=== PATIENT | male | born 1955 | race Caucasian/White ===

== ENCOUNTER → 2016-12-13 | Outpatient (CLI) | payer MEDICARE, OTHER ==
[2016-08-29 16:44] VITALS: BP 126/78
[~2016-12-13] MED LIST: ALLO300T PO; AMIO100T4 PO; AMIO150P5 IV; AMIO200T2 PO; AMLO5TAB2 PO; FURO-68 PO; FURO40TA4 PO; HYDR-2762 PO; HYDR12.58 PO; LISI10TA2 PO; LISI40TA PO; NAPR500T3 PO; PANT40TA5 PO; POTA10TA5 PO; POTA20TA4 PO; POTA20TA82 PO; PRED-220 PO; RIVA10TA PO; SOTA120T PO; SOTA80TA PO; WARF5TAB7 PO; Warfarin Sodium MC; black cherry
--- NOTE | 2016-12-13 17:10 | RAD ---
PROCEDURE MRI cervical spine without contrast. HISTORY Cervical radiculopathy for 7 years, fall, right arm radiculopathy, history of cervical fracture TECHNIQUE Sagittal and axial T2, sagittal T1, sagittal STIR images were acquired of the cervical spine. Contrast: None COMPARISON None FINDINGS There is straightening of the cervical spine, very mild reversal of the lordotic curvature centered at C6. Cervical vertebral body stature is adequate. There is advanced degenerative disc disease at C6-7, to lesser degree at C5-C6. There is mild grade 1 anterior spondylolisthesis at T1-T2, degenerative disc disease also at this level. Cervical cord caliber is within normal limits. There may be mild increased T2 and STIR signal abnormality of the cord at T1-2 although there is some artifact of the cord. There also could be very subtle T2 hyperintense signal abnormality of the cord at C4-5. There is no significant marrow edema. There is no significant abnormality of the cervical medullary junction. Not fully included, there apparently some fluid about the right sternoclavicular articulation. C2-C3: There is moderate right facet degenerative change. There is narrowing of the central canal to 9 millimeters on a developmental basis. Neural foramina are overall adequate. C3-C4: There is mild facet degenerative change. There is negligible bulge. Central canal is minimally narrowed to 8-9 millimeters mostly on a developmental basis. There is minimal narrowing of the neural foramina bilaterally mostly on a developmental basis. C4-C5: There is buckling of the ligamentum flavum. There is posterior protrusion greatest centrally. There is effacement of the ventral and dorsal subarachnoid space with impingement of the cord, central canal narrowed to 4-5 millimeters. There is mild neural foramina compromise on a developmental basis, no significant additional narrowing. C5-C6: Disc osteophyte complex and bulge and central protrusion, effacement of the ventral subarachnoid space and impingement of the cord, central canal narrowed to 5-6 millimeters. There is mild additional narrowing of the neural foramina bilaterally. C6-7: There is posterior bulge/central protrusion. There is minimal buckling of the ligamentum flavum. There is effacement of the ventral and dorsal subarachnoid space with impingement of the cord, central canal narrowed to 5-6 millimeters. There is likely moderate to severe narrowing of the left neural foramen in part from uncovertebral degenerative change, mild additional narrowing on the right. C7-T1: There is apparently very shallow protrusion in the right paracentral region. Central canal is minimally narrowed to 9-10 millimeters. There is likely mild to moderate narrowing of the left neural foramen, right neural foramen not obviously narrowed. T1-T2: This level was not included on the axial images. There is a posterior mostly central protrusion/contained extrusion, impingement upon the ventral cord with narrowing of the central canal on the order of approximately 7-8 millimeters, likely mild left and moderate to severe right neural foramina compromise. IMPRESSION 1. There is somewhat diffuse narrowing of the cervical spinal canal on a developmental basis. There is additional significant spinal stenosis with impingement of the cord as described at C4-5, to a slightly lesser degree at C5-C6 and C6-7. There is other mild spinal stenosis. There is also spinal stenosis to 7-8 millimeters at T1-2 in part by protrusion/contained extrusion. Very mild cord edema or myelomalacia is difficult to exclude such as at C4-5 and T1-2. 2. Accurate evaluation of neural foramina is somewhat compromised due to motion. There is somewhat diffuse narrowing on a developmental basis, additional narrowing as stated greatest on the left at C6-C7 and on the right at T1-2, to a lesser degree on the left at C7-T1. 3. There is advanced degenerative disc disease C6-7, to lesser degree at C5-C6. Electronically signed by: Rashid Doan MD (Dec 13, 2016 17:09:22)
== END | disposition home or self-care (01) ==
LOC: MRI 15:58
PROVIDERS: ATTEND Neurological Surgery
DX: M48.02 Spinal stenosis, cervical region (principal); M50.322 Other cervical disc degeneration at C5-C6 level; M50.323 Other cervical disc degeneration at C6-C7 level
CPT/HCPCS: 72141

== ENCOUNTER 2016-12-25 08:38 | Inpatient (IN) | payer MEDICARE, OTHER ==
--- NOTE | 2016-12-24 16:38 | PREOP HP ---
DATE OF SERVICE: 12/25/2016 HISTORY OF PRESENT ILLNESS: The patient is a pleasant 61-year-old male with numbness and weakness in both of his legs, the left leg is more involved than the right. He has right-sided greater than left-sided lower back pain as well. His problems with the lower extremities began about 6 weeks ago. They have been gradually progressive. Standing and walking are difficult for him when he uses a walker. Sitting does give him some relief. He takes [place] for pain. He tried physical therapy, which was of no benefit. He does not have significant symptoms of his arms. He says strength in his arms and hands is normal. He feels as though there is diffuse mild weakness in both of his lower extremities, but more on the left side. He notices when he bends his head up or down, he can develop sharp electrical sensations which shoot down into his body. PAST MEDICAL HISTORY: Arthritis, gout, head and neck injury, heart disease/trouble, hypertension, swelling of limbs, trauma. PAST SURGICAL HISTORY: Scalp lacerations in 2006, rotator cuff in 2007. FAMILY HISTORY: Cancer, heart problems/disease. SOCIAL HISTORY: Works in the home. . Denies substance abuse. Denies tobacco use. Drinks alcohol one to two times per month. Drinks coffee, tea, and soda. ALLERGIES: No known drug allergies. CURRENT MEDICATIONS: Amiodarone, allopurinol, lisinopril, Lasix, Klor-Con, sotalol, bacteria concentrate, naproxen, and Lasix. REVIEW OF SYSTEMS: A 12-point review of systems was obtained and was noncontributory except for that mentioned above. PHYSICAL EXAMINATION: MUSCULOSKELETAL: On examination, there was no significant tenderness in the cervical region and mild tenderness in the lumbar region with palpation of his upper extremity, normal with regard to his strength. NEUROLOGIC: Sensory testing was intact to light touch in upper and lower extremities. Reflexes are 1+, biceps absent, triceps with trace knee and ankle jerks. He has a light unsteady gait. IMAGING DATA: I reviewed the cervical MRI scan. On the study at C4-C5, the canal is narrowed to 4-5 mm. At C5-C6, there is significant narrowing of the central canal to 5-6 mm. Additionally, at C6-C7, the central canal is narrowed to 5-6 mm. At T1, there is posterior central disc protrusion, which does impinge on the ventral cord with narrowing and central canal on the order of 7-8 mm. ASSESSMENT: I believe that this significant cervical stenosis is responsible for the majority of his symptoms. I recommended cervical laminectomy. I would combine this with the posterior lateral instrumentation and fusion bilaterally. I discussed this with him in detail. He would like to proceed. We will make the arrangements early. I discussed this with him in detail. JEM HAWTHORNE MD DR: DAVE/ashley JOB#: [id number] / [id number] VERONICA
[~2016-12-25] VITALS: Ht 177.8 cm; Wt 172.4 kg
[2016-12-25] VITALS (10 sets, daily range): BP systolic 146–184; BP diastolic 62–108
[~2016-12-25 08:38] MED LIST changes: +ASCO500T2 PO; +BLACK CHERRY; +BUPIVAC MPF-EPI 0.5%-1:200000 30 ML VIAL. ONE; +CEFAZOLIN 2GM PREMIX 50 ML IV PRN; +FENTANYL PF 100 MCG/2 ML VIAL. IV PRN; +GELATIN SPONGE SIZE 100. ONE; +IV RINGERS,LACTATED 1000ML 1,000 ML IV SCH; +KETOROLAC 60 MG/2 ML SYRINGE FOR OR. ONE; +LIDOCAINE 1% 1 ML SYRINGE. ID PRN; +PROCHLORPERAZINE 10 MG/2 ML VIAL. IV PRN; +THROMBIN 20,000 UNIT SPRAY.SYRN KIT TP ONE
[2016-12-25] MEDS ORDERED: CEFAZOLIN PREMIX 2 GM/50 ML BAG. IV ONE (09:00)
[2016-12-25 10:22] LABS: HEMATOCRIT 39.3 % (39.0-53.0); HEMOGLOBIN 13.4 g/dL (13.0-17.5); MEAN CORPUSCULAR HEMOGLOBIN 29 pg (25-35); MEAN CORPUSCULAR HGB CONC 34 g/dL (31-37); MEAN CORPUSCULAR VOLUME 86 fL (79-100); RED BLOOD COUNT 4.57 x10^6/uL (4.30-5.70); WHITE BLOOD COUNT 8.8 x10^3/uL (4.0-11.0)
[2016-12-25 10:23] LABS: BASO # 0.1 x10^3/uL (0.0-0.2); BASO % 1 % (0-3); EOS % 2 % (0-3); LYMPH % 23 % (24-48); MONO % 10 % (0-9); NEUT % 66 % (31-73); PLATELET COUNT 213 x10^3/uL (140-400); RED CELL DISTRIBUTION WIDTH 15.1 % (11.5-14.5)
[2016-12-25 10:34] LABS: INR 1.1 (0.8-1.1); PROTHROMBIN TIME PATIENT 13.8 SEC (11.7-14.0)
[2016-12-25] MEDS ORDERED: ONDANSETRON PF 4 MG/2 ML VIAL. ONE (10:50)
[2016-12-25] MEDS ORDERED: PROPOFOL 20 ML IV ONE (10:50)
[2016-12-25] MEDS ORDERED: LIDOCAINE 2% 100 MG/5 ML DISP.SYRIN. ONE ×2 (10:50→16:00)
[2016-12-25] MEDS ORDERED: PROPOFOL 50 ML IV ONE ×4 (10:50→15:21)
[2016-12-25] MEDS ORDERED: 0.9 % SODIUM CHLORIDE 50 ML VIAL. IJ ONE ×2 (10:50→13:51)
[2016-12-25] MEDS ORDERED: MIDAZOLAM HCL 2 MG/2 ML VIAL. ONE (10:50)
[2016-12-25] MEDS ORDERED: REMIFENTANIL 2 MG VIAL. IV ONE ×2 (10:50→13:50)
[2016-12-25] MEDS ORDERED: DESFLURANE > 120 MINUTES IH ONE (10:50)
[2016-12-25] MEDS ORDERED: FENTANYL PF 100 MCG/2 ML VIAL. ONE (10:50)
[2016-12-25] MEDS ORDERED: MINERAL OIL/PETROLATUM,WHITE OPHTH OINT 3.5GM TUBE. ONE (10:50)
[2016-12-25] MEDS ORDERED: DEXAMETHASONE SOD PHOS 20 MG/5 ML VIAL. ONE (10:50)
[2016-12-25 10:51] LABS: CALCIUM 9.1 mg/dL (8.5-10.1); CREATININE 1.1 mg/dL (0.7-1.3); GFR 68.3; POTASSIUM 3.9 mmol/L (3.5-5.1)
[2016-12-25] MEDS ORDERED: ROCURONIUM 50 MG/5 ML VIAL. ONE (10:52)
[2016-12-25 11:03] LABS: ALBUMIN 3.8 g/dL (3.4-5.0); TOTAL BILIRUBIN 0.5 mg/dL (0.2-1.0); TOTAL PROTEIN 7.6 g/dL (6.4-8.2)
[2016-12-25] MEDS ORDERED: GLYCOPYRROLATE 1 MG/5 ML VIAL. ONE (11:42)
[2016-12-25] MEDS ORDERED: PHENYLEPHRINE in 0.9% NACL PF 1 MG/10 ML DISP.SYRIN. IV ONE (12:00)
[2016-12-25] MEDS ORDERED: EPHEDRINE PF IN SALINE 50 MG/5 ML DISP.SYRIN. IV ONE (12:29)
[2016-12-25] MEDS: BACITRACIN 50,000 UNIT in IV NORMAL SALINE 1000ML BAG 1,000 ML IRR ONE ×2 (12:35→12:40)
[2016-12-25] MEDS ORDERED: ZOLPIDEM 5 MG TABLET. PO PRN (14:45)
[2016-12-25] MEDS ORDERED: CALCIUM CARBONATE 500 MG TAB.CHEW PO PRN (14:45)
[2016-12-25] MEDS ORDERED: ONDANSETRON PF 4 MG/2 ML VIAL. IV PRN (14:45)
[2016-12-25] MEDS ORDERED: MAGNESIUM HYDROXIDE 2,400 MG/30 ML ORAL.SUSP. PO PRN (14:45)
[2016-12-25] MEDS ORDERED: DIPHENHYDRAMINE 50 MG/ML VIAL IV PRN (14:45)
[2016-12-25] MEDS ORDERED: FENTANYL PF 100 MCG/2 ML VIAL. IV PRN (14:45)
[2016-12-25] MEDS ORDERED: MAG HYDROX/ALUMINUM HYD/SIMETH 30 ML ORAL.SUSP PO PRN (14:45)
[2016-12-25] MEDS ORDERED: DIPHENHYDRAMINE HCL 25 MG CAPSULE PO PRN (14:45)
[2016-12-25] MEDS ORDERED: 0.9 % SODIUM CHLORIDE 10 ML DISP.SYRIN. IV PRN (14:45)
[2016-12-25] MEDS ORDERED: ACETAMINOPHEN 325 MG TABLET. PO PRN (14:45)
[2016-12-25] MEDS ORDERED: OXYCODONE/APAP 5/325 TABLET. PO PRN (14:45)
[2016-12-25] MEDS ORDERED: FENTANYL PF 250 MCG/5 ML VIAL. ONE (15:45)
[2016-12-25] MEDS ORDERED: REMIFENTANIL 1 MG VIAL. IV ONE (15:46)
[2016-12-25] MEDS: FUROSEMIDE 40 MG TABLET PO SCH (16:00)
[2016-12-25] MEDS: POTASSIUM CL 20MEQ D5-0.45NACL 1,000 ML IV SCH (16:00)
[2016-12-25] MEDS: MORPHINE SULFATE 2 MG/ML DISP.SYRIN. IV PRN ×3 (16:47→17:17)
[2016-12-25] MEDS: FENTANYL PF 100 MCG/2 ML VIAL. IV PRN ×5 (16:53→19:49)
[2016-12-25] MEDS: HYDROMORPHONE 2 MG/ML VIAL. IV PRN ×4 (17:30→18:05)
[2016-12-25] MEDS: CEFAZOLIN SODIUM 1 GM in IV NORMAL SALINE 50ML 50 ML IV SCH (19:49)
[2016-12-25] MEDS: POTASSIUM CHLORIDE 20 MEQ TABLET.ER. PO SCH (21:34)
[2016-12-25] MEDS: DOCUSATE SODIUM 100 MG CAPSULE PO SCH (21:34)
[2016-12-25] MEDS: SOTALOL 80 MG TABLET. PO SCH (21:35)
[2016-12-25] MEDS: ALLOPURINOL 300 MG TABLET. PO SCH (21:36)
[2016-12-25] MEDS: OXYCODONE/APAP 5/325 TABLET. PO PRN (21:41)
--- NOTE | 2016-12-25 23:35 | OP ---
DATE OF SURGERY: 12/25/2016 PREOPERATIVE DIAGNOSES: Cervical spinal stenosis C4-C5, C5-C6, C6-C7 with cervical myelopathy. POSTOPERATIVE DIAGNOSES: Cervical spinal stenosis C4-C5, C5-C6, C6-C7 with cervical myelopathy. OPERATION PERFORMED: Cervical laminectomy, C4, C5, C6 and superior half of C7 with posterior lateral mass instrumentation, C4-C5, C6-C7 and posterolateral/facet fusion C4 through C7. The operation was done with multimodality monitoring including SSEP, motor evoked potentials, EMG monitoring, fluoroscopy was used and microscopic dissection. SURGEON: Sylvester Hawthorne M.D. DENTAL SERVICE TECHNICIAN: Honorio Ervin M.D., assisted with the exposure, the decompression as well as the closure. OPERATIVE INDICATIONS: The patient is a very pleasant 61-year-old man who over the last several months has developed increasing weakness in his lower extremities and problems with gait, which have become very significant over the last few weeks. On imaging studies, there were two abnormalities of significance. The first was diffuse cervical stenosis, which was very significant at C5-C6 and C6-C7 and as well at T1-T2, there is posterior disc protrusion which does narrow the spinal canal. However, this is not nearly as severe as his cervical stenosis. At this point, I recommended cervical laminectomy. I spoke with the family, discussed the possibility in the future for having to perform thoracic disc excision, but I felt that the safest and most prudent course at this point would be to limit the surgery to the most significant abnormalities which is in the posterior cervical region and I discussed this with the family in detail. I outlined the surgery and the risks involved and outlined the technique of the operation and they wished for me to go ahead. DESCRIPTION OF PROCEDURE: Following general endotracheal anesthesia, the patient was positioned prone in Duenas pins. We were careful to avoid any pressure points. He was secured and the posterior cervical region was then clipped, prepped and draped in the standard fashion. CHRISTIAN hose and AV impulse boots were applied for DVT prophylaxis. A microscope was draped, fluoroscopy was draped and brought into the field. Monitoring was established. Ancef 2 grams was given less than 1 hour prior to initiation of the surgery. Using fluoroscopic guidance, a midline posterior incision was made which extended from C3 through C7-T1. I dissected down through the skin and subcutaneous tissue and reflected the paraspinal muscles and placed self retaining retractors. Using the high speed air drill, I drilled in the posterior aspect of the lateral masses of C4, C5, C6, and C7 and then used the hand drill and drilled the lateral masses using standard coordinates. I then placed 10 mm screws using [employer] system and placed a 65 mm jarek in the left and 70 mm jarek in the right and then nuts were applied and the region was torqued. I excoriated the lateral masses. I then brought in the microscope and using the microscope beginning inferiorly and working superiorly, I drilled and thinned the lamina of the C6, C5 and C4 and then grasped and then peeled this up and lifted these away very carefully. Using the 1 and 2 mm micro Kerrisons to trim the ligament and gently decompress. I then thinned the superior half of C7 with a high speed air drill and then trimmed this away inferiorly and fully decompressed the entire region. Following this, I did use bone wax as well as bipolar cautery and obtained excellent hemostasis. I closed the wound. After this happened, I laid Gelfoam over the exposed muscle surface, but hemostasis was perfect prior to placement of the Gelfoam. I did lay a bit of Gelfoam in the lateral gutters inferiorly and I trimmed the lamina and packed this into the facets bilaterally of C4-C5, C5-C6 and C6-C7. The hardware had been torqued. The hemostasis was excellent. I closed the muscle in separate layers, then I closed the fascia and the subcutaneous tissue in layers. The skin was closed with skin qi. The operation went very well and in the recovery when the patient awakened, he had normal strength in his extremities. I was quite pleased with the surgery. SYLVESTER HAWTHORNE MD DR: DAVE/ashley JOB#: [id number] / [id number] VERONICA
[2016-12-26] MEDS: CYCLOBENZAPRINE 10 MG TABLET. PO PRN (01:24)
[2016-12-26] MEDS: CEFAZOLIN SODIUM 1 GM in IV NORMAL SALINE 50ML 50 ML IV SCH ×2 (01:26→12:46)
[2016-12-26] MEDS: OXYCODONE/APAP 5/325 TABLET. PO PRN ×2 (01:45→05:36)
[2016-12-26 03:25] VITALS: BP 180/68
[2016-12-26] MEDS: FENTANYL PF 100 MCG/2 ML VIAL. IV PRN (05:30)
[2016-12-26] MEDS: POTASSIUM CL 20MEQ D5-0.45NACL 1,000 ML IV SCH ×2 (05:31→17:55)
[2016-12-26 07:00] VITALS: BP 112/76
[2016-12-26] MEDS: ASCORBIC ACID 500 MG TABLET PO SCH (10:13)
[2016-12-26] MEDS: FUROSEMIDE 40 MG TABLET PO SCH ×2 (10:13→17:51)
[2016-12-26] MEDS: LISINOPRIL 20 MG TABLET PO SCH (10:13)
[2016-12-26] MEDS: DOCUSATE SODIUM 100 MG CAPSULE PO SCH ×2 (10:13→21:03)
[2016-12-26] MEDS: POTASSIUM CHLORIDE 20 MEQ TABLET.ER. PO SCH ×2 (10:13→21:03)
[2016-12-26] MEDS: AMIODARONE HCL 100 MG TABLET PO SCH (10:14)
[2016-12-26] MEDS: SOTALOL 80 MG TABLET. PO SCH ×2 (10:15→21:03)
[2016-12-26 11:07] VITALS: BP 117/55
--- NOTE | 2016-12-26 11:34 | PDOC ---
PROGRESS NOTES Subjective Subjective up in chair c/o neck and incisional pain Objective Objective Vital Signs Date Time Temp Pulse Resp B/P Pulse Ox O2 Delivery O2 Flow Rate FiO2 12/26/16 11:07 98.5 76 22 117/55 98 Room Air 98.5 12/25/16 21:41 2.0 Intake and Output 12/26/16 07:00 Intake Total 3022 ml Output Total 2350 ml Balance 672 ml Intake Oral 875 ml IV Total 1150 ml Other 997 ml Output Urine Total 2050 ml Estimated Blood Loss 300 ml # Voids 2 Physical Exam General: Alert, Oriented X3, Cooperative MUSCULOSKELETAL: Other (GERBER) Skin: Other (dressing dry and intact) Assessment Assessment Problems Medical Problems: (1) Cervical spinal stenosis Status: Acute Plan Plan of Care encouraged increased activity as tolerated PT Consult Dr. Jimenes May need rehab Comment Review of Relevant I have reviewed the following items hubert (where applicable) has been applied. Labs Laboratory Tests Test 12/25/16 09:18 White Blood Count 8.8x10^3/uL (4.0-11.0) Red Blood Count 4.57x10^6/uL (4.30-5.70) Hemoglobin 13.4g/dL (13.0-17.5) Hematocrit 39.3% (39.0-53.0) Mean Corpuscular Volume 86fL (79-100) Mean Corpuscular Hemoglobin 29pg (25-35) Mean Corpuscular Hemoglobin Concent 34g/dL (31-37) Red Cell Distribution Width 15.1% (11.5-14.5) Platelet Count 213x10^3/uL (140-400) Neutrophils (%) (Auto) 66% (31-73) Lymphocytes (%) (Auto) 23% (24-48) Monocytes (%) (Auto) 10% (0-9) Eosinophils (%) (Auto) 2% (0-3) Basophils (%) (Auto) 1% (0-3) Neutrophils # (Auto) 5.8x10^3uL (1.8-7.7) Lymphocytes # (Auto) 2.0x10^3/uL (1.0-4.8) Monocytes # (Auto) 0.9x10^3/uL (0.0-1.1) Eosinophils # (Auto) 0.1x10^3/uL (0.0-0.7) Basophils # (Auto) 0.1x10^3/uL (0.0-0.2) Prothrombin Time 13.8SEC (11.7-14.0) Prothromb Time International Ratio 1.1 (0.8-1.1) Activated Partial Thromboplast Time 35SEC (24-38) Nasal Screen MRSA (PCR) Negative (Negative) Sodium Level 144mmol/L (136-145) Potassium Level 3.9mmol/L (3.5-5.1) Chloride Level 105mmol/L (98-107) Carbon Dioxide Level 26mmol/L (21-32) Anion Gap 13 (6-14) Blood Urea Nitrogen 26mg/dL (8-26) Creatinine 1.1mg/dL (0.7-1.3) Estimated GFR (Cockcroft-Gault) 68.3 BUN/Creatinine Ratio 24 (6-20) Glucose Level 123mg/dL (70-99) Calcium Level 9.1mg/dL (8.5-10.1) Total Bilirubin 0.5mg/dL (0.2-1.0) Aspartate Amino Transf (AST/SGOT) 23U/L (15-37) Alanine Aminotransferase (ALT/SGPT) 28U/L (16-63) Alkaline Phosphatase 72U/L (46-116) Total Protein 7.6g/dL (6.4-8.2) Albumin 3.8g/dL (3.4-5.0) Albumin/Globulin Ratio 1.0 (1.0-1.7) Medications Current Medications Fentanyl Citrate (Fentanyl 2ml Vial) 25 mcg PRN Q5MIN PRN IV MILD PAIN; Start 12/25/16 at 07:00; Stop 12/26/16 at 06:59; Status DC Fentanyl Citrate (Fentanyl 2ml Vial) 50 mcg PRN Q5MIN PRN IV MODERATE PAIN Last administered on 12/25/16 17:24; Start 12/25/16 at 07:00; Stop 12/26/16 at 06:59; Status DC Morphine Sulfate 1 mg 1 mg PRN Q10MIN PRN IV SEVERE PAIN Last administered on 17:17; Start 12/25/16 at 07:00; Stop 12/26/16 at 06:59; Status DC Lactated Ringer's (Iv Lactated Ringers) 1,000 ml @ 0 mls/hr Q0M IV ; Start at 07:00; Stop 12/25/16 at 18:59; Status DC Lidocaine HCl 2 ml 1X PRN PRN ID IV START; Start 12/25/16 at 07:00; Stop at 06:59; Status DC Hydromorphone HCl (Dilaudid) 0.5 mg PRN Q10MIN PRN IV SEVERE PAIN, Second choice Last administered on 12/25/16 18:05; Start 12/25/16 at 07:00; Stop 12/26 at 06:59; Status DC Prochlorperazine Edisylate 5 mg 5 mg PACU PRN PRN IV NAUSEA; Start 12/25/16 at 07:00; Stop 12/26/16 at 06:59; Status DC Bacitracin 22216 unit/Sodium Chloride 1,000 ml @ 1,000 mls/hr 1X PERIOP ONCE IRR Last administered on 12/25/16 12:40; Start 12/25/16 at 06:00; Stop at 06:59; Status DC Cefazolin Sodium/ Dextrose (Ancef 2gm Premix) 50 ml @ 100 mls/hr 1X PREOP PRN IV PRIOR TO PROCEDURE; Start 12/25/16 at 06:00; Stop 12/25/16 at 18:00; Status DC Thrombin 20,000 unit STK-MED ONCE TP Last administered on 12/25/16 12:40; Start 12/25/16 at 07:42; Stop 12/25/16 at 07:43; Status DC Gelatin (Gelfoam Size 100) 1 each STK-MED ONCE .ROUTE Last administered on 12:40; Start 12/25/16 at 07:42; Stop 12/25/16 at 07:43; Status DC Ketorolac Tromethamine (Toradol For Or Only) 60 mg STK-MED ONCE .ROUTE Last administered on 12/25/16 12:40; Start 12/25/16 at 07:42; Stop 12/25/16 at 07:43 ; Status DC Bupivacaine HCl/ Epinephrine Bitart (Sensorcain-Mpf Epi 0.5%-[id number]) 30 ml STK -MED ONCE .ROUTE Last administered on 12/25/16t 12:40; Start 12/25/16 at 07:42 ; Stop 12/25/16 at 07:43; Status DC Dexamethasone Sodium Phosphate (Decadron) 20 mg STK-MED ONCE .ROUTE ; Start at 10:50; Stop 12/25/16 at 10:51; Status DC Ondansetron HCl 4 mg 4 mg STK-MED ONCE .ROUTE ; Start 12/25/16 at 10:50; Stop at 10:51; Status DC Propofol 50 ml @ As Directed STK-MED ONCE IV ; Start 12/25/16 at 10:50; Stop at 10:51; Status DC Propofol (Diprivan) 20 ml @ As Directed STK-MED ONCE IV ; Start 12/25/16 at 10: 50; Stop 12/25/16 at 10:51; Status DC Lidocaine HCl 100 mg STK-MED ONCE .ROUTE ; Start 12/25/16 at 10:50; Stop at 10:51; Status DC Multi-Ingred Cream/Lotion/Oil/ Oint (Artificial Tears Eye Oint) 7 servando STK-MED ONCE .ROUTE ; Start 12/25/16 at 10:50; Stop 12/25/16 at 10:51; Status DC Sodium Chloride (Sodium Chloride) 50 ml STK-MED ONCE IJ ; Start 12/25/16 at 10: 50; Stop 12/25/16 at 10:51; Status DC Desflurane (Suprane) 90 ml STK-MED ONCE IH ; Start 12/25/16 at 10:50; Stop 12/25 at 10:51; Status DC Midazolam HCl (Versed) 2 mg STK-MED ONCE .ROUTE ; Start 12/25/16 at 10:50; Stop 12/25/16 at 10:51; Status DC Remifentanil HCl (Ultiva) 2 mg STK-MED ONCE IV ; Start 12/25/16 at 10:50; Stop 12/25/16 at 10:51; Status DC Fentanyl Citrate (Fentanyl 2ml Vial) 100 mcg STK-MED ONCE .ROUTE ; Start at 10:50; Stop 12/25/16 at 10:51; Status DC Rocuronium [place] (Zemuron) 50 mg STK-MED ONCE .ROUTE ; Start 12/25/16 at 10:52 ; Stop 12/25/16 at 10:53; Status DC Glycopyrrolate (Robinul) 1 mg STK-MED ONCE .ROUTE ; Start 12/25/16 at 11:42; Stop 12/25/16 at 11:43; Status DC Phenylephrine HCl 1 mg STK-MED ONCE IV ; Start 12/25/16 at 12:00; Stop 12/25/16 at 12:01; Status DC Ephedrine Sulfate 50 mg 50 mg STK-MED ONCE IV ; Start 12/25/16 at 12:29; Stop at 13:10; Status DC Propofol (Diprivan) 50 ml @ As Directed STK-MED ONCE IV ; Start 12/25/16 at 13: 40; Stop 12/25/16 at 13:41; Status DC Remifentanil HCl (Ultiva) 2 mg STK-MED ONCE IV ; Start 12/25/16 at 13:50; Stop 12/25/16 at 13:51; Status DC Sodium Chloride (Sodium Chloride) 50 ml STK-MED ONCE IJ ; Start 12/25/16 at 13: 51; Stop 12/25/16 at 13:52; Status DC Allopurinol (Zyloprim) 300 mg QHS PO Last administered on 12/25/16 21:36; Start 12/25/16 at 21:00 Amiodarone HCl (Cordarone) 100 mg DAILY PO Last administered on 12/26/16 10:14 ; Start 12/26/16 at 09:00 Ascorbic Acid (Vitamin C) 500 mg DAILY PO Last administered on 12/26/16 10:13 ; Start 12/26/16 at 09:00 Furosemide (Lasix) 40 mg [id number] PO Last administered on 12/26/16 10:13; Start 12/25/16 at 16:00 Lisinopril (Prinivil) 20 mg DAILY PO Last administered on 12/26/16 10:13; Start 12/26/16 at 09:00 Sotalol HCl (Betapace) 80 mg BID PO Last administered on 12/26/16 10:15; Start 12/25/16 at 21:00; Stop 12/26/16 at 10:19; Status DC Potassium Chloride (Klor-Con) 20 meq BID PO Last administered on 12/26/16 10: 13; Start 12/25/16 at 21:00 Acetaminophen (Tylenol) 650 mg PRN Q6HRS PRN PO MILD PAIN / TEMP; Start at 14:45 Al Hydroxide/Mg Hydroxide (Mylanta Plus Xs) 30 ml PRN Q3HRS PRN PO HEARTBURN / GAS; Start 12/25/16 at 14:45 Calcium Carbonate/ Glycine (Tums) 500 mg PRN Q3HRS PRN PO INDIGESTION; Start at 14:45 Diphenhydramine HCl (Benadryl) 25 mg PRN Q6HRS PRN PO ITCHING; Start 12/25/16 at 14:45 Diphenhydramine HCl (Benadryl) 25 mg PRN Q6HRS PRN IV ITCHING; Start 12/25/16 at 14:45 Zolpidem Tartrate (Ambien) 5 mg PRN QHS PRN PO INSOMNIA, MAY REPEAT IN 1HR; Start 12/25/16 at 14:45 Sodium Chloride 3 ml 3 ml QSHIFT PRN IV AFTER MEDS AND BLOOD DRAWS; Start 12/25 at 14:45 Potassium Chloride/Dextrose/ Sod Cl (KCl 20 Meq In D5W-1/2 NS) 1,000 ml @ 75 mls/hr [id number] IV Last administered on 12/26/16 05:31; Start 12/25/16 at 16:00 Oxycodone/ Acetaminophen (Percocet 5/325) 1 tab PRN Q4HRS PRN PO MILD PAIN, 1ST CHOICE; Start 12/25/16 at 14:45 Oxycodone/ Acetaminophen (Percocet 5/325) 2 tab PRN Q4HRS PRN PO MODERATE PAIN , SEVERE PAIN Last administered on 12/26/16 05:36; Start 12/25/16 at 14:45 Cyclobenzaprine HCl (Flexeril) 10 mg PRN TID PRN PO MUSCLE SPASMS Last administered on 12/26/16 01:24; Start 12/25/16 at 14:45 Docusate Sodium (Colace) 100 mg BID PO Last administered on 12/26/16 10:13; Start 12/25/16 at 21:00 Magnesium Hydroxide (Milk Of Magnesia) 2,400 mg PRN Q12HR PRN PO CONSTIPATION; Start 12/25/16 at 14:45 Ondansetron HCl 4 mg 4 mg PRN Q6HRS PRN IV NAUESA, 1ST CHOICE; Start 12/25/16 at 14:45 Cefazolin Sodium/ Sodium Chloride (Ancef/Iv Sodium Chloride 0.9% 50ml) 50 ml @ 100 mls/hr Q8H IV Last administered on 12/26/16 01:26; Start 12/25/16 at 18:00 ; Stop 12/26/16 at 10:29; Status DC Fentanyl Citrate (Fentanyl 2ml Vial) 25 mcg PRN Q1HR PRN IV PAIN; Start at 14:45 Fentanyl Citrate 50 mcg 50 mcg PRN Q1HR PRN IV PAIN Last administered on 05:30; Start 12/25/16 at 14:45 Propofol 50 ml @ As Directed STK-MED ONCE IV ; Start 12/25/16 at 14:51; Stop at 14:52; Status DC Propofol (Diprivan) 50 ml @ As Directed STK-MED ONCE IV ; Start 12/25/16 at 15: 21; Stop 12/25/16 at 15:22; Status DC Fentanyl Citrate (Fentanyl 5ml Vial) 250 mcg STK-MED ONCE .ROUTE ; Start at 15:45; Stop 12/25/16 at 15:46; Status DC Remifentanil HCl (Ultiva) 1 mg STK-MED ONCE IV ; Start 12/25/16 at 15:46; Stop 12/25/16 at 15:47; Status DC Lidocaine HCl 100 mg STK-MED ONCE .ROUTE ; Start 12/25/16 at 16:00; Stop at 16:01; Status DC Cefazolin Sodium/ Dextrose (Ancef 2gm Premix) 2 gm STK-MED ONCE IV ; Start 12/25 at 09:00; Stop 12/26/16 at 08:45; Status DC Sotalol HCl (Betapace) 40 mg BID PO ; Start 12/26/16 at 21:00 Active Scripts Active Reported Hydrocodone-Apap 7.5-325 (Hydrocodone Bit/Acetaminophen) 1 Each Tablet 2 Tab PO PRN Q6HRS PRN Vitamin C (Ascorbic Acid) 500 Mg Tablet 500 Mg PO DAILY [[place]] 1 Tab DAILY Xarelto (Rivaroxaban) 10 Mg Tablet Unknown Dose PO BID Amiodarone Hcl 100 Mg Tablet 100 Mg PO DAILY Next dose 08/30/16 AM Sotalol (Sotalol Hcl) 80 Mg Tablet 0.5 Tab PO BID Next dose 08/30/16 in the AM Allopurinol 300 Mg Tablet 1 Tab PO QHS Not given today Lisinopril 10 Mg Tablet 2 Tab PO DAILY Next dose 08/30/16 Potassium Chloride 20 Meq Tablet.er 20 Meq PO BID Next dose 08/30/16 Furosemide 40 Mg Tablet 1 Tab PO BID Next dose 08/29/16 at 9:00pm Naproxen 500 Mg Tablet 0.5 Tab PO BID Next dose 08/29/16 at 9:00pm Vitals/I & O Vital Sign - Last 24 Hours 12/25/16 12/25/16 12/25/16 12/25/16 16:25 16:25 16:40 16:47 Temp 98.1 98.1 Pulse 86 82 Resp 16 18 18 B/P 150/61 164/85 Pulse Ox 98 98 99 O2 Delivery Mask Simple Mask Simple Mask Simple Mask O2 Flow Rate 10 10 10 10.0 12/25/16 12/25/16 12/25/16 12/25/16 16:53 16:55 16:58 17:00 Pulse 78 Resp 16 18 16 B/P 173/89 Pulse Ox 99 95 99 O2 Delivery Simple Mask Room Air Simple Mask Nasal Cannula O2 Flow Rate 10.0 10.0 2 12/25/16 12/25/16 12/25/16 12/25/16 17:07 17:10 17:11 17:15 Temp 97.9 97.9 Pulse 76 74 Resp 18 16 16 20 B/P 159/83 156/80 Pulse Ox 99 92 99 99 O2 Delivery Simple Mask Nasal Cannula Room Air Nasal Cannula O2 Flow Rate 10.0 2 10.0 2.0 12/25/16 12/25/16 12/25/16 12/25/16 17:17 17:24 17:25 17:30 Pulse 68 Resp 16 18 18 18 B/P 167/78 Pulse Ox 96 96 95 96 O2 Delivery Nasal Cannula Nasal Cannula Nasal Cannula Nasal Cannula O2 Flow Rate 2.0 2.0 2.0 12/25/16 12/25/16 12/25/16 12/25/16 17:30 17:40 17:40 17:45 Temp 98.1 97.1 98.1 97.1 Pulse 69 72 74 Resp 20 16 16 20 B/P 164/62 157/84 146/85 Pulse Ox 93 96 95 94 O2 Delivery Nasal Cannula Nasal Cannula Nasal Cannula Nasal Cannula O2 Flow Rate 2.0 2.0 2 18.0 12/25/16 12/25/16 12/25/16 12/25/16 17:55 17:55 18:00 18:05 Temp 97.1 97.1 Pulse 97 83 Resp 16 16 B/P 166/86 167/108 Pulse Ox 96 97 96 O2 Delivery Nasal Cannula Nasal Cannula Nasal Cannula O2 Flow Rate 2.0 2 2.0 12/25/16 12/25/16 12/25/16 12/25/16 18:15 18:45 19:15 19:30 Pulse 55 72 70 B/P 168/86 175/94 171/97 O2 Delivery Nasal Cannula O2 Flow Rate 2.0 12/25/16 12/25/16 12/25/16 12/25/16 19:30 19:49 20:15 20:20 Pulse 84 Resp 16 B/P 168/85 O2 Delivery Nasal Cannula Nasal Cannula O2 Flow Rate 2.0 2.0 2.0 12/25/16 12/25/16 12/25/16 12/25/16 21:15 21:35 21:41 23:19 Pulse 62 79 Resp 16 18 B/P 184/62 166/86 174/84 O2 Delivery Nasal Cannula O2 Flow Rate 2.0 12/26/16 12/26/16 12/26/16 12/26/16 01:45 03:25 05:30 05:36 Temp 97.9 97.9 Pulse 78 Resp 16 18 16 16 B/P 180/68 Pulse Ox 92 O2 Delivery Room Air Room Air Room Air Room Air 12/26/16 12/26/16 12/26/16 12/26/16 06:00 06:36 07:00 07:50 Temp 98.0 98.0 Pulse 72 Resp 16 16 24 B/P 112/76 Pulse Ox 95 O2 Delivery Room Air Room Air Room Air Room Air 12/26/16 12/26/16 12/26/16 12/26/16 10:13 10:14 10:15 11:07 Temp 98.5 98.5 Pulse 72 72 72 76 Resp 22 B/P 112/76 112/76 112/76 117/55 Pulse Ox 98 O2 Delivery Room Air Intake and Output 12/25/16 12/25/16 12/26/16 15:00 23:00 07:00 Intake Total 50 ml 1175 ml 1797 ml Output Total 700 ml 1650 ml Balance 50 ml 475 ml 147 ml RAKESH ARROYO APRN Dec 26, 2016 11:34
[2016-12-26] MEDS ORDERED: OXYCODONE/APAP 7.5/325 TABLET. PO PRN (11:45)
[2016-12-26] MEDS: OXYCODONE/APAP 7.5/325 TABLET. PO PRN (12:46)
[2016-12-26 15:59] VITALS: BP 130/61
[2016-12-26] MEDS ORDERED: BISACODYL 5 MG TABLET.DR. PO PRN (18:45)
[2016-12-26 19:00] VITALS: BP 168/64
[2016-12-26] MEDS ORDERED: BACLOFEN 10 MG TABLET PO PRN (19:00)
[2016-12-26] MEDS: ALLOPURINOL 300 MG TABLET. PO SCH (21:03)
[2016-12-26 23:00] VITALS: BP 215/89
[2016-12-27] MEDS: OXYCODONE/APAP 7.5/325 TABLET. PO PRN ×4 (01:55→21:39)
--- NOTE | 2016-12-27 02:05 | CONS ---
DATE OF CONSULTATION: LOCATION: He is in room 442. ATTENDING PHYSICIAN: Dr. Fernandez. The patient was seen at the request of Dr. Fernandez for rehab evaluation. 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 He feels like his legs give out sometime, sitting does give him some relief. He takes hydrocodone for pain. He had tried physical therapy without much help. He does not have significant symptoms in his arms other than he had old left rotator cuff repair done. The patient noted that when he extends his neck or flexes his neck, he developed sharp electrical sensation that shoots down into his whole body. PAST MEDICAL HISTORY: The patient with known degenerative joint disease, gouty arthritis, head and neck surgery, coronary artery disease, hypertension, edema of his lower extremities, status post scalp laceration 2006, rotator cuff repair in 2007. FAMILY HISTORY: Carcinoma and heart problems. SOCIAL HISTORY: The patient has ____. Alcohol takes socially. ALLERGIES: He is not known allergic to any medication. The patient since admission was noted with cervical spinal stenosis with central canal narrowing to 4.5 mm at C4-C5, 5-6 mm at C5-C6 and C6-C7 and also at T1-11, there is a posterior disk protrusion which does impinged on the ventral cord with narrowing and central canal stenosis is now drops 7-8 mm. He underwent cervical decompression laminectomy done on 12/25/2016. He was admitted on 12/24/2016. He admits neck and shoulder area of soreness. He admits some lower back pain. He admits some numbness in his right little finger. The patient still admits some weakness in his right lower extremity and he is afraid of getting up and walking, but he has been participating in physical therapy and he felt like he is getting up with less effort this afternoon. Patient required standby assistance for rolling to the left side, minimal assistance supine to sit, contact guard assistance with transfers, sit to stand, using a roller walker and he walked with a shuffling gait, increased ____ and decreased foot clearance just at bedside. The patient walked for about 1-10 feet. PHYSICAL EXAMINATION: The patient on physical examination today revealed a middle-aged male. He is obese. He is alert, oriented to time, place, person and circumstance and follows commands appropriately. He is receiving IV fluids. He had diffuse tenderness to palpation over cervical paraspinal and upper trapezius muscle area. The patient had a soft cervical collar in place. He also had tenderness to palpation over sacroiliac joint area bilaterally. He had 4+/5 grade muscle strength overall, deep tendon reflexes are 1-2+ and symmetrical maybe slightl exaggerated at both knees and absent left ankle jerk. He had significant limitation of left shoulder external rotation and some limitation of left shoulder abduction. The patient had crepitus on range of motion of both knee joints with knee joint effusion. He had decreased touch and pinprick sensation over right little finger palmar aspect. Negative Tinel's sign over ulnar nerve at the wrist and elbow. He had equal perception of touch and pinprick sensation in his lower extremities. He requires assistance in coming to a standing position and he made a few steps with a roller walker with a wide-based gait. He had dressing to his cervical spine area. Other than that, his skin is intact. ASSESSMENT: Mobility and self-care limitation in a patient status post cervical decompression laminectomy for treatment of cervical spinal stenosis with some neck pain and still some hyperreflexia at his knees, degenerative joint disease and degenerative disk disease of lumbar vertebrae without any clinical evidence of obvious lumbar radiculopathy, degenerative joint disease of both knees without any significant pain, frozen shoulder left, status post left rotator cuff repair in the past, obesity, history of hypertension, coronary artery disease, gouty arthritis, head and neck injury. RECOMMENDATIONS: Agree with the plans for physical therapy and occupational therapy to arrange for a screen for transfer to rehab unit of his choice like [facility], at [facility] or [facility] whatever he feels comfortable, to arrange for transfer when he is medically stable. Dr. Fernandez, appreciate asking me to participate in the care of this interesting patient. I will be glad to follow him with you as needed for his rehabilitation. CARLTON SANTOS MD DR: JANINA/ashley JOB#: [id number] / [id number]
[2016-12-27 03:00] VITALS: BP 162/80
[2016-12-27 07:00] VITALS: BP 155/72
[2016-12-27] MEDS: DOCUSATE SODIUM 100 MG CAPSULE PO SCH ×2 (08:29→21:34)
[2016-12-27] MEDS: ASCORBIC ACID 500 MG TABLET PO SCH (08:30)
[2016-12-27] MEDS: AMIODARONE HCL 100 MG TABLET PO SCH (08:30)
[2016-12-27] MEDS: FUROSEMIDE 40 MG TABLET PO SCH ×2 (08:30→16:06)
[2016-12-27] MEDS: LISINOPRIL 20 MG TABLET PO SCH (08:30)
[2016-12-27] MEDS: POTASSIUM CHLORIDE 20 MEQ TABLET.ER. PO SCH ×2 (08:31→21:34)
[2016-12-27] MEDS: SOTALOL 80 MG TABLET. PO SCH ×2 (08:31→21:35)
[2016-12-27] MEDS: POTASSIUM CL 20MEQ D5-0.45NACL 1,000 ML IV SCH (08:43)
--- NOTE | 2016-12-27 10:13 | PDOC ---
PROGRESS NOTES Subjective Subjective He admits soreness in his neck. Objective Objective Vital Signs Date Time Temp Pulse Resp B/P Pulse Ox O2 Delivery O2 Flow Rate FiO2 12/27/16 08:44 97 Room Air 12/27/16 08:31 58 155/72 12/27/16 07:00 97.7 18 97.7 12/25/16 21:41 2.0 Intake and Output 12/27/16 07:00 Intake Total 1665 ml Output Total 1000 ml Balance 665 ml Intake Oral 240 ml IV Total 525 ml Other 900 ml Output Urine Total 1000 ml # Voids 3 Physical Exam Physical Exam He is sitting up in bedside chair and moving slowly and he is passing gases and voiding. Assessment Assessment Problems Medical Problems: (1) Cervical spinal stenosis Status: Acute Plan Plan of Care He has not decided on going to rehab yet and to see how he does in the next day or so and social service is screening him for transfer to rehab unit if he agrees. Comment Review of Relevant I have reviewed the following items hubert (where applicable) has been applied. Medications Current Medications Fentanyl Citrate (Fentanyl 2ml Vial) 25 mcg PRN Q5MIN PRN IV MILD PAIN; Start 12/25/16 at 07:00; Stop 12/26/16 at 06:59; Status DC Fentanyl Citrate (Fentanyl 2ml Vial) 50 mcg PRN Q5MIN PRN IV MODERATE PAIN Last administered on 12/25/16 17:24; Start 12/25/16 at 07:00; Stop 12/26/16 at 06:59; Status DC Morphine Sulfate 1 mg 1 mg PRN Q10MIN PRN IV SEVERE PAIN Last administered on 17:17; Start 12/25/16 at 07:00; Stop 12/26/16 at 06:59; Status DC Lactated Ringer's (Iv Lactated Ringers) 1,000 ml @ 0 mls/hr Q0M IV ; Start at 07:00; Stop 12/25/16 at 18:59; Status DC Lidocaine HCl 2 ml 1X PRN PRN ID IV START; Start 12/25/16 at 07:00; Stop at 06:59; Status DC Hydromorphone HCl (Dilaudid) 0.5 mg PRN Q10MIN PRN IV SEVERE PAIN, Second choice Last administered on 12/25/16 18:05; Start 12/25/16 at 07:00; Stop 12/26 at 06:59; Status DC Prochlorperazine Edisylate 5 mg 5 mg PACU PRN PRN IV NAUSEA; Start 12/25/16 at 07:00; Stop 12/26/16 at 06:59; Status DC Bacitracin 17127 unit/Sodium Chloride 1,000 ml @ 1,000 mls/hr 1X PERIOP ONCE IRR Last administered on 12/25/16 12:40; Start 12/25/16 at 06:00; Stop at 06:59; Status DC Cefazolin Sodium/ Dextrose (Ancef 2gm Premix) 50 ml @ 100 mls/hr 1X PREOP PRN IV PRIOR TO PROCEDURE; Start 12/25/16 at 06:00; Stop 12/25/16 at 18:00; Status DC Thrombin 20,000 unit STK-MED ONCE TP Last administered on 12/25/16 12:40; Start 12/25/16 at 07:42; Stop 12/25/16 at 07:43; Status DC Gelatin (Gelfoam Size 100) 1 each STK-MED ONCE .ROUTE Last administered on 12:40; Start 12/25/16 at 07:42; Stop 12/25/16 at 07:43; Status DC Ketorolac Tromethamine (Toradol For Or Only) 60 mg STK-MED ONCE .ROUTE Last administered on 12/25/16 12:40; Start 12/25/16 at 07:42; Stop 12/25/16 at 07:43 ; Status DC Bupivacaine HCl/ Epinephrine Bitart (Sensorcain-Mpf Epi 0.5%-1:808992) 30 ml STK -MED ONCE .ROUTE Last administered on 12/25/16 12:40; Start 12/25/16 at 07:42 ; Stop 12/25/16 at 07:43; Status DC Dexamethasone Sodium Phosphate (Decadron) 20 mg STK-MED ONCE .ROUTE ; Start at 10:50; Stop 12/25/16 at 10:51; Status DC Ondansetron HCl 4 mg 4 mg STK-MED ONCE .ROUTE ; Start 12/25/16 at 10:50; Stop at 10:51; Status DC Propofol 50 ml @ As Directed STK-MED ONCE IV ; Start 12/25/16 at 10:50; Stop at 10:51; Status DC Propofol (Diprivan) 20 ml @ As Directed STK-MED ONCE IV ; Start 12/25/16 at 10: 50; Stop 12/25/16 at 10:51; Status DC Lidocaine HCl 100 mg STK-MED ONCE .ROUTE ; Start 12/25/16 at 10:50; Stop at 10:51; Status DC Multi-Ingred Cream/Lotion/Oil/ Oint (Artificial Tears Eye Oint) 7 servando STK-MED ONCE .ROUTE ; Start 12/25/16 at 10:50; Stop 12/25/16 at 10:51; Status DC Sodium Chloride (Sodium Chloride) 50 ml STK-MED ONCE IJ ; Start 12/25/16 at 10: 50; Stop 12/25/16 at 10:51; Status DC Desflurane (Suprane) 90 ml STK-MED ONCE IH ; Start 12/25/16 at 10:50; Stop 12/25 at 10:51; Status DC Midazolam HCl (Versed) 2 mg STK-MED ONCE .ROUTE ; Start 12/25/16 at 10:50; Stop 12/25/16 at 10:51; Status DC Remifentanil HCl (Ultiva) 2 mg STK-MED ONCE IV ; Start 12/25/16 at 10:50; Stop 12/25/16 at 10:51; Status DC Fentanyl Citrate (Fentanyl 2ml Vial) 100 mcg STK-MED ONCE .ROUTE ; Start at 10:50; Stop 12/25/16 at 10:51; Status DC Rocuronium [place] (Zemuron) 50 mg STK-MED ONCE .ROUTE ; Start 12/25/16 at 10:52 ; Stop 12/25/16 at 10:53; Status DC Glycopyrrolate (Robinul) 1 mg STK-MED ONCE .ROUTE ; Start 12/25/16 at 11:42; Stop 12/25/16 at 11:43; Status DC Phenylephrine HCl 1 mg STK-MED ONCE IV ; Start 12/25/16 at 12:00; Stop 12/25/16 at 12:01; Status DC Ephedrine Sulfate 50 mg 50 mg STK-MED ONCE IV ; Start 12/25/16 at 12:29; Stop at 13:10; Status DC Propofol (Diprivan) 50 ml @ As Directed STK-MED ONCE IV ; Start 12/25/16 at 13: 40; Stop 12/25/16 at 13:41; Status DC Remifentanil HCl (Ultiva) 2 mg STK-MED ONCE IV ; Start 12/25/16 at 13:50; Stop 12/25/16 at 13:51; Status DC Sodium Chloride (Sodium Chloride) 50 ml STK-MED ONCE IJ ; Start 12/25/16 at 13: 51; Stop 12/25/16 at 13:52; Status DC Allopurinol (Zyloprim) 300 mg QHS PO Last administered on 12/26/16 21:03; Start 12/25/16 at 21:00 Amiodarone HCl (Cordarone) 100 mg DAILY PO Last administered on 12/27/16 08:30 ; Start 12/26/16 at 09:00 Ascorbic Acid (Vitamin C) 500 mg DAILY PO Last administered on 12/27/16 08:30 ; Start 12/26/16 at 09:00 Furosemide (Lasix) 40 mg [id number] PO Last administered on 12/27/16 08:30; Start 12/25/16 at 16:00 Lisinopril (Prinivil) 20 mg DAILY PO Last administered on 12/27/16 08:30; Start 12/26/16 at 09:00 Sotalol HCl (Betapace) 80 mg BID PO Last administered on 12/26/16 10:15; Start 12/25/16 at 21:00; Stop 12/26/16 at 10:19; Status DC Potassium Chloride (Klor-Con) 20 meq BID PO Last administered on 12/27/16 08: 31; Start 12/25/16 at 21:00 Acetaminophen (Tylenol) 650 mg PRN Q6HRS PRN PO MILD PAIN / TEMP; Start at 14:45 Al Hydroxide/Mg Hydroxide (Mylanta Plus Xs) 30 ml PRN Q3HRS PRN PO HEARTBURN / GAS; Start 12/25/16 at 14:45 Calcium Carbonate/ Glycine (Tums) 500 mg PRN Q3HRS PRN PO INDIGESTION; Start at 14:45 Diphenhydramine HCl (Benadryl) 25 mg PRN Q6HRS PRN PO ITCHING; Start 12/25/16 at 14:45 Diphenhydramine HCl (Benadryl) 25 mg PRN Q6HRS PRN IV ITCHING; Start 12/25/16 at 14:45 Zolpidem Tartrate (Ambien) 5 mg PRN QHS PRN PO INSOMNIA, MAY REPEAT IN 1HR; Start 12/25/16 at 14:45 Sodium Chloride 3 ml 3 ml QSHIFT PRN IV AFTER MEDS AND BLOOD DRAWS; Start 12/25 at 14:45 Potassium Chloride/Dextrose/ Sod Cl (KCl 20 Meq In D5W-1/2 NS) 1,000 ml @ 75 mls/hr [id number] IV Last administered on 12/27/16 08:43; Start 12/25/16 at 16:00 Oxycodone/ Acetaminophen (Percocet 5/325) 1 tab PRN Q4HRS PRN PO MILD PAIN, 1ST CHOICE; Start 12/25/16 at 14:45; Stop 12/26/16 at 11:32; Status DC Oxycodone/ Acetaminophen (Percocet 5/325) 2 tab PRN Q4HRS PRN PO MODERATE PAIN , SEVERE PAIN Last administered on 12/26/16 05:36; Start 12/25/16 at 14:45; Stop 12/26/16 at 11:32; Status DC Cyclobenzaprine HCl (Flexeril) 10 mg PRN TID PRN PO MUSCLE SPASMS Last administered on 12/26/16 01:24; Start 12/25/16 at 14:45 Docusate Sodium (Colace) 100 mg BID PO Last administered on 12/27/16 08:29; Start 12/25/16 at 21:00 Magnesium Hydroxide (Milk Of Magnesia) 2,400 mg PRN Q12HR PRN PO CONSTIPATION; Start 12/25/16 at 14:45 Ondansetron HCl 4 mg 4 mg PRN Q6HRS PRN IV NAUESA, 1ST CHOICE; Start 12/25/16 at 14:45 Cefazolin Sodium/ Sodium Chloride (Ancef/Iv Sodium Chloride 0.9% 50ml) 50 ml @ 100 mls/hr Q8H IV Last administered on 12/26/16 12:46; Start 12/25/16 at 18:00 ; Stop 12/26/16 at 10:29; Status DC Fentanyl Citrate (Fentanyl 2ml Vial) 25 mcg PRN Q1HR PRN IV PAIN; Start at 14:45 Fentanyl Citrate 50 mcg 50 mcg PRN Q1HR PRN IV PAIN Last administered on 05:30; Start 12/25/16 at 14:45 Propofol 50 ml @ As Directed STK-MED ONCE IV ; Start 12/25/16 at 14:51; Stop at 14:52; Status DC Propofol (Diprivan) 50 ml @ As Directed STK-MED ONCE IV ; Start 12/25/16 at 15: 21; Stop 12/25/16 at 15:22; Status DC Fentanyl Citrate (Fentanyl 5ml Vial) 250 mcg STK-MED ONCE .ROUTE ; Start at 15:45; Stop 12/25/16 at 15:46; Status DC Remifentanil HCl (Ultiva) 1 mg STK-MED ONCE IV ; Start 12/25/16 at 15:46; Stop 12/25/16 at 15:47; Status DC Lidocaine HCl 100 mg STK-MED ONCE .ROUTE ; Start 12/25/16 at 16:00; Stop at 16:01; Status DC Cefazolin Sodium/ Dextrose (Ancef 2gm Premix) 2 gm STK-MED ONCE IV ; Start 12/25 at 09:00; Stop 12/26/16 at 08:45; Status DC Sotalol HCl (Betapace) 40 mg BID PO Last administered on 12/27/16 08:31; Start 12/26/16 at 21:00 Oxycodone/ Acetaminophen (Percocet 7.5/ 325) 1 tab PRN Q4HRS PRN PO PAIN; Start 12/26/16 at 11:45 Oxycodone/ Acetaminophen (Percocet 7.5/ 325) 2 tab PRN Q4HRS PRN PO PAIN Last administered on 12/27/16 08:44; Start 12/26/16 at 11:45 Bisacodyl (Dulcolax Tab) 10 mg PRN DAILY PRN PO CONSTIPATION; Start 12/26/16 at 18:45 Baclofen (Lioresal) 10 mg PRN Q8HRS PRN PO MUSCLE SPASMS; Start 12/26/16 at 19: 00 Active Scripts Active Reported Hydrocodone-Apap 7.5-325 (Hydrocodone Bit/Acetaminophen) 1 Each Tablet 2 Tab PO PRN Q6HRS PRN Vitamin C (Ascorbic Acid) 500 Mg Tablet 500 Mg PO DAILY [[place]] 1 Tab DAILY Xarelto (Rivaroxaban) 10 Mg Tablet Unknown Dose PO BID Amiodarone Hcl 100 Mg Tablet 100 Mg PO DAILY Next dose 08/30/16 AM Sotalol (Sotalol Hcl) 80 Mg Tablet 0.5 Tab PO BID Next dose 08/30/16 in the AM Allopurinol 300 Mg Tablet 1 Tab PO QHS Not given today Lisinopril 10 Mg Tablet 2 Tab PO DAILY Next dose 08/30/16 Potassium Chloride 20 Meq Tablet.er 20 Meq PO BID Next dose 08/30/16 Furosemide 40 Mg Tablet 1 Tab PO BID Next dose 08/29/16 at 9:00pm Naproxen 500 Mg Tablet 0.5 Tab PO BID Next dose 08/29/16 at 9:00pm Vitals/I & O Vital Sign - Last 24 Hours 12/26/16 12/26/16 12/26/16 12/26/16 10:13 10:14 10:15 11:07 Temp 98.5 98.5 Pulse 72 72 72 76 Resp 22 B/P 112/76 112/76 112/76 117/55 Pulse Ox 98 O2 Delivery Room Air 12/26/16 12/26/16 12/26/16 12/26/16 12:46 15:59 19:00 19:40 Temp 98.2 98.4 98.2 98.4 Pulse 61 59 Resp 18 24 20 B/P 130/61 168/64 Pulse Ox 94 98 O2 Delivery Room Air Room Air Room Air Room Air 12/26/16 12/26/16 12/27/16 12/27/16 21:03 23:00 01:55 02:55 Temp 98.6 98.6 Pulse 59 98 Resp 20 18 18 B/P 168/64 215/89 Pulse Ox 91 O2 Delivery Room Air Room Air Room Air 12/27/16 12/27/16 12/27/16 12/27/16 03:00 07:00 08:30 08:30 Temp 98.4 97.7 98.4 97.7 Pulse 80 58 58 58 Resp 20 18 B/P 162/80 155/72 155/72 155/72 Pulse Ox 91 97 O2 Delivery Room Air Room Air 12/27/16 12/27/16 08:31 08:44 Pulse 58 B/P 155/72 Pulse Ox 97 O2 Delivery Room Air Intake and Output 12/26/16 12/26/16 12/27/16 15:00 23:00 07:00 Intake Total 1665 ml Output Total 1000 ml Balance 665 ml CARLTON SANTOS MD Dec 27, 2016 10:13
[2016-12-27 11:00] VITALS: BP 147/66
--- NOTE | 2016-12-27 11:21 | PDOC ---
PROGRESS NOTES Subjective Subjective up in chair ambulated to BR with walker c/o pain in neck and shoulders/ incision, helped with medication legs feel stronger Objective Objective Vital Signs Date Time Temp Pulse Resp B/P Pulse Ox O2 Delivery O2 Flow Rate FiO2 12/27/16 09:45 97 Room Air 12/27/16 08:31 58 155/72 12/27/16 07:00 97.7 18 97.7 12/25/16 21:41 2.0 Intake and Output 12/27/16 07:00 Intake Total 1665 ml Output Total 1000 ml Balance 665 ml Intake Oral 240 ml IV Total 525 ml Other 900 ml Output Urine Total 1000 ml # Voids 3 Physical Exam General: Alert, Oriented X3, Cooperative MUSCULOSKELETAL: Other (GERBER) Skin: Other (dressing dry and intact) Assessment Assessment Problems Medical Problems: (1) Cervical spinal stenosis Status: Acute Plan Plan of Care encouraged increased activity as tolerated PT arrangements being made for rehab Comment Review of Relevant I have reviewed the following items hubert (where applicable) has been applied. Medications Current Medications Fentanyl Citrate (Fentanyl 2ml Vial) 25 mcg PRN Q5MIN PRN IV MILD PAIN; Start 12/25/16 at 07:00; Stop 12/26/16 at 06:59; Status DC Fentanyl Citrate (Fentanyl 2ml Vial) 50 mcg PRN Q5MIN PRN IV MODERATE PAIN Last administered on 12/25/16 17:24; Start 12/25/16 at 07:00; Stop 12/26/16 at 06:59; Status DC Morphine Sulfate 1 mg 1 mg PRN Q10MIN PRN IV SEVERE PAIN Last administered on 17:17; Start 12/25/16 at 07:00; Stop 12/26/16 at 06:59; Status DC Lactated Ringer's (Iv Lactated Ringers) 1,000 ml @ 0 mls/hr Q0M IV ; Start at 07:00; Stop 12/25/16 at 18:59; Status DC Lidocaine HCl 2 ml 1X PRN PRN ID IV START; Start 12/25/16 at 07:00; Stop at 06:59; Status DC Hydromorphone HCl (Dilaudid) 0.5 mg PRN Q10MIN PRN IV SEVERE PAIN, Second choice Last administered on 12/25/16 18:05; Start 12/25/16 at 07:00; Stop 12/26 at 06:59; Status DC Prochlorperazine Edisylate 5 mg 5 mg PACU PRN PRN IV NAUSEA; Start 12/25/16 at 07:00; Stop 12/26/16 at 06:59; Status DC Bacitracin 56645 unit/Sodium Chloride 1,000 ml @ 1,000 mls/hr 1X PERIOP ONCE IRR Last administered on 12/25/16 12:40; Start 12/25/16 at 06:00; Stop at 06:59; Status DC Cefazolin Sodium/ Dextrose (Ancef 2gm Premix) 50 ml @ 100 mls/hr 1X PREOP PRN IV PRIOR TO PROCEDURE; Start 12/25/16 at 06:00; Stop 12/25/16 at 18:00; Status DC Thrombin 20,000 unit STK-MED ONCE TP Last administered on 12/25/16 12:40; Start 12/25/16 at 07:42; Stop 12/25/16 at 07:43; Status DC Gelatin (Gelfoam Size 100) 1 each STK-MED ONCE .ROUTE Last administered on 12:40; Start 12/25/16 at 07:42; Stop 12/25/16 at 07:43; Status DC Ketorolac Tromethamine (Toradol For Or Only) 60 mg STK-MED ONCE .ROUTE Last administered on 12/25/16 12:40; Start 12/25/16 at 07:42; Stop 12/25/16 at 07:43 ; Status DC Bupivacaine HCl/ Epinephrine Bitart (Sensorcain-Mpf Epi 0.5%-1:355523) 30 ml STK -MED ONCE .ROUTE Last administered on 12/25/16 12:40; Start 12/25/16 at 07:42 ; Stop 12/25/16 at 07:43; Status DC Dexamethasone Sodium Phosphate (Decadron) 20 mg STK-MED ONCE .ROUTE ; Start at 10:50; Stop 12/25/16 at 10:51; Status DC Ondansetron HCl 4 mg 4 mg STK-MED ONCE .ROUTE ; Start 12/25/16 at 10:50; Stop at 10:51; Status DC Propofol 50 ml @ As Directed STK-MED ONCE IV ; Start 12/25/16 at 10:50; Stop at 10:51; Status DC Propofol (Diprivan) 20 ml @ As Directed STK-MED ONCE IV ; Start 12/25/16 at 10: 50; Stop 12/25/16 at 10:51; Status DC Lidocaine HCl 100 mg STK-MED ONCE .ROUTE ; Start 12/25/16 at 10:50; Stop at 10:51; Status DC Multi-Ingred Cream/Lotion/Oil/ Oint (Artificial Tears Eye Oint) 7 servando STK-MED ONCE .ROUTE ; Start 12/25/16 at 10:50; Stop 12/25/16 at 10:51; Status DC Sodium Chloride (Sodium Chloride) 50 ml STK-MED ONCE IJ ; Start 12/25/16 at 10: 50; Stop 12/25/16 at 10:51; Status DC Desflurane (Suprane) 90 ml STK-MED ONCE IH ; Start 12/25/16 at 10:50; Stop 12/25 at 10:51; Status DC Midazolam HCl (Versed) 2 mg STK-MED ONCE .ROUTE ; Start 12/25/16 at 10:50; Stop 12/25/16 at 10:51; Status DC Remifentanil HCl (Ultiva) 2 mg STK-MED ONCE IV ; Start 12/25/16 at 10:50; Stop 12/25/16 at 10:51; Status DC Fentanyl Citrate (Fentanyl 2ml Vial) 100 mcg STK-MED ONCE .ROUTE ; Start at 10:50; Stop 12/25/16 at 10:51; Status DC Rocuronium [place] (Zemuron) 50 mg STK-MED ONCE .ROUTE ; Start 12/25/16 at 10:52 ; Stop 12/25/16 at 10:53; Status DC Glycopyrrolate (Robinul) 1 mg STK-MED ONCE .ROUTE ; Start 12/25/16 at 11:42; Stop 12/25/16 at 11:43; Status DC Phenylephrine HCl 1 mg STK-MED ONCE IV ; Start 12/25/16 at 12:00; Stop 12/25/16 at 12:01; Status DC Ephedrine Sulfate 50 mg 50 mg STK-MED ONCE IV ; Start 12/25/16 at 12:29; Stop at 13:10; Status DC Propofol (Diprivan) 50 ml @ As Directed STK-MED ONCE IV ; Start 12/25/16 at 13: 40; Stop 12/25/16 at 13:41; Status DC Remifentanil HCl (Ultiva) 2 mg STK-MED ONCE IV ; Start 12/25/16 at 13:50; Stop 12/25/16 at 13:51; Status DC Sodium Chloride (Sodium Chloride) 50 ml STK-MED ONCE IJ ; Start 12/25/16 at 13: 51; Stop 12/25/16 at 13:52; Status DC Allopurinol (Zyloprim) 300 mg QHS PO Last administered on 12/26/16 21:03; Start 12/25/16 at 21:00 Amiodarone HCl (Cordarone) 100 mg DAILY PO Last administered on 12/27/16 08:30 ; Start 12/26/16 at 09:00 Ascorbic Acid (Vitamin C) 500 mg DAILY PO Last administered on 12/27/16 08:30 ; Start 12/26/16 at 09:00 Furosemide (Lasix) 40 mg BID94 PO Last administered on 12/27/16 08:30; Start 12/25/16 at 16:00 Lisinopril (Prinivil) 20 mg DAILY PO Last administered on 12/27/16 08:30; Start 12/26/16 at 09:00 Sotalol HCl (Betapace) 80 mg BID PO Last administered on 12/26/16 10:15; Start 12/25/16 at 21:00; Stop 12/26/16 at 10:19; Status DC Potassium Chloride (Klor-Con) 20 meq BID PO Last administered on 12/27/16 08: 31; Start 12/25/16 at 21:00 Acetaminophen (Tylenol) 650 mg PRN Q6HRS PRN PO MILD PAIN / TEMP; Start at 14:45 Al Hydroxide/Mg Hydroxide (Mylanta Plus Xs) 30 ml PRN Q3HRS PRN PO HEARTBURN / GAS; Start 12/25/16 at 14:45 Calcium Carbonate/ Glycine (Tums) 500 mg PRN Q3HRS PRN PO INDIGESTION; Start at 14:45 Diphenhydramine HCl (Benadryl) 25 mg PRN Q6HRS PRN PO ITCHING; Start 12/25/16 at 14:45 Diphenhydramine HCl (Benadryl) 25 mg PRN Q6HRS PRN IV ITCHING; Start 12/25/16 at 14:45 Zolpidem Tartrate (Ambien) 5 mg PRN QHS PRN PO INSOMNIA, MAY REPEAT IN 1HR; Start 12/25/16 at 14:45 Sodium Chloride 3 ml 3 ml QSHIFT PRN IV AFTER MEDS AND BLOOD DRAWS; Start 12/25 at 14:45 Potassium Chloride/Dextrose/ Sod Cl (KCl 20 Meq In D5W-1/2 NS) 1,000 ml @ 75 mls/hr [id number] IV Last administered on 12/27/16 08:43; Start 12/25/16 at 16:00 Oxycodone/ Acetaminophen (Percocet 5/325) 1 tab PRN Q4HRS PRN PO MILD PAIN, 1ST CHOICE; Start 12/25/16 at 14:45; Stop 12/26/16 at 11:32; Status DC Oxycodone/ Acetaminophen (Percocet 5/325) 2 tab PRN Q4HRS PRN PO MODERATE PAIN , SEVERE PAIN Last administered on 12/26/16 05:36; Start 12/25/16 at 14:45; Stop 12/26/16 at 11:32; Status DC Cyclobenzaprine HCl (Flexeril) 10 mg PRN TID PRN PO MUSCLE SPASMS Last administered on 12/26/16 01:24; Start 12/25/16 at 14:45 Docusate Sodium (Colace) 100 mg BID PO Last administered on 12/27/16 08:29; Start 12/25/16 at 21:00 Magnesium Hydroxide (Milk Of Magnesia) 2,400 mg PRN Q12HR PRN PO CONSTIPATION; Start 12/25/16 at 14:45 Ondansetron HCl 4 mg 4 mg PRN Q6HRS PRN IV NAUESA, 1ST CHOICE; Start 12/25/16 at 14:45 Cefazolin Sodium/ Sodium Chloride (Ancef/Iv Sodium Chloride 0.9% 50ml) 50 ml @ 100 mls/hr Q8H IV Last administered on 12/26/16 12:46; Start 12/25/16 at 18:00 ; Stop 12/26/16 at 10:29; Status DC Fentanyl Citrate (Fentanyl 2ml Vial) 25 mcg PRN Q1HR PRN IV PAIN; Start at 14:45 Fentanyl Citrate 50 mcg 50 mcg PRN Q1HR PRN IV PAIN Last administered on 05:30; Start 12/25/16 at 14:45 Propofol 50 ml @ As Directed STK-MED ONCE IV ; Start 12/25/16 at 14:51; Stop at 14:52; Status DC Propofol (Diprivan) 50 ml @ As Directed STK-MED ONCE IV ; Start 12/25/16 at 15: 21; Stop 12/25/16 at 15:22; Status DC Fentanyl Citrate (Fentanyl 5ml Vial) 250 mcg STK-MED ONCE .ROUTE ; Start at 15:45; Stop 12/25/16 at 15:46; Status DC Remifentanil HCl (Ultiva) 1 mg STK-MED ONCE IV ; Start 12/25/16 at 15:46; Stop 12/25/16 at 15:47; Status DC Lidocaine HCl 100 mg STK-MED ONCE .ROUTE ; Start 12/25/16 at 16:00; Stop at 16:01; Status DC Cefazolin Sodium/ Dextrose (Ancef 2gm Premix) 2 gm STK-MED ONCE IV ; Start 12/25 at 09:00; Stop 12/26/16 at 08:45; Status DC Sotalol HCl (Betapace) 40 mg BID PO Last administered on 12/27/16 08:31; Start 12/26/16 at 21:00 Oxycodone/ Acetaminophen (Percocet 7.5/ 325) 1 tab PRN Q4HRS PRN PO PAIN; Start 12/26/16 at 11:45 Oxycodone/ Acetaminophen (Percocet 7.5/ 325) 2 tab PRN Q4HRS PRN PO PAIN Last administered on 12/27/16 08:44; Start 12/26/16 at 11:45 Bisacodyl (Dulcolax Tab) 10 mg PRN DAILY PRN PO CONSTIPATION; Start 12/26/16 at 18:45 Baclofen (Lioresal) 10 mg PRN Q8HRS PRN PO MUSCLE SPASMS; Start 12/26/16 at 19: 00 Active Scripts Active Reported Hydrocodone-Apap 7.5-325 (Hydrocodone Bit/Acetaminophen) 1 Each Tablet 2 Tab PO PRN Q6HRS PRN Vitamin C (Ascorbic Acid) 500 Mg Tablet 500 Mg PO DAILY [Black [place]] 1 Tab DAILY Xarelto (Rivaroxaban) 10 Mg Tablet Unknown Dose PO BID Amiodarone Hcl 100 Mg Tablet 100 Mg PO DAILY Next dose 08/30/16 AM Sotalol (Sotalol Hcl) 80 Mg Tablet 0.5 Tab PO BID Next dose 08/30/16 in the AM Allopurinol 300 Mg Tablet 1 Tab PO QHS Not given today Lisinopril 10 Mg Tablet 2 Tab PO DAILY Next dose 08/30/16 Potassium Chloride 20 Meq Tablet.er 20 Meq PO BID Next dose 08/30/16 Furosemide 40 Mg Tablet 1 Tab PO BID Next dose 08/29/16 at 9:00pm Naproxen 500 Mg Tablet 0.5 Tab PO BID Next dose 08/29/16 at 9:00pm Vitals/I & O Vital Sign - Last 24 Hours 12/26/16 12/26/16 12/26/16 12/26/16 12:46 15:59 19:00 19:40 Temp 98.2 98.4 98.2 98.4 Pulse 61 59 Resp 18 24 20 B/P 130/61 168/64 Pulse Ox 94 98 O2 Delivery Room Air Room Air Room Air Room Air 12/26/16 12/26/16 12/27/16 12/27/16 21:03 23:00 01:55 02:55 Temp 98.6 98.6 Pulse 59 98 Resp 20 18 18 B/P 168/64 215/89 Pulse Ox 91 O2 Delivery Room Air Room Air 12/27/16 12/27/16 12/27/16 12/27/16 03:00 07:00 08:00 08:30 Temp 98.4 97.7 98.4 97.7 Pulse 80 58 58 Resp 20 18 B/P 162/80 155/72 155/72 Pulse Ox 91 97 O2 Delivery Room Air Room Air Room Air 12/27/16 12/27/16 12/27/16 12/27/16 08:30 08:31 08:44 09:45 Pulse 58 58 B/P 155/72 155/72 Pulse Ox 97 97 O2 Delivery Room Air Room Air Intake and Output 12/26/16 12/26/16 12/27/16 15:00 23:00 07:00 Intake Total 1665 ml Output Total 1000 ml Balance 665 ml RAKESH ARROYO APRN Dec 27, 2016 11:21
--- NOTE | 2016-12-27 14:37 | PATHOLOGY ---
PATHOLOGY REPORT * * * * * * * * FINAL DIAGNOSIS: Segments of fibrocartilaginous, fibroadipose, and skeletal muscle tissue and bone, cervical decompression: - Degenerative changes of fibrocartilaginous tissue. COMMENT: There is no evidence of an acute inflammatory process or malignancy. (JPM:; d/t: 12/27/16) REPORT ELECTRONICALLY SIGNED BY: Timur Keith M.D. DATE/TIME: 12/27/2016 14:37 * * * * * * * * GROSS PATHOLOGY: Received in formalin labeled "Romel Chen, cervical decompression" are multiple segments of simpson, rubbery, and gritty tissue admixed with bone. The specimen measures 7.2 x 6.8 x 2.4 cm in aggregate dimensions. The tissue is submitted representatively in cassette A1, following decalcification. (CAA; 12/26/2016) INITIAL CPT CODE(S): A; 09060, 37003 Professional services performed by [facility] [place] [address] Technical services performed by [facility] at [address] [place] [address]. SPECIMEN(S) RECEIVED: A.Cervical decompression CLINICAL HISTORY: Cervical stenosis, cervical myelopathy PATIENT: ROMEL CHEN /AGE: 110/27/1955 (Age: 61) PATIENT #: [id number] ALT CASE #: SPECIMEN COLLECTION DATE: 12/25/2016 SPECIMEN RECEIVED DATE: 12/26/2016 [facility] - [address] [place] [address] - PHONE: [phone] * * * END OF REPORT * * *
[2016-12-27 15:00] VITALS: BP 156/76
[2016-12-27] MEDS: CYCLOBENZAPRINE 10 MG TABLET. PO PRN (16:21)
[2016-12-27 19:00] VITALS: BP 157/75
[2016-12-27] MEDS: ALLOPURINOL 300 MG TABLET. PO SCH (21:34)
[2016-12-27 23:00] VITALS: BP 149/70
[2016-12-28] MEDS: POTASSIUM CL 20MEQ D5-0.45NACL 1,000 ML IV SCH ×2 (01:39→10:40)
[2016-12-28] MEDS: OXYCODONE/APAP 7.5/325 TABLET. PO PRN ×3 (01:42→14:37)
[2016-12-28 03:00] VITALS: BP 169/81
[2016-12-28 07:00] VITALS: BP 182/77
[2016-12-28] MEDS: DOCUSATE SODIUM 100 MG CAPSULE PO SCH (08:39)
[2016-12-28] MEDS: AMIODARONE HCL 100 MG TABLET PO SCH (08:40)
[2016-12-28] MEDS: FUROSEMIDE 40 MG TABLET PO SCH (08:40)
[2016-12-28] MEDS: POTASSIUM CHLORIDE 20 MEQ TABLET.ER. PO SCH (08:41)
[2016-12-28] MEDS: LISINOPRIL 20 MG TABLET PO SCH (08:41)
[2016-12-28] MEDS: ASCORBIC ACID 500 MG TABLET PO SCH (08:41)
--- NOTE | 2016-12-28 10:05 | PDOC ---
PROGRESS NOTES Subjective Subjective He c/o stiffness and soreness in his neck area. Objective Objective Vital Signs Date Time Temp Pulse Resp B/P Pulse Ox O2 Delivery O2 Flow Rate FiO2 12/28/16 08:41 58 169/81 12/28/16 07:00 98.2 18 96 Room Air 98.2 12/25/16 21:41 2.0 Intake and Output 12/28/16 07:00 Intake Total 3164 ml Balance 3164 ml Intake Oral 600 ml IV Total 1664 ml Other 900 ml # Voids 5 Physical Exam Physical Exam He is sitting up in bedside chair,alert and does not seem to be in any acute distress.He is emptying his bladder good and had no bowel movement yet. Assessment Assessment Problems Medical Problems: (1) Cervical spinal stenosis Status: Acute Plan Plan of Care To [facility] for continued care later on today. Comment Review of Relevant I have reviewed the following items hubert (where applicable) has been applied. Medications Current Medications Fentanyl Citrate (Fentanyl 2ml Vial) 25 mcg PRN Q5MIN PRN IV MILD PAIN; Start 12/25/16 at 07:00; Stop 12/26/16 at 06:59; Status DC Fentanyl Citrate (Fentanyl 2ml Vial) 50 mcg PRN Q5MIN PRN IV MODERATE PAIN Last administered on 12/25/16 17:24; Start 12/25/16 at 07:00; Stop 12/26/16 at 06:59; Status DC Morphine Sulfate 1 mg 1 mg PRN Q10MIN PRN IV SEVERE PAIN Last administered on 17:17; Start 12/25/16 at 07:00; Stop 12/26/16 at 06:59; Status DC Lactated Ringer's (Iv Lactated Ringers) 1,000 ml @ 0 mls/hr Q0M IV ; Start at 07:00; Stop 12/25/16 at 18:59; Status DC Lidocaine HCl 2 ml 1X PRN PRN ID IV START; Start 12/25/16 at 07:00; Stop at 06:59; Status DC Hydromorphone HCl (Dilaudid) 0.5 mg PRN Q10MIN PRN IV SEVERE PAIN, Second choice Last administered on 12/25/16 18:05; Start 12/25/16 at 07:00; Stop 12/26 at 06:59; Status DC Prochlorperazine Edisylate 5 mg 5 mg PACU PRN PRN IV NAUSEA; Start 12/25/16 at 07:00; Stop 12/26/16 at 06:59; Status DC Bacitracin 51643 unit/Sodium Chloride 1,000 ml @ 1,000 mls/hr 1X PERIOP ONCE IRR Last administered on 12/25/16 12:40; Start 12/25/16 at 06:00; Stop at 06:59; Status DC Cefazolin Sodium/ Dextrose (Ancef 2gm Premix) 50 ml @ 100 mls/hr 1X PREOP PRN IV PRIOR TO PROCEDURE; Start 12/25/16 at 06:00; Stop 12/25/16 at 18:00; Status DC Thrombin 20,000 unit STK-MED ONCE TP Last administered on 12/25/16 12:40; Start 12/25/16 at 07:42; Stop 12/25/16 at 07:43; Status DC Gelatin (Gelfoam Size 100) 1 each STK-MED ONCE .ROUTE Last administered on 12:40; Start 12/25/16 at 07:42; Stop 12/25/16 at 07:43; Status DC Ketorolac Tromethamine (Toradol For Or Only) 60 mg STK-MED ONCE .ROUTE Last administered on 12/25/16 12:40; Start 12/25/16 at 07:42; Stop 12/25/16 at 07:43 ; Status DC Bupivacaine HCl/ Epinephrine Bitart (Sensorcain-Mpf Epi 0.5%-[id number]) 30 ml STK -MED ONCE .ROUTE Last administered on 12/25/16 12:40; Start 12/25/16 at 07:42 ; Stop 12/25/16 at 07:43; Status DC Dexamethasone Sodium Phosphate (Decadron) 20 mg STK-MED ONCE .ROUTE ; Start at 10:50; Stop 12/25/16 at 10:51; Status DC Ondansetron HCl 4 mg 4 mg STK-MED ONCE .ROUTE ; Start 12/25/16 at 10:50; Stop at 10:51; Status DC Propofol 50 ml @ As Directed STK-MED ONCE IV ; Start 12/25/16 at 10:50; Stop at 10:51; Status DC Propofol (Diprivan) 20 ml @ As Directed STK-MED ONCE IV ; Start 12/25/16 at 10: 50; Stop 12/25/16 at 10:51; Status DC Lidocaine HCl 100 mg STK-MED ONCE .ROUTE ; Start 12/25/16 at 10:50; Stop at 10:51; Status DC Multi-Ingred Cream/Lotion/Oil/ Oint (Artificial Tears Eye Oint) 7 servando STK-MED ONCE .ROUTE ; Start 12/25/16 at 10:50; Stop 12/25/16 at 10:51; Status DC Sodium Chloride (Sodium Chloride) 50 ml STK-MED ONCE IJ ; Start 12/25/16 at 10: 50; Stop 12/25/16 at 10:51; Status DC Desflurane (Suprane) 90 ml STK-MED ONCE IH ; Start 12/25/16 at 10:50; Stop 12/25 at 10:51; Status DC Midazolam HCl (Versed) 2 mg STK-MED ONCE .ROUTE ; Start 12/25/16 at 10:50; Stop 12/25/16 at 10:51; Status DC Remifentanil HCl (Ultiva) 2 mg STK-MED ONCE IV ; Start 12/25/16 at 10:50; Stop 12/25/16 at 10:51; Status DC Fentanyl Citrate (Fentanyl 2ml Vial) 100 mcg STK-MED ONCE .ROUTE ; Start at 10:50; Stop 12/25/16 at 10:51; Status DC Rocuronium Hestand (Zemuron) 50 mg STK-MED ONCE .ROUTE ; Start 12/25/16 at 10:52 ; Stop 12/25/16 at 10:53; Status DC Glycopyrrolate (Robinul) 1 mg STK-MED ONCE .ROUTE ; Start 12/25/16 at 11:42; Stop 12/25/16 at 11:43; Status DC Phenylephrine HCl 1 mg STK-MED ONCE IV ; Start 12/25/16 at 12:00; Stop 12/25/16 at 12:01; Status DC Ephedrine Sulfate 50 mg 50 mg STK-MED ONCE IV ; Start 12/25/16 at 12:29; Stop at 13:10; Status DC Propofol (Diprivan) 50 ml @ As Directed STK-MED ONCE IV ; Start 12/25/16 at 13: 40; Stop 12/25/16 at 13:41; Status DC Remifentanil HCl (Ultiva) 2 mg STK-MED ONCE IV ; Start 12/25/16 at 13:50; Stop 12/25/16 at 13:51; Status DC Sodium Chloride (Sodium Chloride) 50 ml STK-MED ONCE IJ ; Start 12/25/16 at 13: 51; Stop 12/25/16 at 13:52; Status DC Allopurinol (Zyloprim) 300 mg QHS PO Last administered on 12/27/16 21:34; Start 12/25/16 at 21:00 Amiodarone HCl (Cordarone) 100 mg DAILY PO Last administered on 12/28/16 08:40 ; Start 12/26/16 at 09:00 Ascorbic Acid (Vitamin C) 500 mg DAILY PO Last administered on 12/28/16 08:41 ; Start 12/26/16 at 09:00 Furosemide (Lasix) 40 mg [id number] PO Last administered on 12/28/16 08:40; Start 12/25/16 at 16:00 Lisinopril (Prinivil) 20 mg DAILY PO Last administered on 12/28/16 08:41; Start 12/26/16 at 09:00 Sotalol HCl (Betapace) 80 mg BID PO Last administered on 12/26/16 10:15; Start 12/25/16 at 21:00; Stop 12/26/16 at 10:19; Status DC Potassium Chloride (Klor-Con) 20 meq BID PO Last administered on 12/28/16 08: 41; Start 12/25/16 at 21:00 Acetaminophen (Tylenol) 650 mg PRN Q6HRS PRN PO MILD PAIN / TEMP; Start at 14:45 Al Hydroxide/Mg Hydroxide (Mylanta Plus Xs) 30 ml PRN Q3HRS PRN PO HEARTBURN / GAS; Start 12/25/16 at 14:45 Calcium Carbonate/ Glycine (Tums) 500 mg PRN Q3HRS PRN PO INDIGESTION; Start at 14:45 Diphenhydramine HCl (Benadryl) 25 mg PRN Q6HRS PRN PO ITCHING; Start 12/25/16 at 14:45 Diphenhydramine HCl (Benadryl) 25 mg PRN Q6HRS PRN IV ITCHING; Start 12/25/16 at 14:45 Zolpidem Tartrate (Ambien) 5 mg PRN QHS PRN PO INSOMNIA, MAY REPEAT IN 1HR; Start 12/25/16 at 14:45 Sodium Chloride 3 ml 3 ml QSHIFT PRN IV AFTER MEDS AND BLOOD DRAWS; Start 12/25 at 14:45 Potassium Chloride/Dextrose/ Sod Cl (KCl 20 Meq In D5W-1/2 NS) 1,000 ml @ 75 mls/hr [id number] IV Last administered on 12/28/16 01:39; Start 12/25/16 at 16:00 Oxycodone/ Acetaminophen (Percocet 5/325) 1 tab PRN Q4HRS PRN PO MILD PAIN, 1ST CHOICE; Start 12/25/16 at 14:45; Stop 12/26/16 at 11:32; Status DC Oxycodone/ Acetaminophen (Percocet 5/325) 2 tab PRN Q4HRS PRN PO MODERATE PAIN , SEVERE PAIN Last administered on 12/26/16 05:36; Start 12/25/16 at 14:45; Stop 12/26/16 at 11:32; Status DC Cyclobenzaprine HCl (Flexeril) 10 mg PRN TID PRN PO MUSCLE SPASMS Last administered on 12/27/16 16:21; Start 12/25/16 at 14:45 Docusate Sodium (Colace) 100 mg BID PO Last administered on 12/28/16 08:39; Start 12/25/16 at 21:00 Magnesium Hydroxide (Milk Of Magnesia) 2,400 mg PRN Q12HR PRN PO CONSTIPATION; Start 12/25/16 at 14:45 Ondansetron HCl 4 mg 4 mg PRN Q6HRS PRN IV NAUESA, 1ST CHOICE; Start 12/25/16 at 14:45 Cefazolin Sodium/ Sodium Chloride (Ancef/Iv Sodium Chloride 0.9% 50ml) 50 ml @ 100 mls/hr Q8H IV Last administered on 12/26/16 12:46; Start 12/25/16 at 18:00 ; Stop 12/26/16 at 10:29; Status DC Fentanyl Citrate (Fentanyl 2ml Vial) 25 mcg PRN Q1HR PRN IV PAIN; Start at 14:45 Fentanyl Citrate 50 mcg 50 mcg PRN Q1HR PRN IV PAIN Last administered on 05:30; Start 12/25/16 at 14:45 Propofol 50 ml @ As Directed STK-MED ONCE IV ; Start 12/25/16 at 14:51; Stop at 14:52; Status DC Propofol (Diprivan) 50 ml @ As Directed STK-MED ONCE IV ; Start 12/25/16 at 15: 21; Stop 12/25/16 at 15:22; Status DC Fentanyl Citrate (Fentanyl 5ml Vial) 250 mcg STK-MED ONCE .ROUTE ; Start at 15:45; Stop 12/25/16 at 15:46; Status DC Remifentanil HCl (Ultiva) 1 mg STK-MED ONCE IV ; Start 12/25/16 at 15:46; Stop 12/25/16 at 15:47; Status DC Lidocaine HCl 100 mg STK-MED ONCE .ROUTE ; Start 12/25/16 at 16:00; Stop at 16:01; Status DC Cefazolin Sodium/ Dextrose (Ancef 2gm Premix) 2 gm STK-MED ONCE IV ; Start 12/25 at 09:00; Stop 12/26/16 at 08:45; Status DC Sotalol HCl (Betapace) 40 mg BID PO Last administered on 12/27/16 21:35; Start 12/26/16 at 21:00 Oxycodone/ Acetaminophen (Percocet 7.5/ 325) 1 tab PRN Q4HRS PRN PO PAIN; Start 12/26/16 at 11:45 Oxycodone/ Acetaminophen (Percocet 7.5/ 325) 2 tab PRN Q4HRS PRN PO PAIN Last administered on 12/28/16 01:42; Start 12/26/16 at 11:45 Bisacodyl (Dulcolax Tab) 10 mg PRN DAILY PRN PO CONSTIPATION; Start 12/26/16 at 18:45 Baclofen (Lioresal) 10 mg PRN Q8HRS PRN PO MUSCLE SPASMS; Start 12/26/16 at 19: 00 Active Scripts Active Reported Hydrocodone-Apap 7.5-325 (Hydrocodone Bit/Acetaminophen) 1 Each Tablet 2 Tab PO PRN Q6HRS PRN Vitamin C (Ascorbic Acid) 500 Mg Tablet 500 Mg PO DAILY [[place]] 1 Tab DAILY Xarelto (Rivaroxaban) 10 Mg Tablet Unknown Dose PO BID Amiodarone Hcl 100 Mg Tablet 100 Mg PO DAILY Next dose 08/30/16 AM Sotalol (Sotalol Hcl) 80 Mg Tablet 0.5 Tab PO BID Next dose 08/30/16 in the AM Allopurinol 300 Mg Tablet 1 Tab PO QHS Not given today Lisinopril 10 Mg Tablet 2 Tab PO DAILY Next dose 08/30/16 Potassium Chloride 20 Meq Tablet.er 20 Meq PO BID Next dose 08/30/16 Furosemide 40 Mg Tablet 1 Tab PO BID Next dose 08/29/16 at 9:00pm Naproxen 500 Mg Tablet 0.5 Tab PO BID Next dose 08/29/16 at 9:00pm Vitals/I & O Vital Sign - Last 24 Hours 12/27/16 12/27/16 12/27/16 12/27/16 11:00 15:00 16:07 17:10 Temp 97.9 98.2 97.9 98.2 Pulse 57 57 Resp 20 20 B/P 147/66 156/76 Pulse Ox 97 98 97 97 O2 Delivery Room Air Room Air Room Air 12/27/16 12/27/16 12/27/16 12/27/16 19:00 20:00 21:35 21:39 Temp 98.0 98.0 Pulse 71 71 Resp 20 18 B/P 157/75 157/75 Pulse Ox 93 O2 Delivery Room Air Room Air Room Air 12/27/16 12/28/16 12/28/16 12/28/16 23:00 01:42 02:42 03:00 Temp 98.4 98.0 98.4 98.0 Pulse 65 58 Resp 18 18 18 18 B/P 149/70 169/81 Pulse Ox 96 93 O2 Delivery Room Air Room Air Room Air Room Air 12/28/16 12/28/16 12/28/16 07:00 08:40 08:41 Temp 98.2 98.2 Pulse 61 58 58 Resp 18 B/P 182/77 169/81 169/81 Pulse Ox 96 O2 Delivery Room Air Intake and Output 12/27/16 12/27/16 12/28/16 15:00 23:00 07:00 Intake Total 1124 ml 2040 ml Balance 1124 ml 2040 ml CARLTON SANTOS MD Dec 28, 2016 10:05
[2016-12-28] MEDS: CYCLOBENZAPRINE 10 MG TABLET. PO PRN (10:34)
[2016-12-28] MEDS: SOTALOL 80 MG TABLET. PO SCH (10:35)
--- NOTE | 2016-12-28 10:42 | PDOC ---
SUBJECTIVE Subjective Neck stiffness present. Reasonably controlled with regimen. Reports gradual gait improvement. Denies acute changes overnight. OBJECTIVE Vital Signs Vital Signs Date Time Temp Pulse Resp B/P Pulse Ox O2 Delivery O2 Flow Rate FiO2 12/28/16 10:35 58 169/81 12/28/16 10:34 96 Room Air 12/28/16 08:41 58 169/81 12/28/16 08:40 58 169/81 12/28/16 07:00 98.2 61 18 182/77 96 Room Air 98.2 12/28/16 03:00 98.0 58 18 169/81 93 Room Air 98.0 12/28/16 02:42 18 Room Air 12/28/16 01:42 18 Room Air 12/27/16 23:00 98.4 65 18 149/70 96 Room Air 98.4 12/27/16 21:39 18 Room Air 12/27/16 21:35 71 157/75 12/27/16 20:00 Room Air 12/27/16 19:00 98.0 71 20 157/75 93 Room Air 98.0 12/27/16 17:10 97 12/27/16 16:07 97 Room Air 12/27/16 15:00 98.2 57 20 156/76 98 Room Air 98.2 12/27/16 11:00 97.9 57 20 147/66 97 Room Air 97.9 I & O Intake and Output 12/28/16 07:00 Intake Total 3164 ml Balance 3164 ml Intake Oral 600 ml IV Total 1664 ml Other 900 ml # Voids 5 PHYSICAL EXAM Physical Exam AAOx4, NAD, GERBER, sensation intact LT, dressing c/d/i ASSESSMENT/PLAN Assessment/Plan s/p cervical laminectomy and fusion -appears to be recovering well overall -d/c to rehab today Problems: NEDRA MEMBRENO MD Dec 28, 2016 10:42
[2016-12-28 11:00] VITALS: BP 122/77
--- NOTE | 2016-12-28 11:03 | DISCH ---
DISCHARGE INSTRUCTIONS Condition on Discharge Condition on Discharge: Stable Activity After Discharge Activity Instructions for Disc: Activity as tolerated Bathing Instructions: Shower-keep dressing dry Lifting Instructions after Dis: No heavy lifting, No pulling or pushing, Do not lift >10 pounds Driving Instructions after Dis: Do not drive Weight Bearing Status after Di: No restrictions Diet after Discharge Additional Diet Restrictions: continue home diet Wound Incision Care Wound/Incision Care: Ice to area for comfort Other wound/incision instructi: daily dressing changes and prn Wound Care Equipment: Sutures/qi Contacting the DRJemima after DC Call your doctor for: Concerns you may have Follow-Up Follow up with: Dr. Hawthorne in 2 weeks [phone] JEM HAWTHORNE MD Dec 28, 2016 11:03
[2016-12-28] MEDS ORDERED: DOCU-27 PO (11:08)
[2016-12-28] MEDS ORDERED: OXYC1TAB8 PO (11:08)
[2016-12-28] MEDS ORDERED: CYCL10TA2 PO (11:08)
== END 2016-12-28 15:10 | DRG 472 ==
LOC: OPSVCIP 08:38 → 4 NORTH 18:34
PROVIDERS: ADMIT Neurological Surgery; ATTEND Neurological Surgery
PROC: 0PB30ZZ Excision of Cervical Vertebra, Open Approach (ICD-10-PCS; 2016-12-25)
PROC: 0RG20Z1 (ICD-10-PCS; principal; 2016-12-25 12:15)
DX: M48.02 Spinal stenosis, cervical region (principal); Z68.43 Body mass index [BMI] 50.0-59.9, adult; G95.9 Disease of spinal cord, unspecified; I10 Essential (primary) hypertension; I25.10 Atherosclerotic heart disease of native coronary artery without angina pectoris; M10.00 Idiopathic gout, unspecified site; M43.6 Torticollis; M19.90 Unspecified osteoarthritis, unspecified site; E66.9 Obesity, unspecified; Z80.9 Family history of malignant neoplasm, unspecified
CPT/HCPCS: 36415; 76000; 80053; 85027; 85610; 85730; 86850; 86900; 86901; 87641; 88304; 88311; C1713; J0690; J1100; J1170; J1885; J2250; J2270; J2370; J2405; J2704; J3010; J3490; J7030; 97116; 97530; 97535

== ENCOUNTER 2017-01-01 09:02 | Inpatient (IN) | payer MEDICARE, OTHER ==
[~2017-01-01] VITALS: Ht 177.8 cm; Wt 161.0 kg
[~2017-01-01 09:02] MED LIST changes: -BUPIVAC MPF-EPI 0.5%-1:200000 30 ML VIAL. ONE; -CEFAZOLIN 2GM PREMIX 50 ML IV PRN; +CYCL10TA2 PO; +DOCU-27 PO; -FENTANYL PF 100 MCG/2 ML VIAL. IV PRN; -GELATIN SPONGE SIZE 100. ONE; -IV RINGERS,LACTATED 1000ML 1,000 ML IV SCH; -KETOROLAC 60 MG/2 ML SYRINGE FOR OR. ONE; -LIDOCAINE 1% 1 ML SYRINGE. ID PRN; +OXYC1TAB8 PO; -PROCHLORPERAZINE 10 MG/2 ML VIAL. IV PRN; -THROMBIN 20,000 UNIT SPRAY.SYRN KIT TP ONE
[2017-01-01 12:40] VITALS: BP 153/80
[2017-01-01] MEDS ORDERED: ACETAMINOPHEN 325 MG TABLET. PO PRN (14:00)
[2017-01-01] MEDS ORDERED: 0.9 % SODIUM CHLORIDE 10 ML DISP.SYRIN. IV PRN (14:00)
[2017-01-01] MEDS ORDERED: ONDANSETRON PF 4 MG/2 ML VIAL. IV PRN (14:00)
[2017-01-01] MEDS ORDERED: NALOXONE 0.4 MG/ML VIAL. IV PRN (14:00)
[2017-01-01] MEDS: AMIODARONE HCL 100 MG TABLET PO SCH (14:00)
[2017-01-01] MEDS ORDERED: DIPHENHYDRAMINE 50 MG/ML VIAL IV PRN (14:00)
[2017-01-01] MEDS ORDERED: MAG HYDROX/ALUMINUM HYD/SIMETH 30 ML ORAL.SUSP PO PRN (14:00)
[2017-01-01] MEDS ORDERED: DIPHENHYDRAMINE HCL 25 MG CAPSULE PO PRN (14:00)
[2017-01-01] MEDS ORDERED: CALCIUM CARBONATE 500 MG TAB.CHEW PO PRN (14:00)
[2017-01-01] MEDS: LISINOPRIL 10 MG TABLET PO SCH (14:00)
[2017-01-01] MEDS ORDERED: FENTANYL PF 100 MCG/2 ML VIAL. IV PRN ×2 (14:00)
[2017-01-01] MEDS: FUROSEMIDE 40 MG TABLET PO SCH (14:00)
--- NOTE | 2017-01-01 15:34 | RAD ---
PROCEDURE MRI of the cervical spine without contrast 01/01/2017 HISTORY History of cervical surgery 2 weeks ago with neck pain and extremity weakness. TECHNIQUE Unenhanced T1 weighted, T2 weighted and inversion recovery sagittal and gradient echo and T2 weighted axial images of the cervical spine were obtained. FINDINGS Comparison study is dated 12/13/2016. There is slight reversal of the normal cervical lordosis. The patient is status post laminectomy and posterolateral fusion using what appear to be pedicle screws and stabilizing rods extending from C4 to C7. The central spinal canal stenosis and cord impingement at C4-5, C5-6 and C6-7 seen on the previous examination has resolved with the surgery. Edema and magnetic susceptibility artifact related to surgery are seen within the posterior soft tissues of the cervical spine in this area. No well-defined fluid collection or significant hematoma is seen. Degenerative signal changes are seen involving all of the discs of the cervical spine. Degenerative signal changes are seen within the marrow surrounding these discs. Loss of height of the C6-7 disc is again noted. Patchy increased signal intensity is seen involving the spinal cord on the T2 weighted and inversion recovery images at the T1-2 disc space. This measures 1 centimeter in greatest diameter. This is consistent with cord edema and has not significantly changed. No additional area of abnormal signal intensity is seen involving the visualized spinal cord. On the axial images degenerative changes are seen throughout the cervical disc spaces consisting of minimal to mild generalized disc bulges and degenerative changes involving the uncovertebral and facet joints. These findings result in mild central spinal canal stenosis without significant cord impingement at C3-4. Mild to moderate bilateral neural foraminal stenosis is seen at C3-4. Mild right-sided neural foraminal stenosis is seen at C4-5. Mild to moderate bilateral neural foraminal stenosis is seen at C5-6 and C6-7. At the T1-2 disc space on the sagittal images a moderate generalized disc bulge is seen. Degenerative changes are seen involving the facet joints bilaterally. These findings result in mild to moderate central spinal canal stenosis with mild cord impingement. Moderate right greater than left neural foraminal stenosis is seen. These findings are unchanged. IMPRESSION 1. Status post laminectomy and posterolateral fusion extending from C4-C7. The central spinal canal stenosis and cord impingement at C4-5, C5-6 and C6-7 seen on the previous examination has resolved. No well-defined fluid collection or hematoma is seen. 2. Degenerative changes are seen throughout the cervical and visualized thoracic disc spaces. These findings result in mild central spinal canal stenosis without significant cord impingement at C3-4 and mild to moderate central spinal canal stenosis with mild cord impingement and T1-2. Multilevel neural foraminal stenosis of varying severity is seen as outlined above. Patchy increased signal intensity is seen involving the thoracic spinal cord at the T1-2 level consistent with cord edema. This has not significantly changed. No new area of abnormal signal intensity is seen involving the cervical spinal cord. Electronically signed by: Fam Hamilton MD (Jan 01, 2017 15:32:46)
[2017-01-01 17:02] LABS: BASO # 0.1 x10^3/uL (0.0-0.2); BASO % 0 % (0-3); EOS % 1 % (0-3); HEMATOCRIT 33.8 % (39.0-53.0); HEMOGLOBIN 11.2 g/dL (13.0-17.5); LYMPH # 0.9 x10^3/uL (1.0-4.8); LYMPH % 6 % (24-48); MEAN CORPUSCULAR HEMOGLOBIN 29 pg (25-35); MEAN CORPUSCULAR HGB CONC 33 g/dL (31-37); MEAN CORPUSCULAR VOLUME 88 fL (79-100); MONO % 10 % (0-9); NEUT % 83 % (31-73); PLATELET COUNT 250 x10^3/uL (140-400); RED BLOOD COUNT 3.85 x10^6/uL (4.30-5.70); RED CELL DISTRIBUTION WIDTH 15.5 % (11.5-14.5); WHITE BLOOD COUNT 15.1 x10^3/uL (4.0-11.0)
[2017-01-01] MEDS: POTASSIUM CHLORIDE 20 MEQ TABLET.ER. PO SCH (17:02)
[2017-01-01 17:18] LABS: CALCIUM 8.7 mg/dL (8.5-10.1); GFR 76.2; POTASSIUM 4.3 mmol/L (3.5-5.1)
[2017-01-01] MEDS ORDERED: MAG1TAB.3 PO (17:55)
[2017-01-01] MEDS ORDERED: MAGN400O4 PO (17:55)
[2017-01-01] MEDS ORDERED: SENN1TAB21 PO (17:55)
[2017-01-01] MEDS ORDERED: ACET500T68 PO (17:55)
[2017-01-01] MEDS ORDERED: MINE120C TP (17:55)
[2017-01-01] MEDS ORDERED: OXYC15TA PO (17:55)
[2017-01-01] MEDS ORDERED: CALC300T5 PO (17:55)
[2017-01-01] MEDS ORDERED: BISA10SU2 RC (17:55)
[2017-01-01] MEDS ORDERED: AMLO10TA2 PO (17:55)
[2017-01-01] MEDS ORDERED: OXYC10TA PO (17:55)
[2017-01-01] MEDS ORDERED: ZOLP5TAB5 PO (17:55)
[2017-01-01] MEDS ORDERED: [UNRECOGNIZED DRUG - CODE] RC (17:55)
[2017-01-01] MEDS ORDERED: NYST15CR2 TP (17:55)
[2017-01-01] MEDS ORDERED: POLY255P PO (17:55)
[2017-01-01] MEDS ORDERED: CALC500T PO (17:55)
--- NOTE | 2017-01-01 18:03 | RAD ---
PROCEDURE MRI of the thoracic and lumbar spine without contrast 01/01/2017 HISTORY Extremity weakness post cervical fusion. TECHNIQUE Unenhanced T1 weighted, T2 weighted and inversion recovery sagittal and T1 weighted and T2 weighted axial images of the thoracic and lumbar spine were obtained. FINDINGS Comparison studies are dated 11/20/2016. Mild S-shaped curvature of the thoracolumbar spine is seen. Degenerative signal changes are seen involving all of the discs of the thoracic and throughout the lumbar spine. Degenerative signal changes are seen within the marrow surrounding these discs. Increased signal intensity is seen on the T2 weighted and inversion recovery images involving the thoracic spinal cord at the T1-2 level consistent with cord edema. This is unchanged. No new area of abnormal signal intensity is seen involving the thoracic spinal cord. Degenerative changes are seen throughout the thoracic disc spaces consisting mild to moderate generalized disc bulges, and degenerative changes involving the facet joints. These findings result in moderate to severe central spinal canal stenosis with moderate to severe cord impingement at T1-2. Superimposed focal right paracentral disc protrusions are seen involving the lower cervical disc spaces. No additional area of significant central spinal canal stenosis is seen. The changes of degenerative disc disease are seen throughout the lumbar disc spaces. These consist of mild to moderate generalized disc bulges, prominence of the posterior epidural fat, degenerative changes involving the facet joints and mild to moderate ligamentum flavum hypertrophy. These findings result in mild to moderate right greater than left central spinal canal stenosis at L1-2, mild to moderate central spinal canal stenosis at L2-3, moderate to severe right greater than left central spinal canal stenosis at L3-4, moderate to severe central spinal canal stenosis at L4-5 moderate bilateral neural foraminal stenosis is seen at L3-4. Moderate to severe bilateral neural foraminal stenosis is seen at L4-5. The canal stenosis and impingement upon the thoracic spinal cord at T1-2 appears increased slightly since the previous examination. The degenerative changes involving the lumbar spine have not significantly changed. IMPRESSION Degenerative changes are seen throughout the thoracic and lumbar disc spaces. The degenerative changes involving the thoracic spine result in moderate to severe central spinal canal stenosis with moderate to severe cord impingement at T1-2 which appears increased slightly since the previous examination. Increased signal intensity consistent with cord edema is seen at this level which is not significantly changed. The degenerative changes involving the lumbar spine have not significantly changed. Electronically signed by: Fam Hamilton MD (Jan 01, 2017 18:01:21)
[2017-01-01] MEDS: OXYCODONE/APAP 7.5/325 TABLET. PO PRN ×2 (18:13→22:08)
[2017-01-01] MEDS ORDERED: DEXAMETHASONE SOD PHOS 20 MG/5 ML VIAL. IV ONE (18:30)
[2017-01-01 19:00] VITALS: BP 152/76
[2017-01-01] MEDS: DOCUSATE SODIUM 100 MG CAPSULE PO SCH (20:25)
[2017-01-01] MEDS: ALLOPURINOL 300 MG TABLET. PO SCH (20:26)
[2017-01-01] MEDS: SOTALOL 80 MG TABLET. PO SCH (20:26)
[2017-01-01 23:00] VITALS: BP 143/68
[2017-01-02] MEDS: DEXAMETHASONE SOD PHOS 4 MG/ML VIAL IV SCH ×4 (00:29→18:10)
[2017-01-02 03:00] VITALS: BP 144/71
[2017-01-02] MEDS: OXYCODONE/APAP 7.5/325 TABLET. PO PRN ×4 (05:52→20:43)
[2017-01-02 07:00] VITALS: BP 143/76
[2017-01-02] MEDS: SOTALOL 80 MG TABLET. PO SCH ×3 (07:41→20:44)
[2017-01-02] MEDS: FUROSEMIDE 40 MG TABLET PO SCH ×2 (07:41→13:12)
[2017-01-02] MEDS: DOCUSATE SODIUM 100 MG CAPSULE PO SCH ×2 (07:42→20:44)
[2017-01-02] MEDS: POTASSIUM CHLORIDE 20 MEQ TABLET.ER. PO SCH ×2 (07:42→18:09)
[2017-01-02] MEDS: LISINOPRIL 10 MG TABLET PO SCH (07:42)
[2017-01-02] MEDS: AMIODARONE HCL 100 MG TABLET PO SCH (07:44)
[2017-01-02] MEDS: CYCLOBENZAPRINE 10 MG TABLET. PO PRN ×2 (09:48→15:19)
[2017-01-02 11:00] VITALS: BP 145/66
--- NOTE | 2017-01-02 11:19 | PDOC ---
PROGRESS NOTES Subjective Subjective up in chair feels better today reports that he was able to walk with walker Objective Objective Vital Signs Date Time Temp Pulse Resp B/P Pulse Ox O2 Delivery O2 Flow Rate FiO2 01/02/17 11:00 98.5 54 20 145/66 95 Room Air 98.5 Intake and Output 01/02/17 07:00 Intake Total 240 ml Output Total 2100 ml Balance -1860 ml Intake Oral 240 ml Output Urine Total 2100 ml Physical Exam General: Alert, Oriented X3, Cooperative, No acute distress MUSCULOSKELETAL: Other (GERBER) Neuro: Normal speech Psych/Mental Status: Mental status NL Skin: Other (dressing C,D,I) Assessment Assessment Problems Medical Problems: (1) Cervical spinal stenosis Status: Acute Plan Plan of Care continue PT Dr. Jimenes following steroids Comment Review of Relevant I have reviewed the following items hubert (where applicable) has been applied. Labs Laboratory Tests Test 01/01/17 16:55 White Blood Count 15.1x10^3/uL (4.0-11.0) Red Blood Count 3.85x10^6/uL (4.30-5.70) Hemoglobin 11.2g/dL (13.0-17.5) Hematocrit 33.8% (39.0-53.0) Mean Corpuscular Volume 88fL (79-100) Mean Corpuscular Hemoglobin 29pg (25-35) Mean Corpuscular Hemoglobin Concent 33g/dL (31-37) Red Cell Distribution Width 15.5% (11.5-14.5) Platelet Count 250x10^3/uL (140-400) Neutrophils (%) (Auto) 83% (31-73) Lymphocytes (%) (Auto) 6% (24-48) Monocytes (%) (Auto) 10% (0-9) Eosinophils (%) (Auto) 1% (0-3) Basophils (%) (Auto) 0% (0-3) Neutrophils # (Auto) 12.5x10^3uL (1.8-7.7) Lymphocytes # (Auto) 0.9x10^3/uL (1.0-4.8) Monocytes # (Auto) 1.5x10^3/uL (0.0-1.1) Eosinophils # (Auto) 0.1x10^3/uL (0.0-0.7) Basophils # (Auto) 0.1x10^3/uL (0.0-0.2) Sodium Level 135mmol/L (136-145) Potassium Level 4.3mmol/L (3.5-5.1) Chloride Level 97mmol/L (98-107) Carbon Dioxide Level 27mmol/L (21-32) Anion Gap 11 (6-14) Blood Urea Nitrogen 13mg/dL (8-26) Creatinine 1.0mg/dL (0.7-1.3) Estimated GFR (Cockcroft-Gault) 76.2 Glucose Level 187mg/dL (70-99) Calcium Level 8.7mg/dL (8.5-10.1) Laboratory Tests Test 01/01/17 16:55 White Blood Count 15.1x10^3/uL (4.0-11.0) Red Blood Count 3.85x10^6/uL (4.30-5.70) Hemoglobin 11.2g/dL (13.0-17.5) Hematocrit 33.8% (39.0-53.0) Mean Corpuscular Volume 88fL (79-100) Mean Corpuscular Hemoglobin 29pg (25-35) Mean Corpuscular Hemoglobin Concent 33g/dL (31-37) Red Cell Distribution Width 15.5% (11.5-14.5) Platelet Count 250x10^3/uL (140-400) Neutrophils (%) (Auto) 83% (31-73) Lymphocytes (%) (Auto) 6% (24-48) Monocytes (%) (Auto) 10% (0-9) Eosinophils (%) (Auto) 1% (0-3) Basophils (%) (Auto) 0% (0-3) Neutrophils # (Auto) 12.5x10^3uL (1.8-7.7) Lymphocytes # (Auto) 0.9x10^3/uL (1.0-4.8) Monocytes # (Auto) 1.5x10^3/uL (0.0-1.1) Eosinophils # (Auto) 0.1x10^3/uL (0.0-0.7) Basophils # (Auto) 0.1x10^3/uL (0.0-0.2) Sodium Level 135mmol/L (136-145) Potassium Level 4.3mmol/L (3.5-5.1) Chloride Level 97mmol/L (98-107) Carbon Dioxide Level 27mmol/L (21-32) Anion Gap 11 (6-14) Blood Urea Nitrogen 13mg/dL (8-26) Creatinine 1.0mg/dL (0.7-1.3) Estimated GFR (Cockcroft-Gault) 76.2 Glucose Level 187mg/dL (70-99) Calcium Level 8.7mg/dL (8.5-10.1) Medications Current Medications Acetaminophen (Tylenol) 650 mg PRN Q6HRS PRN PO MILD PAIN / TEMP Last administered on 01/01/17 20:25; Start 01/01/17 at 14:00 Al Hydroxide/Mg Hydroxide (Mylanta Plus Xs) 30 ml PRN Q3HRS PRN PO HEARTBURN / GAS; Start 01/01/17 at 14:00 Calcium Carbonate/ Glycine (Tums) 500 mg PRN Q3HRS PRN PO INDIGESTION; Start at 14:00 Diphenhydramine HCl (Benadryl) 25 mg PRN Q6HRS PRN PO ITCHING; Start 01/01/17 at 14:00 Diphenhydramine HCl (Benadryl) 25 mg PRN Q6HRS PRN IV ITCHING; Start 01/01/17 at 14:00 Naloxone HCl (Narcan) 0.1 mg PRN Q2MIN PRN IV ADMIN; Start 01/01/17 at 14:00 Sodium Chloride (Normal Saline Flush) 3 ml QSHIFT PRN IV AFTER MEDS AND BLOOD DRAWS; Start 01/01/17 at 14:00 Ondansetron HCl (Zofran) 4 mg PRN Q6HRS PRN IV NAUESA, 1ST CHOICE; Start at 14:00 Fentanyl Citrate (Fentanyl 2ml Vial) 25 mcg PRN Q1HR PRN IV PAIN; Start at 14:00 Fentanyl Citrate (Fentanyl 2ml Vial) 50 mcg PRN Q1HR PRN IV PAIN Last administered on 01/01/17 20:27; Start 01/01/17 at 14:00 Allopurinol (Zyloprim) 300 mg QHS PO Last administered on 01/01/17 20:26; Start 01/01/17 at 21:00 Amiodarone HCl (Cordarone) 100 mg DAILY PO Last administered on 01/02/17 07:44 ; Start 01/01/17 at 14:00 Ascorbic Acid (Vitamin C) 500 mg DAILY PO ; Start 01/02/17 at 14:00 Cyclobenzaprine HCl (Flexeril) 10 mg PRN TID PRN PO MUSCLE SPASMS Last administered on 01/02/17 09:48; Start 01/01/17 at 14:00 Docusate Sodium (Colace) 100 mg BID PO Last administered on 01/02/17 07:42; Start 01/01/17 at 21:00 Furosemide (Lasix) 40 mg BID92 PO Last administered on 01/02/17 07:41; Start 01/01/17 at 14:00 Lisinopril (Prinivil) 10 mg DAILY PO Last administered on 01/02/17 07:42; Start 01/01/17 at 14:00 Oxycodone/ Acetaminophen (Percocet 7.5/ 325) 2 tab PRN Q4HRS PRN PO PAIN Last administered on 01/02/17 09:48; Start 01/01/17 at 14:00 Sotalol HCl (Betapace) 80 mg BID PO Last administered on 01/02/17 07:41; Start 01/01/17 at 21:00; Stop 01/02/17 at 07:56; Status DC Potassium Chloride (Klor-Con) 20 meq BIDWMEALS PO Last administered on 07:42; Start 01/01/17 at 17:00 Dexamethasone Sodium Phosphate (Decadron) 10 mg 1X ONCE IV Last administered on 01/01/17 18:47; Start 01/01/17 at 18:30; Stop 01/01/17 at 18:31; Status DC Dexamethasone Sodium Phosphate (Decadron) 4 mg Q6HRS IV Last administered on 05:51; Start 01/02/17 at 00:00 Sotalol HCl (Betapace) 40 mg BID PO ; Start 01/02/17 at 09:00 Active Scripts Active Oxycodon-Acetaminophen 7.5-325 (Oxycodone Hcl/Acetaminophen) 1 Each Tablet 2 Tab PO PRN Q4HRS PRN 60 Days Colace (Docusate Sodium) 100 Mg Capsule 100 Mg PO BID 630 Days Cyclobenzaprine Hcl 10 Mg Tablet 10 Mg PO PRN TID PRN 60 Days Reported Zolpidem Tartrate 5 Mg Tablet 1 Tab PO QHS Calcium Carbonate 500 Mg Tablet 500 Mg PO PRN Q3HRS PRN Tums (Calcium Carbonate) 300 Mg Tab.chew 300 Mg PO Milk Of Magnesia (Magnesium Hydroxide) 400 Mg/5 Ml Oral.susp 400 Mg PO PRN QHS PRN Bisacodyl 10 Mg Supp.rect 10 Mg RC PRN DAILY PRN Eucerin Creme (Mineral Oil/White Petrolatum) 120 Gm Cream..g. 1 Lalo TP BID right and left legs Senna Plus Tablet (Sennosides/Docusate Sodium) 1 Each Tablet 2 Each PO HS Mintox Plus Tablet Chewable (Mag Hydrox/Al Hydrox/Simeth) 1 Each Tab.chew 1 Each PO PRN Q3HRS PRN Enemeez Plus Mini Enema (Docusate Sodium/Benzocaine) 5 Ml Enema 5 Ml RC PRN DAILY PRN Acetaminophen 500 Mg Tablet 650 Mg PO PRN Q6HRS PRN Polyethylene Glycol 3350 255 Gm Powder 17 Gm PO DAILY Oxycodone Hcl 15 Mg Tablet 1 Tab PO PRN Q4HRS PRN Oxycodone Hcl 10 Mg Tablet 1 Tab PO PRN Q4HRS PRN Nystatin-Triamcinolone Cream (Nystatin/Triamcin) 15 Gm Cream..g. 1 Lalo TP BID Amlodipine Besylate 10 Mg Tablet 10 Mg PO DAILY Vitamin C (Ascorbic Acid) 500 Mg Tablet 500 Mg PO DAILY [Black [place]] 1 Tab DAILY Xarelto (Rivaroxaban) 10 Mg Tablet Unknown Dose PO BID Amiodarone Hcl 100 Mg Tablet 100 Mg PO DAILY Next dose 08/30/16 AM Sotalol (Sotalol Hcl) 80 Mg Tablet 0.5 Tab PO BID Next dose 08/30/16 in the AM Allopurinol 300 Mg Tablet 1 Tab PO QHS Not given today Lisinopril 10 Mg Tablet 2 Tab PO DAILY Next dose 08/30/16 Potassium Chloride 20 Meq Tablet.er 20 Meq PO BID Next dose 08/30/16 Furosemide 40 Mg Tablet 1 Tab PO BID Next dose 11/17/16 at 9:00pm Vitals/I & O Vital Sign - Last 24 Hours 01/01/17 01/01/17 01/01/17 01/01/17 12:40 12:40 13:15 18:13 Temp 99.1 99.1 99.1 99.1 Pulse 75 75 Resp 20 20 B/P 153/80 153/80 Pulse Ox 95 95 O2 Delivery Room Air Room Air Room Air Room Air 01/01/17 01/01/17 01/01/17 01/01/17 19:00 20:20 20:26 20:27 Temp 99.4 99.4 Pulse 86 86 Resp 20 16 B/P 152/76 152/76 Pulse Ox 94 94 O2 Delivery Room Air Room Air Room Air 01/01/17 01/01/17 01/01/17 01/01/17 20:57 22:08 23:00 23:08 Temp 98.2 98.2 Pulse 58 Resp 16 16 18 18 B/P 143/68 Pulse Ox 94 94 100 O2 Delivery Room Air Room Air Room Air 01/02/17 01/02/17 01/02/17 01/02/17 03:00 05:52 07:00 07:35 Temp 98.7 98.3 98.7 98.3 Pulse 55 50 Resp 18 16 20 B/P 144/71 143/76 Pulse Ox 96 96 99 O2 Delivery Room Air Room Air Room Air Room Air 01/02/17 01/02/17 01/02/17 01/02/17 07:41 07:42 07:44 09:48 Pulse 50 50 50 B/P 143/76 143/76 143/76 Pulse Ox 99 O2 Delivery Room Air 01/02/17 01/02/17 10:39 11:00 Temp 98.5 98.5 Pulse 54 Resp 20 B/P 145/66 Pulse Ox 99 95 O2 Delivery Room Air Room Air Intake and Output 01/01/17 01/01/17 01/02/17 15:00 23:00 07:00 Intake Total 120 ml 120 ml Output Total 600 ml 1500 ml Balance -480 ml -1380 ml RAKESH ARROYO APRN Jan 02, 2017 11:19
[2017-01-02] MEDS: ASCORBIC ACID 500 MG TABLET PO SCH (13:12)
[2017-01-02 15:00] VITALS: BP 101/62
[2017-01-02] MEDS: RIVAROXABAN 10 MG TABLET. PO SCH (18:09)
[2017-01-02 19:20] VITALS: BP 149/73
--- NOTE | 2017-01-02 20:42 | CONS ---
DATE OF CONSULTATION: 01/02/2017 REQUESTING PHYSICIAN: Dr. Fernandez. HISTORY OF PRESENT ILLNESS: This is a 61-year-old male with cervical spinal stenosis, status post cervical decompression laminectomy done in the last 10 days. The patient was transferred to [facility] for continued inpatient rehab program on 12/28/2016. He had more difficulty to get up and move on 12/30/2016, and on 12/31/2016, he had low-grade fever and white cell count elevated to 15,000, and he required 2-person assistance with sliding board transfer; so I have transferred him to acute care unit for further evaluation and treatment on 01/01/2017. He complained more of lower back pain with radiation to right lower extremity and he had positive straight-leg raising test on the right side. He had MRI scan of the spine which revealed degenerative changes seen throughout the thoracic and lumbar disk spaces; qdwxvdau-if-hboxdl central spinal stenosis, with dkhxsjps-me-hhvtdc cord impingement at T12, which appears increased slightly since the previous examination; increased signal intensity consistent with cord edema seen at this level which is not significantly changed; degenerative change involving lumbar spine has not significantly changed, resulting in bygn-vf-dhieeznl stdtm-vftphtk-urgx-left central spinal stenosis at L1-L2, nhjc-ou-odeuarxs central canal stenosis at L2-L3, xjcrieyn-wz-khtffh dzpwc-pewxbft-ygdr-left central canal stenosis at L3-L4, vmvzlumj-hw-nghtde central canal stenosis at L4-L5, moderate bilateral neural foraminal stenosis at L3-L4, avuxuems-uh-anbkjz bilateral neural foraminal stenosis seen at L4-L5; canal stenosis and impingement upon the thoracic spinal cord at T1-2 level appears increased slightly since the previous examination. In the thoracic area, degenerative changes are seen throughout the thoracic disk spaces consistent with vuwq-wy-tvjdiynl generalized disk bulges; degenerative change involving the facet joint, consistent with pccxaaha-eo-sbytdw central canal spinal stenosis and pikpezbo-jl-zmbvma cord impingement at T1-T2; superimposed focal right paracentral disk protrusions are seen involving the lower cervical disk spaces. Cervical spine MRI scan revealed post-laminectomy and posterolateral fusion extending from C4 to C7, with central spinal canal stenosis and cord impingement at C4-C5,C5-C6, and C6-C7 seen on the previous examination has resolved; no well-defined fluid collection or hematoma was noted; degenerative changes are seen throughout the cervical and visualized thoracic disk spaces resulting in mild central spinal canal stenosis without significant cord impingement at C3-C4; gxbw-gc-lzliaelx central spinal canal stenosis with mild cord impingement at T1-T2. The patient feels much better today, and as per Physical Therapy note, he requires minimal assistance supine to sit, pull to sit, unable to complete logroll, minimal assistance with transfers, sit to stand using a roller walker, sit to stand from raised edge of the bed. With contact guard assistance, he walked for about 10 feet using a roller walker with wide base of support, step to gait, slow yunior, short step length. PHYSICAL EXAMINATION: Today revealed a middle-aged male. He is obese. He is alert, oriented to time, place, person and circumstance, and follows commands appropriately. Moves all 4 extremities voluntarily, where he had 4+/5 grade muscle strength. He had relatively increased weakness in shoulder girdle muscles and also right knee extension, positive straight-leg raising test on the right side. He had equal perception of touch and pinprick sensation in his upper extremities, but decreased sensory perception in both feet and legs, L5-S1 dermatome area. Deep tendon reflexes are 1 to 2+ and symmetrical. I have not tested his mobility skills at the present time. 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 RECOMMENDATIONS: Agree with plan for physical therapy and occupational therapy to see how he does in the next couple of days. Hopefully to consider transfer to [facility] for continued therapy when medically stable in the next few days. Dr. Fernandez, I appreciate asking me to participate in the care of this interesting patient. I will be glad to follow him with you as needed for his rehabilitation. CARLTON SANTOS MD DR: JANINA/ashley JOB#: [id number] / [id number]
[2017-01-02] MEDS: ALLOPURINOL 300 MG TABLET. PO SCH (20:43)
[2017-01-02 23:03] VITALS: BP 156/79
[2017-01-03] MEDS: DEXAMETHASONE SOD PHOS 4 MG/ML VIAL IV SCH ×4 (00:19→17:50)
[2017-01-03 03:53] VITALS: BP 148/82
[2017-01-03] MEDS: OXYCODONE/APAP 7.5/325 TABLET. PO PRN ×5 (05:14→22:00)
[2017-01-03] MEDS: CYCLOBENZAPRINE 10 MG TABLET. PO PRN ×2 (05:14→17:50)
[2017-01-03 07:00] VITALS: BP 159/76
[2017-01-03] MEDS: DOCUSATE SODIUM 100 MG CAPSULE PO SCH ×2 (08:36→21:59)
[2017-01-03] MEDS: POTASSIUM CHLORIDE 20 MEQ TABLET.ER. PO SCH ×2 (08:36→17:21)
[2017-01-03] MEDS: LISINOPRIL 10 MG TABLET PO SCH (08:37)
[2017-01-03] MEDS: FUROSEMIDE 40 MG TABLET PO SCH ×2 (08:37→13:54)
[2017-01-03] MEDS: AMIODARONE HCL 100 MG TABLET PO SCH (08:37)
[2017-01-03] MEDS: SOTALOL 80 MG TABLET. PO SCH ×2 (08:37→21:59)
[2017-01-03] MEDS: ASCORBIC ACID 500 MG TABLET PO SCH (08:37)
--- NOTE | 2017-01-03 09:48 | PDOC ---
PROGRESS NOTES Subjective Subjective He still feels weak and would like to stay here for a few days before going back to rehab unit. Objective Objective Vital Signs Date Time Temp Pulse Resp B/P Pulse Ox O2 Delivery O2 Flow Rate FiO2 01/03/17 09:23 93 Room Air 01/03/17 08:37 67 159/76 01/03/17 07:00 97.6 20 97.6 Intake and Output 01/03/17 07:00 Intake Total 2780 ml Output Total 2100 ml Balance 680 ml Intake Oral 2780 ml Output Urine Total 2100 ml # Voids 1 # Bowel Movements 1 Physical Exam Physical Exam He is alert,sitting in bedside chair and in no acute distress but still having tenderness to palpation over lumbar area and positive SLR test on right side. Assessment Assessment Problems Medical Problems: (1) Cervical spinal stenosis Status: Acute Plan Plan of Care To continue present rehab efforts as tolerated while waiting for transfer back to [facility]. Comment Review of Relevant I have reviewed the following items hubert (where applicable) has been applied. Labs Laboratory Tests Test 01/01/17 16:55 01/02/17 08:40 White Blood Count 15.1x10^3/uL (4.0-11.0) Red Blood Count 3.85x10^6/uL (4.30-5.70) Hemoglobin 11.2g/dL (13.0-17.5) Hematocrit 33.8% (39.0-53.0) Mean Corpuscular Volume 88fL (79-100) Mean Corpuscular Hemoglobin 29pg (25-35) Mean Corpuscular Hemoglobin Concent 33g/dL (31-37) Red Cell Distribution Width 15.5% (11.5-14.5) Platelet Count 250x10^3/uL (140-400) Neutrophils (%) (Auto) 83% (31-73) Lymphocytes (%) (Auto) 6% (24-48) Monocytes (%) (Auto) 10% (0-9) Eosinophils (%) (Auto) 1% (0-3) Basophils (%) (Auto) 0% (0-3) Neutrophils # (Auto) 12.5x10^3uL (1.8-7.7) Lymphocytes # (Auto) 0.9x10^3/uL (1.0-4.8) Monocytes # (Auto) 1.5x10^3/uL (0.0-1.1) Eosinophils # (Auto) 0.1x10^3/uL (0.0-0.7) Basophils # (Auto) 0.1x10^3/uL (0.0-0.2) Sodium Level 135mmol/L (136-145) Potassium Level 4.3mmol/L (3.5-5.1) Chloride Level 97mmol/L (98-107) Carbon Dioxide Level 27mmol/L (21-32) Anion Gap 11 (6-14) Blood Urea Nitrogen 13mg/dL (8-26) Creatinine 1.0mg/dL (0.7-1.3) Estimated GFR (Cockcroft-Gault) 76.2 Glucose Level 187mg/dL (70-99) Calcium Level 8.7mg/dL (8.5-10.1) Nasal Screen MRSA (PCR) Negative (Negative) Medications Current Medications Acetaminophen (Tylenol) 650 mg PRN Q6HRS PRN PO MILD PAIN / TEMP Last administered on 01/01/17t 20:25; Start 01/01/17 at 14:00 Al Hydroxide/Mg Hydroxide (Mylanta Plus Xs) 30 ml PRN Q3HRS PRN PO HEARTBURN / GAS; Start 01/01/17 at 14:00 Calcium Carbonate/ Glycine (Tums) 500 mg PRN Q3HRS PRN PO INDIGESTION; Start at 14:00 Diphenhydramine HCl (Benadryl) 25 mg PRN Q6HRS PRN PO ITCHING; Start 01/01/17 at 14:00 Diphenhydramine HCl (Benadryl) 25 mg PRN Q6HRS PRN IV ITCHING; Start 01/01/17 at 14:00 Naloxone HCl (Narcan) 0.1 mg PRN Q2MIN PRN IV ADMIN; Start 01/01/17 at 14:00 Sodium Chloride (Normal Saline Flush) 3 ml QSHIFT PRN IV AFTER MEDS AND BLOOD DRAWS; Start 01/01/17 at 14:00 Ondansetron HCl (Zofran) 4 mg PRN Q6HRS PRN IV NAUESA, 1ST CHOICE; Start at 14:00 Fentanyl Citrate (Fentanyl 2ml Vial) 25 mcg PRN Q1HR PRN IV PAIN; Start at 14:00 Fentanyl Citrate (Fentanyl 2ml Vial) 50 mcg PRN Q1HR PRN IV PAIN Last administered on 01/01/17 20:27; Start 01/01/17 at 14:00 Allopurinol (Zyloprim) 300 mg QHS PO Last administered on 01/02/17 20:43; Start 01/01/17 at 21:00 Amiodarone HCl (Cordarone) 100 mg DAILY PO Last administered on 01/03/17 08:37 ; Start 01/01/17 at 14:00 Ascorbic Acid (Vitamin C) 500 mg DAILY PO Last administered on 01/03/17 08:37 ; Start 01/02/17 at 14:00 Cyclobenzaprine HCl (Flexeril) 10 mg PRN TID PRN PO MUSCLE SPASMS Last administered on 01/03/17 05:14; Start 01/01/17 at 14:00 Docusate Sodium (Colace) 100 mg BID PO Last administered on 01/03/17 08:36; Start 01/01/17 at 21:00 Furosemide (Lasix) 40 mg BID92 PO Last administered on 01/03/17 08:37; Start 01/01/17 at 14:00 Lisinopril (Prinivil) 10 mg DAILY PO Last administered on 01/03/17 08:37; Start 01/01/17 at 14:00 Oxycodone/ Acetaminophen (Percocet 7.5/ 325) 2 tab PRN Q4HRS PRN PO PAIN Last administered on 01/03/17 09:23; Start 01/01/17 at 14:00 Sotalol HCl (Betapace) 80 mg BID PO Last administered on 01/02/17 07:41; Start 01/01/17 at 21:00; Stop 01/02/17 at 07:56; Status DC Potassium Chloride (Klor-Con) 20 meq BIDWMEALS PO Last administered on 08:36; Start 01/01/17 at 17:00 Dexamethasone Sodium Phosphate (Decadron) 10 mg 1X ONCE IV Last administered on 01/01/17 18:47; Start 01/01/17 at 18:30; Stop 01/01/17 at 18:31; Status DC Dexamethasone Sodium Phosphate (Decadron) 4 mg Q6HRS IV Last administered on 05:14; Start 01/02/17 at 00:00 Sotalol HCl (Betapace) 40 mg BID PO Last administered on 01/03/17 08:37; Start 01/02/17 at 09:00 Rivaroxaban (Xarelto) 20 mg DAILYWSUP PO Last administered on 01/02/17 18:09; Start 01/02/17 at 17:00 Info (Anti-Coagulation Monitoring By Pharmacy) 1 each PRN DAILY PRN MC SEE COMMENTS; Start 01/02/17 at 11:30 Active Scripts Active Oxycodon-Acetaminophen 7.5-325 (Oxycodone Hcl/Acetaminophen) 1 Each Tablet 2 Tab PO PRN Q4HRS PRN 60 Days Colace (Docusate Sodium) 100 Mg Capsule 100 Mg PO BID 630 Days Cyclobenzaprine Hcl 10 Mg Tablet 10 Mg PO PRN TID PRN 60 Days Reported Zolpidem Tartrate 5 Mg Tablet 1 Tab PO QHS Calcium Carbonate 500 Mg Tablet 500 Mg PO PRN Q3HRS PRN Tums (Calcium Carbonate) 300 Mg Tab.chew 300 Mg PO Milk Of Magnesia (Magnesium Hydroxide) 400 Mg/5 Ml Oral.susp 400 Mg PO PRN QHS PRN Bisacodyl 10 Mg Supp.rect 10 Mg RC PRN DAILY PRN Eucerin Creme (Mineral Oil/White Petrolatum) 120 Gm Cream..g. 1 Lalo TP BID right and left legs Senna Plus Tablet (Sennosides/Docusate Sodium) 1 Each Tablet 2 Each PO HS Mintox Plus Tablet Chewable (Mag Hydrox/Al Hydrox/Simeth) 1 Each Tab.chew 1 Each PO PRN Q3HRS PRN Enemeez Plus Mini Enema (Docusate Sodium/Benzocaine) 5 Ml Enema 5 Ml RC PRN DAILY PRN Acetaminophen 500 Mg Tablet 650 Mg PO PRN Q6HRS PRN Polyethylene Glycol 3350 255 Gm Powder 17 Gm PO DAILY Oxycodone Hcl 15 Mg Tablet 1 Tab PO PRN Q4HRS PRN Oxycodone Hcl 10 Mg Tablet 1 Tab PO PRN Q4HRS PRN Nystatin-Triamcinolone Cream (Nystatin/Triamcin) 15 Gm Cream..g. 1 Lalo TP BID Amlodipine Besylate 10 Mg Tablet 10 Mg PO DAILY Vitamin C (Ascorbic Acid) 500 Mg Tablet 500 Mg PO DAILY [Black [place]] 1 Tab DAILY Xarelto (Rivaroxaban) 10 Mg Tablet Unknown Dose PO BID Amiodarone Hcl 100 Mg Tablet 100 Mg PO DAILY Next dose 08/30/16 AM Sotalol (Sotalol Hcl) 80 Mg Tablet 0.5 Tab PO BID Next dose 08/30/16 in the AM Allopurinol 300 Mg Tablet 1 Tab PO QHS Not given today Lisinopril 10 Mg Tablet 2 Tab PO DAILY Next dose 08/30/16 Potassium Chloride 20 Meq Tablet.er 20 Meq PO BID Next dose 08/30/16 Furosemide 40 Mg Tablet 1 Tab PO BID Next dose 08/29/16 at 9:00pm Vitals/I & O Vital Sign - Last 24 Hours 01/02/17 01/02/17 01/02/17 01/02/17 09:48 11:00 15:00 15:21 Temp 98.5 98.3 98.5 98.3 Pulse 54 59 Resp 20 20 B/P 145/66 101/62 Pulse Ox 99 95 94 95 O2 Delivery Room Air Room Air Room Air Room Air 01/02/17 01/02/17 01/02/17 01/02/17 19:20 20:00 20:43 20:44 Temp 97.4 97.4 Pulse 55 55 Resp 18 16 B/P 149/73 149/73 Pulse Ox 93 93 O2 Delivery Room Air Room Air Room Air 01/02/17 01/03/17 01/03/17 01/03/17 23:03 03:53 05:14 06:14 Temp 97.6 98.1 97.6 98.1 Pulse 56 58 Resp 18 18 16 16 B/P 156/79 148/82 Pulse Ox 96 93 93 93 O2 Delivery Room Air Room Air Room Air Room Air 01/03/17 01/03/17 01/03/17 01/03/17 07:00 08:00 08:37 08:37 Temp 97.6 97.6 Pulse 67 67 67 Resp 20 B/P 159/76 159/76 159/76 Pulse Ox 93 O2 Delivery Room Air Room Air 01/03/17 01/03/17 08:37 09:23 Pulse 67 B/P 159/76 Pulse Ox 93 O2 Delivery Room Air Intake and Output 01/02/17 01/02/17 01/03/17 15:00 23:00 07:00 Intake Total 1100 ml 1680 ml Output Total 2100 ml Balance 1100 ml -420 ml CARLTON SANTOS MD Jan 03, 2017 09:47
--- NOTE | 2017-01-03 10:59 | PDOC ---
PROGRESS NOTES Subjective Subjective up in chair ambulated to bathroom improved but still feel weak in LE Objective Objective Vital Signs Date Time Temp Pulse Resp B/P Pulse Ox O2 Delivery O2 Flow Rate FiO2 01/03/17 10:23 93 Room Air 01/03/17 08:37 67 159/76 01/03/17 07:00 97.6 20 97.6 Intake and Output 01/03/17 07:00 Intake Total 2780 ml Output Total 2100 ml Balance 680 ml Intake Oral 2780 ml Output Urine Total 2100 ml # Voids 1 # Bowel Movements 1 Physical Exam General: Alert, Oriented X3, Cooperative, No acute distress MUSCULOSKELETAL: Other (GERBER) Neuro: Normal speech Psych/Mental Status: Mental status NL Skin: Other (incision healing well, [employer]ENG[employer]ING [employer]ICE, qi intact) Assessment Assessment Problems Medical Problems: (1) Cervical spinal stenosis Status: Acute Plan Plan of Care continue PT Encouraged increased activity as tolerated wean steroids Comment Review of Relevant I have reviewed the following items hubert (where applicable) has been applied. Labs Laboratory Tests Test 01/01/17 16:55 01/02/17 08:40 White Blood Count 15.1x10^3/uL (4.0-11.0) Red Blood Count 3.85x10^6/uL (4.30-5.70) Hemoglobin 11.2g/dL (13.0-17.5) Hematocrit 33.8% (39.0-53.0) Mean Corpuscular Volume 88fL (79-100) Mean Corpuscular Hemoglobin 29pg (25-35) Mean Corpuscular Hemoglobin Concent 33g/dL (31-37) Red Cell Distribution Width 15.5% (11.5-14.5) Platelet Count 250x10^3/uL (140-400) Neutrophils (%) (Auto) 83% (31-73) Lymphocytes (%) (Auto) 6% (24-48) Monocytes (%) (Auto) 10% (0-9) Eosinophils (%) (Auto) 1% (0-3) Basophils (%) (Auto) 0% (0-3) Neutrophils # (Auto) 12.5x10^3uL (1.8-7.7) Lymphocytes # (Auto) 0.9x10^3/uL (1.0-4.8) Monocytes # (Auto) 1.5x10^3/uL (0.0-1.1) Eosinophils # (Auto) 0.1x10^3/uL (0.0-0.7) Basophils # (Auto) 0.1x10^3/uL (0.0-0.2) Sodium Level 135mmol/L (136-145) Potassium Level 4.3mmol/L (3.5-5.1) Chloride Level 97mmol/L (98-107) Carbon Dioxide Level 27mmol/L (21-32) Anion Gap 11 (6-14) Blood Urea Nitrogen 13mg/dL (8-26) Creatinine 1.0mg/dL (0.7-1.3) Estimated GFR (Cockcroft-Gault) 76.2 Glucose Level 187mg/dL (70-99) Calcium Level 8.7mg/dL (8.5-10.1) Nasal Screen MRSA (PCR) Negative (Negative) Medications Current Medications Acetaminophen (Tylenol) 650 mg PRN Q6HRS PRN PO MILD PAIN / TEMP Last administered on 01/01/17t 20:25; Start 01/01/17 at 14:00 Al Hydroxide/Mg Hydroxide (Mylanta Plus Xs) 30 ml PRN Q3HRS PRN PO HEARTBURN / GAS; Start 01/01/17 at 14:00 Calcium Carbonate/ Glycine (Tums) 500 mg PRN Q3HRS PRN PO INDIGESTION; Start at 14:00 Diphenhydramine HCl (Benadryl) 25 mg PRN Q6HRS PRN PO ITCHING; Start 01/01/17 at 14:00 Diphenhydramine HCl (Benadryl) 25 mg PRN Q6HRS PRN IV ITCHING; Start 01/01/17 at 14:00 Naloxone HCl (Narcan) 0.1 mg PRN Q2MIN PRN IV ADMIN; Start 01/01/17 at 14:00 Sodium Chloride (Normal Saline Flush) 3 ml QSHIFT PRN IV AFTER MEDS AND BLOOD DRAWS; Start 01/01/17 at 14:00 Ondansetron HCl (Zofran) 4 mg PRN Q6HRS PRN IV NAUESA, 1ST CHOICE; Start at 14:00 Fentanyl Citrate (Fentanyl 2ml Vial) 25 mcg PRN Q1HR PRN IV PAIN; Start at 14:00 Fentanyl Citrate (Fentanyl 2ml Vial) 50 mcg PRN Q1HR PRN IV PAIN Last administered on 01/01/17 20:27; Start 01/01/17 at 14:00 Allopurinol (Zyloprim) 300 mg QHS PO Last administered on 01/02/17 20:43; Start 01/01/17 at 21:00 Amiodarone HCl (Cordarone) 100 mg DAILY PO Last administered on 01/03/17 08:37 ; Start 01/01/17 at 14:00 Ascorbic Acid (Vitamin C) 500 mg DAILY PO Last administered on 01/03/17 08:37 ; Start 01/02/17 at 14:00 Cyclobenzaprine HCl (Flexeril) 10 mg PRN TID PRN PO MUSCLE SPASMS Last administered on 01/03/17 05:14; Start 01/01/17 at 14:00 Docusate Sodium (Colace) 100 mg BID PO Last administered on 01/03/17 08:36; Start 01/01/17 at 21:00 Furosemide (Lasix) 40 mg [id number] PO Last administered on 01/03/17 08:37; Start 01/01/17 at 14:00 Lisinopril (Prinivil) 10 mg DAILY PO Last administered on 01/03/17 08:37; Start 01/01/17 at 14:00 Oxycodone/ Acetaminophen (Percocet 7.5/ 325) 2 tab PRN Q4HRS PRN PO PAIN Last administered on 01/03/17 09:23; Start 01/01/17 at 14:00 Sotalol HCl (Betapace) 80 mg BID PO Last administered on 01/02/17 07:41; Start 01/01/17 at 21:00; Stop 01/02/17 at 07:56; Status DC Potassium Chloride (Klor-Con) 20 meq BIDWMEALS PO Last administered on 08:36; Start 01/01/17 at 17:00 Dexamethasone Sodium Phosphate (Decadron) 10 mg 1X ONCE IV Last administered on 01/01/17 18:47; Start 01/01/17 at 18:30; Stop 01/01/17 at 18:31; Status DC Dexamethasone Sodium Phosphate (Decadron) 4 mg Q6HRS IV Last administered on 05:14; Start 01/02/17 at 00:00 Sotalol HCl (Betapace) 40 mg BID PO Last administered on 01/03/17 08:37; Start 01/02/17 at 09:00 Rivaroxaban (Xarelto) 20 mg DAILYWSUP PO Last administered on 01/02/17 18:09; Start 01/02/17 at 17:00 Info (Anti-Coagulation Monitoring By Pharmacy) 1 each PRN DAILY PRN [facility] SEE COMMENTS; Start 01/02/17 at 11:30 Active Scripts Active Oxycodon-Acetaminophen 7.5-325 (Oxycodone Hcl/Acetaminophen) 1 Each Tablet 2 Tab PO PRN Q4HRS PRN 60 Days Colace (Docusate Sodium) 100 Mg Capsule 100 Mg PO BID 630 Days Cyclobenzaprine Hcl 10 Mg Tablet 10 Mg PO PRN TID PRN 60 Days Reported Zolpidem Tartrate 5 Mg Tablet 1 Tab PO QHS Calcium Carbonate 500 Mg Tablet 500 Mg PO PRN Q3HRS PRN Tums (Calcium Carbonate) 300 Mg Tab.chew 300 Mg PO Milk Of Magnesia (Magnesium Hydroxide) 400 Mg/5 Ml Oral.susp 400 Mg PO PRN QHS PRN Bisacodyl 10 Mg Supp.rect 10 Mg RC PRN DAILY PRN Eucerin Creme (Mineral Oil/White Petrolatum) 120 Gm Cream..g. 1 Lalo TP BID right and left legs Senna Plus Tablet (Sennosides/Docusate Sodium) 1 Each Tablet 2 Each PO HS Mintox Plus Tablet Chewable (Mag Hydrox/Al Hydrox/Simeth) 1 Each Tab.chew 1 Each PO PRN Q3HRS PRN Enemeez Plus Mini Enema (Docusate Sodium/Benzocaine) 5 Ml Enema 5 Ml RC PRN DAILY PRN Acetaminophen 500 Mg Tablet 650 Mg PO PRN Q6HRS PRN Polyethylene Glycol 3350 255 Gm Powder 17 Gm PO DAILY Oxycodone Hcl 15 Mg Tablet 1 Tab PO PRN Q4HRS PRN Oxycodone Hcl 10 Mg Tablet 1 Tab PO PRN Q4HRS PRN Nystatin-Triamcinolone Cream (Nystatin/Triamcin) 15 Gm Cream..g. 1 Lalo TP BID Amlodipine Besylate 10 Mg Tablet 10 Mg PO DAILY Vitamin C (Ascorbic Acid) 500 Mg Tablet 500 Mg PO DAILY [Black [place]] 1 Tab DAILY Xarelto (Rivaroxaban) 10 Mg Tablet Unknown Dose PO BID Amiodarone Hcl 100 Mg Tablet 100 Mg PO DAILY Next dose 08/30/16 AM Sotalol (Sotalol Hcl) 80 Mg Tablet 0.5 Tab PO BID Next dose 08/30/16 in the AM Allopurinol 300 Mg Tablet 1 Tab PO QHS Not given today Lisinopril 10 Mg Tablet 2 Tab PO DAILY Next dose 08/30/16 Potassium Chloride 20 Meq Tablet.er 20 Meq PO BID Next dose 08/30/16 Furosemide 40 Mg Tablet 1 Tab PO BID Next dose 08/29/16 at 9:00pm Vitals/I & O Vital Sign - Last 24 Hours 01/02/17 01/02/17 01/02/17 01/02/17 11:00 15:00 15:21 19:20 Temp 98.5 98.3 97.4 98.5 98.3 97.4 Pulse 54 59 55 Resp 20 20 18 B/P 145/66 101/62 149/73 Pulse Ox 95 94 95 93 O2 Delivery Room Air Room Air Room Air Room Air 01/02/17 01/02/17 01/02/17 01/02/17 20:00 20:43 20:44 23:03 Temp 97.6 97.6 Pulse 55 56 Resp 16 18 B/P 149/73 156/79 Pulse Ox 93 96 O2 Delivery Room Air Room Air Room Air 01/03/17 01/03/17 01/03/17 01/03/17 03:53 05:14 06:14 07:00 Temp 98.1 97.6 98.1 97.6 Pulse 58 67 Resp 18 16 16 20 B/P 148/82 159/76 Pulse Ox 93 93 93 O2 Delivery Room Air Room Air Room Air 01/03/17 01/03/17 01/03/17 01/03/17 08:00 08:37 08:37 08:37 Pulse 67 67 67 B/P 159/76 159/76 159/76 O2 Delivery Room Air 01/03/17 01/03/17 09:23 10:23 Pulse Ox 93 93 O2 Delivery Room Air Room Air Intake and Output 3/01/02/17 01/03/17 15:00 23:00 07:00 Intake Total 1100 ml 1680 ml Output Total 2100 ml Balance 1100 ml -420 ml RAKESH ARROYO APRN Jan 03, 2017 10:59
[2017-01-03 11:00] VITALS: BP 131/69
[2017-01-03 11:20] LABS: BASO % 0 % (0-3); EOS % 0 % (0-3); HEMOGLOBIN 12.1 g/dL (13.0-17.5); LYMPH # 0.9 x10^3/uL (1.0-4.8); LYMPH % 5 % (24-48); MEAN CORPUSCULAR HEMOGLOBIN 29 pg (25-35); MEAN CORPUSCULAR HGB CONC 33 g/dL (31-37); MEAN CORPUSCULAR VOLUME 88 fL (79-100); MONO % 4 % (0-9); NEUT % 91 % (31-73); PLATELET COUNT 411 x10^3/uL (140-400); RED BLOOD COUNT 4.23 x10^6/uL (4.30-5.70); RED CELL DISTRIBUTION WIDTH 15.6 % (11.5-14.5)
[2017-01-03 11:33] LABS: CALCIUM 9.2 mg/dL (8.5-10.1); CREATININE 1.1 mg/dL (0.7-1.3); GFR 68.3; POTASSIUM 5.1 mmol/L (3.5-5.1)
[2017-01-03] MEDS: ANTI-COAG MONITOR BY PHARMACY. MC PRN (11:44)
[2017-01-03 13:16] LABS: ANISOCYTOSIS PRESENT; PLT ESTIMATE ADEQUATE (ADEQUATE)
[2017-01-03 15:00] VITALS: BP 155/82
[2017-01-03] MEDS: RIVAROXABAN 10 MG TABLET. PO SCH (17:21)
[2017-01-03 19:10] VITALS: BP 137/65
[2017-01-03] MEDS: ALLOPURINOL 300 MG TABLET. PO SCH (21:59)
[2017-01-03 23:15] VITALS: BP 156/74
[2017-01-04] MEDS: DEXAMETHASONE SOD PHOS 4 MG/ML VIAL IV SCH ×3 (00:19→12:00)
[2017-01-04 03:07] VITALS: BP 160/80
[2017-01-04] MEDS: OXYCODONE/APAP 7.5/325 TABLET. PO PRN ×2 (05:52→22:56)
[2017-01-04 07:00] VITALS: BP 159/83
[2017-01-04 08:24] LABS: BASO % 0 % (0-3); EOS % 0 % (0-3); HEMATOCRIT 35.2 % (39.0-53.0); HEMOGLOBIN 11.4 g/dL (13.0-17.5); LYMPH # 1.4 x10^3/uL (1.0-4.8); LYMPH % 9 % (24-48); MEAN CORPUSCULAR HEMOGLOBIN 29 pg (25-35); MEAN CORPUSCULAR HGB CONC 32 g/dL (31-37); MEAN CORPUSCULAR VOLUME 89 fL (79-100); MONO % 5 % (0-9); NEUT % 86 % (31-73); PLATELET COUNT 377 x10^3/uL (140-400); RED BLOOD COUNT 3.95 x10^6/uL (4.30-5.70); RED CELL DISTRIBUTION WIDTH 15.6 % (11.5-14.5); WHITE BLOOD COUNT 15.8 x10^3/uL (4.0-11.0)
[2017-01-04 08:37] LABS: CALCIUM 9.2 mg/dL (8.5-10.1); GFR 76.2; POTASSIUM 4.4 mmol/L (3.5-5.1)
[2017-01-04] MEDS: FUROSEMIDE 40 MG TABLET PO SCH ×2 (09:29→12:43)
[2017-01-04] MEDS: ASCORBIC ACID 500 MG TABLET PO SCH (09:29)
[2017-01-04] MEDS: POTASSIUM CHLORIDE 20 MEQ TABLET.ER. PO SCH ×2 (09:29→17:42)
[2017-01-04] MEDS: DOCUSATE SODIUM 100 MG CAPSULE PO SCH ×2 (09:29→21:00)
[2017-01-04] MEDS: LISINOPRIL 10 MG TABLET PO SCH (09:30)
[2017-01-04] MEDS: AMIODARONE HCL 100 MG TABLET PO SCH (09:30)
[2017-01-04] MEDS: SOTALOL 80 MG TABLET. PO SCH ×2 (09:31→22:55)
--- NOTE | 2017-01-04 10:20 | PDOC ---
PROGRESS NOTES Subjective Subjective No new complaints. Objective Objective Vital Signs Date Time Temp Pulse Resp B/P Pulse Ox O2 Delivery O2 Flow Rate FiO2 01/04/17 09:31 68 159/83 01/04/17 07:00 97.6 20 93 BiPAP/CPAP 97.6 Intake and Output 01/04/17 07:00 Intake Total 620 ml Balance 620 ml Intake Oral 620 ml # Voids 7 # Bowel Movements 3 Physical Exam Physical Exam He did walk for 100' with roller walker with physical therapy this AM.Physical therapy plans to work on stairs. Assessment Assessment Problems Medical Problems: (1) Cervical spinal stenosis Status: Acute Plan Plan of Care To see how he does in the next 2 days before transfer to rehab or home with home health or out patient follow up. Comment Review of Relevant I have reviewed the following items hubert (where applicable) has been applied. Labs Laboratory Tests Test 01/03/17 10:50 01/04/17 07:11 White Blood Count 20.0x10^3/uL (4.0-11.0) 15.8x10^3/uL (4.0-11.0) Red Blood Count 4.23x10^6/uL (4.30-5.70) 3.95x10^6/uL (4.30-5.70) Hemoglobin 12.1g/dL (13.0-17.5) 11.4g/dL (13.0-17.5) Hematocrit 37.0% (39.0-53.0) 35.2% (39.0-53.0) Mean Corpuscular Volume 88fL (79-100) 89fL (79-100) Mean Corpuscular Hemoglobin 29pg (25-35) 29pg (25-35) Mean Corpuscular Hemoglobin Concent 33g/dL (31-37) 32g/dL (31-37) Red Cell Distribution Width 15.6% (11.5-14.5) 15.6% (11.5-14.5) Platelet Count 411x10^3/uL (140-400) 377x10^3/uL (140-400) Neutrophils (%) (Auto) 91% (31-73) 86% (31-73) Lymphocytes (%) (Auto) 5% (24-48) 9% (24-48) Monocytes (%) (Auto) 4% (0-9) 5% (0-9) Eosinophils (%) (Auto) 0% (0-3) 0% (0-3) Basophils (%) (Auto) 0% (0-3) 0% (0-3) Neutrophils # (Auto) 18.2x10^3uL (1.8-7.7) 13.6x10^3uL (1.8-7.7) Lymphocytes # (Auto) 0.9x10^3/uL (1.0-4.8) 1.4x10^3/uL (1.0-4.8) Monocytes # (Auto) 0.8x10^3/uL (0.0-1.1) 0.8x10^3/uL (0.0-1.1) Eosinophils # (Auto) 0.0x10^3/uL (0.0-0.7) 0.0x10^3/uL (0.0-0.7) Basophils # (Auto) 0.0x10^3/uL (0.0-0.2) 0.0x10^3/uL (0.0-0.2) Segmented Neutrophils % 87% (35-66) Lymphocytes % 7% (24-48) Monocytes % 6% (0-10) Platelet Estimate Adequate (ADEQUATE) Anisocytosis Present Sodium Level 133mmol/L (136-145) 134mmol/L (136-145) Potassium Level 5.1mmol/L (3.5-5.1) 4.4mmol/L (3.5-5.1) Chloride Level 96mmol/L (98-107) 96mmol/L (98-107) Carbon Dioxide Level 25mmol/L (21-32) 28mmol/L (21-32) Anion Gap 12 (6-14) 10 (6-14) Blood Urea Nitrogen 25mg/dL (8-26) 24mg/dL (8-26) Creatinine 1.1mg/dL (0.7-1.3) 1.0mg/dL (0.7-1.3) Estimated GFR (Cockcroft-Gault) 68.3 76.2 Glucose Level 416mg/dL (70-99) 382mg/dL (70-99) Calcium Level 9.2mg/dL (8.5-10.1) 9.2mg/dL (8.5-10.1) Laboratory Tests Test 01/03/17 10:50 01/04/17 07:11 White Blood Count 20.0x10^3/uL (4.0-11.0) 15.8x10^3/uL (4.0-11.0) Red Blood Count 4.23x10^6/uL (4.30-5.70) 3.95x10^6/uL (4.30-5.70) Hemoglobin 12.1g/dL (13.0-17.5) 11.4g/dL (13.0-17.5) Hematocrit 37.0% (39.0-53.0) 35.2% (39.0-53.0) Mean Corpuscular Volume 88fL (79-100) 89fL (79-100) Mean Corpuscular Hemoglobin 29pg (25-35) 29pg (25-35) Mean Corpuscular Hemoglobin Concent 33g/dL (31-37) 32g/dL (31-37) Red Cell Distribution Width 15.6% (11.5-14.5) 15.6% (11.5-14.5) Platelet Count 411x10^3/uL (140-400) 377x10^3/uL (140-400) Neutrophils (%) (Auto) 91% (31-73) 86% (31-73) Lymphocytes (%) (Auto) 5% (24-48) 9% (24-48) Monocytes (%) (Auto) 4% (0-9) 5% (0-9) Eosinophils (%) (Auto) 0% (0-3) 0% (0-3) Basophils (%) (Auto) 0% (0-3) 0% (0-3) Neutrophils # (Auto) 18.2x10^3uL (1.8-7.7) 13.6x10^3uL (1.8-7.7) Lymphocytes # (Auto) 0.9x10^3/uL (1.0-4.8) 1.4x10^3/uL (1.0-4.8) Monocytes # (Auto) 0.8x10^3/uL (0.0-1.1) 0.8x10^3/uL (0.0-1.1) Eosinophils # (Auto) 0.0x10^3/uL (0.0-0.7) 0.0x10^3/uL (0.0-0.7) Basophils # (Auto) 0.0x10^3/uL (0.0-0.2) 0.0x10^3/uL (0.0-0.2) Segmented Neutrophils % 87% (35-66) Lymphocytes % 7% (24-48) Monocytes % 6% (0-10) Platelet Estimate Adequate (ADEQUATE) Anisocytosis Present Sodium Level 133mmol/L (136-145) 134mmol/L (136-145) Potassium Level 5.1mmol/L (3.5-5.1) 4.4mmol/L (3.5-5.1) Chloride Level 96mmol/L (98-107) 96mmol/L (98-107) Carbon Dioxide Level 25mmol/L (21-32) 28mmol/L (21-32) Anion Gap 12 (6-14) 10 (6-14) Blood Urea Nitrogen 25mg/dL (8-26) 24mg/dL (8-26) Creatinine 1.1mg/dL (0.7-1.3) 1.0mg/dL (0.7-1.3) Estimated GFR (Cockcroft-Gault) 68.3 76.2 Glucose Level 416mg/dL (70-99) 382mg/dL (70-99) Calcium Level 9.2mg/dL (8.5-10.1) 9.2mg/dL (8.5-10.1) Medications Current Medications Acetaminophen (Tylenol) 650 mg PRN Q6HRS PRN PO MILD PAIN / TEMP Last administered on 01/01/17t 20:25; Start 01/01/17 at 14:00 Al Hydroxide/Mg Hydroxide (Mylanta Plus Xs) 30 ml PRN Q3HRS PRN PO HEARTBURN / GAS; Start 01/01/17 at 14:00 Calcium Carbonate/ Glycine (Tums) 500 mg PRN Q3HRS PRN PO INDIGESTION; Start at 14:00 Diphenhydramine HCl (Benadryl) 25 mg PRN Q6HRS PRN PO ITCHING; Start 01/01/17 at 14:00 Diphenhydramine HCl (Benadryl) 25 mg PRN Q6HRS PRN IV ITCHING; Start 01/01/17 at 14:00 Naloxone HCl (Narcan) 0.1 mg PRN Q2MIN PRN IV ADMIN; Start 01/01/17 at 14:00 Sodium Chloride (Normal Saline Flush) 3 ml QSHIFT PRN IV AFTER MEDS AND BLOOD DRAWS; Start 01/01/17 at 14:00 Ondansetron HCl (Zofran) 4 mg PRN Q6HRS PRN IV NAUESA, 1ST CHOICE; Start at 14:00 Fentanyl Citrate (Fentanyl 2ml Vial) 25 mcg PRN Q1HR PRN IV PAIN; Start at 14:00 Fentanyl Citrate (Fentanyl 2ml Vial) 50 mcg PRN Q1HR PRN IV PAIN Last administered on 01/01/17 20:27; Start 01/01/17 at 14:00 Allopurinol (Zyloprim) 300 mg QHS PO Last administered on 01/03/17 21:59; Start 01/01/17 at 21:00 Amiodarone HCl (Cordarone) 100 mg DAILY PO Last administered on 01/04/17 09:30 ; Start 01/01/17 at 14:00 Ascorbic Acid (Vitamin C) 500 mg DAILY PO Last administered on 01/04/17 09:29 ; Start 01/02/17 at 14:00 Cyclobenzaprine HCl (Flexeril) 10 mg PRN TID PRN PO MUSCLE SPASMS Last administered on 01/03/17 17:50; Start 01/01/17 at 14:00 Docusate Sodium (Colace) 100 mg BID PO Last administered on 01/04/17 09:29; Start 01/01/17 at 21:00 Furosemide (Lasix) 40 mg [id number] PO Last administered on 01/04/17 09:29; Start 01/01/17 at 14:00 Lisinopril (Prinivil) 10 mg DAILY PO Last administered on 01/04/17 09:30; Start 01/01/17 at 14:00 Oxycodone/ Acetaminophen (Percocet 7.5/ 325) 2 tab PRN Q4HRS PRN PO PAIN Last administered on 01/04/17 05:52; Start 01/01/17 at 14:00 Sotalol HCl (Betapace) 80 mg BID PO Last administered on 01/02/17 07:41; Start 01/01/17 at 21:00; Stop 01/02/17 at 07:56; Status DC Potassium Chloride (Klor-Con) 20 meq BIDWMEALS PO Last administered on 09:29; Start 01/01/17 at 17:00 Dexamethasone Sodium Phosphate (Decadron) 10 mg 1X ONCE IV Last administered on 01/01/17 18:47; Start 01/01/17 at 18:30; Stop 01/01/17 at 18:31; Status DC Dexamethasone Sodium Phosphate (Decadron) 4 mg Q6HRS IV Last administered on 05:14; Start 01/02/17 at 00:00; Stop 01/03/17 at 11:00; Status DC Sotalol HCl (Betapace) 40 mg BID PO Last administered on 01/04/17 09:31; Start 01/02/17 at 09:00 Rivaroxaban (Xarelto) 20 mg DAILYWSUP PO Last administered on 01/03/17 17:21; Start 01/02/17 at 17:00 Info (Anti-Coagulation Monitoring By Pharmacy) 1 each PRN DAILY PRN [facility] SEE COMMENTS Last administered on 01/03/17 11:44; Start 01/02/17 at 11:30 Dexamethasone Sodium Phosphate (Decadron) 2 mg Q6HRS IV Last administered on 05:52; Start 01/03/17 at 12:00 Active Scripts Active Oxycodon-Acetaminophen 7.5-325 (Oxycodone Hcl/Acetaminophen) 1 Each Tablet 2 Tab PO PRN Q4HRS PRN 60 Days Colace (Docusate Sodium) 100 Mg Capsule 100 Mg PO BID 630 Days Cyclobenzaprine Hcl 10 Mg Tablet 10 Mg PO PRN TID PRN 60 Days Reported Zolpidem Tartrate 5 Mg Tablet 1 Tab PO QHS Calcium Carbonate 500 Mg Tablet 500 Mg PO PRN Q3HRS PRN Tums (Calcium Carbonate) 300 Mg Tab.chew 300 Mg PO Milk Of Magnesia (Magnesium Hydroxide) 400 Mg/5 Ml Oral.susp 400 Mg PO PRN QHS PRN Bisacodyl 10 Mg Supp.rect 10 Mg RC PRN DAILY PRN Eucerin Creme (Mineral Oil/White Petrolatum) 120 Gm Cream..g. 1 Lalo TP BID right and left legs Senna Plus Tablet (Sennosides/Docusate Sodium) 1 Each Tablet 2 Each PO HS Mintox Plus Tablet Chewable (Mag Hydrox/Al Hydrox/Simeth) 1 Each Tab.chew 1 Each PO PRN Q3HRS PRN Enemeez Plus Mini Enema (Docusate Sodium/Benzocaine) 5 Ml Enema 5 Ml RC PRN DAILY PRN Acetaminophen 500 Mg Tablet 650 Mg PO PRN Q6HRS PRN Polyethylene Glycol 3350 255 Gm Powder 17 Gm PO DAILY Oxycodone Hcl 15 Mg Tablet 1 Tab PO PRN Q4HRS PRN Oxycodone Hcl 10 Mg Tablet 1 Tab PO PRN Q4HRS PRN Nystatin-Triamcinolone Cream (Nystatin/Triamcin) 15 Gm Cream..g. 1 Lalo TP BID Amlodipine Besylate 10 Mg Tablet 10 Mg PO DAILY Vitamin C (Ascorbic Acid) 500 Mg Tablet 500 Mg PO DAILY [Black [place]] 1 Tab DAILY Xarelto (Rivaroxaban) 10 Mg Tablet Unknown Dose PO BID Amiodarone Hcl 100 Mg Tablet 100 Mg PO DAILY Next dose 08/30/16 AM Sotalol (Sotalol Hcl) 80 Mg Tablet 0.5 Tab PO BID Next dose 08/30/16 in the AM Allopurinol 300 Mg Tablet 1 Tab PO QHS Not given today Lisinopril 10 Mg Tablet 2 Tab PO DAILY Next dose 08/30/16 Potassium Chloride 20 Meq Tablet.er 20 Meq PO BID Next dose 08/30/16 Furosemide 40 Mg Tablet 1 Tab PO BID Next dose 08/29/16 at 9:00pm Vitals/I & O Vital Sign - Last 24 Hours 01/03/17 01/03/17 01/03/17 01/03/17 11:00 13:54 15:00 17:50 Temp 97.9 97.6 97.9 97.6 Pulse 59 64 Resp 20 20 B/P 131/69 155/82 Pulse Ox 93 93 94 93 O2 Delivery Room Air Room Air Room Air Room Air 01/03/17 01/03/17 01/03/17 01/03/17 18:51 19:10 20:15 21:59 Temp 97.7 97.7 Pulse 65 65 Resp 18 B/P 137/65 137/65 Pulse Ox 93 97 O2 Delivery Room Air Room Air 01/03/17 01/03/17 01/03/17 01/04/17 22:00 23:00 23:15 03:07 Temp 97.7 97.7 97.7 97.7 Pulse 65 58 Resp 18 18 B/P 156/74 160/80 Pulse Ox 94 94 O2 Delivery Room Air Room Air Room Air BiPAP/CPAP 01/04/17 01/04/17 01/04/17 01/04/17 05:52 07:00 09:30 09:30 Temp 97.6 97.6 Pulse 53 68 68 Resp 20 B/P 159/83 159/83 159/83 Pulse Ox 93 O2 Delivery Room Air BiPAP/CPAP 01/04/17 09:31 Pulse 68 B/P 159/83 Intake and Output 01/03/17 01/03/17 01/04/17 15:00 23:00 07:00 Intake Total 120 ml 500 ml Balance 120 ml 500 ml CARLTON SANTOS MD Jan 04, 2017 10:19
[2017-01-04 11:00] VITALS: BP 151/79
--- NOTE | 2017-01-04 11:52 | PDOC ---
Provider Note Provider Note medical consult dictated #[id number] MICH PRECIADO MD Jan 04, 2017 11:52
[2017-01-04] MEDS: INSULIN ASPART 300 UNITS/3 ML INSULN.PEN SQ SCH ×2 (12:00→17:00)
[2017-01-04] MEDS ORDERED: INSULIN ASPART 300 UNITS/3 ML INSULN.PEN SQ ONE ×2 (12:30→17:15)
[2017-01-04] MEDS: AMLODIPINE BESYLATE 5 MG TABLET PO SCH (12:35)
--- NOTE | 2017-01-04 13:05 | PDOC ---
PROGRESS NOTES Subjective Subjective patient seen at 0930 up in chair c/o some neck pain Objective Objective Vital Signs Date Time Temp Pulse Resp B/P Pulse Ox O2 Delivery O2 Flow Rate FiO2 01/04/17 12:35 65 151/79 01/04/17 11:00 98.1 20 96 BiPAP/CPAP 98.1 Intake and Output 01/04/17 07:00 Intake Total 620 ml Balance 620 ml Intake Oral 620 ml # Voids 7 # Bowel Movements 3 Physical Exam General: Alert, Oriented X3, Cooperative MUSCULOSKELETAL: Other (GERBER) Neuro: Normal speech, Other Psych/Mental Status: Mental status NL Skin: Other (incision- qi intact, dry) Assessment Assessment Problems Medical Problems: (1) Cervical spinal stenosis Status: Acute Plan Plan of Care continue therapy continue to wean steroids Comment Review of Relevant I have reviewed the following items hubert (where applicable) has been applied. Labs Laboratory Tests Test 01/03/17 10:50 01/04/17 07:11 01/04/17 12:07 White Blood Count 20.0x10^3/uL (4.0-11.0) 15.8x10^3/uL (4.0-11.0) Red Blood Count 4.23x10^6/uL (4.30-5.70) 3.95x10^6/uL (4.30-5.70) Hemoglobin 12.1g/dL (13.0-17.5) 11.4g/dL (13.0-17.5) Hematocrit 37.0% (39.0-53.0) 35.2% (39.0-53.0) Mean Corpuscular Volume 88fL (79-100) 89fL (79-100) Mean Corpuscular Hemoglobin 29pg (25-35) 29pg (25-35) Mean Corpuscular Hemoglobin Concent 33g/dL (31-37) 32g/dL (31-37) Red Cell Distribution Width 15.6% (11.5-14.5) 15.6% (11.5-14.5) Platelet Count 411x10^3/uL (140-400) 377x10^3/uL (140-400) Neutrophils (%) (Auto) 91% (31-73) 86% (31-73) Lymphocytes (%) (Auto) 5% (24-48) 9% (24-48) Monocytes (%) (Auto) 4% (0-9) 5% (0-9) Eosinophils (%) (Auto) 0% (0-3) 0% (0-3) Basophils (%) (Auto) 0% (0-3) 0% (0-3) Neutrophils # (Auto) 18.2x10^3uL (1.8-7.7) 13.6x10^3uL (1.8-7.7) Lymphocytes # (Auto) 0.9x10^3/uL (1.0-4.8) 1.4x10^3/uL (1.0-4.8) Monocytes # (Auto) 0.8x10^3/uL (0.0-1.1) 0.8x10^3/uL (0.0-1.1) Eosinophils # (Auto) 0.0x10^3/uL (0.0-0.7) 0.0x10^3/uL (0.0-0.7) Basophils # (Auto) 0.0x10^3/uL (0.0-0.2) 0.0x10^3/uL (0.0-0.2) Segmented Neutrophils % 87% (35-66) Lymphocytes % 7% (24-48) Monocytes % 6% (0-10) Platelet Estimate Adequate (ADEQUATE) Anisocytosis Present Sodium Level 133mmol/L (136-145) 134mmol/L (136-145) Potassium Level 5.1mmol/L (3.5-5.1) 4.4mmol/L (3.5-5.1) Chloride Level 96mmol/L (98-107) 96mmol/L (98-107) Carbon Dioxide Level 25mmol/L (21-32) 28mmol/L (21-32) Anion Gap 12 (6-14) 10 (6-14) Blood Urea Nitrogen 25mg/dL (8-26) 24mg/dL (8-26) Creatinine 1.1mg/dL (0.7-1.3) 1.0mg/dL (0.7-1.3) Estimated GFR (Cockcroft-Gault) 68.3 76.2 Glucose Level 416mg/dL (70-99) 382mg/dL (70-99) Calcium Level 9.2mg/dL (8.5-10.1) 9.2mg/dL (8.5-10.1) Glucose (Fingerstick) 501mg/dL (70-99) Laboratory Tests Test 01/04/17 07:11 01/04/17 12:07 White Blood Count 15.8x10^3/uL (4.0-11.0) Red Blood Count 3.95x10^6/uL (4.30-5.70) Hemoglobin 11.4g/dL (13.0-17.5) Hematocrit 35.2% (39.0-53.0) Mean Corpuscular Volume 89fL (79-100) Mean Corpuscular Hemoglobin 29pg (25-35) Mean Corpuscular Hemoglobin Concent 32g/dL (31-37) Red Cell Distribution Width 15.6% (11.5-14.5) Platelet Count 377x10^3/uL (140-400) Neutrophils (%) (Auto) 86% (31-73) Lymphocytes (%) (Auto) 9% (24-48) Monocytes (%) (Auto) 5% (0-9) Eosinophils (%) (Auto) 0% (0-3) Basophils (%) (Auto) 0% (0-3) Neutrophils # (Auto) 13.6x10^3uL (1.8-7.7) Lymphocytes # (Auto) 1.4x10^3/uL (1.0-4.8) Monocytes # (Auto) 0.8x10^3/uL (0.0-1.1) Eosinophils # (Auto) 0.0x10^3/uL (0.0-0.7) Basophils # (Auto) 0.0x10^3/uL (0.0-0.2) Sodium Level 134mmol/L (136-145) Potassium Level 4.4mmol/L (3.5-5.1) Chloride Level 96mmol/L (98-107) Carbon Dioxide Level 28mmol/L (21-32) Anion Gap 10 (6-14) Blood Urea Nitrogen 24mg/dL (8-26) Creatinine 1.0mg/dL (0.7-1.3) Estimated GFR (Cockcroft-Gault) 76.2 Glucose Level 382mg/dL (70-99) Calcium Level 9.2mg/dL (8.5-10.1) Glucose (Fingerstick) 501mg/dL (70-99) Medications Current Medications Acetaminophen (Tylenol) 650 mg PRN Q6HRS PRN PO MILD PAIN / TEMP Last administered on 01/01/17 20:25; Start 01/01/17 at 14:00 Al Hydroxide/Mg Hydroxide (Mylanta Plus Xs) 30 ml PRN Q3HRS PRN PO HEARTBURN / GAS; Start 01/01/17 at 14:00 Calcium Carbonate/ Glycine (Tums) 500 mg PRN Q3HRS PRN PO INDIGESTION; Start at 14:00 Diphenhydramine HCl (Benadryl) 25 mg PRN Q6HRS PRN PO ITCHING; Start 01/01/17 at 14:00 Diphenhydramine HCl (Benadryl) 25 mg PRN Q6HRS PRN IV ITCHING; Start 01/01/17 at 14:00 Naloxone HCl (Narcan) 0.1 mg PRN Q2MIN PRN IV ADMIN; Start 01/01/17 at 14:00 Sodium Chloride (Normal Saline Flush) 3 ml QSHIFT PRN IV AFTER MEDS AND BLOOD DRAWS; Start 01/01/17 at 14:00 Ondansetron HCl (Zofran) 4 mg PRN Q6HRS PRN IV NAUESA, 1ST CHOICE; Start at 14:00 Fentanyl Citrate (Fentanyl 2ml Vial) 25 mcg PRN Q1HR PRN IV PAIN; Start at 14:00 Fentanyl Citrate (Fentanyl 2ml Vial) 50 mcg PRN Q1HR PRN IV PAIN Last administered on 01/01/17 20:27; Start 01/01/17 at 14:00 Allopurinol (Zyloprim) 300 mg QHS PO Last administered on 01/03/17 21:59; Start 01/01/17 at 21:00 Amiodarone HCl (Cordarone) 100 mg DAILY PO Last administered on 01/04/17 09:30 ; Start 01/01/17 at 14:00 Ascorbic Acid (Vitamin C) 500 mg DAILY PO Last administered on 01/04/17 09:29 ; Start 01/02/17 at 14:00 Cyclobenzaprine HCl (Flexeril) 10 mg PRN TID PRN PO MUSCLE SPASMS Last administered on 01/03/17 17:50; Start 01/01/17 at 14:00 Docusate Sodium (Colace) 100 mg BID PO Last administered on 01/04/17 09:29; Start 01/01/17 at 21:00 Furosemide (Lasix) 40 mg BID92 PO Last administered on 01/04/17 12:43; Start 01/01/17 at 14:00 Lisinopril (Prinivil) 10 mg DAILY PO Last administered on 01/04/17 09:30; Start 01/01/17 at 14:00; Stop 01/04/17 at 11:40; Status DC Oxycodone/ Acetaminophen (Percocet 7.5/ 325) 2 tab PRN Q4HRS PRN PO PAIN Last administered on 01/04/17 05:52; Start 01/01/17 at 14:00 Sotalol HCl (Betapace) 80 mg BID PO Last administered on 01/02/17 07:41; Start 01/01/17 at 21:00; Stop 01/02/17 at 07:56; Status DC Potassium Chloride (Klor-Con) 20 meq BIDWMEALS PO Last administered on 09:29; Start 01/01/17 at 17:00 Dexamethasone Sodium Phosphate (Decadron) 10 mg 1X ONCE IV Last administered on 01/01/17 18:47; Start 01/01/17 at 18:30; Stop 01/01/17 at 18:31; Status DC Dexamethasone Sodium Phosphate (Decadron) 4 mg Q6HRS IV Last administered on 05:14; Start 01/02/17 at 00:00; Stop 01/03/17 at 11:00; Status DC Sotalol HCl (Betapace) 40 mg BID PO Last administered on 01/04/17 09:31; Start 01/02/17 at 09:00 Rivaroxaban (Xarelto) 20 mg DAILYWSUP PO Last administered on 01/03/17 17:21; Start 01/02/17 at 17:00 Info (Anti-Coagulation Monitoring By Pharmacy) 1 each PRN DAILY PRN MC SEE COMMENTS Last administered on 01/03/17 11:44; Start 01/02/17 at 11:30 Dexamethasone Sodium Phosphate (Decadron) 2 mg Q6HRS IV Last administered on 05:52; Start 01/03/17 at 12:00; Stop 01/04/17 at 12:04; Status DC Lisinopril (Prinivil) 20 mg DAILY PO ; Start 01/05/17 at 09:00 Insulin Aspart (Novolog) 0-6 UNITS TIDWMEALS SQ ; Start 01/04/17 at 12:00 Amlodipine Besylate (Norvasc) 5 mg DAILY PO Last administered on 01/04/17 12: 35; Start 01/04/17 at 12:30 Insulin Aspart (Novolog) 10 units 1X ONCE SQ Last administered on 01/04/17 12 :43; Start 01/04/17 at 12:30; Stop 01/04/17 at 12:31; Status DC Active Scripts Active Oxycodon-Acetaminophen 7.5-325 (Oxycodone Hcl/Acetaminophen) 1 Each Tablet 2 Tab PO PRN Q4HRS PRN 60 Days Colace (Docusate Sodium) 100 Mg Capsule 100 Mg PO BID 630 Days Cyclobenzaprine Hcl 10 Mg Tablet 10 Mg PO PRN TID PRN 60 Days Reported Zolpidem Tartrate 5 Mg Tablet 1 Tab PO QHS Calcium Carbonate 500 Mg Tablet 500 Mg PO PRN Q3HRS PRN Tums (Calcium Carbonate) 300 Mg Tab.chew 300 Mg PO Milk Of Magnesia (Magnesium Hydroxide) 400 Mg/5 Ml Oral.susp 400 Mg PO PRN QHS PRN Bisacodyl 10 Mg Supp.rect 10 Mg RC PRN DAILY PRN Eucerin Creme (Mineral Oil/White Petrolatum) 120 Gm Cream..g. 1 Lalo TP BID right and left legs Senna Plus Tablet (Sennosides/Docusate Sodium) 1 Each Tablet 2 Each PO HS Mintox Plus Tablet Chewable (Mag Hydrox/Al Hydrox/Simeth) 1 Each Tab.chew 1 Each PO PRN Q3HRS PRN Enemeez Plus Mini Enema (Docusate Sodium/Benzocaine) 5 Ml Enema 5 Ml RC PRN DAILY PRN Acetaminophen 500 Mg Tablet 650 Mg PO PRN Q6HRS PRN Polyethylene Glycol 3350 255 Gm Powder 17 Gm PO DAILY Oxycodone Hcl 15 Mg Tablet 1 Tab PO PRN Q4HRS PRN Oxycodone Hcl 10 Mg Tablet 1 Tab PO PRN Q4HRS PRN Nystatin-Triamcinolone Cream (Nystatin/Triamcin) 15 Gm Cream..g. 1 Lalo TP BID Amlodipine Besylate 10 Mg Tablet 10 Mg PO DAILY Vitamin C (Ascorbic Acid) 500 Mg Tablet 500 Mg PO DAILY [Black [place]] 1 Tab DAILY Xarelto (Rivaroxaban) 10 Mg Tablet Unknown Dose PO BID Amiodarone Hcl 100 Mg Tablet 100 Mg PO DAILY Next dose 08/30/16 AM Sotalol (Sotalol Hcl) 80 Mg Tablet 0.5 Tab PO BID Next dose 08/30/16 in the AM Allopurinol 300 Mg Tablet 1 Tab PO QHS Not given today Lisinopril 10 Mg Tablet 2 Tab PO DAILY Next dose 08/30/16 Potassium Chloride 20 Meq Tablet.er 20 Meq PO BID Next dose 08/30/16 Furosemide 40 Mg Tablet 1 Tab PO BID Next dose 08/29/16 at 9:00pm Vitals/I & O Vital Sign - Last 24 Hours 01/03/17 01/03/17 01/03/17 01/03/17 13:54 15:00 17:50 18:51 Temp 97.6 97.6 Pulse 64 Resp 20 B/P 155/82 Pulse Ox 93 94 93 93 O2 Delivery Room Air Room Air Room Air 01/03/17 01/03/17 01/03/17 01/03/17 19:10 20:15 21:59 22:00 Temp 97.7 97.7 Pulse 65 65 Resp 18 B/P 137/65 137/65 Pulse Ox 97 O2 Delivery Room Air Room Air Room Air 01/03/17 01/03/17 01/04/17 01/04/17 23:00 23:15 03:07 05:52 Temp 97.7 97.7 97.7 97.7 Pulse 65 58 Resp 18 18 B/P 156/74 160/80 Pulse Ox 94 94 O2 Delivery Room Air Room Air BiPAP/CPAP Room Air 01/04/17 01/04/17 01/04/17 01/04/17 07:00 07:50 09:30 09:30 Temp 97.6 97.6 Pulse 53 68 68 Resp 20 B/P 159/83 159/83 159/83 Pulse Ox 93 O2 Delivery BiPAP/CPAP Room Air 01/04/17 01/04/17 01/04/17 09:31 11:00 12:35 Temp 98.1 98.1 Pulse 68 65 65 Resp 20 B/P 159/83 151/79 151/79 Pulse Ox 96 O2 Delivery BiPAP/CPAP Intake and Output 01/03/17 01/03/17 01/04/17 15:00 23:00 07:00 Intake Total 120 ml 500 ml Balance 120 ml 500 ml JEM HAWTHORNE MD Jan 04, 2017 13:05
[2017-01-04 15:00] VITALS: BP 143/73
[2017-01-04] MEDS: RIVAROXABAN 10 MG TABLET. PO SCH (17:42)
--- NOTE | 2017-01-04 18:11 | CONS ---
DATE OF CONSULTATION: 01/04/2017 LOCATION: He is in room 430. ATTENDING PHYSICIAN: Sylvester Fernandez M.D. REASON FOR CONSULTATION: Hyperglycemia, hypertension, and leukocytosis. HISTORY OF PRESENT ILLNESS: The patient is a 61-year-old morbidly obese white male with a BMI of 54, has paroxysmal atrial fibrillation, maintained on Xarelto and sotalol, who also has hypertension, osteoarthritis, gout, and obstructive sleep apnea treated with CPAP, who underwent a decompressive cervical laminectomy at [facility] on 12/25/2016 for cervical spinal stenosis. Numbness and weakness of his legs and was using a walker, but has unsteady gait. He was admitted to Hospital. He was unable to ambulate at all and eventually was sent back and re-admitted to [facility] on where he had imaging studies including a CAT scan of the cervical, thoracic, and lumbar spine and was noted to have postoperative changes in the cervical spine with no fluid collection or hematoma. He also had [id number] spinal stenosis and [id number] cord impingement at T1 and T2, which appears slightly increased compared to a previous study. He was started on IV Decadron and his blood sugars have increased. He denies any history of diabetes mellitus, but in the last couple of days blood sugars have been high and has been having polydipsia and polyuria. His blood sugar was 187 on 01/01/2017 in the afternoon, 416 yesterday morning, and 382 this morning. He denies any family history of diabetes mellitus or previous history of diabetes mellitus himself. In addition, his blood pressure has also been quite high. He had a white count of 15,000 at the other facility before he was on the steroids, but had no fever and then his white count shot of 20,000 on steroids, and has backed down to 15 today. He denies any cough, dysuria, abdominal pain, or diarrhea. His Decadron apparently was decreased and being tapered and he is currently not being able to say. ALLERGIES AND INTOLERANCES: None. MEDICATIONS: Include Tylenol 650 mg q. 6 hours p.r.n., allopurinol 300 mg at bedtime, amiodarone 100 mg every day, vitamin C 500 mg every day, calcium carbonate p.r.n., cyclobenzaprine 10 mg t.i.d. p.r.n. He is on Decadron 2 mg IV every 6 hours. He is on Benadryl 25 mg p.o. q. 6 hours p.r.n., Colace 100 mg b.i.d., fentanyl 25-50 mcg IV every hour p.r.n., furosemide 40 mg b.i.d., lisinopril 10 mg every day, potassium chloride 20 mEq b.i.d., Xarelto 20 mg every day, and sotalol 240 mg b.i.d. PAST MEDICAL HISTORY: Significant for decompressive cervical laminectomy for cervical spinal stenosis done on 12/25/2016. He has a gait dysfunction, hypertension, osteoarthritis, gout, obstructive sleep apnea, treated with CPAP, morbid obesity with a BMI of 45, paroxysmal atrial fibrillation and a left frozen shoulder. He had a left rotator cuff repair in 2007. SOCIAL HISTORY: Does not drink alcohol nor does he smoke cigarettes. He is , works as a trucking manager. FAMILY HISTORY: Not contributory. REVIEW OF SYSTEMS: GENERAL: There has been no fever, chills, or sweats. CARDIOVASCULAR: No chest pain. PULMONARY: No cough or shortness of breath. GASTROINTESTINAL: No diarrhea or abdominal pain. SKIN: No rashes. NEUROLOGIC: No focal weakness. He does have cervical spinal stenosis and apparently also some thoracic spinal stenosis. ENDOCRINE: He denies any history of diabetes mellitus, but he has hyperglycemia. SKIN: No rashes. SYSTEMS: The rest of the review of systems is negative except as stated in history of present illness. PHYSICAL EXAMINATION: VITAL SIGNS: Temperature is 97.6 degrees, pulse 68, respiratory rate is 20, blood pressure 159/83, oxygen saturation was 93%. HEENT: Gaze is conjugate. Mouth is symmetrical. NECK: No cervical lymphadenopathy. Examination of neck shows that his posterior neck wound is clean and dry with qi in place with no redness or drainage. HEART: Reveals an S1, S2. There is no S3 or murmur. LUNGS: Clear. ABDOMEN: Soft in standing position, nontender. EXTREMITIES: Lower extremities without significant edema. SKIN: No rashes. NEUROLOGIC: Examination is limited as he was standing and holding on to a walker. LABORATORY DATA: Review of his laboratory tests, his serum sodium today was 134, potassium 4.4, chloride 96, total CO2 of 28, BUN 24, creatinine 1.0, blood sugar is 382. White count 15.8, was 20.0 yesterday and 15.1 on 01/01/2017, today the hemoglobin is 11.4, platelet count 377,000, 86 polys, 9 lymphocytes. ASSESSMENT AND PLAN: 1. Steroid-induced hyperglycemia. 2. Leukocytosis worsened by the Decadron. He did have a baseline leukocytosis of 15,000 before the steroids were initiated. There is no evidence of infection. We will get a chest x-ray and get a urinalysis, and urine culture. 3. Hypertension. His blood pressure is elevated. 4. Osteoarthritis. 5. Cervical decompressive laminectomy for cervical spinal stenosis. 6. Morbid obesity with a BMI of 54. 7. Paroxysmal atrial fibrillation treated with sotalol and Xarelto. 8. Gout. 9. Obstructive sleep apnea, treated with CPAP. PLAN: At this time is to see if we can decrease or even stop the Decadron and I have discussed that with a nurse to contact the neurosurgeon. Certainly, the Decadron is contributing to the hyperglycemia. We will check a hemoglobin A1c, check and place him on a diabetic diet, check his blood sugars before meals t.i.d. and at bedtime. I have written for a NovoLog insulin sliding scale and put him on a diabetic diet. In addition, we will also increase his lisinopril to 20 mg every day. We started him on amlodipine 5 mg every day for his hypertension, continue his Xarelto and sotalol for his paroxysmal atrial fibrillation. Also continue with the allopurinol for the gout. Continue with his furosemide and potassium chloride. We will recheck his labs tomorrow, CBC, BMP, obtain a urinalysis, urine culture and also a chest x-ray and again, he has been afebrile. Once again, hopefully we can discontinue the Decadron and hoping that the blood sugars will normalize after that. Thank you very much for the consultation. MICH PRECIADO MD DR: LICO/ashley JOB#: [id number] / [id number]
[2017-01-04 19:00] VITALS: BP 153/69
[2017-01-04] MEDS: ALLOPURINOL 300 MG TABLET. PO SCH (22:55)
[2017-01-04 23:00] VITALS: BP 168/86
[2017-01-05 03:00] VITALS: BP 161/77
[2017-01-05 05:57] LABS: BASO % 0 % (0-3); EOS % 1 % (0-3); HEMATOCRIT 35.3 % (39.0-53.0); HEMOGLOBIN 11.5 g/dL (13.0-17.5); LYMPH # 3.7 x10^3/uL (1.0-4.8); LYMPH % 25 % (24-48); MEAN CORPUSCULAR HEMOGLOBIN 29 pg (25-35); MEAN CORPUSCULAR HGB CONC 33 g/dL (31-37); MEAN CORPUSCULAR VOLUME 89 fL (79-100); MONO % 9 % (0-9); NEUT % 66 % (31-73); PLATELET COUNT 369 x10^3/uL (140-400); RED BLOOD COUNT 3.99 x10^6/uL (4.30-5.70); RED CELL DISTRIBUTION WIDTH 15.5 % (11.5-14.5); WHITE BLOOD COUNT 15.3 x10^3/uL (4.0-11.0)
[2017-01-05 06:07] LABS: CREATININE 0.9 mg/dL (0.7-1.3); GFR 86.1
[2017-01-05 07:00] VITALS: BP 157/81
[2017-01-05] MEDS: INSULIN ASPART 300 UNITS/3 ML INSULN.PEN SQ SCH ×3 (08:00→16:56)
[2017-01-05 08:21] LABS: ANISOCYTOSIS PRESENT; PLT ESTIMATE ADEQUATE (ADEQUATE)
[2017-01-05] MEDS: LISINOPRIL 10 MG TABLET PO SCH (09:15)
[2017-01-05] MEDS: DOCUSATE SODIUM 100 MG CAPSULE PO SCH ×2 (09:15→20:26)
[2017-01-05] MEDS: AMIODARONE HCL 100 MG TABLET PO SCH (09:16)
[2017-01-05] MEDS: AMLODIPINE BESYLATE 5 MG TABLET PO SCH (09:16)
[2017-01-05] MEDS: SOTALOL 80 MG TABLET. PO SCH ×2 (09:16→20:27)
[2017-01-05] MEDS: FUROSEMIDE 40 MG TABLET PO SCH ×2 (09:17→15:48)
[2017-01-05] MEDS: ASCORBIC ACID 500 MG TABLET PO SCH (09:17)
[2017-01-05] MEDS: POTASSIUM CHLORIDE 20 MEQ TABLET.ER. PO SCH ×2 (09:17→17:47)
[2017-01-05 11:00] VITALS: BP 140/75
--- NOTE | 2017-01-05 11:15 | PDOC ---
PROGRESS NOTES Subjective Subjective feels better and walking better with walker. has not navigated stairs during therapy yet. fbs 135. blood sugars high yesterday and now off decadron. blood pressure is high and started amlodipine and lisinopril yesterday. lab reviewed. wbc 15K and was on decadron. Objective Objective Vital Signs Date Time Temp Pulse Resp B/P Pulse Ox O2 Delivery O2 Flow Rate FiO2 01/05/17 09:16 53 157/81 01/05/17 07:00 97.3 20 97 Room Air 97.3 Intake and Output 01/05/17 07:00 # Voids 8 # Bowel Movements 3 Physical Exam Abdomen: Soft Heart: Regular rate, Normal S1, Normal S2 Extremities: No edema General: Alert HEENT: Atraumatic, PERRLA Lungs: Clear to auscultation Neuro: Normal speech, Other (good strength in arms and legs) Psych/Mental Status: Mental status NL Skin: No rashes Assessment Assessment Problems Medical Problems:1. Steroid-induced hyperglycemia. improved off of decadron 2. Leukocytosis better. off of steroids. 3. Hypertension. His blood pressure is elevated. 4. Osteoarthritis. 5. Cervical decompressive laminectomy for cervical spinal stenosis. 6. Morbid obesity with a BMI of 54. 7. Paroxysmal atrial fibrillation treated with sotalol and Xarelto. 8. Gout. 9. Obstructive sleep apnea, treated with CPAP. (1) Cervical spinal stenosis Status: Acute Plan Plan of Care continue novolog insulin sliding scale ac tid continue amlodipine and lisinopril continue sotalol and amiodarone but hold if pulse less than 60 continue xarelto continue PT Comment Review of Relevant I have reviewed the following items hubert (where applicable) has been applied. Labs Laboratory Tests Test 01/04/17 07:11 01/04/17 12:07 01/04/17 16:51 01/04/17 20:10 White Blood Count 15.8x10^3/uL (4.0-11.0) Red Blood Count 3.95x10^6/uL (4.30-5.70) Hemoglobin 11.4g/dL (13.0-17.5) Hematocrit 35.2% (39.0-53.0) Mean Corpuscular Volume 89fL (79-100) Mean Corpuscular Hemoglobin 29pg (25-35) Mean Corpuscular Hemoglobin Concent 32g/dL (31-37) Red Cell Distribution Width 15.6% (11.5-14.5) Platelet Count 377x10^3/uL (140-400) Neutrophils (%) (Auto) 86% (31-73) Lymphocytes (%) (Auto) 9% (24-48) Monocytes (%) (Auto) 5% (0-9) Eosinophils (%) (Auto) 0% (0-3) Basophils (%) (Auto) 0% (0-3) Neutrophils # (Auto) 13.6x10^3uL (1.8-7.7) Lymphocytes # (Auto) 1.4x10^3/uL (1.0-4.8) Monocytes # (Auto) 0.8x10^3/uL (0.0-1.1) Eosinophils # (Auto) 0.0x10^3/uL (0.0-0.7) Basophils # (Auto) 0.0x10^3/uL (0.0-0.2) Sodium Level 134mmol/L (136-145) Potassium Level 4.4mmol/L (3.5-5.1) Chloride Level 96mmol/L (98-107) Carbon Dioxide Level 28mmol/L (21-32) Anion Gap 10 (6-14) Blood Urea Nitrogen 24mg/dL (8-26) Creatinine 1.0mg/dL (0.7-1.3) Estimated GFR (Cockcroft-Gault) 76.2 Glucose Level 382mg/dL (70-99) Calcium Level 9.2mg/dL (8.5-10.1) Glucose (Fingerstick) 501mg/dL (70-99) 457mg/dL (70-99) 396mg/dL (70-99) Test 01/05/17 05:20 01/05/17 07:45 White Blood Count 15.3x10^3/uL (4.0-11.0) Red Blood Count 3.99x10^6/uL (4.30-5.70) Hemoglobin 11.5g/dL (13.0-17.5) Hematocrit 35.3% (39.0-53.0) Mean Corpuscular Volume 89fL (79-100) Mean Corpuscular Hemoglobin 29pg (25-35) Mean Corpuscular Hemoglobin Concent 33g/dL (31-37) Red Cell Distribution Width 15.5% (11.5-14.5) Platelet Count 369x10^3/uL (140-400) Neutrophils (%) (Auto) 66% (31-73) Lymphocytes (%) (Auto) 25% (24-48) Monocytes (%) (Auto) 9% (0-9) Eosinophils (%) (Auto) 1% (0-3) Basophils (%) (Auto) 0% (0-3) Neutrophils # (Auto) 10.0x10^3uL (1.8-7.7) Lymphocytes # (Auto) 3.7x10^3/uL (1.0-4.8) Monocytes # (Auto) 1.4x10^3/uL (0.0-1.1) Eosinophils # (Auto) 0.1x10^3/uL (0.0-0.7) Basophils # (Auto) 0.0x10^3/uL (0.0-0.2) Segmented Neutrophils % 58% (35-66) Lymphocytes % 29% (24-48) Atypical Lymphocytes % (Manual) 1% (0-0) Monocytes % 11% (0-10) Metamyelocytes % 1% (0-0) Platelet Estimate Adequate (ADEQUATE) Anisocytosis Present Sodium Level 139mmol/L (136-145) Potassium Level 4.0mmol/L (3.5-5.1) Chloride Level 101mmol/L (98-107) Carbon Dioxide Level 30mmol/L (21-32) Anion Gap 8 (6-14) Blood Urea Nitrogen 24mg/dL (8-26) Creatinine 0.9mg/dL (0.7-1.3) Estimated GFR (Cockcroft-Gault) 86.1 Glucose Level 166mg/dL (70-99) Calcium Level 9.0mg/dL (8.5-10.1) Glucose (Fingerstick) 135mg/dL (70-99) Laboratory Tests Test 01/04/17 12:07 01/04/17 16:51 01/04/17 20:10 01/05/17 05:20 Glucose (Fingerstick) 501mg/dL (70-99) 457mg/dL (70-99) 396mg/dL (70-99) White Blood Count 15.3x10^3/uL (4.0-11.0) Red Blood Count 3.99x10^6/uL (4.30-5.70) Hemoglobin 11.5g/dL (13.0-17.5) Hematocrit 35.3% (39.0-53.0) Mean Corpuscular Volume 89fL (79-100) Mean Corpuscular Hemoglobin 29pg (25-35) Mean Corpuscular Hemoglobin Concent 33g/dL (31-37) Red Cell Distribution Width 15.5% (11.5-14.5) Platelet Count 369x10^3/uL (140-400) Neutrophils (%) (Auto) 66% (31-73) Lymphocytes (%) (Auto) 25% (24-48) Monocytes (%) (Auto) 9% (0-9) Eosinophils (%) (Auto) 1% (0-3) Basophils (%) (Auto) 0% (0-3) Neutrophils # (Auto) 10.0x10^3uL (1.8-7.7) Lymphocytes # (Auto) 3.7x10^3/uL (1.0-4.8) Monocytes # (Auto) 1.4x10^3/uL (0.0-1.1) Eosinophils # (Auto) 0.1x10^3/uL (0.0-0.7) Basophils # (Auto) 0.0x10^3/uL (0.0-0.2) Segmented Neutrophils % 58% (35-66) Lymphocytes % 29% (24-48) Atypical Lymphocytes % (Manual) 1% (0-0) Monocytes % 11% (0-10) Metamyelocytes % 1% (0-0) Platelet Estimate Adequate (ADEQUATE) Anisocytosis Present Sodium Level 139mmol/L (136-145) Potassium Level 4.0mmol/L (3.5-5.1) Chloride Level 101mmol/L (98-107) Carbon Dioxide Level 30mmol/L (21-32) Anion Gap 8 (6-14) Blood Urea Nitrogen 24mg/dL (8-26) Creatinine 0.9mg/dL (0.7-1.3) Estimated GFR (Cockcroft-Gault) 86.1 Glucose Level 166mg/dL (70-99) Calcium Level 9.0mg/dL (8.5-10.1) Test 01/05/17 07:45 Glucose (Fingerstick) 135mg/dL (70-99) Medications Current Medications Acetaminophen (Tylenol) 650 mg PRN Q6HRS PRN PO MILD PAIN / TEMP Last administered on 01/01/17 20:25; Start 01/01/17 at 14:00 Al Hydroxide/Mg Hydroxide (Mylanta Plus Xs) 30 ml PRN Q3HRS PRN PO HEARTBURN / GAS; Start 01/01/17 at 14:00 Calcium Carbonate/ Glycine (Tums) 500 mg PRN Q3HRS PRN PO INDIGESTION; Start at 14:00 Diphenhydramine HCl (Benadryl) 25 mg PRN Q6HRS PRN PO ITCHING; Start 01/01/17 at 14:00 Diphenhydramine HCl (Benadryl) 25 mg PRN Q6HRS PRN IV ITCHING; Start 01/01/17 at 14:00 Naloxone HCl (Narcan) 0.1 mg PRN Q2MIN PRN IV ADMIN; Start 01/01/17 at 14:00 Sodium Chloride (Normal Saline Flush) 3 ml QSHIFT PRN IV AFTER MEDS AND BLOOD DRAWS; Start 01/01/17 at 14:00 Ondansetron HCl (Zofran) 4 mg PRN Q6HRS PRN IV NAUESA, 1ST CHOICE; Start at 14:00 Fentanyl Citrate (Fentanyl 2ml Vial) 25 mcg PRN Q1HR PRN IV PAIN; Start at 14:00 Fentanyl Citrate (Fentanyl 2ml Vial) 50 mcg PRN Q1HR PRN IV PAIN Last administered on 01/01/17 20:27; Start 01/01/17 at 14:00 Allopurinol (Zyloprim) 300 mg QHS PO Last administered on 01/04/17 22:55; Start 01/01/17 at 21:00 Amiodarone HCl (Cordarone) 100 mg DAILY PO Last administered on 01/05/17 09:16 ; Start 01/01/17 at 14:00 Ascorbic Acid (Vitamin C) 500 mg DAILY PO Last administered on 01/05/17 09:17 ; Start 01/02/17 at 14:00 Cyclobenzaprine HCl (Flexeril) 10 mg PRN TID PRN PO MUSCLE SPASMS Last administered on 01/03/17 17:50; Start 01/01/17 at 14:00 Docusate Sodium (Colace) 100 mg BID PO Last administered on 01/05/17 09:15; Start 01/01/17 at 21:00 Furosemide (Lasix) 40 mg [id number] PO Last administered on 01/05/17 09:17; Start 01/01/17 at 14:00 Lisinopril (Prinivil) 10 mg DAILY PO Last administered on 01/04/17 09:30; Start 01/01/17 at 14:00; Stop 01/04/17 at 11:40; Status DC Oxycodone/ Acetaminophen (Percocet 7.5/ 325) 2 tab PRN Q4HRS PRN PO PAIN Last administered on 01/04/17 22:56; Start 01/01/17 at 14:00 Sotalol HCl (Betapace) 80 mg BID PO Last administered on 01/02/17 07:41; Start 01/01/17 at 21:00; Stop 01/02/17 at 07:56; Status DC Potassium Chloride (Klor-Con) 20 meq BIDWMEALS PO Last administered on 09:17; Start 01/01/17 at 17:00 Dexamethasone Sodium Phosphate (Decadron) 10 mg 1X ONCE IV Last administered on 01/01/17 18:47; Start 01/01/17 at 18:30; Stop 01/01/17 at 18:31; Status DC Dexamethasone Sodium Phosphate (Decadron) 4 mg Q6HRS IV Last administered on 05:14; Start 01/02/17 at 00:00; Stop 01/03/17 at 11:00; Status DC Sotalol HCl (Betapace) 40 mg BID PO Last administered on 01/05/17 09:16; Start 01/02/17 at 09:00 Rivaroxaban (Xarelto) 20 mg DAILYWSUP PO Last administered on 01/04/17 17:42; Start 01/02/17 at 17:00 Info (Anti-Coagulation Monitoring By Pharmacy) 1 each PRN DAILY PRN MC SEE COMMENTS Last administered on 01/03/17 11:44; Start 01/02/17 at 11:30 Dexamethasone Sodium Phosphate (Decadron) 2 mg Q6HRS IV Last administered on 05:52; Start 01/03/17 at 12:00; Stop 01/04/17 at 12:04; Status DC Lisinopril (Prinivil) 20 mg DAILY PO Last administered on 01/05/17 09:15; Start 01/05/17 at 09:00 Insulin Aspart (Novolog) 0-6 UNITS TIDWMEALS SQ ; Start 01/04/17 at 12:00 Amlodipine Besylate (Norvasc) 5 mg DAILY PO Last administered on 01/05/17 09: 16; Start 01/04/17 at 12:30 Insulin Aspart (Novolog) 10 units 1X ONCE SQ Last administered on 01/04/17 12 :43; Start 01/04/17 at 12:30; Stop 01/04/17 at 12:31; Status DC Insulin Aspart (Novolog) 18 units 1X ONCE SQ Last administered on 01/04/17 17 :45; Start 01/04/17 at 17:15; Stop 01/04/17 at 17:16; Status DC Active Scripts Active Oxycodon-Acetaminophen 7.5-325 (Oxycodone Hcl/Acetaminophen) 1 Each Tablet 2 Tab PO PRN Q4HRS PRN 60 Days Colace (Docusate Sodium) 100 Mg Capsule 100 Mg PO BID 630 Days Cyclobenzaprine Hcl 10 Mg Tablet 10 Mg PO PRN TID PRN 60 Days Reported Zolpidem Tartrate 5 Mg Tablet 1 Tab PO QHS Calcium Carbonate 500 Mg Tablet 500 Mg PO PRN Q3HRS PRN Tums (Calcium Carbonate) 300 Mg Tab.chew 300 Mg PO Milk Of Magnesia (Magnesium Hydroxide) 400 Mg/5 Ml Oral.susp 400 Mg PO PRN QHS PRN Bisacodyl 10 Mg Supp.rect 10 Mg RC PRN DAILY PRN Eucerin Creme (Mineral Oil/White Petrolatum) 120 Gm Cream..g. 1 Lalo TP BID right and left legs Senna Plus Tablet (Sennosides/Docusate Sodium) 1 Each Tablet 2 Each PO HS Mintox Plus Tablet Chewable (Mag Hydrox/Al Hydrox/Simeth) 1 Each Tab.chew 1 Each PO PRN Q3HRS PRN Enemeez Plus Mini Enema (Docusate Sodium/Benzocaine) 5 Ml Enema 5 Ml RC PRN DAILY PRN Acetaminophen 500 Mg Tablet 650 Mg PO PRN Q6HRS PRN Polyethylene Glycol 3350 255 Gm Powder 17 Gm PO DAILY Oxycodone Hcl 15 Mg Tablet 1 Tab PO PRN Q4HRS PRN Oxycodone Hcl 10 Mg Tablet 1 Tab PO PRN Q4HRS PRN Nystatin-Triamcinolone Cream (Nystatin/Triamcin) 15 Gm Cream..g. 1 Lalo TP BID Amlodipine Besylate 10 Mg Tablet 10 Mg PO DAILY Vitamin C (Ascorbic Acid) 500 Mg Tablet 500 Mg PO DAILY [[place]] 1 Tab DAILY Xarelto (Rivaroxaban) 10 Mg Tablet Unknown Dose PO BID Amiodarone Hcl 100 Mg Tablet 100 Mg PO DAILY Next dose 08/30/16 AM Sotalol (Sotalol Hcl) 80 Mg Tablet 0.5 Tab PO BID Next dose 08/30/16 in the AM Allopurinol 300 Mg Tablet 1 Tab PO QHS Not given today Lisinopril 10 Mg Tablet 2 Tab PO DAILY Next dose 08/30/16 Potassium Chloride 20 Meq Tablet.er 20 Meq PO BID Next dose 08/30/16 Furosemide 40 Mg Tablet 1 Tab PO BID Next dose 08/29/16 at 9:00pm Vitals/I & O Vital Sign - Last 24 Hours 01/04/17 01/04/17 01/04/17 01/04/17 12:35 15:00 19:00 22:55 Temp 97.8 97.9 97.8 97.9 Pulse 65 68 56 56 Resp 20 20 B/P 151/79 143/73 153/69 153/69 Pulse Ox 96 90 O2 Delivery BiPAP/CPAP Room Air 01/04/17 01/05/17 01/05/17 01/05/17 23:00 03:00 07:00 09:15 Temp 97.5 98.1 97.3 97.5 98.1 97.3 Pulse 72 52 53 53 Resp 18 20 20 B/P 168/86 161/77 157/81 157/81 Pulse Ox 94 95 97 O2 Delivery Room Air Room Air Room Air 01/05/17 01/05/17 01/05/17 09:16 09:16 09:16 Pulse 53 53 53 B/P 157/81 157/81 157/81 MICH PRECIADO MD Jan 05, 2017 11:15
--- NOTE | 2017-01-05 11:15 | PDOC ---
PROGRESS NOTES Subjective Subjective up in chair no significant pain ambulating with walker Objective Objective Vital Signs Date Time Temp Pulse Resp B/P Pulse Ox O2 Delivery O2 Flow Rate FiO2 01/05/17 09:16 53 157/81 01/05/17 07:00 97.3 20 97 Room Air 97.3 Intake and Output 01/05/17 07:00 # Voids 8 # Bowel Movements 3 Physical Exam General: Alert, Oriented X3, Cooperative, No acute distress MUSCULOSKELETAL: Other (GERBER) Neuro: Normal speech Skin: Other (incision heling well, qi intact, dry) Assessment Assessment Problems Medical Problems: (1) Cervical spinal stenosis Status: Acute Plan Plan of Care continue therapy off steroids blood sugars improved Comment Review of Relevant I have reviewed the following items hubert (where applicable) has been applied. Labs Laboratory Tests Test 01/04/17 07:11 01/04/17 12:07 01/04/17 16:51 01/04/17 20:10 White Blood Count 15.8x10^3/uL (4.0-11.0) Red Blood Count 3.95x10^6/uL (4.30-5.70) Hemoglobin 11.4g/dL (13.0-17.5) Hematocrit 35.2% (39.0-53.0) Mean Corpuscular Volume 89fL (79-100) Mean Corpuscular Hemoglobin 29pg (25-35) Mean Corpuscular Hemoglobin Concent 32g/dL (31-37) Red Cell Distribution Width 15.6% (11.5-14.5) Platelet Count 377x10^3/uL (140-400) Neutrophils (%) (Auto) 86% (31-73) Lymphocytes (%) (Auto) 9% (24-48) Monocytes (%) (Auto) 5% (0-9) Eosinophils (%) (Auto) 0% (0-3) Basophils (%) (Auto) 0% (0-3) Neutrophils # (Auto) 13.6x10^3uL (1.8-7.7) Lymphocytes # (Auto) 1.4x10^3/uL (1.0-4.8) Monocytes # (Auto) 0.8x10^3/uL (0.0-1.1) Eosinophils # (Auto) 0.0x10^3/uL (0.0-0.7) Basophils # (Auto) 0.0x10^3/uL (0.0-0.2) Sodium Level 134mmol/L (136-145) Potassium Level 4.4mmol/L (3.5-5.1) Chloride Level 96mmol/L (98-107) Carbon Dioxide Level 28mmol/L (21-32) Anion Gap 10 (6-14) Blood Urea Nitrogen 24mg/dL (8-26) Creatinine 1.0mg/dL (0.7-1.3) Estimated GFR (Cockcroft-Gault) 76.2 Glucose Level 382mg/dL (70-99) Calcium Level 9.2mg/dL (8.5-10.1) Glucose (Fingerstick) 501mg/dL (70-99) 457mg/dL (70-99) 396mg/dL (70-99) Test 01/05/17 05:20 01/05/17 07:45 White Blood Count 15.3x10^3/uL (4.0-11.0) Red Blood Count 3.99x10^6/uL (4.30-5.70) Hemoglobin 11.5g/dL (13.0-17.5) Hematocrit 35.3% (39.0-53.0) Mean Corpuscular Volume 89fL (79-100) Mean Corpuscular Hemoglobin 29pg (25-35) Mean Corpuscular Hemoglobin Concent 33g/dL (31-37) Red Cell Distribution Width 15.5% (11.5-14.5) Platelet Count 369x10^3/uL (140-400) Neutrophils (%) (Auto) 66% (31-73) Lymphocytes (%) (Auto) 25% (24-48) Monocytes (%) (Auto) 9% (0-9) Eosinophils (%) (Auto) 1% (0-3) Basophils (%) (Auto) 0% (0-3) Neutrophils # (Auto) 10.0x10^3uL (1.8-7.7) Lymphocytes # (Auto) 3.7x10^3/uL (1.0-4.8) Monocytes # (Auto) 1.4x10^3/uL (0.0-1.1) Eosinophils # (Auto) 0.1x10^3/uL (0.0-0.7) Basophils # (Auto) 0.0x10^3/uL (0.0-0.2) Segmented Neutrophils % 58% (35-66) Lymphocytes % 29% (24-48) Atypical Lymphocytes % (Manual) 1% (0-0) Monocytes % 11% (0-10) Metamyelocytes % 1% (0-0) Platelet Estimate Adequate (ADEQUATE) Anisocytosis Present Sodium Level 139mmol/L (136-145) Potassium Level 4.0mmol/L (3.5-5.1) Chloride Level 101mmol/L (98-107) Carbon Dioxide Level 30mmol/L (21-32) Anion Gap 8 (6-14) Blood Urea Nitrogen 24mg/dL (8-26) Creatinine 0.9mg/dL (0.7-1.3) Estimated GFR (Cockcroft-Gault) 86.1 Glucose Level 166mg/dL (70-99) Calcium Level 9.0mg/dL (8.5-10.1) Glucose (Fingerstick) 135mg/dL (70-99) Laboratory Tests Test 01/04/17 12:07 01/04/17 16:51 01/04/17 20:10 01/05/17 05:20 Glucose (Fingerstick) 501mg/dL (70-99) 457mg/dL (70-99) 396mg/dL (70-99) White Blood Count 15.3x10^3/uL (4.0-11.0) Red Blood Count 3.99x10^6/uL (4.30-5.70) Hemoglobin 11.5g/dL (13.0-17.5) Hematocrit 35.3% (39.0-53.0) Mean Corpuscular Volume 89fL (79-100) Mean Corpuscular Hemoglobin 29pg (25-35) Mean Corpuscular Hemoglobin Concent 33g/dL (31-37) Red Cell Distribution Width 15.5% (11.5-14.5) Platelet Count 369x10^3/uL (140-400) Neutrophils (%) (Auto) 66% (31-73) Lymphocytes (%) (Auto) 25% (24-48) Monocytes (%) (Auto) 9% (0-9) Eosinophils (%) (Auto) 1% (0-3) Basophils (%) (Auto) 0% (0-3) Neutrophils # (Auto) 10.0x10^3uL (1.8-7.7) Lymphocytes # (Auto) 3.7x10^3/uL (1.0-4.8) Monocytes # (Auto) 1.4x10^3/uL (0.0-1.1) Eosinophils # (Auto) 0.1x10^3/uL (0.0-0.7) Basophils # (Auto) 0.0x10^3/uL (0.0-0.2) Segmented Neutrophils % 58% (35-66) Lymphocytes % 29% (24-48) Atypical Lymphocytes % (Manual) 1% (0-0) Monocytes % 11% (0-10) Metamyelocytes % 1% (0-0) Platelet Estimate Adequate (ADEQUATE) Anisocytosis Present Sodium Level 139mmol/L (136-145) Potassium Level 4.0mmol/L (3.5-5.1) Chloride Level 101mmol/L (98-107) Carbon Dioxide Level 30mmol/L (21-32) Anion Gap 8 (6-14) Blood Urea Nitrogen 24mg/dL (8-26) Creatinine 0.9mg/dL (0.7-1.3) Estimated GFR (Cockcroft-Gault) 86.1 Glucose Level 166mg/dL (70-99) Calcium Level 9.0mg/dL (8.5-10.1) Test 01/05/17 07:45 Glucose (Fingerstick) 135mg/dL (70-99) Medications Current Medications Acetaminophen (Tylenol) 650 mg PRN Q6HRS PRN PO MILD PAIN / TEMP Last administered on 01/01/17t 20:25; Start 01/01/17 at 14:00 Al Hydroxide/Mg Hydroxide (Mylanta Plus Xs) 30 ml PRN Q3HRS PRN PO HEARTBURN / GAS; Start 01/01/17 at 14:00 Calcium Carbonate/ Glycine (Tums) 500 mg PRN Q3HRS PRN PO INDIGESTION; Start at 14:00 Diphenhydramine HCl (Benadryl) 25 mg PRN Q6HRS PRN PO ITCHING; Start 01/01/17 at 14:00 Diphenhydramine HCl (Benadryl) 25 mg PRN Q6HRS PRN IV ITCHING; Start 01/01/17 at 14:00 Naloxone HCl (Narcan) 0.1 mg PRN Q2MIN PRN IV ADMIN; Start 01/01/17 at 14:00 Sodium Chloride (Normal Saline Flush) 3 ml QSHIFT PRN IV AFTER MEDS AND BLOOD DRAWS; Start 01/01/17 at 14:00 Ondansetron HCl (Zofran) 4 mg PRN Q6HRS PRN IV NAUESA, 1ST CHOICE; Start at 14:00 Fentanyl Citrate (Fentanyl 2ml Vial) 25 mcg PRN Q1HR PRN IV PAIN; Start at 14:00 Fentanyl Citrate (Fentanyl 2ml Vial) 50 mcg PRN Q1HR PRN IV PAIN Last administered on 01/01/17 20:27; Start 01/01/17 at 14:00 Allopurinol (Zyloprim) 300 mg QHS PO Last administered on 01/04/17 22:55; Start 01/01/17 at 21:00 Amiodarone HCl (Cordarone) 100 mg DAILY PO Last administered on 01/05/17 09:16 ; Start 01/01/17 at 14:00 Ascorbic Acid (Vitamin C) 500 mg DAILY PO Last administered on 01/05/17 09:17 ; Start 01/02/17 at 14:00 Cyclobenzaprine HCl (Flexeril) 10 mg PRN TID PRN PO MUSCLE SPASMS Last administered on 01/03/17 17:50; Start 01/01/17 at 14:00 Docusate Sodium (Colace) 100 mg BID PO Last administered on 01/05/17 09:15; Start 01/01/17 at 21:00 Furosemide (Lasix) 40 mg [id number] PO Last administered on 01/05/17 09:17; Start 01/01/17 at 14:00 Lisinopril (Prinivil) 10 mg DAILY PO Last administered on 01/04/17 09:30; Start 01/01/17 at 14:00; Stop 01/04/17 at 11:40; Status DC Oxycodone/ Acetaminophen (Percocet 7.5/ 325) 2 tab PRN Q4HRS PRN PO PAIN Last administered on 01/04/17 22:56; Start 01/01/17 at 14:00 Sotalol HCl (Betapace) 80 mg BID PO Last administered on 01/02/17 07:41; Start 01/01/17 at 21:00; Stop 01/02/17 at 07:56; Status DC Potassium Chloride (Klor-Con) 20 meq BIDWMEALS PO Last administered on 09:17; Start 01/01/17 at 17:00 Dexamethasone Sodium Phosphate (Decadron) 10 mg 1X ONCE IV Last administered on 01/01/17 18:47; Start 01/01/17 at 18:30; Stop 01/01/17 at 18:31; Status DC Dexamethasone Sodium Phosphate (Decadron) 4 mg Q6HRS IV Last administered on 05:14; Start 01/02/17 at 00:00; Stop 01/03/17 at 11:00; Status DC Sotalol HCl (Betapace) 40 mg BID PO Last administered on 01/05/17 09:16; Start 01/02/17 at 09:00 Rivaroxaban (Xarelto) 20 mg DAILYWSUP PO Last administered on 01/04/17 17:42; Start 01/02/17 at 17:00 Info (Anti-Coagulation Monitoring By Pharmacy) 1 each PRN DAILY PRN MC SEE COMMENTS Last administered on 01/03/17 11:44; Start 01/02/17 at 11:30 Dexamethasone Sodium Phosphate (Decadron) 2 mg Q6HRS IV Last administered on 05:52; Start 01/03/17 at 12:00; Stop 01/04/17 at 12:04; Status DC Lisinopril (Prinivil) 20 mg DAILY PO Last administered on 01/05/17 09:15; Start 01/05/17 at 09:00 Insulin Aspart (Novolog) 0-6 UNITS TIDWMEALS SQ ; Start 01/04/17 at 12:00 Amlodipine Besylate (Norvasc) 5 mg DAILY PO Last administered on 01/05/17 09: 16; Start 01/04/17 at 12:30 Insulin Aspart (Novolog) 10 units 1X ONCE SQ Last administered on 01/04/17 12 :43; Start 01/04/17 at 12:30; Stop 01/04/17 at 12:31; Status DC Insulin Aspart (Novolog) 18 units 1X ONCE SQ Last administered on 01/04/17 17 :45; Start 01/04/17 at 17:15; Stop 01/04/17 at 17:16; Status DC Active Scripts Active Oxycodon-Acetaminophen 7.5-325 (Oxycodone Hcl/Acetaminophen) 1 Each Tablet 2 Tab PO PRN Q4HRS PRN 60 Days Colace (Docusate Sodium) 100 Mg Capsule 100 Mg PO BID 630 Days Cyclobenzaprine Hcl 10 Mg Tablet 10 Mg PO PRN TID PRN 60 Days Reported Zolpidem Tartrate 5 Mg Tablet 1 Tab PO QHS Calcium Carbonate 500 Mg Tablet 500 Mg PO PRN Q3HRS PRN Tums (Calcium Carbonate) 300 Mg Tab.chew 300 Mg PO Milk Of Magnesia (Magnesium Hydroxide) 400 Mg/5 Ml Oral.susp 400 Mg PO PRN QHS PRN Bisacodyl 10 Mg Supp.rect 10 Mg RC PRN DAILY PRN Eucerin Creme (Mineral Oil/White Petrolatum) 120 Gm Cream..g. 1 Lalo TP BID right and left legs Senna Plus Tablet (Sennosides/Docusate Sodium) 1 Each Tablet 2 Each PO HS Mintox Plus Tablet Chewable (Mag Hydrox/Al Hydrox/Simeth) 1 Each Tab.chew 1 Each PO PRN Q3HRS PRN Enemeez Plus Mini Enema (Docusate Sodium/Benzocaine) 5 Ml Enema 5 Ml RC PRN DAILY PRN Acetaminophen 500 Mg Tablet 650 Mg PO PRN Q6HRS PRN Polyethylene Glycol 3350 255 Gm Powder 17 Gm PO DAILY Oxycodone Hcl 15 Mg Tablet 1 Tab PO PRN Q4HRS PRN Oxycodone Hcl 10 Mg Tablet 1 Tab PO PRN Q4HRS PRN Nystatin-Triamcinolone Cream (Nystatin/Triamcin) 15 Gm Cream..g. 1 Lalo TP BID Amlodipine Besylate 10 Mg Tablet 10 Mg PO DAILY Vitamin C (Ascorbic Acid) 500 Mg Tablet 500 Mg PO DAILY [Black [place]] 1 Tab DAILY Xarelto (Rivaroxaban) 10 Mg Tablet Unknown Dose PO BID Amiodarone Hcl 100 Mg Tablet 100 Mg PO DAILY Next dose 08/30/16 AM Sotalol (Sotalol Hcl) 80 Mg Tablet 0.5 Tab PO BID Next dose 08/30/16 in the AM Allopurinol 300 Mg Tablet 1 Tab PO QHS Not given today Lisinopril 10 Mg Tablet 2 Tab PO DAILY Next dose 08/30/16 Potassium Chloride 20 Meq Tablet.er 20 Meq PO BID Next dose 08/30/16 Furosemide 40 Mg Tablet 1 Tab PO BID Next dose 08/29/16 at 9:00pm Vitals/I & O Vital Sign - Last 24 Hours 01/04/17 01/04/17 01/04/17 01/04/17 12:35 15:00 19:00 22:55 Temp 97.8 97.9 97.8 97.9 Pulse 65 68 56 56 Resp 20 20 B/P 151/79 143/73 153/69 153/69 Pulse Ox 96 90 O2 Delivery BiPAP/CPAP Room Air 01/04/17 01/05/17 01/05/17 01/05/17 23:00 03:00 07:00 09:15 Temp 97.5 98.1 97.3 97.5 98.1 97.3 Pulse 72 52 53 53 Resp 18 20 20 B/P 168/86 161/77 157/81 157/81 Pulse Ox 94 95 97 O2 Delivery Room Air Room Air Room Air 01/05/17 01/05/17 01/05/17 09:16 09:16 09:16 Pulse 53 53 53 B/P 157/81 157/81 157/81 JEM HAWTHORNE MD Jan 05, 2017 11:14
[2017-01-05] MEDS: ANTI-COAG MONITOR BY PHARMACY. MC PRN (11:16)
--- NOTE | 2017-01-05 11:42 | HP ---
ADMIT DATE: 01/01/2017 REASON FOR ADMISSION: Lower extremity weakness. 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 He did well from that surgery and was slowly improving postoperatively and was transferred to rehab. According to the patient, while at rehab he began to deteriorate with regard to his lower extremity function. He was returned back to this hospital for further evaluation and treatment today. He has been at rehab about 4 days. Prior to his cervical decompressive surgery, he noted over about 2 months of progressive weakness in both of his lower extremities with difficulty with standing and walking to the point that he was using a walker and then later had extreme difficulty even standing. He did not notice any significant weakness in his arms. He did notice numbness in his lower extremities diffusely. Currently, the patient relates that his legs have to move, but I feel weak to him. He when asked about numbness, he says that really yet has not changed following the decompressive surgery. PAST MEDICAL HISTORY: The patient has coronary artery disease, atrial fibrillation. He has degenerative joint disease, gouty arthritis, history of head and neck surgery and rotator cuff surgery in 2007. FAMILY HISTORY: Carcinoma and heart problems. SOCIAL HISTORY: The patient is . He works as highway truck driver. He drinks alcohol socially. ALLERGIES: There are no known allergies to medications. MEDICATIONS: His MRAD was reviewed and other than Xarelto, was noncontributory. REVIEW OF SYSTEMS: A 12-point review of systems was performed and other than outlined above was negative. PHYSICAL EXAMINATION: GENERAL: Pleasant, alert and cooperative, complains of mild neck discomfort, especially when he uses upper extremities. NEUROLOGIC: There is strength is 5/5 in both upper extremities and 4+/5 in his lower extremities except for his hip flex region, which strength was 4-/5. On chest examination, there was a diminished light touch involving both of his lower extremities diffusely. Reflexes were trace in the upper extremities, knee jerks were 2+, ankle jerks were absent on the left and 1+ on the right. On examination of his extremities, there was some rotation of the left shoulder ____, otherwise there is full range of motion in his upper and lower extremities. There was 2+ edema in both of his feet. Examination of the neck, his cervical incision appeared intact. There was no significant erythema around the incision. There was mild tenderness with palpation over this region. IMAGING: I reviewed an MRI scan of the cervical, thoracic and lumbar spine done today. On the cervical MRI scan, the severe stenosis which was present at C4-C5, C5-C6 and C6-C7 has resolved. I did not see significant posterior fluid collection and I did not see significant cervical stenosis. The region of T12 disk, which was bulging posteriorly and associated with mild to moderate canal stenosis and mild spinal cord impingement is unchanged. Remained with the thoracic and lumbar MRI scan, I did not see a significant compressive lesion. Final reports were not yet available for those studies. IMPRESSION: At this point, ____ etiology as well as to why he is weakening slightly. I am going to place him on steroids, assuming his laboratory studies, there was satisfactory. We will aggressively work with Physical Therapy to better establish this condition and in act accordingly. I discussed all this with him. JEM HAWTHORNE MD DR: DAVE/ashley JOB#: [id number] / [id number]
--- NOTE | 2017-01-05 14:51 | RAD ---
Indication leukocytosis. Protocol study. A single view of the chest was obtained and is compared to an examination 08/28/2016. Slight enlargement of the cardiac silhouette is again noted. There is no congestive heart failure. A focal infiltrate in either lung is not seen. Significant pleural fluid is not present. There are healed right rib fractures. IMPRESSION: No acute finding. No significant change
[2017-01-05 15:00] VITALS: BP 110/51
[2017-01-05] MEDS: RIVAROXABAN 10 MG TABLET. PO SCH (17:46)
[2017-01-05 19:00] VITALS: BP 150/82
[2017-01-05] MEDS: ALLOPURINOL 300 MG TABLET. PO SCH (20:27)
[2017-01-05] MEDS: OXYCODONE/APAP 7.5/325 TABLET. PO PRN (20:29)
[2017-01-05 23:00] VITALS: BP 147/83
[2017-01-06 03:00] VITALS: BP 135/75
[2017-01-06 07:00] VITALS: BP 132/69
[2017-01-06] MEDS: INSULIN ASPART 300 UNITS/3 ML INSULN.PEN SQ SCH ×3 (07:32→17:00)
[2017-01-06] MEDS: POTASSIUM CHLORIDE 20 MEQ TABLET.ER. PO SCH ×2 (08:00→18:03)
[2017-01-06] MEDS: DOCUSATE SODIUM 100 MG CAPSULE PO SCH (08:45)
[2017-01-06] MEDS: AMLODIPINE BESYLATE 5 MG TABLET PO SCH (08:46)
[2017-01-06] MEDS: AMIODARONE HCL 100 MG TABLET PO SCH (08:46)
[2017-01-06] MEDS: LISINOPRIL 10 MG TABLET PO SCH (08:47)
[2017-01-06] MEDS: FUROSEMIDE 40 MG TABLET PO SCH ×2 (08:47→14:15)
[2017-01-06] MEDS: ASCORBIC ACID 500 MG TABLET PO SCH (08:47)
[2017-01-06] MEDS: CYCLOBENZAPRINE 10 MG TABLET. PO PRN ×2 (08:51→22:48)
[2017-01-06] MEDS: OXYCODONE/APAP 7.5/325 TABLET. PO PRN ×2 (08:51→22:48)
[2017-01-06] MEDS: SOTALOL 80 MG TABLET. PO SCH ×2 (08:52→20:56)
--- NOTE | 2017-01-06 09:03 | PDOC ---
PROGRESS NOTES Subjective Subjective fbs 144. blood sugars better. blood pressure better. feels better. has good upper and lower body strength. hgb a1c pending. Objective Objective Vital Signs Date Time Temp Pulse Resp B/P Pulse Ox O2 Delivery O2 Flow Rate FiO2 01/06/17 08:52 53 132/69 01/06/17 08:51 Room Air 01/06/17 07:00 98.1 22 94 98.1 Intake and Output 01/06/17 07:00 Intake Total 0 ml Balance 0 ml Intake Oral 0 ml # Voids 7 # Bowel Movements 1 Physical Exam Abdomen: Soft Heart: Regular rate, Normal S1, Normal S2 Extremities: No edema General: Alert HEENT: Atraumatic Lungs: Clear to auscultation Neuro: Normal speech Psych/Mental Status: Mental status NL Skin: No rashes Assessment Assessment Problems Medical Problems::1. Steroid-induced hyperglycemia. improved off of decadron 2. Leukocytosis better. off of steroids. 3. Hypertension. 4. Osteoarthritis. 5. Cervical decompressive laminectomy for cervical spinal stenosis. 6. Morbid obesity with a BMI of 54. 7. Paroxysmal atrial fibrillation treated with sotalol and Xarelto. 8. Gout. 9. Obstructive sleep apnea, treated with CPAP. (1) Cervical spinal stenosis Status: Acute Plan Plan of Care continue diabetic diet monitor blood sugars continue amlodipine and lisinopril continue sotalol and xarelto and amiodarone continue furosemide and kcl lab tomorrow continue PT Comment Review of Relevant I have reviewed the following items hubert (where applicable) has been applied. Labs Laboratory Tests Test 01/04/17 12:07 01/04/17 16:51 01/04/17 20:10 01/05/17 05:20 Glucose (Fingerstick) 501mg/dL (70-99) 457mg/dL (70-99) 396mg/dL (70-99) White Blood Count 15.3x10^3/uL (4.0-11.0) Red Blood Count 3.99x10^6/uL (4.30-5.70) Hemoglobin 11.5g/dL (13.0-17.5) Hematocrit 35.3% (39.0-53.0) Mean Corpuscular Volume 89fL (79-100) Mean Corpuscular Hemoglobin 29pg (25-35) Mean Corpuscular Hemoglobin Concent 33g/dL (31-37) Red Cell Distribution Width 15.5% (11.5-14.5) Platelet Count 369x10^3/uL (140-400) Neutrophils (%) (Auto) 66% (31-73) Lymphocytes (%) (Auto) 25% (24-48) Monocytes (%) (Auto) 9% (0-9) Eosinophils (%) (Auto) 1% (0-3) Basophils (%) (Auto) 0% (0-3) Neutrophils # (Auto) 10.0x10^3uL (1.8-7.7) Lymphocytes # (Auto) 3.7x10^3/uL (1.0-4.8) Monocytes # (Auto) 1.4x10^3/uL (0.0-1.1) Eosinophils # (Auto) 0.1x10^3/uL (0.0-0.7) Basophils # (Auto) 0.0x10^3/uL (0.0-0.2) Segmented Neutrophils % 58% (35-66) Lymphocytes % 29% (24-48) Atypical Lymphocytes % (Manual) 1% (0-0) Monocytes % 11% (0-10) Metamyelocytes % 1% (0-0) Platelet Estimate Adequate (ADEQUATE) Anisocytosis Present Sodium Level 139mmol/L (136-145) Potassium Level 4.0mmol/L (3.5-5.1) Chloride Level 101mmol/L (98-107) Carbon Dioxide Level 30mmol/L (21-32) Anion Gap 8 (6-14) Blood Urea Nitrogen 24mg/dL (8-26) Creatinine 0.9mg/dL (0.7-1.3) Estimated GFR (Cockcroft-Gault) 86.1 Glucose Level 166mg/dL (70-99) Calcium Level 9.0mg/dL (8.5-10.1) Test 01/05/17 07:45 01/05/17 11:50 01/05/17 16:50 01/05/17 20:37 Glucose (Fingerstick) 135mg/dL (70-99) 171mg/dL (70-99) 125mg/dL (70-99) 192mg/dL (70-99) Test 01/06/17 07:29 Glucose (Fingerstick) 144mg/dL (70-99) Laboratory Tests Test 01/05/17 11:50 01/05/17 16:50 01/05/17 20:37 01/06/17 07:29 Glucose (Fingerstick) 171mg/dL (70-99) 125mg/dL (70-99) 192mg/dL (70-99) 144mg/dL (70-99) Medications Current Medications Acetaminophen (Tylenol) 650 mg PRN Q6HRS PRN PO MILD PAIN / TEMP Last administered on 01/01/17 20:25; Start 01/01/17 at 14:00 Al Hydroxide/Mg Hydroxide (Mylanta Plus Xs) 30 ml PRN Q3HRS PRN PO HEARTBURN / GAS; Start 01/01/17 at 14:00 Calcium Carbonate/ Glycine (Tums) 500 mg PRN Q3HRS PRN PO INDIGESTION; Start at 14:00 Diphenhydramine HCl (Benadryl) 25 mg PRN Q6HRS PRN PO ITCHING; Start 01/01/17 at 14:00 Diphenhydramine HCl (Benadryl) 25 mg PRN Q6HRS PRN IV ITCHING; Start 01/01/17 at 14:00 Naloxone HCl (Narcan) 0.1 mg PRN Q2MIN PRN IV ADMIN; Start 01/01/17 at 14:00 Sodium Chloride (Normal Saline Flush) 3 ml QSHIFT PRN IV AFTER MEDS AND BLOOD DRAWS; Start 01/01/17 at 14:00 Ondansetron HCl (Zofran) 4 mg PRN Q6HRS PRN IV NAUESA, 1ST CHOICE; Start at 14:00 Fentanyl Citrate (Fentanyl 2ml Vial) 25 mcg PRN Q1HR PRN IV PAIN; Start at 14:00 Fentanyl Citrate (Fentanyl 2ml Vial) 50 mcg PRN Q1HR PRN IV PAIN Last administered on 01/01/17 20:27; Start 01/01/17 at 14:00 Allopurinol (Zyloprim) 300 mg QHS PO Last administered on 01/05/17 20:27; Start 01/01/17 at 21:00 Amiodarone HCl (Cordarone) 100 mg DAILY PO Last administered on 01/06/17 08:46 ; Start 01/01/17 at 14:00 Ascorbic Acid (Vitamin C) 500 mg DAILY PO Last administered on 01/06/17 08:47 ; Start 01/02/17 at 14:00 Cyclobenzaprine HCl (Flexeril) 10 mg PRN TID PRN PO MUSCLE SPASMS Last administered on 01/06/17 08:51; Start 01/01/17 at 14:00 Docusate Sodium (Colace) 100 mg BID PO Last administered on 01/05/17 20:26; Start 01/01/17 at 21:00 Furosemide (Lasix) 40 mg BID92 PO Last administered on 01/06/17 08:47; Start 01/01/17 at 14:00 Lisinopril (Prinivil) 10 mg DAILY PO Last administered on 01/04/17 09:30; Start 01/01/17 at 14:00; Stop 01/04/17 at 11:40; Status DC Oxycodone/ Acetaminophen (Percocet 7.5/ 325) 2 tab PRN Q4HRS PRN PO PAIN Last administered on 01/06/17 08:51; Start 01/01/17 at 14:00 Sotalol HCl (Betapace) 80 mg BID PO Last administered on 01/02/17 07:41; Start 01/01/17 at 21:00; Stop 01/02/17 at 07:56; Status DC Potassium Chloride (Klor-Con) 20 meq BIDWMEALS PO Last administered on 08:00; Start 01/01/17 at 17:00 Dexamethasone Sodium Phosphate (Decadron) 10 mg 1X ONCE IV Last administered on 01/01/17 18:47; Start 01/01/17 at 18:30; Stop 01/01/17 at 18:31; Status DC Dexamethasone Sodium Phosphate (Decadron) 4 mg Q6HRS IV Last administered on 05:14; Start 01/02/17 at 00:00; Stop 01/03/17 at 11:00; Status DC Sotalol HCl (Betapace) 40 mg BID PO Last administered on 01/05/17 20:27; Start 01/02/17 at 09:00 Rivaroxaban (Xarelto) 20 mg DAILYWSUP PO Last administered on 01/05/17 17:46; Start 01/02/17 at 17:00 Info (Anti-Coagulation Monitoring By Pharmacy) 1 each PRN DAILY PRN MC SEE COMMENTS Last administered on 01/05/17 11:16; Start 01/02/17 at 11:30 Dexamethasone Sodium Phosphate (Decadron) 2 mg Q6HRS IV Last administered on 05:52; Start 01/03/17 at 12:00; Stop 01/04/17 at 12:04; Status DC Lisinopril (Prinivil) 20 mg DAILY PO Last administered on 01/06/17 08:47; Start 01/05/17 at 09:00 Insulin Aspart (Novolog) 0-6 UNITS TIDWMEALS SQ Last administered on 01/05/17 12:11; Start 01/04/17 at 12:00 Amlodipine Besylate (Norvasc) 5 mg DAILY PO Last administered on 01/06/17 08: 46; Start 01/04/17 at 12:30 Insulin Aspart (Novolog) 10 units 1X ONCE SQ Last administered on 01/04/17 12 :43; Start 01/04/17 at 12:30; Stop 01/04/17 at 12:31; Status DC Insulin Aspart (Novolog) 18 units 1X ONCE SQ Last administered on 01/04/17 17 :45; Start 01/04/17 at 17:15; Stop 01/04/17 at 17:16; Status DC Active Scripts Active Oxycodon-Acetaminophen 7.5-325 (Oxycodone Hcl/Acetaminophen) 1 Each Tablet 2 Tab PO PRN Q4HRS PRN 60 Days Colace (Docusate Sodium) 100 Mg Capsule 100 Mg PO BID 630 Days Cyclobenzaprine Hcl 10 Mg Tablet 10 Mg PO PRN TID PRN 60 Days Reported Zolpidem Tartrate 5 Mg Tablet 1 Tab PO QHS Calcium Carbonate 500 Mg Tablet 500 Mg PO PRN Q3HRS PRN Tums (Calcium Carbonate) 300 Mg Tab.chew 300 Mg PO Milk Of Magnesia (Magnesium Hydroxide) 400 Mg/5 Ml Oral.susp 400 Mg PO PRN QHS PRN Bisacodyl 10 Mg Supp.rect 10 Mg RC PRN DAILY PRN Eucerin Creme (Mineral Oil/White Petrolatum) 120 Gm Cream..g. 1 Lalo TP BID right and left legs Senna Plus Tablet (Sennosides/Docusate Sodium) 1 Each Tablet 2 Each PO HS Mintox Plus Tablet Chewable (Mag Hydrox/Al Hydrox/Simeth) 1 Each Tab.chew 1 Each PO PRN Q3HRS PRN Enemeez Plus Mini Enema (Docusate Sodium/Benzocaine) 5 Ml Enema 5 Ml RC PRN DAILY PRN Acetaminophen 500 Mg Tablet 650 Mg PO PRN Q6HRS PRN Polyethylene Glycol 3350 255 Gm Powder 17 Gm PO DAILY Oxycodone Hcl 15 Mg Tablet 1 Tab PO PRN Q4HRS PRN Oxycodone Hcl 10 Mg Tablet 1 Tab PO PRN Q4HRS PRN Nystatin-Triamcinolone Cream (Nystatin/Triamcin) 15 Gm Cream..g. 1 Lalo TP BID Amlodipine Besylate 10 Mg Tablet 10 Mg PO DAILY Vitamin C (Ascorbic Acid) 500 Mg Tablet 500 Mg PO DAILY [Black [place]] 1 Tab DAILY Xarelto (Rivaroxaban) 10 Mg Tablet Unknown Dose PO BID Amiodarone Hcl 100 Mg Tablet 100 Mg PO DAILY Next dose 08/30/16 AM Sotalol (Sotalol Hcl) 80 Mg Tablet 0.5 Tab PO BID Next dose 08/30/16 in the AM Allopurinol 300 Mg Tablet 1 Tab PO QHS Not given today Lisinopril 10 Mg Tablet 2 Tab PO DAILY Next dose 08/30/16 Potassium Chloride 20 Meq Tablet.er 20 Meq PO BID Next dose 08/30/16 Furosemide 40 Mg Tablet 1 Tab PO BID Next dose 08/29/16 at 9:00pm Vitals/I & O Vital Sign - Last 24 Hours 01/05/17 01/05/17 01/05/17 01/05/17 09:15 09:16 09:16 09:16 Pulse 53 53 53 53 B/P 157/81 157/81 157/81 157/81 01/05/17 01/05/17 01/05/17 01/05/17 11:00 15:00 19:00 20:00 Temp 98.3 97.9 97.6 98.3 97.9 97.6 Pulse 59 59 61 Resp 20 20 18 B/P 140/75 110/51 150/82 Pulse Ox 94 95 93 O2 Delivery Room Air Room Air Room Air Room Air 01/05/17 01/05/17 01/05/17 01/06/17 20:27 20:29 23:00 03:00 Temp 97.7 97.0 97.7 97.0 Pulse 61 53 51 Resp 20 20 B/P 150/82 147/83 135/75 Pulse Ox 91 90 O2 Delivery Room Air Room Air Room Air 01/06/17 01/06/17 01/06/17 01/06/17 07:00 08:46 08:46 08:47 Temp 98.1 98.1 Pulse 53 53 53 53 Resp 22 B/P 132/69 132/69 132/69 132/69 Pulse Ox 94 O2 Delivery Room Air 01/06/17 01/06/17 08:51 08:52 Pulse 53 B/P 132/69 O2 Delivery Room Air Intake and Output 01/05/17 01/05/17 01/06/17 15:00 23:00 07:00 Intake Total 0 ml Balance 0 ml MICH PRECIADO MD Jan 06, 2017 09:03
--- NOTE | 2017-01-06 09:57 | PDOC ---
PROGRESS NOTES Subjective Subjective up in chair no significant pain ambulating to with walker Objective Objective Vital Signs Date Time Temp Pulse Resp B/P Pulse Ox O2 Delivery O2 Flow Rate FiO2 01/06/17 08:52 53 132/69 01/06/17 08:51 Room Air 01/06/17 07:00 98.1 22 94 98.1 Intake and Output 01/06/17 07:00 Intake Total 0 ml Balance 0 ml Intake Oral 0 ml # Voids 7 # Bowel Movements 1 Physical Exam General: Alert, Oriented X3, Cooperative, No acute distress MUSCULOSKELETAL: Other (GERBER) Neuro: Normal speech Psych/Mental Status: Mental status NL Skin: Other (incision healing well, qi intact, dry) Assessment Assessment Problems Medical Problems: (1) Cervical spinal stenosis Status: Acute Plan Plan of Care labs noted Continue PT Possible dc home tomorrow Comment Review of Relevant I have reviewed the following items hubert (where applicable) has been applied. Labs Laboratory Tests Test 01/04/17 12:07 01/04/17 16:51 01/04/17 20:10 01/05/17 05:20 Glucose (Fingerstick) 501mg/dL (70-99) 457mg/dL (70-99) 396mg/dL (70-99) White Blood Count 15.3x10^3/uL (4.0-11.0) Red Blood Count 3.99x10^6/uL (4.30-5.70) Hemoglobin 11.5g/dL (13.0-17.5) Hematocrit 35.3% (39.0-53.0) Mean Corpuscular Volume 89fL (79-100) Mean Corpuscular Hemoglobin 29pg (25-35) Mean Corpuscular Hemoglobin Concent 33g/dL (31-37) Red Cell Distribution Width 15.5% (11.5-14.5) Platelet Count 369x10^3/uL (140-400) Neutrophils (%) (Auto) 66% (31-73) Lymphocytes (%) (Auto) 25% (24-48) Monocytes (%) (Auto) 9% (0-9) Eosinophils (%) (Auto) 1% (0-3) Basophils (%) (Auto) 0% (0-3) Neutrophils # (Auto) 10.0x10^3uL (1.8-7.7) Lymphocytes # (Auto) 3.7x10^3/uL (1.0-4.8) Monocytes # (Auto) 1.4x10^3/uL (0.0-1.1) Eosinophils # (Auto) 0.1x10^3/uL (0.0-0.7) Basophils # (Auto) 0.0x10^3/uL (0.0-0.2) Segmented Neutrophils % 58% (35-66) Lymphocytes % 29% (24-48) Atypical Lymphocytes % (Manual) 1% (0-0) Monocytes % 11% (0-10) Metamyelocytes % 1% (0-0) Platelet Estimate Adequate (ADEQUATE) Anisocytosis Present Sodium Level 139mmol/L (136-145) Potassium Level 4.0mmol/L (3.5-5.1) Chloride Level 101mmol/L (98-107) Carbon Dioxide Level 30mmol/L (21-32) Anion Gap 8 (6-14) Blood Urea Nitrogen 24mg/dL (8-26) Creatinine 0.9mg/dL (0.7-1.3) Estimated GFR (Cockcroft-Gault) 86.1 Glucose Level 166mg/dL (70-99) Calcium Level 9.0mg/dL (8.5-10.1) Test 01/05/17 07:45 01/05/17 11:50 01/05/17 16:50 01/05/17 20:37 Glucose (Fingerstick) 135mg/dL (70-99) 171mg/dL (70-99) 125mg/dL (70-99) 192mg/dL (70-99) Test 01/06/17 07:29 Glucose (Fingerstick) 144mg/dL (70-99) Laboratory Tests Test 01/05/17 11:50 01/05/17 16:50 01/05/17 20:37 01/06/17 07:29 Glucose (Fingerstick) 171mg/dL (70-99) 125mg/dL (70-99) 192mg/dL (70-99) 144mg/dL (70-99) Medications Current Medications Acetaminophen (Tylenol) 650 mg PRN Q6HRS PRN PO MILD PAIN / TEMP Last administered on 01/01/17t 20:25; Start 01/01/17 at 14:00 Al Hydroxide/Mg Hydroxide (Mylanta Plus Xs) 30 ml PRN Q3HRS PRN PO HEARTBURN / GAS; Start 01/01/17 at 14:00 Calcium Carbonate/ Glycine (Tums) 500 mg PRN Q3HRS PRN PO INDIGESTION; Start at 14:00 Diphenhydramine HCl (Benadryl) 25 mg PRN Q6HRS PRN PO ITCHING; Start 01/01/17 at 14:00 Diphenhydramine HCl (Benadryl) 25 mg PRN Q6HRS PRN IV ITCHING; Start 01/01/17 at 14:00 Naloxone HCl (Narcan) 0.1 mg PRN Q2MIN PRN IV ADMIN; Start 01/01/17 at 14:00 Sodium Chloride (Normal Saline Flush) 3 ml QSHIFT PRN IV AFTER MEDS AND BLOOD DRAWS; Start 01/01/17 at 14:00 Ondansetron HCl (Zofran) 4 mg PRN Q6HRS PRN IV NAUESA, 1ST CHOICE; Start at 14:00 Fentanyl Citrate (Fentanyl 2ml Vial) 25 mcg PRN Q1HR PRN IV PAIN; Start at 14:00 Fentanyl Citrate (Fentanyl 2ml Vial) 50 mcg PRN Q1HR PRN IV PAIN Last administered on 01/01/17 20:27; Start 01/01/17 at 14:00 Allopurinol (Zyloprim) 300 mg QHS PO Last administered on 01/05/17 20:27; Start 01/01/17 at 21:00 Amiodarone HCl (Cordarone) 100 mg DAILY PO Last administered on 01/06/17 08:46 ; Start 01/01/17 at 14:00 Ascorbic Acid (Vitamin C) 500 mg DAILY PO Last administered on 01/06/17 08:47 ; Start 01/02/17 at 14:00 Cyclobenzaprine HCl (Flexeril) 10 mg PRN TID PRN PO MUSCLE SPASMS Last administered on 01/06/17 08:51; Start 01/01/17 at 14:00 Docusate Sodium (Colace) 100 mg BID PO Last administered on 01/05/17 20:26; Start 01/01/17 at 21:00 Furosemide (Lasix) 40 mg BID92 PO Last administered on 01/06/17 08:47; Start 01/01/17 at 14:00 Lisinopril (Prinivil) 10 mg DAILY PO Last administered on 01/04/17 09:30; Start 01/01/17 at 14:00; Stop 01/04/17 at 11:40; Status DC Oxycodone/ Acetaminophen (Percocet 7.5/ 325) 2 tab PRN Q4HRS PRN PO PAIN Last administered on 01/06/17 08:51; Start 01/01/17 at 14:00 Sotalol HCl (Betapace) 80 mg BID PO Last administered on 01/02/17 07:41; Start 01/01/17 at 21:00; Stop 01/02/17 at 07:56; Status DC Potassium Chloride (Klor-Con) 20 meq BIDWMEALS PO Last administered on 08:00; Start 01/01/17 at 17:00 Dexamethasone Sodium Phosphate (Decadron) 10 mg 1X ONCE IV Last administered on 01/01/17 18:47; Start 01/01/17 at 18:30; Stop 01/01/17 at 18:31; Status DC Dexamethasone Sodium Phosphate (Decadron) 4 mg Q6HRS IV Last administered on 05:14; Start 01/02/17 at 00:00; Stop 01/03/17 at 11:00; Status DC Sotalol HCl (Betapace) 40 mg BID PO Last administered on 01/05/17 20:27; Start 01/02/17 at 09:00 Rivaroxaban (Xarelto) 20 mg DAILYWSUP PO Last administered on 01/05/17 17:46; Start 01/02/17 at 17:00 Info (Anti-Coagulation Monitoring By Pharmacy) 1 each PRN DAILY PRN MC SEE COMMENTS Last administered on 01/05/17 11:16; Start 01/02/17 at 11:30 Dexamethasone Sodium Phosphate (Decadron) 2 mg Q6HRS IV Last administered on 05:52; Start 01/03/17 at 12:00; Stop 01/04/17 at 12:04; Status DC Lisinopril (Prinivil) 20 mg DAILY PO Last administered on 01/06/17 08:47; Start 01/05/17 at 09:00 Insulin Aspart (Novolog) 0-6 UNITS TIDWMEALS SQ Last administered on 01/05/17 12:11; Start 01/04/17 at 12:00; Stop 01/06/17 at 09:00; Status DC Amlodipine Besylate (Norvasc) 5 mg DAILY PO Last administered on 01/06/17 08: 46; Start 01/04/17 at 12:30 Insulin Aspart (Novolog) 10 units 1X ONCE SQ Last administered on 01/04/17 12 :43; Start 01/04/17 at 12:30; Stop 01/04/17 at 12:31; Status DC Insulin Aspart (Novolog) 18 units 1X ONCE SQ Last administered on 01/04/17 17 :45; Start 01/04/17 at 17:15; Stop 01/04/17 at 17:16; Status DC Insulin Aspart (Novolog) 0-6 UNITS TIDWMEALS SQ ; Start 01/06/17 at 12:00 Active Scripts Active Oxycodon-Acetaminophen 7.5-325 (Oxycodone Hcl/Acetaminophen) 1 Each Tablet 2 Tab PO PRN Q4HRS PRN 60 Days Colace (Docusate Sodium) 100 Mg Capsule 100 Mg PO BID 630 Days Cyclobenzaprine Hcl 10 Mg Tablet 10 Mg PO PRN TID PRN 60 Days Reported Zolpidem Tartrate 5 Mg Tablet 1 Tab PO QHS Calcium Carbonate 500 Mg Tablet 500 Mg PO PRN Q3HRS PRN Tums (Calcium Carbonate) 300 Mg Tab.chew 300 Mg PO Milk Of Magnesia (Magnesium Hydroxide) 400 Mg/5 Ml Oral.susp 400 Mg PO PRN QHS PRN Bisacodyl 10 Mg Supp.rect 10 Mg RC PRN DAILY PRN Eucerin Creme (Mineral Oil/White Petrolatum) 120 Gm Cream..g. 1 Lalo TP BID right and left legs Senna Plus Tablet (Sennosides/Docusate Sodium) 1 Each Tablet 2 Each PO HS Mintox Plus Tablet Chewable (Mag Hydrox/Al Hydrox/Simeth) 1 Each Tab.chew 1 Each PO PRN Q3HRS PRN Enemeez Plus Mini Enema (Docusate Sodium/Benzocaine) 5 Ml Enema 5 Ml RC PRN DAILY PRN Acetaminophen 500 Mg Tablet 650 Mg PO PRN Q6HRS PRN Polyethylene Glycol 3350 255 Gm Powder 17 Gm PO DAILY Oxycodone Hcl 15 Mg Tablet 1 Tab PO PRN Q4HRS PRN Oxycodone Hcl 10 Mg Tablet 1 Tab PO PRN Q4HRS PRN Nystatin-Triamcinolone Cream (Nystatin/Triamcin) 15 Gm Cream..g. 1 Lalo TP BID Amlodipine Besylate 10 Mg Tablet 10 Mg PO DAILY Vitamin C (Ascorbic Acid) 500 Mg Tablet 500 Mg PO DAILY [Black [place]] 1 Tab DAILY Xarelto (Rivaroxaban) 10 Mg Tablet Unknown Dose PO BID Amiodarone Hcl 100 Mg Tablet 100 Mg PO DAILY Next dose 08/30/16 AM Sotalol (Sotalol Hcl) 80 Mg Tablet 0.5 Tab PO BID Next dose 08/30/16 in the AM Allopurinol 300 Mg Tablet 1 Tab PO QHS Not given today Lisinopril 10 Mg Tablet 2 Tab PO DAILY Next dose 08/30/16 Potassium Chloride 20 Meq Tablet.er 20 Meq PO BID Next dose 08/30/16 Furosemide 40 Mg Tablet 1 Tab PO BID Next dose 08/29/16 at 9:00pm Vitals/I & O Vital Sign - Last 24 Hours 01/05/17 01/05/17 01/05/17 01/05/17 11:00 15:00 19:00 20:00 Temp 98.3 97.9 97.6 98.3 97.9 97.6 Pulse 59 59 61 Resp 20 20 18 B/P 140/75 110/51 150/82 Pulse Ox 94 95 93 O2 Delivery Room Air Room Air Room Air Room Air 01/05/17 01/05/17 01/05/17 01/06/17 20:27 20:29 23:00 03:00 Temp 97.7 97.0 97.7 97.0 Pulse 61 53 51 Resp 20 20 B/P 150/82 147/83 135/75 Pulse Ox 91 90 O2 Delivery Room Air Room Air Room Air 01/06/17 01/06/17 01/06/17 01/06/17 07:00 08:46 08:46 08:47 Temp 98.1 98.1 Pulse 53 53 53 53 Resp 22 B/P 132/69 132/69 132/69 132/69 Pulse Ox 94 O2 Delivery Room Air 01/06/17 01/06/17 08:51 08:52 Pulse 53 B/P 132/69 O2 Delivery Room Air Intake and Output 01/05/17 01/05/17 01/06/17 15:00 23:00 07:00 Intake Total 0 ml Balance 0 ml RAKESH ARROYO APRN Jan 06, 2017 09:57
[2017-01-06] MEDS: ANTI-COAG MONITOR BY PHARMACY. MC PRN (10:43)
[2017-01-06 11:00] VITALS: BP 111/78
[2017-01-06 15:00] VITALS: BP 156/72
--- NOTE | 2017-01-06 17:57 | PDOC ---
PROGRESS NOTES Subjective Subjective He feels better. Objective Objective Vital Signs Date Time Temp Pulse Resp B/P Pulse Ox O2 Delivery O2 Flow Rate FiO2 01/06/17 15:00 98.1 55 20 156/72 97 Room Air 98.1 Intake and Output 01/06/17 07:00 Intake Total 0 ml Balance 0 ml Intake Oral 0 ml # Voids 7 # Bowel Movements 1 Physical Exam Physical Exam He did walk and climbed stairs with physical therapy today. Assessment Assessment Problems Medical Problems: (1) Cervical spinal stenosis Status: Acute Plan Plan of Fdc tomorrow with out patient follow up by physical therapy. Comment Review of Relevant I have reviewed the following items hubert (where applicable) has been applied. Labs Laboratory Tests Test 01/04/17 20:10 01/05/17 05:20 01/05/17 07:45 01/05/17 11:50 Glucose (Fingerstick) 396mg/dL (70-99) 135mg/dL (70-99) 171mg/dL (70-99) White Blood Count 15.3x10^3/uL (4.0-11.0) Red Blood Count 3.99x10^6/uL (4.30-5.70) Hemoglobin 11.5g/dL (13.0-17.5) Hematocrit 35.3% (39.0-53.0) Mean Corpuscular Volume 89fL (79-100) Mean Corpuscular Hemoglobin 29pg (25-35) Mean Corpuscular Hemoglobin Concent 33g/dL (31-37) Red Cell Distribution Width 15.5% (11.5-14.5) Platelet Count 369x10^3/uL (140-400) Neutrophils (%) (Auto) 66% (31-73) Lymphocytes (%) (Auto) 25% (24-48) Monocytes (%) (Auto) 9% (0-9) Eosinophils (%) (Auto) 1% (0-3) Basophils (%) (Auto) 0% (0-3) Neutrophils # (Auto) 10.0x10^3uL (1.8-7.7) Lymphocytes # (Auto) 3.7x10^3/uL (1.0-4.8) Monocytes # (Auto) 1.4x10^3/uL (0.0-1.1) Eosinophils # (Auto) 0.1x10^3/uL (0.0-0.7) Basophils # (Auto) 0.0x10^3/uL (0.0-0.2) Segmented Neutrophils % 58% (35-66) Lymphocytes % 29% (24-48) Atypical Lymphocytes % (Manual) 1% (0-0) Monocytes % 11% (0-10) Metamyelocytes % 1% (0-0) Platelet Estimate Adequate (ADEQUATE) Anisocytosis Present Sodium Level 139mmol/L (136-145) Potassium Level 4.0mmol/L (3.5-5.1) Chloride Level 101mmol/L (98-107) Carbon Dioxide Level 30mmol/L (21-32) Anion Gap 8 (6-14) Blood Urea Nitrogen 24mg/dL (8-26) Creatinine 0.9mg/dL (0.7-1.3) Estimated GFR (Cockcroft-Gault) 86.1 Glucose Level 166mg/dL (70-99) Calcium Level 9.0mg/dL (8.5-10.1) Test 01/05/17 16:50 01/05/17 20:37 01/06/17 07:29 01/06/17 11:20 Glucose (Fingerstick) 125mg/dL (70-99) 192mg/dL (70-99) 144mg/dL (70-99) 140mg/dL (70-99) Test 01/06/17 16:39 Glucose (Fingerstick) 178mg/dL (70-99) Laboratory Tests Test 01/05/17 20:37 01/06/17 07:29 01/06/17 11:20 01/06/17 16:39 Glucose (Fingerstick) 192mg/dL (70-99) 144mg/dL (70-99) 140mg/dL (70-99) 178mg/dL (70-99) Medications Current Medications Acetaminophen (Tylenol) 650 mg PRN Q6HRS PRN PO MILD PAIN / TEMP Last administered on 01/01/17t 20:25; Start 01/01/17 at 14:00 Al Hydroxide/Mg Hydroxide (Mylanta Plus Xs) 30 ml PRN Q3HRS PRN PO HEARTBURN / GAS; Start 01/01/17 at 14:00 Calcium Carbonate/ Glycine (Tums) 500 mg PRN Q3HRS PRN PO INDIGESTION; Start at 14:00 Diphenhydramine HCl (Benadryl) 25 mg PRN Q6HRS PRN PO ITCHING; Start 01/01/17 at 14:00 Diphenhydramine HCl (Benadryl) 25 mg PRN Q6HRS PRN IV ITCHING; Start 01/01/17 at 14:00 Naloxone HCl (Narcan) 0.1 mg PRN Q2MIN PRN IV ADMIN; Start 01/01/17 at 14:00 Sodium Chloride (Normal Saline Flush) 3 ml QSHIFT PRN IV AFTER MEDS AND BLOOD DRAWS; Start 01/01/17 at 14:00 Ondansetron HCl (Zofran) 4 mg PRN Q6HRS PRN IV NAUESA, 1ST CHOICE; Start at 14:00 Fentanyl Citrate (Fentanyl 2ml Vial) 25 mcg PRN Q1HR PRN IV PAIN; Start at 14:00 Fentanyl Citrate (Fentanyl 2ml Vial) 50 mcg PRN Q1HR PRN IV PAIN Last administered on 01/01/17 20:27; Start 01/01/17 at 14:00 Allopurinol (Zyloprim) 300 mg QHS PO Last administered on 01/05/17 20:27; Start 01/01/17 at 21:00 Amiodarone HCl (Cordarone) 100 mg DAILY PO Last administered on 01/06/17 08:46 ; Start 01/01/17 at 14:00 Ascorbic Acid (Vitamin C) 500 mg DAILY PO Last administered on 01/06/17 08:47 ; Start 01/02/17 at 14:00 Cyclobenzaprine HCl (Flexeril) 10 mg PRN TID PRN PO MUSCLE SPASMS Last administered on 01/06/17 08:51; Start 01/01/17 at 14:00 Docusate Sodium (Colace) 100 mg BID PO Last administered on 01/05/17 20:26; Start 01/01/17 at 21:00; Stop 01/06/17 at 13:53; Status DC Furosemide (Lasix) 40 mg BID92 PO Last administered on 01/06/17 14:15; Start 01/01/17 at 14:00 Lisinopril (Prinivil) 10 mg DAILY PO Last administered on 01/04/17 09:30; Start 01/01/17 at 14:00; Stop 01/04/17 at 11:40; Status DC Oxycodone/ Acetaminophen (Percocet 7.5/ 325) 2 tab PRN Q4HRS PRN PO PAIN Last administered on 01/06/17 08:51; Start 01/01/17 at 14:00 Sotalol HCl (Betapace) 80 mg BID PO Last administered on 01/02/17 07:41; Start 01/01/17 at 21:00; Stop 01/02/17 at 07:56; Status DC Potassium Chloride (Klor-Con) 20 meq BIDWMEALS PO Last administered on 08:00; Start 01/01/17 at 17:00 Dexamethasone Sodium Phosphate (Decadron) 10 mg 1X ONCE IV Last administered on 01/01/17 18:47; Start 01/01/17 at 18:30; Stop 01/01/17 at 18:31; Status DC Dexamethasone Sodium Phosphate (Decadron) 4 mg Q6HRS IV Last administered on 05:14; Start 01/02/17 at 00:00; Stop 01/03/17 at 11:00; Status DC Sotalol HCl (Betapace) 40 mg BID PO Last administered on 01/05/17 20:27; Start 01/02/17 at 09:00 Rivaroxaban (Xarelto) 20 mg DAILYWSUP PO Last administered on 01/05/17 17:46; Start 01/02/17 at 17:00 Info (Anti-Coagulation Monitoring By Pharmacy) 1 each PRN DAILY PRN MC SEE COMMENTS Last administered on 01/06/17 10:43; Start 01/02/17 at 11:30 Dexamethasone Sodium Phosphate (Decadron) 2 mg Q6HRS IV Last administered on 05:52; Start 01/03/17 at 12:00; Stop 01/04/17 at 12:04; Status DC Lisinopril (Prinivil) 20 mg DAILY PO Last administered on 01/06/17 08:47; Start 01/05/17 at 09:00 Insulin Aspart (Novolog) 0-6 UNITS TIDWMEALS SQ Last administered on 01/05/17 12:11; Start 01/04/17 at 12:00; Stop 01/06/17 at 09:00; Status DC Amlodipine Besylate (Norvasc) 5 mg DAILY PO Last administered on 01/06/17 08: 46; Start 01/04/17 at 12:30 Insulin Aspart (Novolog) 10 units 1X ONCE SQ Last administered on 01/04/17 12 :43; Start 01/04/17 at 12:30; Stop 01/04/17 at 12:31; Status DC Insulin Aspart (Novolog) 18 units 1X ONCE SQ Last administered on 01/04/17 17 :45; Start 01/04/17 at 17:15; Stop 01/04/17 at 17:16; Status DC Insulin Aspart (Novolog) 0-6 UNITS TIDWMEALS SQ ; Start 01/06/17 at 12:00 Docusate Sodium (Colace) 100 mg BID PO ; Start 01/06/17 at 21:00 Active Scripts Active Oxycodon-Acetaminophen 7.5-325 (Oxycodone Hcl/Acetaminophen) 1 Each Tablet 2 Tab PO PRN Q4HRS PRN 60 Days Colace (Docusate Sodium) 100 Mg Capsule 100 Mg PO BID 630 Days Cyclobenzaprine Hcl 10 Mg Tablet 10 Mg PO PRN TID PRN 60 Days Reported Zolpidem Tartrate 5 Mg Tablet 1 Tab PO QHS Calcium Carbonate 500 Mg Tablet 500 Mg PO PRN Q3HRS PRN Tums (Calcium Carbonate) 300 Mg Tab.chew 300 Mg PO Milk Of Magnesia (Magnesium Hydroxide) 400 Mg/5 Ml Oral.susp 400 Mg PO PRN QHS PRN Bisacodyl 10 Mg Supp.rect 10 Mg RC PRN DAILY PRN Eucerin Creme (Mineral Oil/White Petrolatum) 120 Gm Cream..g. 1 Lalo TP BID right and left legs Senna Plus Tablet (Sennosides/Docusate Sodium) 1 Each Tablet 2 Each PO HS Mintox Plus Tablet Chewable (Mag Hydrox/Al Hydrox/Simeth) 1 Each Tab.chew 1 Each PO PRN Q3HRS PRN Enemeez Plus Mini Enema (Docusate Sodium/Benzocaine) 5 Ml Enema 5 Ml RC PRN DAILY PRN Acetaminophen 500 Mg Tablet 650 Mg PO PRN Q6HRS PRN Polyethylene Glycol 3350 255 Gm Powder 17 Gm PO DAILY Oxycodone Hcl 15 Mg Tablet 1 Tab PO PRN Q4HRS PRN Oxycodone Hcl 10 Mg Tablet 1 Tab PO PRN Q4HRS PRN Nystatin-Triamcinolone Cream (Nystatin/Triamcin) 15 Gm Cream..g. 1 Lalo TP BID Amlodipine Besylate 10 Mg Tablet 10 Mg PO DAILY Vitamin C (Ascorbic Acid) 500 Mg Tablet 500 Mg PO DAILY [Black [place]] 1 Tab DAILY Xarelto (Rivaroxaban) 10 Mg Tablet Unknown Dose PO BID Amiodarone Hcl 100 Mg Tablet 100 Mg PO DAILY Next dose 08/30/16 AM Sotalol (Sotalol Hcl) 80 Mg Tablet 0.5 Tab PO BID Next dose 08/30/16 in the AM Allopurinol 300 Mg Tablet 1 Tab PO QHS Not given today Lisinopril 10 Mg Tablet 2 Tab PO DAILY Next dose 08/30/16 Potassium Chloride 20 Meq Tablet.er 20 Meq PO BID Next dose 08/30/16 Furosemide 40 Mg Tablet 1 Tab PO BID Next dose 08/29/16 at 9:00pm Vitals/I & O Vital Sign - Last 24 Hours 01/05/17 01/05/17 01/05/17 01/05/17 19:00 20:00 20:27 20:29 Temp 97.6 97.6 Pulse 61 61 Resp 18 B/P 150/82 150/82 Pulse Ox 93 O2 Delivery Room Air Room Air Room Air 01/05/17 01/06/17 01/06/17 01/06/17 23:00 03:00 07:00 08:00 Temp 97.7 97.0 98.1 97.7 97.0 98.1 Pulse 53 51 53 Resp 20 20 22 B/P 147/83 135/75 132/69 Pulse Ox 91 90 94 O2 Delivery Room Air Room Air Room Air Room Air 01/06/17 01/06/17 01/06/17 01/06/17 08:46 08:46 08:47 08:51 Pulse 53 53 53 B/P 132/69 132/69 132/69 O2 Delivery Room Air 01/06/17 01/06/17 01/06/17 01/06/17 08:52 10:06 11:00 15:00 Temp 98.8 98.1 98.8 98.1 Pulse 53 68 55 Resp 20 20 B/P 132/69 111/78 156/72 Pulse Ox 96 97 O2 Delivery Room Air Room Air Intake and Output 01/05/17 01/05/17 01/06/17 15:00 23:00 07:00 Intake Total 0 ml Balance 0 ml CARLTON SANTOS MD Jan 06, 2017 17:57
[2017-01-06] MEDS: RIVAROXABAN 10 MG TABLET. PO SCH (18:03)
[2017-01-06 19:00] VITALS: BP 163/84
[2017-01-06] MEDS: ALLOPURINOL 300 MG TABLET. PO SCH (20:54)
[2017-01-06] MEDS: DOCUSATE SODIUM 100 MG CAPSULE. PO SCH (20:56)
[2017-01-06 23:06] VITALS: BP 155/77
[2017-01-07 03:05] VITALS: BP 113/77
[2017-01-07 05:55] LABS: BASO % 0 % (0-3); EOS % 5 % (0-3); HEMATOCRIT 38.2 % (39.0-53.0); HEMOGLOBIN 12.2 g/dL (13.0-17.5); LYMPH # 2.6 x10^3/uL (1.0-4.8); LYMPH % 20 % (24-48); MEAN CORPUSCULAR HEMOGLOBIN 28 pg (25-35); MEAN CORPUSCULAR HGB CONC 32 g/dL (31-37); MEAN CORPUSCULAR VOLUME 88 fL (79-100); MONO % 8 % (0-9); NEUT % 67 % (31-73); PLATELET COUNT 355 x10^3/uL (140-400); RED BLOOD COUNT 4.33 x10^6/uL (4.30-5.70); RED CELL DISTRIBUTION WIDTH 15.6 % (11.5-14.5)
[2017-01-07 06:14] LABS: CALCIUM 8.9 mg/dL (8.5-10.1); GFR 76.2; POTASSIUM 4.1 mmol/L (3.5-5.1)
[2017-01-07 07:00] VITALS: BP 158/80
[2017-01-07] MEDS: INSULIN ASPART 300 UNITS/3 ML INSULN.PEN SQ SCH ×2 (08:00→12:25)
--- NOTE | 2017-01-07 09:06 | PDOC ---
PROGRESS NOTES Subjective Subjective blood pressure is high and just started bp meds and will give it time to work. blood sugars high and will start metformin. he can ask his pcp for glucosemeter. he has diabetes. fbs 146.hgb a1c 6.3. Objective Objective Vital Signs Date Time Temp Pulse Resp B/P Pulse Ox O2 Delivery O2 Flow Rate FiO2 01/07/17 07:00 97.4 55 18 158/80 98 Room Air 97.4 Intake and Output 01/07/17 07:00 # Voids 5 Physical Exam Abdomen: Soft Heart: Regular rate, Normal S1, Normal S2 Extremities: No edema General: Alert HEENT: Atraumatic Lungs: Clear to auscultation Neuro: Normal speech Psych/Mental Status: Mental status NL Skin: No rashes Assessment Assessment diabetes mellitus type 2 hypertension cervical decompressive laminectomy paroxysmal atrial fibrillation Problems Medical Problems: Status: Acute Plan Plan of Care dismiss today told to make appt with pcp next week and obtain glucose meter and test strips from him discussed ada diet start metformin Comment Review of Relevant I have reviewed the following items hubert (where applicable) has been applied. Labs Laboratory Tests Test 01/05/17 11:50 01/05/17 16:50 01/05/17 20:37 01/06/17 07:29 Glucose (Fingerstick) 171mg/dL (70-99) 125mg/dL (70-99) 192mg/dL (70-99) 144mg/dL (70-99) Test 01/06/17 11:20 01/06/17 16:39 01/06/17 20:50 01/07/17 05:34 Glucose (Fingerstick) 140mg/dL (70-99) 178mg/dL (70-99) 212mg/dL (70-99) White Blood Count 13.0x10^3/uL (4.0-11.0) Red Blood Count 4.33x10^6/uL (4.30-5.70) Hemoglobin 12.2g/dL (13.0-17.5) Hematocrit 38.2% (39.0-53.0) Mean Corpuscular Volume 88fL (79-100) Mean Corpuscular Hemoglobin 28pg (25-35) Mean Corpuscular Hemoglobin Concent 32g/dL (31-37) Red Cell Distribution Width 15.6% (11.5-14.5) Platelet Count 355x10^3/uL (140-400) Neutrophils (%) (Auto) 67% (31-73) Lymphocytes (%) (Auto) 20% (24-48) Monocytes (%) (Auto) 8% (0-9) Eosinophils (%) (Auto) 5% (0-3) Basophils (%) (Auto) 0% (0-3) Neutrophils # (Auto) 8.8x10^3uL (1.8-7.7) Lymphocytes # (Auto) 2.6x10^3/uL (1.0-4.8) Monocytes # (Auto) 1.0x10^3/uL (0.0-1.1) Eosinophils # (Auto) 0.6x10^3/uL (0.0-0.7) Basophils # (Auto) 0.0x10^3/uL (0.0-0.2) Sodium Level 140mmol/L (136-145) Potassium Level 4.1mmol/L (3.5-5.1) Chloride Level 103mmol/L (98-107) Carbon Dioxide Level 30mmol/L (21-32) Anion Gap 7 (6-14) Blood Urea Nitrogen 23mg/dL (8-26) Creatinine 1.0mg/dL (0.7-1.3) Estimated GFR (Cockcroft-Gault) 76.2 Glucose Level 143mg/dL (70-99) Calcium Level 8.9mg/dL (8.5-10.1) Test 01/07/17 08:03 Glucose (Fingerstick) 146mg/dL (70-99) Laboratory Tests Test 01/06/17 11:20 01/06/17 16:39 01/06/17 20:50 01/07/17 05:34 Glucose (Fingerstick) 140mg/dL (70-99) 178mg/dL (70-99) 212mg/dL (70-99) White Blood Count 13.0x10^3/uL (4.0-11.0) Red Blood Count 4.33x10^6/uL (4.30-5.70) Hemoglobin 12.2g/dL (13.0-17.5) Hematocrit 38.2% (39.0-53.0) Mean Corpuscular Volume 88fL (79-100) Mean Corpuscular Hemoglobin 28pg (25-35) Mean Corpuscular Hemoglobin Concent 32g/dL (31-37) Red Cell Distribution Width 15.6% (11.5-14.5) Platelet Count 355x10^3/uL (140-400) Neutrophils (%) (Auto) 67% (31-73) Lymphocytes (%) (Auto) 20% (24-48) Monocytes (%) (Auto) 8% (0-9) Eosinophils (%) (Auto) 5% (0-3) Basophils (%) (Auto) 0% (0-3) Neutrophils # (Auto) 8.8x10^3uL (1.8-7.7) Lymphocytes # (Auto) 2.6x10^3/uL (1.0-4.8) Monocytes # (Auto) 1.0x10^3/uL (0.0-1.1) Eosinophils # (Auto) 0.6x10^3/uL (0.0-0.7) Basophils # (Auto) 0.0x10^3/uL (0.0-0.2) Sodium Level 140mmol/L (136-145) Potassium Level 4.1mmol/L (3.5-5.1) Chloride Level 103mmol/L (98-107) Carbon Dioxide Level 30mmol/L (21-32) Anion Gap 7 (6-14) Blood Urea Nitrogen 23mg/dL (8-26) Creatinine 1.0mg/dL (0.7-1.3) Estimated GFR (Cockcroft-Gault) 76.2 Glucose Level 143mg/dL (70-99) Calcium Level 8.9mg/dL (8.5-10.1) Test 01/07/17 08:03 Glucose (Fingerstick) 146mg/dL (70-99) Medications Current Medications Acetaminophen (Tylenol) 650 mg PRN Q6HRS PRN PO MILD PAIN / TEMP Last administered on 01/01/17t 20:25; Start 01/01/17 at 14:00 Al Hydroxide/Mg Hydroxide (Mylanta Plus Xs) 30 ml PRN Q3HRS PRN PO HEARTBURN / GAS; Start 01/01/17 at 14:00 Calcium Carbonate/ Glycine (Tums) 500 mg PRN Q3HRS PRN PO INDIGESTION; Start at 14:00 Diphenhydramine HCl (Benadryl) 25 mg PRN Q6HRS PRN PO ITCHING; Start 01/01/17 at 14:00 Diphenhydramine HCl (Benadryl) 25 mg PRN Q6HRS PRN IV ITCHING; Start 01/01/17 at 14:00 Naloxone HCl (Narcan) 0.1 mg PRN Q2MIN PRN IV ADMIN; Start 01/01/17 at 14:00 Sodium Chloride (Normal Saline Flush) 3 ml QSHIFT PRN IV AFTER MEDS AND BLOOD DRAWS; Start 01/01/17 at 14:00 Ondansetron HCl (Zofran) 4 mg PRN Q6HRS PRN IV NAUESA, 1ST CHOICE; Start at 14:00 Fentanyl Citrate (Fentanyl 2ml Vial) 25 mcg PRN Q1HR PRN IV PAIN; Start at 14:00 Fentanyl Citrate (Fentanyl 2ml Vial) 50 mcg PRN Q1HR PRN IV PAIN Last administered on 01/01/17 20:27; Start 01/01/17 at 14:00 Allopurinol (Zyloprim) 300 mg QHS PO Last administered on 01/06/17 20:54; Start 01/01/17 at 21:00 Amiodarone HCl (Cordarone) 100 mg DAILY PO Last administered on 01/06/17 08:46 ; Start 01/01/17 at 14:00 Ascorbic Acid (Vitamin C) 500 mg DAILY PO Last administered on 01/06/17 08:47 ; Start 01/02/17 at 14:00 Cyclobenzaprine HCl (Flexeril) 10 mg PRN TID PRN PO MUSCLE SPASMS Last administered on 01/06/17 22:48; Start 01/01/17 at 14:00 Docusate Sodium (Colace) 100 mg BID PO Last administered on 01/05/17 20:26; Start 01/01/17 at 21:00; Stop 01/06/17 at 13:53; Status DC Furosemide (Lasix) 40 mg [id number] PO Last administered on 01/06/17 14:15; Start 01/01/17 at 14:00 Lisinopril (Prinivil) 10 mg DAILY PO Last administered on 01/04/17 09:30; Start 01/01/17 at 14:00; Stop 01/04/17 at 11:40; Status DC Oxycodone/ Acetaminophen (Percocet 7.5/ 325) 2 tab PRN Q4HRS PRN PO PAIN Last administered on 01/06/17 22:48; Start 01/01/17 at 14:00 Sotalol HCl (Betapace) 80 mg BID PO Last administered on 01/02/17 07:41; Start 01/01/17 at 21:00; Stop 01/02/17 at 07:56; Status DC Potassium Chloride (Klor-Con) 20 meq BIDWMEALS PO Last administered on 18:03; Start 01/01/17 at 17:00 Dexamethasone Sodium Phosphate (Decadron) 10 mg 1X ONCE IV Last administered on 01/01/17 18:47; Start 01/01/17 at 18:30; Stop 01/01/17 at 18:31; Status DC Dexamethasone Sodium Phosphate (Decadron) 4 mg Q6HRS IV Last administered on 05:14; Start 01/02/17 at 00:00; Stop 01/03/17 at 11:00; Status DC Sotalol HCl (Betapace) 40 mg BID PO Last administered on 01/06/17 20:56; Start 01/02/17 at 09:00 Rivaroxaban (Xarelto) 20 mg DAILYWSUP PO Last administered on 01/06/17 18:03; Start 01/02/17 at 17:00 Info (Anti-Coagulation Monitoring By Pharmacy) 1 each PRN DAILY PRN MC SEE COMMENTS Last administered on 01/06/17 10:43; Start 01/02/17 at 11:30 Dexamethasone Sodium Phosphate (Decadron) 2 mg Q6HRS IV Last administered on 05:52; Start 01/03/17 at 12:00; Stop 01/04/17 at 12:04; Status DC Lisinopril (Prinivil) 20 mg DAILY PO Last administered on 01/06/17 08:47; Start 01/05/17 at 09:00 Insulin Aspart (Novolog) 0-6 UNITS TIDWMEALS SQ Last administered on 01/05/17 12:11; Start 01/04/17 at 12:00; Stop 01/06/17 at 09:00; Status DC Amlodipine Besylate (Norvasc) 5 mg DAILY PO Last administered on 01/06/17 08: 46; Start 01/04/17 at 12:30 Insulin Aspart (Novolog) 10 units 1X ONCE SQ Last administered on 01/04/17 12 :43; Start 01/04/17 at 12:30; Stop 01/04/17 at 12:31; Status DC Insulin Aspart (Novolog) 18 units 1X ONCE SQ Last administered on 01/04/17 17 :45; Start 01/04/17 at 17:15; Stop 01/04/17 at 17:16; Status DC Insulin Aspart (Novolog) 0-6 UNITS TIDWMEALS SQ ; Start 01/06/17 at 12:00 Docusate Sodium (Colace) 100 mg BID PO ; Start 01/06/17 at 21:00 Active Scripts Active Oxycodon-Acetaminophen 7.5-325 (Oxycodone Hcl/Acetaminophen) 1 Each Tablet 2 Tab PO PRN Q4HRS PRN 60 Days Colace (Docusate Sodium) 100 Mg Capsule 100 Mg PO BID 630 Days Cyclobenzaprine Hcl 10 Mg Tablet 10 Mg PO PRN TID PRN 60 Days Reported Zolpidem Tartrate 5 Mg Tablet 1 Tab PO QHS Calcium Carbonate 500 Mg Tablet 500 Mg PO PRN Q3HRS PRN Tums (Calcium Carbonate) 300 Mg Tab.chew 300 Mg PO Milk Of Magnesia (Magnesium Hydroxide) 400 Mg/5 Ml Oral.susp 400 Mg PO PRN QHS PRN Bisacodyl 10 Mg Supp.rect 10 Mg RC PRN DAILY PRN Eucerin Creme (Mineral Oil/White Petrolatum) 120 Gm Cream..g. 1 Lalo TP BID right and left legs Senna Plus Tablet (Sennosides/Docusate Sodium) 1 Each Tablet 2 Each PO HS Mintox Plus Tablet Chewable (Mag Hydrox/Al Hydrox/Simeth) 1 Each Tab.chew 1 Each PO PRN Q3HRS PRN Enemeez Plus Mini Enema (Docusate Sodium/Benzocaine) 5 Ml Enema 5 Ml RC PRN DAILY PRN Acetaminophen 500 Mg Tablet 650 Mg PO PRN Q6HRS PRN Polyethylene Glycol 3350 255 Gm Powder 17 Gm PO DAILY Oxycodone Hcl 15 Mg Tablet 1 Tab PO PRN Q4HRS PRN Oxycodone Hcl 10 Mg Tablet 1 Tab PO PRN Q4HRS PRN Nystatin-Triamcinolone Cream (Nystatin/Triamcin) 15 Gm Cream..g. 1 Lalo TP BID Amlodipine Besylate 10 Mg Tablet 10 Mg PO DAILY Vitamin C (Ascorbic Acid) 500 Mg Tablet 500 Mg PO DAILY [Black [place]] 1 Tab DAILY Xarelto (Rivaroxaban) 10 Mg Tablet Unknown Dose PO BID Amiodarone Hcl 100 Mg Tablet 100 Mg PO DAILY Next dose 08/30/16 AM Sotalol (Sotalol Hcl) 80 Mg Tablet 0.5 Tab PO BID Next dose 08/30/16 in the AM Allopurinol 300 Mg Tablet 1 Tab PO QHS Not given today Lisinopril 10 Mg Tablet 2 Tab PO DAILY Next dose 08/30/16 Potassium Chloride 20 Meq Tablet.er 20 Meq PO BID Next dose 08/30/16 Furosemide 40 Mg Tablet 1 Tab PO BID Next dose 08/29/16 at 9:00pm Vitals/I & O Vital Sign - Last 24 Hours 01/06/17 01/06/17 01/06/17 01/06/17 10:06 11:00 15:00 19:00 Temp 98.8 98.1 97.7 98.8 98.1 97.7 Pulse 68 55 65 Resp 20 20 18 B/P 111/78 156/72 163/84 Pulse Ox 96 97 97 O2 Delivery Room Air Room Air Room Air 01/06/17 01/06/17 01/06/17 01/06/17 20:00 20:56 22:48 23:06 Temp 97.6 97.6 Pulse 65 59 Resp 16 B/P 163/84 155/77 Pulse Ox 96 O2 Delivery Room Air Room Air Room Air 01/07/17 01/07/17 03:05 07:00 Temp 97.6 97.4 97.6 97.4 Pulse 56 55 Resp 18 18 B/P 113/77 158/80 Pulse Ox 97 98 O2 Delivery Room Air Room Air MICH PRECIADO MD Jan 07, 2017 09:06
--- NOTE | 2017-01-07 10:03 | PDOC ---
PROGRESS NOTES Subjective Subjective No new complaints. Objective Objective Vital Signs Date Time Temp Pulse Resp B/P Pulse Ox O2 Delivery O2 Flow Rate FiO2 01/07/17 07:00 97.4 55 18 158/80 98 Room Air 97.4 Intake and Output 01/07/17 07:00 # Voids 5 Physical Exam Physical Exam He is comfortable sitting in bedside recliner and he is moving better and feels comfortable to go home with out patient physical therapy follow up. Assessment Assessment Problems Medical Problems: (1) Cervical spinal stenosis Status: Acute Plan Plan of Prison today with out patient physical therapy follow up. Comment Review of Relevant I have reviewed the following items hubert (where applicable) has been applied. Labs Laboratory Tests Test 01/05/17 11:50 01/05/17 16:50 01/05/17 20:37 01/06/17 07:29 Glucose (Fingerstick) 171mg/dL (70-99) 125mg/dL (70-99) 192mg/dL (70-99) 144mg/dL (70-99) Test 01/06/17 11:20 01/06/17 16:39 01/06/17 20:50 01/07/17 05:34 Glucose (Fingerstick) 140mg/dL (70-99) 178mg/dL (70-99) 212mg/dL (70-99) White Blood Count 13.0x10^3/uL (4.0-11.0) Red Blood Count 4.33x10^6/uL (4.30-5.70) Hemoglobin 12.2g/dL (13.0-17.5) Hematocrit 38.2% (39.0-53.0) Mean Corpuscular Volume 88fL (79-100) Mean Corpuscular Hemoglobin 28pg (25-35) Mean Corpuscular Hemoglobin Concent 32g/dL (31-37) Red Cell Distribution Width 15.6% (11.5-14.5) Platelet Count 355x10^3/uL (140-400) Neutrophils (%) (Auto) 67% (31-73) Lymphocytes (%) (Auto) 20% (24-48) Monocytes (%) (Auto) 8% (0-9) Eosinophils (%) (Auto) 5% (0-3) Basophils (%) (Auto) 0% (0-3) Neutrophils # (Auto) 8.8x10^3uL (1.8-7.7) Lymphocytes # (Auto) 2.6x10^3/uL (1.0-4.8) Monocytes # (Auto) 1.0x10^3/uL (0.0-1.1) Eosinophils # (Auto) 0.6x10^3/uL (0.0-0.7) Basophils # (Auto) 0.0x10^3/uL (0.0-0.2) Sodium Level 140mmol/L (136-145) Potassium Level 4.1mmol/L (3.5-5.1) Chloride Level 103mmol/L (98-107) Carbon Dioxide Level 30mmol/L (21-32) Anion Gap 7 (6-14) Blood Urea Nitrogen 23mg/dL (8-26) Creatinine 1.0mg/dL (0.7-1.3) Estimated GFR (Cockcroft-Gault) 76.2 Glucose Level 143mg/dL (70-99) Calcium Level 8.9mg/dL (8.5-10.1) Test 01/07/17 08:03 Glucose (Fingerstick) 146mg/dL (70-99) Laboratory Tests Test 01/06/17 11:20 01/06/17 16:39 01/06/17 20:50 01/07/17 05:34 Glucose (Fingerstick) 140mg/dL (70-99) 178mg/dL (70-99) 212mg/dL (70-99) White Blood Count 13.0x10^3/uL (4.0-11.0) Red Blood Count 4.33x10^6/uL (4.30-5.70) Hemoglobin 12.2g/dL (13.0-17.5) Hematocrit 38.2% (39.0-53.0) Mean Corpuscular Volume 88fL (79-100) Mean Corpuscular Hemoglobin 28pg (25-35) Mean Corpuscular Hemoglobin Concent 32g/dL (31-37) Red Cell Distribution Width 15.6% (11.5-14.5) Platelet Count 355x10^3/uL (140-400) Neutrophils (%) (Auto) 67% (31-73) Lymphocytes (%) (Auto) 20% (24-48) Monocytes (%) (Auto) 8% (0-9) Eosinophils (%) (Auto) 5% (0-3) Basophils (%) (Auto) 0% (0-3) Neutrophils # (Auto) 8.8x10^3uL (1.8-7.7) Lymphocytes # (Auto) 2.6x10^3/uL (1.0-4.8) Monocytes # (Auto) 1.0x10^3/uL (0.0-1.1) Eosinophils # (Auto) 0.6x10^3/uL (0.0-0.7) Basophils # (Auto) 0.0x10^3/uL (0.0-0.2) Sodium Level 140mmol/L (136-145) Potassium Level 4.1mmol/L (3.5-5.1) Chloride Level 103mmol/L (98-107) Carbon Dioxide Level 30mmol/L (21-32) Anion Gap 7 (6-14) Blood Urea Nitrogen 23mg/dL (8-26) Creatinine 1.0mg/dL (0.7-1.3) Estimated GFR (Cockcroft-Gault) 76.2 Glucose Level 143mg/dL (70-99) Calcium Level 8.9mg/dL (8.5-10.1) Test 01/07/17 08:03 Glucose (Fingerstick) 146mg/dL (70-99) Medications Current Medications Acetaminophen (Tylenol) 650 mg PRN Q6HRS PRN PO MILD PAIN / TEMP Last administered on 01/01/17t 20:25; Start 01/01/17 at 14:00 Al Hydroxide/Mg Hydroxide (Mylanta Plus Xs) 30 ml PRN Q3HRS PRN PO HEARTBURN / GAS; Start 01/01/17 at 14:00 Calcium Carbonate/ Glycine (Tums) 500 mg PRN Q3HRS PRN PO INDIGESTION; Start at 14:00 Diphenhydramine HCl (Benadryl) 25 mg PRN Q6HRS PRN PO ITCHING; Start 01/01/17 at 14:00 Diphenhydramine HCl (Benadryl) 25 mg PRN Q6HRS PRN IV ITCHING; Start 01/01/17 at 14:00 Naloxone HCl (Narcan) 0.1 mg PRN Q2MIN PRN IV ADMIN; Start 01/01/17 at 14:00 Sodium Chloride (Normal Saline Flush) 3 ml QSHIFT PRN IV AFTER MEDS AND BLOOD DRAWS; Start 01/01/17 at 14:00 Ondansetron HCl (Zofran) 4 mg PRN Q6HRS PRN IV NAUESA, 1ST CHOICE; Start at 14:00 Fentanyl Citrate (Fentanyl 2ml Vial) 25 mcg PRN Q1HR PRN IV PAIN; Start at 14:00 Fentanyl Citrate (Fentanyl 2ml Vial) 50 mcg PRN Q1HR PRN IV PAIN Last administered on 01/01/17 20:27; Start 01/01/17 at 14:00 Allopurinol (Zyloprim) 300 mg QHS PO Last administered on 01/06/17 20:54; Start 01/01/17 at 21:00 Amiodarone HCl (Cordarone) 100 mg DAILY PO Last administered on 01/06/17 08:46 ; Start 01/01/17 at 14:00 Ascorbic Acid (Vitamin C) 500 mg DAILY PO Last administered on 01/06/17 08:47 ; Start 01/02/17 at 14:00 Cyclobenzaprine HCl (Flexeril) 10 mg PRN TID PRN PO MUSCLE SPASMS Last administered on 01/06/17 22:48; Start 01/01/17 at 14:00 Docusate Sodium (Colace) 100 mg BID PO Last administered on 01/05/17 20:26; Start 01/01/17 at 21:00; Stop 01/06/17 at 13:53; Status DC Furosemide (Lasix) 40 mg [id number] PO Last administered on 01/06/17 14:15; Start 01/01/17 at 14:00 Lisinopril (Prinivil) 10 mg DAILY PO Last administered on 01/04/17 09:30; Start 01/01/17 at 14:00; Stop 01/04/17 at 11:40; Status DC Oxycodone/ Acetaminophen (Percocet 7.5/ 325) 2 tab PRN Q4HRS PRN PO PAIN Last administered on 01/06/17 22:48; Start 01/01/17 at 14:00 Sotalol HCl (Betapace) 80 mg BID PO Last administered on 01/02/17 07:41; Start 01/01/17 at 21:00; Stop 01/02/17 at 07:56; Status DC Potassium Chloride (Klor-Con) 20 meq BIDWMEALS PO Last administered on 18:03; Start 01/01/17 at 17:00 Dexamethasone Sodium Phosphate (Decadron) 10 mg 1X ONCE IV Last administered on 01/01/17 18:47; Start 01/01/17 at 18:30; Stop 01/01/17 at 18:31; Status DC Dexamethasone Sodium Phosphate (Decadron) 4 mg Q6HRS IV Last administered on 05:14; Start 01/02/17 at 00:00; Stop 01/03/17 at 11:00; Status DC Sotalol HCl (Betapace) 40 mg BID PO Last administered on 01/06/17 20:56; Start 01/02/17 at 09:00 Rivaroxaban (Xarelto) 20 mg DAILYWSUP PO Last administered on 01/06/17 18:03; Start 01/02/17 at 17:00 Info (Anti-Coagulation Monitoring By Pharmacy) 1 each PRN DAILY PRN MC SEE COMMENTS Last administered on 01/06/17 10:43; Start 01/02/17 at 11:30 Dexamethasone Sodium Phosphate (Decadron) 2 mg Q6HRS IV Last administered on 05:52; Start 01/03/17 at 12:00; Stop 01/04/17 at 12:04; Status DC Lisinopril (Prinivil) 20 mg DAILY PO Last administered on 01/06/17 08:47; Start 01/05/17 at 09:00 Insulin Aspart (Novolog) 0-6 UNITS TIDWMEALS SQ Last administered on 01/05/17 12:11; Start 01/04/17 at 12:00; Stop 01/06/17 at 09:00; Status DC Amlodipine Besylate (Norvasc) 5 mg DAILY PO Last administered on 01/06/17 08: 46; Start 01/04/17 at 12:30 Insulin Aspart (Novolog) 10 units 1X ONCE SQ Last administered on 01/04/17 12 :43; Start 01/04/17 at 12:30; Stop 01/04/17 at 12:31; Status DC Insulin Aspart (Novolog) 18 units 1X ONCE SQ Last administered on 01/04/17 17 :45; Start 01/04/17 at 17:15; Stop 01/04/17 at 17:16; Status DC Insulin Aspart (Novolog) 0-6 UNITS TIDWMEALS SQ ; Start 01/06/17 at 12:00 Docusate Sodium (Colace) 100 mg BID PO ; Start 01/06/17 at 21:00 Active Scripts Active Oxycodon-Acetaminophen 7.5-325 (Oxycodone Hcl/Acetaminophen) 1 Each Tablet 2 Tab PO PRN Q4HRS PRN 60 Days Colace (Docusate Sodium) 100 Mg Capsule 100 Mg PO BID 630 Days Cyclobenzaprine Hcl 10 Mg Tablet 10 Mg PO PRN TID PRN 60 Days Reported Zolpidem Tartrate 5 Mg Tablet 1 Tab PO QHS Calcium Carbonate 500 Mg Tablet 500 Mg PO PRN Q3HRS PRN Tums (Calcium Carbonate) 300 Mg Tab.chew 300 Mg PO Milk Of Magnesia (Magnesium Hydroxide) 400 Mg/5 Ml Oral.susp 400 Mg PO PRN QHS PRN Bisacodyl 10 Mg Supp.rect 10 Mg RC PRN DAILY PRN Eucerin Creme (Mineral Oil/White Petrolatum) 120 Gm Cream..g. 1 Lalo TP BID right and left legs Senna Plus Tablet (Sennosides/Docusate Sodium) 1 Each Tablet 2 Each PO HS Mintox Plus Tablet Chewable (Mag Hydrox/Al Hydrox/Simeth) 1 Each Tab.chew 1 Each PO PRN Q3HRS PRN Enemeez Plus Mini Enema (Docusate Sodium/Benzocaine) 5 Ml Enema 5 Ml RC PRN DAILY PRN Acetaminophen 500 Mg Tablet 650 Mg PO PRN Q6HRS PRN Polyethylene Glycol 3350 255 Gm Powder 17 Gm PO DAILY Oxycodone Hcl 15 Mg Tablet 1 Tab PO PRN Q4HRS PRN Oxycodone Hcl 10 Mg Tablet 1 Tab PO PRN Q4HRS PRN Nystatin-Triamcinolone Cream (Nystatin/Triamcin) 15 Gm Cream..g. 1 Lalo TP BID Amlodipine Besylate 10 Mg Tablet 10 Mg PO DAILY Vitamin C (Ascorbic Acid) 500 Mg Tablet 500 Mg PO DAILY [Black [place]] 1 Tab DAILY Xarelto (Rivaroxaban) 10 Mg Tablet Unknown Dose PO BID Amiodarone Hcl 100 Mg Tablet 100 Mg PO DAILY Next dose 08/30/16 AM Sotalol (Sotalol Hcl) 80 Mg Tablet 0.5 Tab PO BID Next dose 08/30/16 in the AM Allopurinol 300 Mg Tablet 1 Tab PO QHS Not given today Lisinopril 10 Mg Tablet 2 Tab PO DAILY Next dose 08/30/16 Potassium Chloride 20 Meq Tablet.er 20 Meq PO BID Next dose 08/30/16 Furosemide 40 Mg Tablet 1 Tab PO BID Next dose 08/29/16 at 9:00pm Vitals/I & O Vital Sign - Last 24 Hours 01/06/17 01/06/17 01/06/17 01/06/17 10:06 11:00 15:00 19:00 Temp 98.8 98.1 97.7 98.8 98.1 97.7 Pulse 68 55 65 Resp 20 20 18 B/P 111/78 156/72 163/84 Pulse Ox 96 97 97 O2 Delivery Room Air Room Air Room Air 01/06/17 01/06/17 01/06/17 01/06/17 20:00 20:56 22:48 23:06 Temp 97.6 97.6 Pulse 65 59 Resp 16 B/P 163/84 155/77 Pulse Ox 96 O2 Delivery Room Air Room Air Room Air 01/07/17 01/07/17 03:05 07:00 Temp 97.6 97.4 97.6 97.4 Pulse 56 55 Resp 18 18 B/P 113/77 158/80 Pulse Ox 97 98 O2 Delivery Room Air Room Air CARLTON SANTOS MD Jan 07, 2017 10:03
[2017-01-07] MEDS: AMIODARONE HCL 100 MG TABLET PO SCH (10:16)
[2017-01-07] MEDS: OXYCODONE/APAP 7.5/325 TABLET. PO PRN (10:16)
[2017-01-07] MEDS: SOTALOL 80 MG TABLET. PO SCH (10:17)
[2017-01-07] MEDS: POTASSIUM CHLORIDE 20 MEQ TABLET.ER. PO SCH (10:17)
[2017-01-07] MEDS: DOCUSATE SODIUM 100 MG CAPSULE. PO SCH (10:18)
[2017-01-07] MEDS: ASCORBIC ACID 500 MG TABLET PO SCH (10:19)
[2017-01-07] MEDS: AMLODIPINE BESYLATE 5 MG TABLET PO SCH (10:19)
[2017-01-07] MEDS: LISINOPRIL 10 MG TABLET PO SCH (10:19)
[2017-01-07] MEDS: FUROSEMIDE 40 MG TABLET PO SCH ×2 (10:20→14:00)
[2017-01-07] MEDS: ANTI-COAG MONITOR BY PHARMACY. MC PRN (10:49)
[2017-01-07 11:00] VITALS: BP 154/88
--- NOTE | 2017-01-07 14:22 | DISCH ---
DISCHARGE INSTRUCTIONS Condition on Discharge Condition on Discharge: Stable Activity After Discharge Activity Instructions for Disc: Activity as tolerated, Avoid exertion Bathing Instructions: Shower-keep dressing dry Lifting Instructions after Dis: No heavy lifting, No pulling or pushing, Do not lift >10 pounds Driving Instructions after Dis: No driving for 2 weeks Diet after Discharge Additional Diet Restrictions: resume home diet Wound Incision Care Wound/Incision Care: Ice to area for comfort Other wound/incision instructi: keep NADEGE Contacting the DRJemima after DC Call your doctor for: Concerns you may have Follow-Up Follow up with: Dr. Hawthorne nurse in a week JEM HAWTHORNE MD Jan 07, 2017 14:22
--- NOTE | 2017-01-07 14:27 | PDOC ---
PROGRESS NOTES Subjective Subjective up on chair no significant pain reports ambulating with walker Objective Objective Vital Signs Date Time Temp Pulse Resp B/P Pulse Ox O2 Delivery O2 Flow Rate FiO2 01/07/17 11:16 Room Air 01/07/17 11:00 97.5 62 18 154/88 100 97.5 Intake and Output 01/07/17 07:00 # Voids 5 Physical Exam General: Alert, Oriented X3, Cooperative, No acute distress MUSCULOSKELETAL: Other (GERBER) Neuro: Normal speech Skin: Other (incision healing well, qi intact, dry) Assessment Assessment Problems Medical Problems: (1) Cervical spinal stenosis Status: Acute Plan Plan of Care May dc home with outpatient PT F/U next week Comment Review of Relevant I have reviewed the following items hubert (where applicable) has been applied. Labs Laboratory Tests Test 01/05/17 16:50 01/05/17 20:37 01/06/17 07:29 01/06/17 11:20 Glucose (Fingerstick) 125mg/dL (70-99) 192mg/dL (70-99) 144mg/dL (70-99) 140mg/dL (70-99) Test 01/06/17 16:39 01/06/17 20:50 01/07/17 05:34 01/07/17 08:03 Glucose (Fingerstick) 178mg/dL (70-99) 212mg/dL (70-99) 146mg/dL (70-99) White Blood Count 13.0x10^3/uL (4.0-11.0) Red Blood Count 4.33x10^6/uL (4.30-5.70) Hemoglobin 12.2g/dL (13.0-17.5) Hematocrit 38.2% (39.0-53.0) Mean Corpuscular Volume 88fL (79-100) Mean Corpuscular Hemoglobin 28pg (25-35) Mean Corpuscular Hemoglobin Concent 32g/dL (31-37) Red Cell Distribution Width 15.6% (11.5-14.5) Platelet Count 355x10^3/uL (140-400) Neutrophils (%) (Auto) 67% (31-73) Lymphocytes (%) (Auto) 20% (24-48) Monocytes (%) (Auto) 8% (0-9) Eosinophils (%) (Auto) 5% (0-3) Basophils (%) (Auto) 0% (0-3) Neutrophils # (Auto) 8.8x10^3uL (1.8-7.7) Lymphocytes # (Auto) 2.6x10^3/uL (1.0-4.8) Monocytes # (Auto) 1.0x10^3/uL (0.0-1.1) Eosinophils # (Auto) 0.6x10^3/uL (0.0-0.7) Basophils # (Auto) 0.0x10^3/uL (0.0-0.2) Sodium Level 140mmol/L (136-145) Potassium Level 4.1mmol/L (3.5-5.1) Chloride Level 103mmol/L (98-107) Carbon Dioxide Level 30mmol/L (21-32) Anion Gap 7 (6-14) Blood Urea Nitrogen 23mg/dL (8-26) Creatinine 1.0mg/dL (0.7-1.3) Estimated GFR (Cockcroft-Gault) 76.2 Glucose Level 143mg/dL (70-99) Calcium Level 8.9mg/dL (8.5-10.1) Test 01/07/17 11:27 Glucose (Fingerstick) 132mg/dL (70-99) Laboratory Tests Test 01/06/17 16:39 01/06/17 20:50 01/07/17 05:34 01/07/17 08:03 Glucose (Fingerstick) 178mg/dL (70-99) 212mg/dL (70-99) 146mg/dL (70-99) White Blood Count 13.0x10^3/uL (4.0-11.0) Red Blood Count 4.33x10^6/uL (4.30-5.70) Hemoglobin 12.2g/dL (13.0-17.5) Hematocrit 38.2% (39.0-53.0) Mean Corpuscular Volume 88fL (79-100) Mean Corpuscular Hemoglobin 28pg (25-35) Mean Corpuscular Hemoglobin Concent 32g/dL (31-37) Red Cell Distribution Width 15.6% (11.5-14.5) Platelet Count 355x10^3/uL (140-400) Neutrophils (%) (Auto) 67% (31-73) Lymphocytes (%) (Auto) 20% (24-48) Monocytes (%) (Auto) 8% (0-9) Eosinophils (%) (Auto) 5% (0-3) Basophils (%) (Auto) 0% (0-3) Neutrophils # (Auto) 8.8x10^3uL (1.8-7.7) Lymphocytes # (Auto) 2.6x10^3/uL (1.0-4.8) Monocytes # (Auto) 1.0x10^3/uL (0.0-1.1) Eosinophils # (Auto) 0.6x10^3/uL (0.0-0.7) Basophils # (Auto) 0.0x10^3/uL (0.0-0.2) Sodium Level 140mmol/L (136-145) Potassium Level 4.1mmol/L (3.5-5.1) Chloride Level 103mmol/L (98-107) Carbon Dioxide Level 30mmol/L (21-32) Anion Gap 7 (6-14) Blood Urea Nitrogen 23mg/dL (8-26) Creatinine 1.0mg/dL (0.7-1.3) Estimated GFR (Cockcroft-Gault) 76.2 Glucose Level 143mg/dL (70-99) Calcium Level 8.9mg/dL (8.5-10.1) Test 01/07/17 11:27 Glucose (Fingerstick) 132mg/dL (70-99) Medications Current Medications Acetaminophen (Tylenol) 650 mg PRN Q6HRS PRN PO MILD PAIN / TEMP Last administered on 01/01/17t 20:25; Start 01/01/17 at 14:00 Al Hydroxide/Mg Hydroxide (Mylanta Plus Xs) 30 ml PRN Q3HRS PRN PO HEARTBURN / GAS; Start 01/01/17 at 14:00 Calcium Carbonate/ Glycine (Tums) 500 mg PRN Q3HRS PRN PO INDIGESTION; Start at 14:00 Diphenhydramine HCl (Benadryl) 25 mg PRN Q6HRS PRN PO ITCHING; Start 01/01/17 at 14:00 Diphenhydramine HCl (Benadryl) 25 mg PRN Q6HRS PRN IV ITCHING; Start 01/01/17 at 14:00 Naloxone HCl (Narcan) 0.1 mg PRN Q2MIN PRN IV ADMIN; Start 01/01/17 at 14:00 Sodium Chloride (Normal Saline Flush) 3 ml QSHIFT PRN IV AFTER MEDS AND BLOOD DRAWS; Start 01/01/17 at 14:00 Ondansetron HCl (Zofran) 4 mg PRN Q6HRS PRN IV NAUESA, 1ST CHOICE; Start at 14:00 Fentanyl Citrate (Fentanyl 2ml Vial) 25 mcg PRN Q1HR PRN IV PAIN; Start at 14:00 Fentanyl Citrate (Fentanyl 2ml Vial) 50 mcg PRN Q1HR PRN IV PAIN Last administered on 01/01/17 20:27; Start 01/01/17 at 14:00 Allopurinol (Zyloprim) 300 mg QHS PO Last administered on 01/06/17 20:54; Start 01/01/17 at 21:00 Amiodarone HCl (Cordarone) 100 mg DAILY PO Last administered on 01/07/17 10:16 ; Start 01/01/17 at 14:00 Ascorbic Acid (Vitamin C) 500 mg DAILY PO Last administered on 01/07/17 10:19 ; Start 01/02/17 at 14:00 Cyclobenzaprine HCl (Flexeril) 10 mg PRN TID PRN PO MUSCLE SPASMS Last administered on 01/06/17 22:48; Start 01/01/17 at 14:00 Docusate Sodium (Colace) 100 mg BID PO Last administered on 01/05/17 20:26; Start 01/01/17 at 21:00; Stop 01/06/17 at 13:53; Status DC Furosemide (Lasix) 40 mg [id number] PO Last administered on 01/07/17 10:20; Start 01/01/17 at 14:00 Lisinopril (Prinivil) 10 mg DAILY PO Last administered on 01/04/17 09:30; Start 01/01/17 at 14:00; Stop 01/04/17 at 11:40; Status DC Oxycodone/ Acetaminophen (Percocet 7.5/ 325) 2 tab PRN Q4HRS PRN PO PAIN Last administered on 01/07/17 10:16; Start 01/01/17 at 14:00 Sotalol HCl (Betapace) 80 mg BID PO Last administered on 01/02/17 07:41; Start 01/01/17 at 21:00; Stop 01/02/17 at 07:56; Status DC Potassium Chloride (Klor-Con) 20 meq BIDWMEALS PO Last administered on 10:17; Start 01/01/17 at 17:00 Dexamethasone Sodium Phosphate (Decadron) 10 mg 1X ONCE IV Last administered on 01/01/17 18:47; Start 01/01/17 at 18:30; Stop 01/01/17 at 18:31; Status DC Dexamethasone Sodium Phosphate (Decadron) 4 mg Q6HRS IV Last administered on 05:14; Start 01/02/17 at 00:00; Stop 01/03/17 at 11:00; Status DC Sotalol HCl (Betapace) 40 mg BID PO Last administered on 01/07/17 10:17; Start 01/02/17 at 09:00 Rivaroxaban (Xarelto) 20 mg DAILYWSUP PO Last administered on 01/06/17 18:03; Start 01/02/17 at 17:00 Info (Anti-Coagulation Monitoring By Pharmacy) 1 each PRN DAILY PRN MC SEE COMMENTS Last administered on 01/07/17 10:49; Start 01/02/17 at 11:30 Dexamethasone Sodium Phosphate (Decadron) 2 mg Q6HRS IV Last administered on 05:52; Start 01/03/17 at 12:00; Stop 01/04/17 at 12:04; Status DC Lisinopril (Prinivil) 20 mg DAILY PO Last administered on 01/07/17 10:19; Start 01/05/17 at 09:00 Insulin Aspart (Novolog) 0-6 UNITS TIDWMEALS SQ Last administered on 01/05/17 12:11; Start 01/04/17 at 12:00; Stop 01/06/17 at 09:00; Status DC Amlodipine Besylate (Norvasc) 5 mg DAILY PO Last administered on 01/07/17 10: 19; Start 01/04/17 at 12:30 Insulin Aspart (Novolog) 10 units 1X ONCE SQ Last administered on 01/04/17 12 :43; Start 01/04/17 at 12:30; Stop 01/04/17 at 12:31; Status DC Insulin Aspart (Novolog) 18 units 1X ONCE SQ Last administered on 01/04/17 17 :45; Start 01/04/17 at 17:15; Stop 01/04/17 at 17:16; Status DC Insulin Aspart (Novolog) 0-6 UNITS TIDWMEALS SQ ; Start 01/06/17 at 12:00 Docusate Sodium (Colace) 100 mg BID PO Last administered on 01/07/17 10:18; Start 01/06/17 at 21:00 Active Scripts Active Oxycodon-Acetaminophen 7.5-325 (Oxycodone Hcl/Acetaminophen) 1 Each Tablet 2 Tab PO PRN Q4HRS PRN 60 Days Colace (Docusate Sodium) 100 Mg Capsule 100 Mg PO BID 630 Days Cyclobenzaprine Hcl 10 Mg Tablet 10 Mg PO PRN TID PRN 60 Days Reported Zolpidem Tartrate 5 Mg Tablet 1 Tab PO QHS Calcium Carbonate 500 Mg Tablet 500 Mg PO PRN Q3HRS PRN Tums (Calcium Carbonate) 300 Mg Tab.chew 300 Mg PO Milk Of Magnesia (Magnesium Hydroxide) 400 Mg/5 Ml Oral.susp 400 Mg PO PRN QHS PRN Bisacodyl 10 Mg Supp.rect 10 Mg RC PRN DAILY PRN Eucerin Creme (Mineral Oil/White Petrolatum) 120 Gm Cream..g. 1 Lalo TP BID right and left legs Senna Plus Tablet (Sennosides/Docusate Sodium) 1 Each Tablet 2 Each PO HS Mintox Plus Tablet Chewable (Mag Hydrox/Al Hydrox/Simeth) 1 Each Tab.chew 1 Each PO PRN Q3HRS PRN Enemeez Plus Mini Enema (Docusate Sodium/Benzocaine) 5 Ml Enema 5 Ml RC PRN DAILY PRN Acetaminophen 500 Mg Tablet 650 Mg PO PRN Q6HRS PRN Polyethylene Glycol 3350 255 Gm Powder 17 Gm PO DAILY Oxycodone Hcl 15 Mg Tablet 1 Tab PO PRN Q4HRS PRN Oxycodone Hcl 10 Mg Tablet 1 Tab PO PRN Q4HRS PRN Nystatin-Triamcinolone Cream (Nystatin/Triamcin) 15 Gm Cream..g. 1 Lalo TP BID Amlodipine Besylate 10 Mg Tablet 10 Mg PO DAILY Vitamin C (Ascorbic Acid) 500 Mg Tablet 500 Mg PO DAILY [Black [place]] 1 Tab DAILY Xarelto (Rivaroxaban) 10 Mg Tablet Unknown Dose PO BID Amiodarone Hcl 100 Mg Tablet 100 Mg PO DAILY Next dose 08/30/16 AM Sotalol (Sotalol Hcl) 80 Mg Tablet 0.5 Tab PO BID Next dose 08/30/16 in the AM Allopurinol 300 Mg Tablet 1 Tab PO QHS Not given today Lisinopril 10 Mg Tablet 2 Tab PO DAILY Next dose 08/30/16 Potassium Chloride 20 Meq Tablet.er 20 Meq PO BID Next dose 08/30/16 Furosemide 40 Mg Tablet 1 Tab PO BID Next dose 08/29/16 at 9:00pm Vitals/I & O Vital Sign - Last 24 Hours 01/06/17 01/06/17 01/06/17 01/06/17 15:00 19:00 20:00 20:56 Temp 98.1 97.7 98.1 97.7 Pulse 55 65 65 Resp 20 18 B/P 156/72 163/84 163/84 Pulse Ox 97 97 O2 Delivery Room Air Room Air Room Air 01/06/17 01/06/17 01/07/17 01/07/17 22:48 23:06 03:05 07:00 Temp 97.6 97.6 97.4 97.6 97.6 97.4 Pulse 59 56 55 Resp 16 18 18 B/P 155/77 113/77 158/80 Pulse Ox 96 97 98 O2 Delivery Room Air Room Air Room Air Room Air 01/07/17 01/07/17 01/07/17 01/07/17 08:00 10:16 10:16 10:17 Pulse 55 55 B/P 158/80 158/80 O2 Delivery Room Air Room Air 01/07/17 01/07/17 01/07/17 01/07/17 10:19 10:19 11:00 11:16 Temp 97.5 97.5 Pulse 55 55 62 Resp 18 B/P 158/80 158/80 154/88 Pulse Ox 100 O2 Delivery Room Air Room Air JEM HAWTHORNE MD Jan 07, 2017 14:27
[2017-01-07 15:00] VITALS: BP 129/77
--- NOTE | 2017-01-15 10:08 | DS ---
DATE OF DISCHARGE: 01/07/2017 DISCHARGE DIAGNOSES: Cervical spinal stenosis with myelopathy, status post cervical laminectomy with instrumented fusion. He did well from that surgery and was slowly improving and transferred to rehab for further inpatient rehab. While at rehab, he began to deteriorate with regard to lower extremity function. He was readmitted to [facility] for further evaluation and treatment. HOSPITAL COURSE: He was admitted to the floor. He was given steroids and MRI scans of the cervical, thoracic and lumbar spine were obtained. Physical therapy was initiated. Dr. Jimenes was asked to continue to follow him. Also, Dr. Murrell followed him for medical management. He did improve and was able to be up, ambulating in the room and in the halls. He is in good condition to discharge home and arrangements can be made for him to have outpatient physical therapy. DISCHARGE MEDICATIONS: Resume his medications per the MRAD. DISCHARGE INSTRUCTIONS: He was instructed regarding incision care, activity restrictions and expectations for the next several weeks. He will follow up with our office next week. He was instructed to call us with any questions or concerns. JEM HAWTHORNE MD DR: ONEL/ashley JOB#: [id number] / [id number]
== END 2017-01-07 16:30 | disposition home or self-care (01) | DRG 552 ==
LOC: 4 NORTH 12:56
PROVIDERS: ADMIT Neurological Surgery; ATTEND Neurological Surgery
DX: M48.02 Spinal stenosis, cervical region (principal); Z68.43 Body mass index [BMI] 50.0-59.9, adult; E11.65 Type 2 diabetes mellitus with hyperglycemia; E66.01 Morbid (severe) obesity due to excess calories; G47.33 Obstructive sleep apnea (adult) (pediatric); I10 Essential (primary) hypertension; I25.10 Atherosclerotic heart disease of native coronary artery without angina pectoris; I48.0 Paroxysmal atrial fibrillation; M10.00 Idiopathic gout, unspecified site; M19.90 Unspecified osteoarthritis, unspecified site; R63.1 Polydipsia; M48.04 Spinal stenosis, thoracic region; T38.0X5A Adverse effect of glucocorticoids and synthetic analogues, initial encounter; D72.829 Elevated white blood cell count, unspecified; M54.16 Radiculopathy, lumbar region; M47.814 Spondylosis without myelopathy or radiculopathy, thoracic region
CPT/HCPCS: 36415; 71010; 72141; 72146; 72148; 80048; 82947; 83036; 85007; 85027; 87641; J1100; J1815; J3010; 97110; 97116; 97530; 97535

== ENCOUNTER → 2017-02-20 | Outpatient (CLI) | payer MEDICARE, OTHER ==
[~2017-02-20] MED LIST changes: +ACET500T68 PO; +AMLO10TA2 PO; +BISA10SU2 RC; +CALC300T5 PO; +CALC500T PO; +IOHEXOL 180 MG/ML 10 ML VIAL. ONE; +LISI1TAB5 PO; +MAG1TAB.3 PO; +MAGN400O4 PO; +MINE120C TP; +NAPR375T3 PO; +NYST15CR2 TP; +OXYC10TA PO; +OXYC15TA PO; +POLY255P PO; +SENN1TAB21 PO; -SOTA80TA PO; +SOTA80TA48 PO; +ZOLP5TAB5 PO; +[UNRECOGNIZED DRUG - CODE] RC; +methylPREDNISolone ACETATE 40 MG/ML VIAL. ONE; +methylPREDNISolone ACETATE 80 MG/ML VIAL. ONE
[2017-02-20 09:11] LABS: INR 1.2 (0.8-1.1); PROTHROMBIN TIME PATIENT 14.1 SEC (11.7-14.0)
--- NOTE | 2017-02-21 02:22 | PAIN ---
DATE OF SERVICE: 02/20/2017 INITIAL CONSULTATION FOR PAIN CLINIC CHIEF COMPLAINT: Low back pain and bilateral lower extremity pain. HISTORY OF PRESENT ILLNESS: This is a 61-year-old male who presents with history of pain for past 10 years, worse over the past 1 year, ____ low back and radiating to the posterior gluteus, posterior lateral thighs and anterior thighs to some extent, mostly in the ____ low back, though the patient reports it is getting worse. It is constant, throbbing and shooting with numbness and radiating pain into the lower extremities. Intermittent in intensity, but always present. Not a result of any specific injury or accident that he is aware of, but it has been awakening him from sleep about twice at night, every night. He has to reposition, change positions or get up and stand and walk. The patient reports it does not affect his bowel or bladder control, but does affect his ability to walk. He is using a walker essentially anywhere he goes. The patient does have a wheelchair with him today as well, which he has been using when one is available. The patient reports he has had physical therapy, also had some interventional techniques in the past which helped at an outside facility, but this is many years ago as well. The patient reports disability rating from 0-10, 10 being the worst, as a 8 with family and home responsibilities and occupation, 9 with recreation, 7 with social activity, sexual behavior, 6 with self-care, and 5 with life support activities. The patient did have an MRI scan ordered of lumbar spine showing degenerative changes throughout the thoracic and lumbar disk spaces, ethqxzvx-fv-[id number] central spinal canal stenosis with slsvsypq-we-coyrgj cord impingement at T1-T2. Also increased bilateral neural foraminal stenosis, ogmogunx-cs-shufye at L4-L5, csiruyzr-ya-txjmzw bilateral neural foraminal stenosis at L3-L4 as well. The patient reports no complete loss of motor function, but significant fatigability in both lower extremities, but he feels tired and easily fatigued even with walking more than about 5-10 minutes. PAST MEDICAL HISTORY: Significant for hypertension, obesity, atrial fibrillation and arthritis. PAST SURGICAL HISTORY: Includes scalp reconstruction, rotator cuff repair, left shoulder and cervical diskectomy and laminectomy in 2017. CURRENT MEDICATIONS: Include sotalol, potassium, Lasix, Coumadin, ascorbic acid and calcium, naproxen, lisinopril, amiodarone and allopurinol. ALLERGIES: The patient has no known drug allergies. FAMILY HISTORY: Significant for no major medical problems or conditions that he is aware of. SOCIAL HISTORY: The patient does not drink, does not smoke, is , lives with his spouse who accompanies him to visit today and lives locally in [place], [place]. REVIEW OF SYSTEMS: The patient's review of systems is positive for those items mentioned in the history of present illness. All systems reviewed and otherwise negative. It is complete, full and well documented on the patient's chart. PHYSICAL EXAMINATION: VITAL SIGNS: The patient's blood pressure is 189/96, pulse 67, respirations 18, temperature 98.3 degrees Fahrenheit. Height is 5 feet 9 inches, weight is 356 pounds. GENERAL: The patient is awake, alert, oriented, appropriate, very pleasant demeanor. HEENT: Head shows normocephalic, atraumatic. Extraocular movements are intact and symmetrical. Oral cavity, mucous membranes are moist and pink. Dentition is intact. NECK: Shows anterior throat supple without palpable lymphadenopathy noted. Swallow reflexes are symmetrical. CHEST: Normal on inspection. Breath sounds are clear to auscultation bilaterally. HEART: Shows S1, S2 clear. ABDOMEN: Soft, nontender, nondistended. It is obese with sizable pannus. No palpable organomegaly is noted. No rebound or guarding demonstrated. BACK: Shows spine grossly midline. Slight exaggeration of thoracic kyphosis, some mild flattening of lumbar lordotic curvature. No previous bruises, lesions, rashes or scars noted in the lumbar distribution. Lumbar paraspinous musculature shows symmetrical on inspection, with palpation shows some moderate tenderness, but only in the lower lumbar distribution bilaterally without radiation. No tenderness over the spinous processes, sacrum or sacroiliac regions. The patient has good rotational motion both laterally greater than 10 degrees right and left as well as extension more than 10 degrees forward flexion and 45 degrees without significant pain reported. EXTREMITIES: The patient's lower extremities show deep tendon reflexes 1+ in the patellar and tendo calcaneus tendons. Motor exam is strong with approximately 4 on a scale of 5 with symmetrical dorsiflexion, extension, quadriceps and hamstring flexion and equal and symmetrical. Peripheral pulses are 1+ in the posterior tibial and dorsalis pedis pulses. No peripheral edema is noted. No clubbing, no cyanosis. Lower extremities are warm and dry to touch, equal in color and appearance. The patient is able to stand, has difficulty rising from a sitting to standing position, but is able to walk. He has a wide stance shuffling gait, does not appear to favor the right or left lower extremity significantly, but again using a walker to ambulate, has difficulty try to stand on his toes, as he loses balance quickly. IMPRESSION: 1. This is a 61-year-old male with a long history of low back pain, bilateral lower extremity pain, worse over the past 1 year. 2. MRI scan of the lumbar spine as noted. 3. History of obesity. 4. Arthritis. 5. Hypertension. 6. Anticoagulation. PLAN: Options were discussed with the patient including conservative medical management, physical therapy and interventional techniques. He would like to pursue interventional techniques. He has been off his Coumadin and he has checked with his head irrigator prior to his arrival today. As he has been off of his Coumadin for 6 days, we did check his INR and PT today, this is 14.1 PT and INR of 1.2 and the patient would like to proceed with the lumbar epidural steroid ejection. We discussed the procedure using description as well as anatomical models to describe the procedure. Risks were then discussed including, but not limited to bleeding, infection, possibility of epidural hematoma, subsequent neurologic compromise, dural puncture, headaches, spinal cord and/or nerve damage, side effects of steroid medication and poor results regarding pain control. The patient understands and wishes to proceed. The patient will return to clinic in approximately 2 weeks for followup, was counseled on return appointment, activity level and side effects to be aware of. DIAGNOSES: Lumbar radiculopathy with lumbar degenerative disk disease and lumbar spinal stenosis. PROCEDURE: Lumbar epidural steroid injection using sterile prep and drape under local anesthetic using C-arm fluoroscopic guidance, translaminar approach at the L4-L5 level. Medications injected are 120 mg of Depo-Medrol plus 10 mL of preservative-free normal saline and 2 mL of Isovue for contrast. CONDITION AT DISCHARGE: Stable. The patient tolerated the procedure well, had no complications. HUSSAIN LAMAR MD DR: VIKTOR/ashley JOB#: [id number] / [id number]
== END | disposition home or self-care (01) ==
LOC: PNCL 08:09
PROVIDERS: ATTEND Anesthesiology
DX: M51.16 Intervertebral disc disorders with radiculopathy, lumbar region (principal); M48.06 Spinal stenosis, lumbar region; I10 Essential (primary) hypertension; I48.91 Unspecified atrial fibrillation; M19.90 Unspecified osteoarthritis, unspecified site; K21.9 Gastro-esophageal reflux disease without esophagitis; F32.9 Major depressive disorder, single episode, unspecified; G47.33 Obstructive sleep apnea (adult) (pediatric); E11.9 Type 2 diabetes mellitus without complications; M10.00 Idiopathic gout, unspecified site; E66.09 Other obesity due to excess calories; Z68.43 Body mass index [BMI] 50.0-59.9, adult
CPT/HCPCS: 36415; 62323; 85610; J1030; J1040

== ENCOUNTER → 2017-04-01 | Outpatient (CLI) | payer MEDICARE, OTHER ==
[~2017-04-01] MED LIST changes: +DOCU-109 PO; -DOCU-27 PO; -MAGN400O4 PO; +MAGN400O7 PO
[2017-04-01 11:23] LABS: PROTHROMBIN TIME PATIENT 12.8 SEC (11.7-14.0)
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
== END | disposition home or self-care (01) ==
LOC: PNCL 11:32
PROVIDERS: ATTEND Anesthesiology
DX: M51.16 Intervertebral disc disorders with radiculopathy, lumbar region (principal); M48.06 Spinal stenosis, lumbar region; I48.91 Unspecified atrial fibrillation; I10 Essential (primary) hypertension; E66.9 Obesity, unspecified; Z68.43 Body mass index [BMI] 50.0-59.9, adult; K21.9 Gastro-esophageal reflux disease without esophagitis; M19.90 Unspecified osteoarthritis, unspecified site; Z86.69 Personal history of other diseases of the nervous system and sense organs; Z87.39 Personal history of other diseases of the musculoskeletal system and connective tissue; Z72.89 Other problems related to lifestyle
CPT/HCPCS: 36415; 62323; 85610; J1030; J1040

== ENCOUNTER → 2017-08-22 | Outpatient (CLI) | payer MEDICARE, OTHER ==
[~2017-08-22] MED LIST changes: +ALBU8.5H8 IH; +ASPI-630 PO; +ATOR40TA59 PO; +BACL10TA PO; +CEFE2PIG IV; +DIPH25CA58 PO; +FERR325T72 PO; +GABA600T2 PO; +HYDR-2758 PO; -IOHEXOL 180 MG/ML 10 ML VIAL. ONE; +MULT-460 PO; +NAPR-695 PO; -NAPR375T3 PO; -NAPR500T3 PO; +NAPR500T4 PO; +OMEG10005 PO; +RANI150T6 PO; -methylPREDNISolone ACETATE 40 MG/ML VIAL. ONE; -methylPREDNISolone ACETATE 80 MG/ML VIAL. ONE
--- NOTE | 2017-08-22 08:49 | RAD ---
EXAM: Left lower extremity arterial Doppler. HISTORY: Nonhealing wound. COMPARISON: None. FINDINGS: Grayscale and Doppler analysis of the left lower extremity arterial system was performed. Waveforms are triphasic from the common femoral artery through at least the distal superficial femoral artery. The more distal waveforms become limited by noise, but appear to remain triphasic within the popliteal and proximal trifurcation vessels. More distally, they are obscured by bandage material. There is flow within the anterior tibial, posterior tibial and peroneal arteries at least proximally. IMPRESSION: 1. Findings suggesting mildly flow limiting stenosis within the trifurcation vessels. No severe stenosis is identified. CTA could further quantify stenosis and a fine vascular patency if there is persistent concern.
== END | disposition home or self-care (01) ==
LOC: US 07:43
PROVIDERS: ATTEND Emergency Medicine Undersea and Hyperbaric Medicine
DX: S81.802A Unspecified open wound, left lower leg, initial encounter (principal); X58.XXXA Exposure to other specified factors, initial encounter; Y93.89 Activity, other specified; Y92.89 Other specified places as the place of occurrence of the external cause; Y99.8 Other external cause status
CPT/HCPCS: 93926

== ENCOUNTER → 2017-08-25 | Outpatient (CLI) | payer MEDICARE, OTHER ==
[~2017-08-25] MED LIST changes: -ALBU8.5H8 IH; -ASPI-630 PO; -ATOR40TA59 PO; -BACL10TA PO; -CEFE2PIG IV; -DIPH25CA58 PO; -FERR325T72 PO; -GABA600T2 PO; -HYDR-2758 PO; -MULT-460 PO; -OMEG10005 PO; -RANI150T6 PO
== END | disposition home or self-care (01) ==
LOC: PMGWOUND 10:02
PROVIDERS: ATTEND Emergency Medicine Undersea and Hyperbaric Medicine
DX: I87.312 Chronic venous hypertension (idiopathic) with ulcer of left lower extremity (principal); L97.223 Non-pressure chronic ulcer of left calf with necrosis of muscle; I48.91 Unspecified atrial fibrillation; E66.9 Obesity, unspecified; K21.9 Gastro-esophageal reflux disease without esophagitis; M19.90 Unspecified osteoarthritis, unspecified site; Z68.43 Body mass index [BMI] 50.0-59.9, adult; Z72.89 Other problems related to lifestyle
CPT/HCPCS: 11042; 11045

== ENCOUNTER → 2017-08-28 | Outpatient (CLI) | payer MEDICARE, OTHER | END | disposition home or self-care (01) | LOC: PMGWOUND 09:49 | PROVIDERS: ATTEND Emergency Medicine Undersea and Hyperbaric Medicine | DX: I87.312 Chronic venous hypertension (idiopathic) with ulcer of left lower extremity (principal); L97.223 Non-pressure chronic ulcer of left calf with necrosis of muscle; K21.9 Gastro-esophageal reflux disease without esophagitis; E66.9 Obesity, unspecified; M19.90 Unspecified osteoarthritis, unspecified site; I48.91 Unspecified atrial fibrillation; Z68.43 Body mass index [BMI] 50.0-59.9, adult; Z72.89 Other problems related to lifestyle | CPT/HCPCS: 97597; 97598 ==

== ENCOUNTER → 2017-09-01 | Outpatient (CLI) | payer MEDICARE, OTHER | END | disposition home or self-care (01) | LOC: PMGWOUND 09:00 | PROVIDERS: ATTEND Emergency Medicine Undersea and Hyperbaric Medicine | DX: I87.312 Chronic venous hypertension (idiopathic) with ulcer of left lower extremity (principal); L97.223 Non-pressure chronic ulcer of left calf with necrosis of muscle; I48.91 Unspecified atrial fibrillation; K21.9 Gastro-esophageal reflux disease without esophagitis; M19.90 Unspecified osteoarthritis, unspecified site; E66.9 Obesity, unspecified; Z68.43 Body mass index [BMI] 50.0-59.9, adult; Z72.89 Other problems related to lifestyle | CPT/HCPCS: 11042; 97605 ==

== ENCOUNTER → 2017-09-08 | Outpatient (CLI) | payer MEDICARE, OTHER ==
[~2017-09-08] MED LIST changes: +ALBU8.5H8 IH; +ASPI-630 PO; +ATOR40TA59 PO; +BACL10TA PO; +CEFE2PIG IV; +DIPH25CA58 PO; +FERR325T72 PO; +GABA600T2 PO; +HYDR-2758 PO; +MULT-460 PO; +OMEG10005 PO; +RANI150T6 PO
== END | disposition home or self-care (01) ==
LOC: PMGWOUND 08:41
PROVIDERS: ATTEND Emergency Medicine Undersea and Hyperbaric Medicine
DX: I87.312 Chronic venous hypertension (idiopathic) with ulcer of left lower extremity (principal); L97.223 Non-pressure chronic ulcer of left calf with necrosis of muscle; I48.91 Unspecified atrial fibrillation; K21.9 Gastro-esophageal reflux disease without esophagitis; E66.9 Obesity, unspecified; M19.90 Unspecified osteoarthritis, unspecified site; Z68.43 Body mass index [BMI] 50.0-59.9, adult; Z72.89 Other problems related to lifestyle
CPT/HCPCS: 11042; 97605

== ENCOUNTER → 2017-09-15 | Outpatient (CLI) | payer MEDICARE, OTHER ==
[~2017-09-15] MED LIST changes: -ALBU8.5H8 IH; -ASPI-630 PO; -ATOR40TA59 PO; -BACL10TA PO; -CEFE2PIG IV; -DIPH25CA58 PO; -FERR325T72 PO; -GABA600T2 PO; -HYDR-2758 PO; -MULT-460 PO; -OMEG10005 PO; -RANI150T6 PO
== END | disposition home or self-care (01) ==
LOC: PMGWOUND 09:01
PROVIDERS: ATTEND Emergency Medicine Undersea and Hyperbaric Medicine
DX: I87.312 Chronic venous hypertension (idiopathic) with ulcer of left lower extremity (principal); L97.223 Non-pressure chronic ulcer of left calf with necrosis of muscle; K21.9 Gastro-esophageal reflux disease without esophagitis; I48.91 Unspecified atrial fibrillation; M19.90 Unspecified osteoarthritis, unspecified site; I10 Essential (primary) hypertension; M10.9 Gout, unspecified; E66.9 Obesity, unspecified; Z68.43 Body mass index [BMI] 50.0-59.9, adult; Z72.9 Problem related to lifestyle, unspecified; Z90.89 Acquired absence of other organs
CPT/HCPCS: 29581

== ENCOUNTER → 2017-09-17 | Outpatient (CLI) | payer MEDICARE, OTHER | END | disposition home or self-care (01) | LOC: PMGWOUND 08:37 | PROVIDERS: ATTEND Preventive Medicine Undersea and Hyperbaric Medicine | DX: I87.312 Chronic venous hypertension (idiopathic) with ulcer of left lower extremity (principal); L97.223 Non-pressure chronic ulcer of left calf with necrosis of muscle; I48.91 Unspecified atrial fibrillation; K21.9 Gastro-esophageal reflux disease without esophagitis; M19.90 Unspecified osteoarthritis, unspecified site; E66.9 Obesity, unspecified; Z68.43 Body mass index [BMI] 50.0-59.9, adult; Z72.89 Other problems related to lifestyle | CPT/HCPCS: 97605 ==

== ENCOUNTER → 2017-09-19 | Outpatient (CLI) | payer MEDICARE, OTHER ==
[~2017-09-19] MED LIST changes: +ALBU8.5H8 IH; +ASPI-630 PO; +ATOR40TA59 PO; +BACL10TA PO; +CEFE2PIG IV; +DIPH25CA58 PO; +FERR325T72 PO; +GABA600T2 PO; +HYDR-2758 PO; +MULT-460 PO; +OMEG10005 PO; +RANI150T6 PO
== END | disposition home or self-care (01) ==
LOC: PMGWOUND 08:46
PROVIDERS: ATTEND Preventive Medicine Undersea and Hyperbaric Medicine
DX: I87.312 Chronic venous hypertension (idiopathic) with ulcer of left lower extremity (principal); L97.223 Non-pressure chronic ulcer of left calf with necrosis of muscle; I48.91 Unspecified atrial fibrillation; K21.9 Gastro-esophageal reflux disease without esophagitis; M19.90 Unspecified osteoarthritis, unspecified site; E66.9 Obesity, unspecified; Z68.43 Body mass index [BMI] 50.0-59.9, adult; Z72.89 Other problems related to lifestyle
CPT/HCPCS: 29581; 97605

== ENCOUNTER → 2017-09-22 | Outpatient (CLI) | payer MEDICARE, OTHER | END | disposition home or self-care (01) | LOC: PMGWOUND 11:24 | PROVIDERS: ATTEND Emergency Medicine Undersea and Hyperbaric Medicine | DX: I87.312 Chronic venous hypertension (idiopathic) with ulcer of left lower extremity (principal); L97.223 Non-pressure chronic ulcer of left calf with necrosis of muscle; M19.90 Unspecified osteoarthritis, unspecified site; I48.91 Unspecified atrial fibrillation; K21.9 Gastro-esophageal reflux disease without esophagitis; E66.9 Obesity, unspecified; Z68.43 Body mass index [BMI] 50.0-59.9, adult; Z72.89 Other problems related to lifestyle; Z90.89 Acquired absence of other organs | CPT/HCPCS: 29581; 97605 ==

== ENCOUNTER → 2017-09-25 | Outpatient (CLI) | payer MEDICARE, OTHER | END | disposition home or self-care (01) | LOC: PMGWOUND 08:53 | PROVIDERS: ATTEND Emergency Medicine Undersea and Hyperbaric Medicine | DX: I87.312 Chronic venous hypertension (idiopathic) with ulcer of left lower extremity (principal); L97.223 Non-pressure chronic ulcer of left calf with necrosis of muscle; I48.91 Unspecified atrial fibrillation; K21.9 Gastro-esophageal reflux disease without esophagitis; M19.90 Unspecified osteoarthritis, unspecified site; E66.9 Obesity, unspecified; Z68.43 Body mass index [BMI] 50.0-59.9, adult; Z72.89 Other problems related to lifestyle | CPT/HCPCS: 11042 ==

== ENCOUNTER 2017-09-26 08:42 | Inpatient (IN) | payer MEDICARE, OTHER ==
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
[~2017-09-26] VITALS: Ht 175.3 cm; Wt 165.6 kg
[~2017-09-26 08:42] MED LIST changes: +BACITRACIN 50,000 UNIT in IV NORMAL SALINE 1000ML BAG 1,000 ML IRR ONE; +BUPIVAC MPF-EPI 0.5%-1:200000 30 ML VIAL. ONE; +GELATIN SPONGE SIZE 100. ONE; +HYDROmorphone 2 MG/ML VIAL IV PRN; +IV RINGERS,LACTATED 1000ML 1,000 ML IV SCH; +KETOROLAC 60 MG/2 ML INJ FOR OR. ONE; +LIDOCAINE 1% PF 2 ML VIAL. ID PRN; +MORPHINE SULFATE 2 MG/ML DISP.SYRIN. IV PRN; +PROCHLORPERAZINE 10 MG/2 ML VIAL. IV PRN; +THROMBIN TOPICAL 20,000 UNIT SPRAY.SYRN KIT TP ONE; +fentaNYL PF VIAL 100 MCG/2 ML VIAL IV PRN
[2017-09-26] MEDS ORDERED: PHENYLEPHRINE 10 MG/ML VIAL. ONE (09:27)
[2017-09-26] MEDS ORDERED: ROCURONIUM 50 MG/5 ML VIAL. ONE (09:30)
[2017-09-26] MEDS ORDERED: REMIFENTANIL 2 MG VIAL. IV ONE ×2 (09:30→13:17)
[2017-09-26] MEDS ORDERED: MIDAZOLAM HCL/PF 2 MG/2 ML VIAL. ONE (09:30)
[2017-09-26] MEDS ORDERED: SUCCINYLCHOLINE 200 MG/10 ML VIAL. ONE (09:30)
[2017-09-26] MEDS ORDERED: PROPOFOL 100 ML IV ONE ×2 (10:14→10:27)
[2017-09-26] MEDS ORDERED: DESFLURANE > 120 MINUTES IH ONE (10:16)
[2017-09-26] MEDS ORDERED: fentaNYL PF VIAL 100 MCG/2 ML VIAL ONE (10:17)
[2017-09-26] MEDS ORDERED: LIDOCAINE 2% PF Vial for OR 5 ML VIAL. ONE (10:17)
[2017-09-26] MEDS ORDERED: DEXAMETHASONE SOD PHOS 20 MG/5 ML VIAL. ONE (10:17)
[2017-09-26] MEDS ORDERED: PROPOFOL 20 ML IV ONE (10:17)
[2017-09-26] MEDS ORDERED: ONDANSETRON PF 4 MG/2 ML VIAL. ONE (10:17)
[2017-09-26] MEDS ORDERED: MINERAL OIL/PETROLATUM,WHITE OPHTH OINT 3.5GM TUBE. ONE (10:25)
[2017-09-26] MEDS ORDERED: GLYCOPYRROLATE 1 MG/5 ML VIAL. ONE (11:25)
[2017-09-26] MEDS ORDERED: NEOSTIGMINE METHYLSULFATE 5 MG/5 ML SYRINGE. ONE (11:25)
[2017-09-26] MEDS ORDERED: ePHEDrine PF IN SALINE 50 MG/5 ML DISP.SYRIN IV ONE (11:29)
[2017-09-26] MEDS ORDERED: GELATIN SPONGE SIZE 100. ONE (13:07)
[2017-09-26] MEDS ORDERED: THROMBIN TOPICAL 20,000 UNIT SPRAY.SYRN KIT TP ONE (13:07)
[2017-09-26] MEDS ORDERED: ATROPINE 0.5 MG/5 ML DISP.SYRIN. ONE (13:08)
[2017-09-26] MEDS ORDERED: ALBUTEROL SULFATE 8GM INHALER. IH PRN (15:15)
[2017-09-26] MEDS ORDERED: diphenhydrAMINE HCL 25 MG CAPSULE PO PRN ×2 (15:15→15:30)
[2017-09-26] MEDS ORDERED: fentaNYL PF VIAL 100 MCG/2 ML VIAL IV PRN ×2 (15:30)
[2017-09-26] MEDS ORDERED: CALCIUM CARBONATE 500 MG TAB.CHEW PO PRN (15:30)
[2017-09-26] MEDS ORDERED: 0.9 % SODIUM CHLORIDE 10 ML DISP.SYRIN. IV PRN (15:30)
[2017-09-26] MEDS ORDERED: diphenhydrAMINE 50 MG/ML VIAL IV PRN (15:30)
[2017-09-26] MEDS ORDERED: ACETAMINOPHEN 325 MG TABLET. PO PRN (15:30)
[2017-09-26] MEDS ORDERED: MAGNESIUM HYDROXIDE 2,400 MG/30 ML ORAL.SUSP. PO PRN (15:30)
[2017-09-26] MEDS ORDERED: MAG HYDROX/ALUMINUM HYD/SIMETH 30 ML ORAL.SUSP PO PRN (15:30)
[2017-09-26] MEDS ORDERED: ALBUTEROL SULFATE 2.5 MG/3 ML NEBU. NEB PRN (16:00)
[2017-09-26] MEDS: HYDROcodone/APAP 7.5/325MG 1 TAB TABLET PO PRN (16:04)
[2017-09-26] MEDS: GABAPENTIN 300 MG CAPSULE. PO SCH ×2 (18:21→21:21)
[2017-09-26] MEDS: FUROSEMIDE 40 MG TABLET. PO SCH (18:21)
[2017-09-26 18:22] VITALS: BP 183/94
[2017-09-26] MEDS: ALLOPURINOL 100 MG TABLET. PO SCH (18:22)
[2017-09-26] MEDS: MULTIVITAMIN with MINERAL TABLET. PO SCH (18:22)
[2017-09-26] MEDS: OMEGA-3 FATTY ACIDS/FISH OIL 1,000 MG CAPSULE. PO SCH (18:22)
[2017-09-26] MEDS: AMIODARONE HCL 200 MG TABLET. PO SCH (18:23)
[2017-09-26] MEDS: POTASSIUM CL 20MEQ-0.45% NACL 1,000 ML IV SCH (20:10)
[2017-09-26] MEDS ORDERED: CEFEPIME IV SCH (21:00)
[2017-09-26] MEDS ORDERED: DEXTROSE IV SCH (21:00)
[2017-09-26] MEDS: DOCUSATE SODIUM 100 MG CAPSULE. PO SCH (21:20)
[2017-09-26] MEDS: FAMOTIDINE 20 MG TABLET. PO SCH (21:21)
[2017-09-26] MEDS: BACLOFEN 10 MG TABLET. PO SCH (21:22)
[2017-09-26] MEDS: NAPROXEN 250 MG TABLET PO SCH (21:22)
[2017-09-26] MEDS: ATORVASTATIN CALCIUM 40 MG TABLET. PO SCH (21:22)
[2017-09-26] MEDS: LISINOPRIL 20 MG TABLET PO SCH (21:24)
[2017-09-26] MEDS: SOTALOL 80 MG TABLET. PO SCH (21:24)
[2017-09-26] MEDS: CEFEPIME HCL IV Push 2 GM VIAL. IVP SCH (21:25)
[2017-09-26 23:15] VITALS: BP 144/73
[2017-09-27] MEDS: HYDROcodone/APAP 7.5/325MG 1 TAB TABLET PO PRN ×5 (00:07→21:55)
[2017-09-27 03:00] VITALS: BP 159/78
[2017-09-27] MEDS: POTASSIUM CL 20MEQ-0.45% NACL 1,000 ML IV SCH ×2 (04:38→17:58)
[2017-09-27 08:07] VITALS: BP 174/90
[2017-09-27] MEDS: CEFEPIME HCL IV Push 2 GM VIAL. IVP SCH ×2 (09:00→21:51)
[2017-09-27] MEDS: LISINOPRIL 20 MG TABLET PO SCH ×2 (09:14→21:57)
[2017-09-27] MEDS: NAPROXEN 250 MG TABLET PO SCH ×2 (09:14→21:53)
[2017-09-27] MEDS: FERROUS SULFATE 325 MG TABLET. PO SCH (09:14)
[2017-09-27] MEDS: MULTIVITAMIN with MINERAL TABLET. PO SCH (09:15)
[2017-09-27] MEDS: POTASSIUM CHLORIDE 20 MEQ TABLET.ER. PO SCH ×2 (09:16→17:50)
[2017-09-27] MEDS: SOTALOL 80 MG TABLET. PO SCH ×2 (09:16→23:30)
[2017-09-27] MEDS: BACLOFEN 10 MG TABLET. PO SCH ×2 (09:16→21:54)
[2017-09-27] MEDS: OMEGA-3 FATTY ACIDS/FISH OIL 1,000 MG CAPSULE. PO SCH (09:17)
[2017-09-27] MEDS: ASPIRIN CHEWABLE 81 MG TABLET. PO SCH (09:17)
[2017-09-27] MEDS: AMIODARONE HCL 200 MG TABLET. PO SCH (09:17)
[2017-09-27] MEDS: GABAPENTIN 300 MG CAPSULE. PO SCH ×3 (09:17→21:54)
[2017-09-27] MEDS: FAMOTIDINE 20 MG TABLET. PO SCH ×2 (09:17→21:53)
[2017-09-27] MEDS: FUROSEMIDE 40 MG TABLET. PO SCH ×2 (09:17→14:25)
[2017-09-27] MEDS: ALLOPURINOL 100 MG TABLET. PO SCH (09:18)
[2017-09-27] MEDS: DOCUSATE SODIUM 100 MG CAPSULE. PO SCH ×2 (09:18→21:53)
[2017-09-27 10:58] VITALS: BP 134/58
[2017-09-27] MEDS ORDERED: MAGNESIUM HYDROXIDE 2,400 MG/30 ML ORAL.SUSP. PO PRN (12:00)
--- NOTE | 2017-09-27 13:26 | RAD ---
Bilateral AP knee standing 11/28/2016 Clinical indication: Right knee pain. Comparison: None. Findings: No evidence of acute fracture on single standing AP view of the right knee. There is moderate medial joint compartment degenerative changes of the right knee with joint space narrowing and osteophytosis. Mild lateral joint compartment osteophytosis of the right knee. There is severe lateral and moderate medial joint space narrowing of the left knee with osteophytosis. Impression: 1. Right knee degenerative changes, greatest to a moderate degree, medial joint compartment. 2. Left knee degenerative changes, greatest to a severe degree, lateral joint compartment.
[2017-09-27 15:18] VITALS: BP 159/70
[2017-09-27 19:00] VITALS: BP 138/57
--- NOTE | 2017-09-27 20:58 | PDOC ---
PROGRESS NOTES Subjective Subjective patient seen at 1530 post op day 1 up in chair ambulated in [place] a short distance Objective Objective Vital Signs Date Time Temp Pulse Resp B/P (MAP) Pulse Ox O2 Delivery O2 Flow Rate FiO2 09/27/17 17:50 Room Air 09/27/17 15:18 99.1 54 20 159/70 (99) 93 99.1 09/27/17 08:07 2.0 Intake and Output 09/27/17 07:00 Intake Total 2015 ml Output Total 375 ml Balance 1640 ml Intake Oral 2015 ml Output Urine Total 375 ml Physical Exam General: Alert, Cooperative Neuro: Other (lower extremity strength 5/5) Plan Plan of Care doing well s/p lumbar decompressive surgery Dr. Jimenes consulted PT Comment Review of Relevant I have reviewed the following items hubert (where applicable) has been applied. Labs Laboratory Tests Test 09/26/17 09:27 Glucose (Fingerstick) 135 mg/dL (70-99) Medications Current Medications Bacitracin 78681 unit/Sodium Chloride 1,000 ml @ 1,000 mls/hr 1X PERIOP ONCE IRR Last administered on 09/26/17 12:45; Start 09/26/17 at 06:00; Stop at 06:59; Status DC Fentanyl Citrate (Fentanyl 2ml Vial) 25 mcg PRN Q5MIN PRN IV MILD PAIN; Start 09/26/17 at 07:00; Stop 09/27/17 at 06:59; Status DC Fentanyl Citrate (Fentanyl 2ml Vial) 50 mcg PRN Q5MIN PRN IV MODERATE PAIN; Start 09/26/17 at 07:00; Stop 09/26/17 at 18:00; Status DC Morphine Sulfate 1 mg PRN Q10MIN PRN IV SEVERE PAIN; Start 09/26/17 at 07:00; Stop 09/26/17 at 07:01; Status DC Ringer's Solution 1,000 ml @ 30 mls/hr Q24H IV Last administered on 07:00; Start 09/26/17 at 07:00; Stop 09/26/17 at 18:59; Status DC Lidocaine HCl (Xylocaine-Mpf 1% Vial) 2 ml PRN 1X PRN ID PRIOR TO IV START; Start 09/26/17 at 07:00; Stop 09/26/17 at 18:00; Status DC Hydromorphone HCl (Dilaudid) 0.5 mg PRN Q10MIN PRN IV SEV PAIN, Second choice; Start 09/26/17 at 07:00; Stop 09/26/17 at 18:00; Status DC Prochlorperazine Edisylate (Compazine) 5 mg PACU PRN PRN IV NAUSEA, MRX1; Start 09/26/17 at 07:00; Stop 09/26/17 at 18:00; Status DC Cefazolin Sodium 3 gm/Sodium Chloride 100 ml @ 200 mls/hr 1X PREOP PRN IV PRIOR TO PROCEDURE; Start 09/26/17 at 06:00; Stop 09/26/17 at 15:00; Status DC Gelatin (Gelfoam Size 100) 1 each STK-MED ONCE .ROUTE Last administered on 12:45; Start 09/26/17 at 06:37; Stop 09/26/17 at 06:38; Status DC Bupivacaine HCl/ Epinephrine Bitart (Sensorcain-Mpf Epi 0.5%-1:[id number]) 30 ml STK -MED ONCE .ROUTE Last administered on 09/26/17 12:45; Start 09/26/17 at 06: 37; Stop 09/26/17 at 06:38; Status DC Ketorolac Tromethamine (Toradol For Or Only) 60 mg STK-MED ONCE .ROUTE Last administered on 09/26/17 12:45; Start 09/26/17 at 06:37; Stop 09/26/17 at 06 :38; Status DC Thrombin 20,000 unit STK-MED ONCE TP Last administered on 09/26/17 12:45; Start 09/26/17 at 06:37; Stop 09/26/17 at 06:38; Status DC Phenylephrine HCl (Sajan-Synephrine Inj) 10 mg STK-MED ONCE .ROUTE ; Start at 09:27; Stop 09/26/17 at 09:28; Status DC Succinylcholine Chloride (Anectine) 200 mg STK-MED ONCE .ROUTE ; Start at 09:30; Stop 09/26/17 at 09:31; Status DC Rocuronium [place] (Zemuron) 50 mg STK-MED ONCE .ROUTE ; Start 09/26/17 at 09: 30; Stop 09/26/17 at 09:31; Status DC Remifentanil HCl (Ultiva) 2 mg STK-MED ONCE IV ; Start 09/26/17 at 09:30; Stop 09/26/17 at 09:31; Status DC Midazolam HCl (Versed) 2 mg STK-MED ONCE .ROUTE ; Start 09/26/17 at 09:30; Stop 09/26/17 at 09:31; Status DC Propofol 100 ml @ As Directed STK-MED ONCE IV ; Start 09/26/17 at 10:14; Stop 09/26/17 at 10:15; Status DC Desflurane (Suprane) 90 ml STK-MED ONCE IH ; Start 09/26/17 at 10:16; Stop at 10:17; Status DC Fentanyl Citrate (Fentanyl 2ml Vial) 100 mcg STK-MED ONCE .ROUTE ; Start at 10:17; Stop 09/26/17 at 10:18; Status DC Propofol 20 ml @ As Directed STK-MED ONCE IV ; Start 09/26/17 at 10:17; Stop 09/26/17 at 10:18; Status DC Lidocaine HCl (Lidocaine Pf 2% Vial) 5 ml STK-MED ONCE .ROUTE ; Start 09/26/17 at 10:17; Stop 09/26/17 at 10:18; Status DC Dexamethasone Sodium Phosphate (Decadron) 20 mg STK-MED ONCE .ROUTE ; Start at 10:17; Stop 09/26/17 at 10:18; Status DC Ondansetron HCl (Zofran) 4 mg STK-MED ONCE .ROUTE ; Start 09/26/17 at 10:17; Stop 09/26/17 at 10:18; Status DC Multi-Ingred Cream/Lotion/Oil/ Oint (Artificial Tears Eye Ointment) 7 servando STK- MED ONCE .ROUTE ; Start 09/26/17 at 10:25; Stop 09/26/17 at 10:26; Status DC Propofol 100 ml @ As Directed STK-MED ONCE IV ; Start 09/26/17 at 10:27; Stop 09/26/17 at 10:28; Status DC Glycopyrrolate (Robinul) 1 mg STK-MED ONCE .ROUTE ; Start 09/26/17 at 11:25; Stop 09/26/17 at 11:26; Status DC Neostigmine Methylsulfate 5 mg STK-MED ONCE .ROUTE ; Start 09/26/17 at 11:25; Stop 09/26/17 at 11:26; Status DC Ephedrine Sulfate (ePHEDrine PF IN SALINE SYRINGE) 50 mg STK-MED ONCE IV ; Start 09/26/17 at 11:29; Stop 09/26/17 at 11:30; Status DC Gelatin (Gelfoam Size 100) 1 each STK-MED ONCE .ROUTE ; Start 09/26/17 at 13: 07; Stop 09/26/17 at 13:08; Status DC Thrombin 20,000 unit STK-MED ONCE TP ; Start 09/26/17 at 13:07; Stop 09/26/17 at 13:08; Status DC Atropine Sulfate 0.5 mg STK-MED ONCE .ROUTE ; Start 09/26/17 at 13:08; Stop at 13:09; Status DC Remifentanil HCl (Ultiva) 2 mg STK-MED ONCE IV ; Start 09/26/17 at 13:17; Stop 09/26/17 at 13:18; Status DC Albuterol Sulfate (Ventolin Hfa) 8 puff PRN Q4HRS PRN IH SHORTNESS OF BREATH; Start 09/26/17 at 15:15; Stop 09/26/17 at 16:05; Status DC Allopurinol (Zyloprim) 100 mg DAILY PO Last administered on 09/27/17 09:18; Start 09/26/17 at 16:00 Amiodarone HCl (Cordarone) 200 mg DAILY PO Last administered on 09/27/17 09: 17; Start 09/26/17 at 16:00 Aspirin (Children'S Aspirin) 81 mg DAILY PO Last administered on 09/27/17 09: 17; Start 09/27/17 at 09:00 Atorvastatin Calcium (Lipitor) 40 mg HS PO Last administered on 09/26/17 21: 22; Start 09/26/17 at 21:00 Baclofen (Lioresal) 10 mg BID PO Last administered on 09/27/17 09:16; Start 09/26/17 at 21:00 Diphenhydramine HCl (Benadryl) 25 mg PRN Q6HRS PRN PO ITCHING; Start 09/26/17 at 15:15 Ferrous Sulfate (Feosol) 325 mg DAILYWBKFT PO Last administered on 09/27/17 09:14; Start 09/27/17 at 08:00 Furosemide (Lasix) 40 mg BID92 PO Last administered on 09/27/17 14:25; Start 09/26/17 at 16:00 Sotalol HCl (Betapace) 40 mg BID PO Last administered on 09/27/17 09:16; Start 09/26/17 at 21:00 Non-Formulary Medication 2 gm BID IV ; Start 09/26/17 at 21:00; Stop 09/26/17 at 21:00; Status DC Gabapentin (Neurontin) 600 mg TID PO Last administered on 09/27/17 14:25; Start 09/26/17 at 16:00 Lisinopril (Prinivil) 20 mg BID PO Last administered on 09/27/17 09:14; Start 09/26/17 at 21:00 Multivitamins (Thera M Plus) 1 tab DAILY PO Last administered on 09/27/17 09: 15; Start 09/26/17 at 16:00 Naproxen (Naprosyn) 375 mg BID PO Last administered on 09/27/17 09:14; Start 09/26/17 at 21:00 Fish Oil (Fish Oil) 1,000 mg DAILY PO Last administered on 09/27/17 09:17; Start 09/26/17 at 16:00 Potassium Chloride (Klor-Con) 20 meq BIDWMEALS PO Last administered on 17:50; Start 09/27/17 at 08:00 Famotidine (Pepcid) 20 mg BID PO Last administered on 09/27/17 09:17; Start 09/26/17 at 21:00 Acetaminophen/ Hydrocodone Bitart (Lortab 7.5/325) 1 tab PRN Q6HRS PRN PO PAIN Last administered on 09/27/17 14:25; Start 09/26/17 at 15:30 Acetaminophen/ Hydrocodone Bitart (Lortab 7.5/325) 2 tab PRN Q6HRS PRN PO PAIN Last administered on 09/27/17 05:25; Start 09/26/17 at 15:30 Fentanyl Citrate (Fentanyl 2ml Vial) 50 mcg PRN Q2HR PRN IV PAIN; Start at 15:30 Fentanyl Citrate (Fentanyl 2ml Vial) 25 mcg PRN Q2HR PRN IV PAIN; Start at 15:30 Acetaminophen (Tylenol) 650 mg PRN Q6HRS PRN PO MILD PAIN / TEMP; Start at 15:30 Al Hydroxide/Mg Hydroxide (Mylanta Plus Xs) 30 ml PRN Q3HRS PRN PO HEARTBURN / GAS; Start 09/26/17 at 15:30 Calcium Carbonate/ Glycine (Tums) 500 mg PRN Q3HRS PRN PO INDIGESTION; Start 09/26/17 at 15:30 Diphenhydramine HCl (Benadryl) 25 mg PRN Q6HRS PRN PO ITCHING; Start 09/26/17 at 15:30 Diphenhydramine HCl (Benadryl) 25 mg PRN Q6HRS PRN IV ITCHING; Start 09/26/17 at 15:30 Sodium Chloride (Normal Saline Flush) 3 ml QSHIFT PRN IV AFTER MEDS AND BLOOD DRAWS; Start 09/26/17 at 15:30 Potassium Chloride/Sodium Chloride 1,000 ml @ 75 mls/hr [id number] IV ; Start at 15:18; Stop 09/27/17 at 19:32; Status DC Docusate Sodium (Colace) 100 mg BID PO Last administered on 09/27/17 09:18; Start 09/26/17 at 21:00 Magnesium Hydroxide (Milk Of Magnesia) 2,400 mg PRN Q12HR PRN PO CONSTIPATION; Start 09/26/17 at 15:30 Albuterol Sulfate (Ventolin Neb Soln) 2.5 mg PRN Q4HRS PRN NEB SHORTNESS OF BREATH; Start 09/26/17 at 16:00 Cefepime HCl (Maxipime) 2 gm Q12HR IVP Last administered on 09/27/17 09:00; Start 09/26/17 at 21:00 Magnesium Hydroxide (Milk Of Magnesia) 2,400 mg PRN DAILY PRN PO CONSTIPATION; Start 09/27/17 at 12:00 Lactobacillus Rhamnosus (Culturelle) 1 cap BID PO ; Start 09/27/17 at 21:00 Active Scripts Active Reported Proair Hfa (Albuterol Sulfate) 8.5 Gm Hfa.aer.ad 8.5 Gm IH PRN Q4-6HRS PRN Hydrocodone-Apap 5-325 (Hydrocodone Bit/Acetaminophen) 1 Each Tablet 1 Tab PO PRN Q6HRS PRN Benadryl (Diphenhydramine Hcl) 25 Mg Capsule 25 Mg PO Gabapentin 600 Mg Tablet 600 Mg PO TID Zantac (Ranitidine Hcl) 150 Mg Tablet 150 Mg PO BID Cefepime-Dextrose 2 Gm/50 Ml (Cefepime Hcl/D5w) 2 Gm/50 Ml Piggyback 2 Gm IV BID Baclofen 10 Mg Tablet 10 Mg PO BID Multiple Vitamin (Multivitamin With Minerals) 1 Each Tablet 1 Each PO DAILY Winona-3 (Winona-3 Fatty Acids) 1,000 Mg Capsule 1,000 Mg PO DAILY Feosol (Ferrous Sulfate) 325 Mg Tablet 325 Mg PO DAILY Atorvastatin Calcium 40 Mg Tablet 40 Mg PO HS Aspirin 81 Mg Tab.chew 1 Tab PO DAILY Naproxen 375 Mg Tablet 1 Tab PO BID Lisinopril-Hctz 20-12.5 Mg Tab (Lisinopril/Hydrochlorothiazide) 1 Each Tablet 1 Tab PO BID Amiodarone Hcl 100 Mg Tablet 200 Mg PO DAILY Next dose 08/30/16 AM Sotalol (Sotalol Hcl) 80 Mg Tablet 0.5 Tab PO BID Next dose 08/30/16 in the AM Allopurinol 300 Mg Tablet 100 Mg PO DAILY Not given today Potassium Chloride 20 Meq Tablet.er 20 Meq PO BID Next dose 08/30/16 Furosemide 40 Mg Tablet 1 Tab PO BID Next dose 08/29/16 at 9:00pm Vitals/I & O Vital Sign - Last 24 Hours 09/26/17 09/26/17 09/26/17 09/27/17 21:24 21:24 23:15 00:07 Temp 98.8 98.8 Pulse 83 83 68 Resp 20 18 B/P (MAP) 182/93 182/93 144/73 (96) O2 Delivery Room Air Nasal Cannula 09/27/17 09/27/17 09/27/17 09/27/17 01:20 03:00 05:25 07:30 Temp 97.5 97.5 Pulse 72 Resp 18 20 18 B/P (MAP) 159/78 (105) Pulse Ox 97 O2 Delivery Room Air Nasal Cannula Room Air O2 Flow Rate 2.0 09/27/17 09/27/17 09/27/17 09/27/17 08:07 09:14 09:16 09:17 Temp 97.5 97.5 Pulse 76 76 76 76 Resp 18 B/P (MAP) 174/90 (118) 174/90 174/90 174/90 Pulse Ox 97 O2 Delivery Nasal Cannula O2 Flow Rate 2.0 09/27/17 09/27/17 09/27/17 09/27/17 10:13 10:58 13:12 14:25 Temp 97.7 97.7 Pulse 54 Resp 22 B/P (MAP) 134/58 (83) Pulse Ox 96 99 O2 Delivery Room Air Room Air Room Air Room Air 09/27/17 09/27/17 15:18 17:50 Temp 99.1 99.1 Pulse 54 Resp 20 B/P (MAP) 159/70 (99) Pulse Ox 93 O2 Delivery Room Air Room Air Intake and Output 09/26/17 09/26/17 09/27/17 15:00 23:00 07:00 Intake Total 415 ml 1600 ml Output Total 375 ml Balance 415 ml 1225 ml JEM HAWTHORNE MD Sep 27, 2017 20:58
[2017-09-27] MEDS: LACTOBACILLUS RHAMNOSUS GG 1 CAPSULE. PO SCH (21:53)
[2017-09-27] MEDS: ATORVASTATIN CALCIUM 40 MG TABLET. PO SCH (21:53)
[2017-09-27 23:00] VITALS: BP 134/61
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
[2017-09-28 03:00] VITALS: BP_SYST 148; BP_SYST 157; BP_DIAS 67; BP_DIAS 75
[2017-09-28 07:00] VITALS: BP 159/78
[2017-09-28] MEDS: FUROSEMIDE 40 MG TABLET. PO SCH ×2 (10:16→13:48)
[2017-09-28] MEDS: ASPIRIN CHEWABLE 81 MG TABLET. PO SCH (10:16)
[2017-09-28] MEDS: LACTOBACILLUS RHAMNOSUS GG 1 CAPSULE. PO SCH ×2 (10:16→20:40)
[2017-09-28] MEDS: GABAPENTIN 300 MG CAPSULE. PO SCH ×3 (10:16→20:40)
[2017-09-28] MEDS: HYDROcodone/APAP 7.5/325MG 1 TAB TABLET PO PRN ×3 (10:16→16:25)
[2017-09-28] MEDS: FAMOTIDINE 20 MG TABLET. PO SCH ×2 (10:17→20:40)
[2017-09-28] MEDS: ALLOPURINOL 100 MG TABLET. PO SCH (10:17)
[2017-09-28] MEDS: SOTALOL 80 MG TABLET. PO SCH ×2 (10:17→20:40)
[2017-09-28] MEDS: OMEGA-3 FATTY ACIDS/FISH OIL 1,000 MG CAPSULE. PO SCH (10:17)
[2017-09-28] MEDS: POTASSIUM CHLORIDE 20 MEQ TABLET.ER. PO SCH ×2 (10:18→17:15)
[2017-09-28] MEDS: NAPROXEN 250 MG TABLET PO SCH ×2 (10:18→20:40)
[2017-09-28] MEDS: FERROUS SULFATE 325 MG TABLET. PO SCH (10:18)
[2017-09-28] MEDS: BACLOFEN 10 MG TABLET. PO SCH ×2 (10:18→20:40)
[2017-09-28] MEDS: LISINOPRIL 20 MG TABLET PO SCH ×2 (10:19→20:39)
[2017-09-28] MEDS: MULTIVITAMIN with MINERAL TABLET. PO SCH (10:19)
[2017-09-28] MEDS: AMIODARONE HCL 200 MG TABLET. PO SCH (10:19)
[2017-09-28] MEDS: DOCUSATE SODIUM 100 MG CAPSULE. PO SCH ×2 (10:19→20:37)
[2017-09-28] MEDS: CEFEPIME HCL IV Push 2 GM VIAL. IVP SCH ×2 (10:20→20:39)
[2017-09-28 11:00] VITALS: BP 164/64
--- NOTE | 2017-09-28 12:48 | PDOC ---
PROGRESS NOTES Subjective Subjective He feels like it was swollen in his low back. Objective Objective Vital Signs Date Time Temp Pulse Resp B/P (MAP) Pulse Ox O2 Delivery O2 Flow Rate FiO2 09/28/17 11:00 98.0 61 18 164/64 (97) 94 Room Air 98.0 09/27/17 19:50 2.0 Intake and Output 09/28/17 07:00 Intake Total 1080 ml Output Total 3675 ml Balance -2595 ml Intake Oral 1080 ml Output Urine Total 3675 ml # Voids 3 Physical Exam Physical Exam He is sitting in bedside chair and continues with tenderness to palpation over lumbar area and dressing in place. Plan Plan of Care To encourage him to get as tolerated and to rehab unit when medically ready. Comment Review of Relevant I have reviewed the following items hubert (where applicable) has been applied. Medications Current Medications Bacitracin 33186 unit/Sodium Chloride 1,000 ml @ 1,000 mls/hr 1X PERIOP ONCE IRR Last administered on 09/26/17 12:45; Start 09/26/17 at 06:00; Stop at 06:59; Status DC Fentanyl Citrate (Fentanyl 2ml Vial) 25 mcg PRN Q5MIN PRN IV MILD PAIN; Start 09/26/17 at 07:00; Stop 09/27/17 at 06:59; Status DC Fentanyl Citrate (Fentanyl 2ml Vial) 50 mcg PRN Q5MIN PRN IV MODERATE PAIN; Start 09/26/17 at 07:00; Stop 09/26/17 at 18:00; Status DC Morphine Sulfate 1 mg PRN Q10MIN PRN IV SEVERE PAIN; Start 09/26/17 at 07:00; Stop 09/26/17 at 07:01; Status DC Ringer's Solution 1,000 ml @ 30 mls/hr Q24H IV Last administered on 07:00; Start 09/26/17 at 07:00; Stop 09/26/17 at 18:59; Status DC Lidocaine HCl (Xylocaine-Mpf 1% Vial) 2 ml PRN 1X PRN ID PRIOR TO IV START; Start 09/26/17 at 07:00; Stop 09/26/17 at 18:00; Status DC Hydromorphone HCl (Dilaudid) 0.5 mg PRN Q10MIN PRN IV SEV PAIN, Second choice; Start 09/26/17 at 07:00; Stop 09/26/17 at 18:00; Status DC Prochlorperazine Edisylate (Compazine) 5 mg PACU PRN PRN IV NAUSEA, MRX1; Start 09/26/17 at 07:00; Stop 09/26/17 at 18:00; Status DC Cefazolin Sodium 3 gm/Sodium Chloride 100 ml @ 200 mls/hr 1X PREOP PRN IV PRIOR TO PROCEDURE; Start 09/26/17 at 06:00; Stop 09/26/17 at 15:00; Status DC Gelatin (Gelfoam Size 100) 1 each STK-MED ONCE .ROUTE Last administered on 12:45; Start 09/26/17 at 06:37; Stop 09/26/17 at 06:38; Status DC Bupivacaine HCl/ Epinephrine Bitart (Sensorcain-Mpf Epi 0.5%-1:502283) 30 ml STK -MED ONCE .ROUTE Last administered on 09/26/17 12:45; Start 09/26/17 at 06: 37; Stop 09/26/17 at 06:38; Status DC Ketorolac Tromethamine (Toradol For Or Only) 60 mg STK-MED ONCE .ROUTE Last administered on 09/26/17 12:45; Start 09/26/17 at 06:37; Stop 09/26/17 at 06 :38; Status DC Thrombin 20,000 unit STK-MED ONCE TP Last administered on 09/26/17 12:45; Start 09/26/17 at 06:37; Stop 09/26/17 at 06:38; Status DC Phenylephrine HCl (Sajan-Synephrine Inj) 10 mg STK-MED ONCE .ROUTE ; Start at 09:27; Stop 09/26/17 at 09:28; Status DC Succinylcholine Chloride (Anectine) 200 mg STK-MED ONCE .ROUTE ; Start at 09:30; Stop 09/26/17 at 09:31; Status DC Rocuronium [place] (Zemuron) 50 mg STK-MED ONCE .ROUTE ; Start 09/26/17 at 09: 30; Stop 09/26/17 at 09:31; Status DC Remifentanil HCl (Ultiva) 2 mg STK-MED ONCE IV ; Start 09/26/17 at 09:30; Stop 09/26/17 at 09:31; Status DC Midazolam HCl (Versed) 2 mg STK-MED ONCE .ROUTE ; Start 09/26/17 at 09:30; Stop 09/26/17 at 09:31; Status DC Propofol 100 ml @ As Directed STK-MED ONCE IV ; Start 09/26/17 at 10:14; Stop 09/26/17 at 10:15; Status DC Desflurane (Suprane) 90 ml STK-MED ONCE IH ; Start 09/26/17 at 10:16; Stop at 10:17; Status DC Fentanyl Citrate (Fentanyl 2ml Vial) 100 mcg STK-MED ONCE .ROUTE ; Start at 10:17; Stop 09/26/17 at 10:18; Status DC Propofol 20 ml @ As Directed STK-MED ONCE IV ; Start 09/26/17 at 10:17; Stop 09/26/17 at 10:18; Status DC Lidocaine HCl (Lidocaine Pf 2% Vial) 5 ml STK-MED ONCE .ROUTE ; Start 09/26/17 at 10:17; Stop 09/26/17 at 10:18; Status DC Dexamethasone Sodium Phosphate (Decadron) 20 mg STK-MED ONCE .ROUTE ; Start at 10:17; Stop 09/26/17 at 10:18; Status DC Ondansetron HCl (Zofran) 4 mg STK-MED ONCE .ROUTE ; Start 09/26/17 at 10:17; Stop 09/26/17 at 10:18; Status DC Multi-Ingred Cream/Lotion/Oil/ Oint (Artificial Tears Eye Ointment) 7 servando STK- MED ONCE .ROUTE ; Start 09/26/17 at 10:25; Stop 09/26/17 at 10:26; Status DC Propofol 100 ml @ As Directed STK-MED ONCE IV ; Start 09/26/17 at 10:27; Stop 09/26/17 at 10:28; Status DC Glycopyrrolate (Robinul) 1 mg STK-MED ONCE .ROUTE ; Start 09/26/17 at 11:25; Stop 09/26/17 at 11:26; Status DC Neostigmine Methylsulfate 5 mg STK-MED ONCE .ROUTE ; Start 09/26/17 at 11:25; Stop 09/26/17 at 11:26; Status DC Ephedrine Sulfate (ePHEDrine PF IN SALINE SYRINGE) 50 mg STK-MED ONCE IV ; Start 09/26/17 at 11:29; Stop 09/26/17 at 11:30; Status DC Gelatin (Gelfoam Size 100) 1 each STK-MED ONCE .ROUTE ; Start 09/26/17 at 13: 07; Stop 09/26/17 at 13:08; Status DC Thrombin 20,000 unit STK-MED ONCE TP ; Start 09/26/17 at 13:07; Stop 09/26/17 at 13:08; Status DC Atropine Sulfate 0.5 mg STK-MED ONCE .ROUTE ; Start 09/26/17 at 13:08; Stop at 13:09; Status DC Remifentanil HCl (Ultiva) 2 mg STK-MED ONCE IV ; Start 09/26/17 at 13:17; Stop 09/26/17 at 13:18; Status DC Albuterol Sulfate (Ventolin Hfa) 8 puff PRN Q4HRS PRN IH SHORTNESS OF BREATH; Start 09/26/17 at 15:15; Stop 09/26/17 at 16:05; Status DC Allopurinol (Zyloprim) 100 mg DAILY PO Last administered on 09/28/17 10:17; Start 09/26/17 at 16:00 Amiodarone HCl (Cordarone) 200 mg DAILY PO Last administered on 09/28/17 10: 19; Start 09/26/17 at 16:00 Aspirin (Children'S Aspirin) 81 mg DAILY PO Last administered on 09/28/17 10: 16; Start 09/27/17 at 09:00 Atorvastatin Calcium (Lipitor) 40 mg HS PO Last administered on 09/27/17 21: 53; Start 09/26/17 at 21:00 Baclofen (Lioresal) 10 mg BID PO Last administered on 09/28/17 10:18; Start 09/26/17 at 21:00 Diphenhydramine HCl (Benadryl) 25 mg PRN Q6HRS PRN PO ITCHING; Start 09/26/17 at 15:15 Ferrous Sulfate (Feosol) 325 mg DAILYWBKFT PO Last administered on 09/28/17 10:18; Start 09/27/17 at 08:00 Furosemide (Lasix) 40 mg BID92 PO Last administered on 09/28/17 10:16; Start 09/26/17 at 16:00 Sotalol HCl (Betapace) 40 mg BID PO Last administered on 09/28/17 10:17; Start 09/26/17 at 21:00 Non-Formulary Medication 2 gm BID IV ; Start 09/26/17 at 21:00; Stop 09/26/17 at 21:00; Status DC Gabapentin (Neurontin) 600 mg TID PO Last administered on 09/28/17 10:16; Start 09/26/17 at 16:00 Lisinopril (Prinivil) 20 mg BID PO Last administered on 09/28/17 10:19; Start 09/26/17 at 21:00 Multivitamins (Thera M Plus) 1 tab DAILY PO Last administered on 09/28/17 10: 19; Start 09/26/17 at 16:00 Naproxen (Naprosyn) 375 mg BID PO Last administered on 09/28/17 10:18; Start 09/26/17 at 21:00 Fish Oil (Fish Oil) 1,000 mg DAILY PO Last administered on 09/28/17 10:17; Start 09/26/17 at 16:00 Potassium Chloride (Klor-Con) 20 meq BIDWMEALS PO Last administered on 10:18; Start 09/27/17 at 08:00 Famotidine (Pepcid) 20 mg BID PO Last administered on 09/28/17 10:17; Start 09/26/17 at 21:00 Acetaminophen/ Hydrocodone Bitart (Lortab 7.5/325) 1 tab PRN Q6HRS PRN PO PAIN Last administered on 09/27/17 14:25; Start 09/26/17 at 15:30 Acetaminophen/ Hydrocodone Bitart (Lortab 7.5/325) 2 tab PRN Q6HRS PRN PO PAIN Last administered on 09/28/17 10:16; Start 09/26/17 at 15:30 Fentanyl Citrate (Fentanyl 2ml Vial) 50 mcg PRN Q2HR PRN IV PAIN; Start at 15:30 Fentanyl Citrate (Fentanyl 2ml Vial) 25 mcg PRN Q2HR PRN IV PAIN; Start at 15:30 Acetaminophen (Tylenol) 650 mg PRN Q6HRS PRN PO MILD PAIN / TEMP; Start at 15:30 Al Hydroxide/Mg Hydroxide (Mylanta Plus Xs) 30 ml PRN Q3HRS PRN PO HEARTBURN / GAS; Start 09/26/17 at 15:30 Calcium Carbonate/ Glycine (Tums) 500 mg PRN Q3HRS PRN PO INDIGESTION; Start 09/26/17 at 15:30 Diphenhydramine HCl (Benadryl) 25 mg PRN Q6HRS PRN PO ITCHING; Start 09/26/17 at 15:30 Diphenhydramine HCl (Benadryl) 25 mg PRN Q6HRS PRN IV ITCHING; Start 09/26/17 at 15:30 Sodium Chloride (Normal Saline Flush) 3 ml QSHIFT PRN IV AFTER MEDS AND BLOOD DRAWS; Start 09/26/17 at 15:30 Potassium Chloride/Sodium Chloride 1,000 ml @ 75 mls/hr [id number] IV ; Start at 15:18; Stop 09/27/17 at 19:32; Status DC Docusate Sodium (Colace) 100 mg BID PO Last administered on 09/28/17 10:19; Start 09/26/17 at 21:00 Magnesium Hydroxide (Milk Of Magnesia) 2,400 mg PRN Q12HR PRN PO CONSTIPATION; Start 09/26/17 at 15:30 Albuterol Sulfate (Ventolin Neb Soln) 2.5 mg PRN Q4HRS PRN NEB SHORTNESS OF BREATH; Start 09/26/17 at 16:00 Cefepime HCl (Maxipime) 2 gm Q12HR IVP Last administered on 09/28/17 10:20; Start 09/26/17 at 21:00 Magnesium Hydroxide (Milk Of Magnesia) 2,400 mg PRN DAILY PRN PO CONSTIPATION; Start 09/27/17 at 12:00 Lactobacillus Rhamnosus (Culturelle) 1 cap BID PO Last administered on 10:16; Start 09/27/17 at 21:00 Active Scripts Active Reported Proair Hfa (Albuterol Sulfate) 8.5 Gm Hfa.aer.ad 8.5 Gm IH PRN Q4-6HRS PRN Hydrocodone-Apap 5-325 (Hydrocodone Bit/Acetaminophen) 1 Each Tablet 1 Tab PO PRN Q6HRS PRN Benadryl (Diphenhydramine Hcl) 25 Mg Capsule 25 Mg PO Gabapentin 600 Mg Tablet 600 Mg PO TID Zantac (Ranitidine Hcl) 150 Mg Tablet 150 Mg PO BID Cefepime-Dextrose 2 Gm/50 Ml (Cefepime Hcl/D5w) 2 Gm/50 Ml Piggyback 2 Gm IV BID Baclofen 10 Mg Tablet 10 Mg PO BID Multiple Vitamin (Multivitamin With Minerals) 1 Each Tablet 1 Each PO DAILY [place]-3 ([place]-3 Fatty Acids) 1,000 Mg Capsule 1,000 Mg PO DAILY Feosol (Ferrous Sulfate) 325 Mg Tablet 325 Mg PO DAILY Atorvastatin Calcium 40 Mg Tablet 40 Mg PO HS Aspirin 81 Mg Tab.chew 1 Tab PO DAILY Naproxen 375 Mg Tablet 1 Tab PO BID Lisinopril-Hctz 20-12.5 Mg Tab (Lisinopril/Hydrochlorothiazide) 1 Each Tablet 1 Tab PO BID Amiodarone Hcl 100 Mg Tablet 200 Mg PO DAILY Next dose 08/30/16 AM Sotalol (Sotalol Hcl) 80 Mg Tablet 0.5 Tab PO BID Next dose 08/30/16 in the AM Allopurinol 300 Mg Tablet 100 Mg PO DAILY Not given today Potassium Chloride 20 Meq Tablet.er 20 Meq PO BID Next dose 08/30/16 Furosemide 40 Mg Tablet 1 Tab PO BID Next dose 08/29/16 at 9:00pm Vitals/I & O Vital Sign - Last 24 Hours 09/27/17 09/27/17 09/27/17 09/27/17 13:12 14:25 15:18 17:50 Temp 99.1 99.1 Pulse 54 Resp 20 B/P (MAP) 159/70 (99) Pulse Ox 99 93 O2 Delivery Room Air Room Air Room Air Room Air 09/27/17 09/27/17 09/27/17 09/27/17 19:00 19:50 21:55 21:57 Temp 98.8 98.8 Pulse 54 54 Resp 18 18 B/P (MAP) 138/57 (84) 138/57 Pulse Ox 94 O2 Delivery Room Air Room Air Room Air O2 Flow Rate 2.0 09/27/17 09/27/17 09/27/17 09/28/17 22:55 23:00 23:30 03:00 Temp 98.9 97.5 98.9 97.5 Pulse 57 57 55 Resp 18 18 18 B/P (MAP) 134/61 (85) 134/61 157/75 (102) Pulse Ox 93 92 O2 Delivery Room Air Room Air Room Air 09/28/17 09/28/17 09/28/17 09/28/17 07:00 10:17 10:19 10:19 Temp 98.1 98.1 Pulse 55 55 55 55 Resp 18 B/P (MAP) 159/78 (105) 159/78 159/78 159/78 Pulse Ox 90 O2 Delivery Room Air 09/28/17 11:00 Temp 98.0 98.0 Pulse 61 Resp 18 B/P (MAP) 164/64 (97) Pulse Ox 94 O2 Delivery Room Air Intake and Output 09/27/17 09/27/17 09/28/17 15:00 23:00 07:00 Intake Total 360 ml 720 ml Output Total 2025 ml 900 ml 750 ml Balance -1665 ml -180 ml -750 ml CARLTON SANTOS MD Sep 28, 2017 12:48
--- NOTE | 2017-09-28 14:47 | PDOC ---
PROGRESS NOTES Subjective Subjective patient seen approximately 1215 POD #2 ambulated in [place] with walker incisional pain Objective Objective Vital Signs Date Time Temp Pulse Resp B/P (MAP) Pulse Ox O2 Delivery O2 Flow Rate FiO2 09/28/17 11:00 98.0 61 18 164/64 (97) 94 Room Air 98.0 09/27/17 19:50 2.0 Intake and Output 09/28/17 07:00 Intake Total 1080 ml Output Total 3675 ml Balance -2595 ml Intake Oral 1080 ml Output Urine Total 3675 ml # Voids 3 Physical Exam General: Alert, Oriented X3, Cooperative MUSCULOSKELETAL: Other (GERBER) Skin: Other (dressing intact, some bruising) Plan Plan of Care continue PT Dr. Jimenes following wound [facility] for LE wounds Comment Review of Relevant I have reviewed the following items hubert (where applicable) has been applied. Labs Microbiology 09/27/17 Urine Culture - Preliminary, Resulted 09/27/17 Urine Culture Result 1 (PRINCE) - Preliminary, Resulted Medications Current Medications Bacitracin 17909 unit/Sodium Chloride 1,000 ml @ 1,000 mls/hr 1X PERIOP ONCE IRR Last administered on 09/26/17 12:45; Start 09/26/17 at 06:00; Stop at 06:59; Status DC Fentanyl Citrate (Fentanyl 2ml Vial) 25 mcg PRN Q5MIN PRN IV MILD PAIN; Start 09/26/17 at 07:00; Stop 09/27/17 at 06:59; Status DC Fentanyl Citrate (Fentanyl 2ml Vial) 50 mcg PRN Q5MIN PRN IV MODERATE PAIN; Start 09/26/17 at 07:00; Stop 09/26/17 at 18:00; Status DC Morphine Sulfate 1 mg PRN Q10MIN PRN IV SEVERE PAIN; Start 09/26/17 at 07:00; Stop 09/26/17 at 07:01; Status DC Ringer's Solution 1,000 ml @ 30 mls/hr Q24H IV Last administered on 07:00; Start 09/26/17 at 07:00; Stop 09/26/17 at 18:59; Status DC Lidocaine HCl (Xylocaine-Mpf 1% Vial) 2 ml PRN 1X PRN ID PRIOR TO IV START; Start 09/26/17 at 07:00; Stop 09/26/17 at 18:00; Status DC Hydromorphone HCl (Dilaudid) 0.5 mg PRN Q10MIN PRN IV SEV PAIN, Second choice; Start 09/26/17 at 07:00; Stop 09/26/17 at 18:00; Status DC Prochlorperazine Edisylate (Compazine) 5 mg PACU PRN PRN IV NAUSEA, MRX1; Start 09/26/17 at 07:00; Stop 09/26/17 at 18:00; Status DC Cefazolin Sodium 3 gm/Sodium Chloride 100 ml @ 200 mls/hr 1X PREOP PRN IV PRIOR TO PROCEDURE; Start 09/26/17 at 06:00; Stop 09/26/17 at 15:00; Status DC Gelatin (Gelfoam Size 100) 1 each STK-MED ONCE .ROUTE Last administered on 12:45; Start 09/26/17 at 06:37; Stop 09/26/17 at 06:38; Status DC Bupivacaine HCl/ Epinephrine Bitart (Sensorcain-Mpf Epi 0.5%-1:338726) 30 ml STK -MED ONCE .ROUTE Last administered on 09/26/17 12:45; Start 09/26/17 at 06: 37; Stop 09/26/17 at 06:38; Status DC Ketorolac Tromethamine (Toradol For Or Only) 60 mg STK-MED ONCE .ROUTE Last administered on 09/26/17 12:45; Start 09/26/17 at 06:37; Stop 09/26/17 at 06 :38; Status DC Thrombin 20,000 unit STK-MED ONCE TP Last administered on 09/26/17 12:45; Start 09/26/17 at 06:37; Stop 09/26/17 at 06:38; Status DC Phenylephrine HCl (Sajan-Synephrine Inj) 10 mg STK-MED ONCE .ROUTE ; Start at 09:27; Stop 09/26/17 at 09:28; Status DC Succinylcholine Chloride (Anectine) 200 mg STK-MED ONCE .ROUTE ; Start at 09:30; Stop 09/26/17 at 09:31; Status DC Rocuronium [place] (Zemuron) 50 mg STK-MED ONCE .ROUTE ; Start 09/26/17 at 09: 30; Stop 09/26/17 at 09:31; Status DC Remifentanil HCl (Ultiva) 2 mg STK-MED ONCE IV ; Start 09/26/17 at 09:30; Stop 09/26/17 at 09:31; Status DC Midazolam HCl (Versed) 2 mg STK-MED ONCE .ROUTE ; Start 09/26/17 at 09:30; Stop 09/26/17 at 09:31; Status DC Propofol 100 ml @ As Directed STK-MED ONCE IV ; Start 09/26/17 at 10:14; Stop 09/26/17 at 10:15; Status DC Desflurane (Suprane) 90 ml STK-MED ONCE IH ; Start 09/26/17 at 10:16; Stop at 10:17; Status DC Fentanyl Citrate (Fentanyl 2ml Vial) 100 mcg STK-MED ONCE .ROUTE ; Start at 10:17; Stop 09/26/17 at 10:18; Status DC Propofol 20 ml @ As Directed STK-MED ONCE IV ; Start 09/26/17 at 10:17; Stop 09/26/17 at 10:18; Status DC Lidocaine HCl (Lidocaine Pf 2% Vial) 5 ml STK-MED ONCE .ROUTE ; Start 09/26/17 at 10:17; Stop 09/26/17 at 10:18; Status DC Dexamethasone Sodium Phosphate (Decadron) 20 mg STK-MED ONCE .ROUTE ; Start at 10:17; Stop 09/26/17 at 10:18; Status DC Ondansetron HCl (Zofran) 4 mg STK-MED ONCE .ROUTE ; Start 09/26/17 at 10:17; Stop 09/26/17 at 10:18; Status DC Multi-Ingred Cream/Lotion/Oil/ Oint (Artificial Tears Eye Ointment) 7 servando STK- MED ONCE .ROUTE ; Start 09/26/17 at 10:25; Stop 09/26/17 at 10:26; Status DC Propofol 100 ml @ As Directed STK-MED ONCE IV ; Start 09/26/17 at 10:27; Stop 09/26/17 at 10:28; Status DC Glycopyrrolate (Robinul) 1 mg STK-MED ONCE .ROUTE ; Start 09/26/17 at 11:25; Stop 09/26/17 at 11:26; Status DC Neostigmine Methylsulfate 5 mg STK-MED ONCE .ROUTE ; Start 09/26/17 at 11:25; Stop 09/26/17 at 11:26; Status DC Ephedrine Sulfate (ePHEDrine PF IN SALINE SYRINGE) 50 mg STK-MED ONCE IV ; Start 09/26/17 at 11:29; Stop 09/26/17 at 11:30; Status DC Gelatin (Gelfoam Size 100) 1 each STK-MED ONCE .ROUTE ; Start 09/26/17 at 13: 07; Stop 09/26/17 at 13:08; Status DC Thrombin 20,000 unit STK-MED ONCE TP ; Start 09/26/17 at 13:07; Stop 09/26/17 at 13:08; Status DC Atropine Sulfate 0.5 mg STK-MED ONCE .ROUTE ; Start 09/26/17 at 13:08; Stop at 13:09; Status DC Remifentanil HCl (Ultiva) 2 mg STK-MED ONCE IV ; Start 09/26/17 at 13:17; Stop 09/26/17 at 13:18; Status DC Albuterol Sulfate (Ventolin Hfa) 8 puff PRN Q4HRS PRN IH SHORTNESS OF BREATH; Start 09/26/17 at 15:15; Stop 09/26/17 at 16:05; Status DC Allopurinol (Zyloprim) 100 mg DAILY PO Last administered on 09/28/17 10:17; Start 09/26/17 at 16:00 Amiodarone HCl (Cordarone) 200 mg DAILY PO Last administered on 09/28/17 10: 19; Start 09/26/17 at 16:00 Aspirin (Children'S Aspirin) 81 mg DAILY PO Last administered on 09/28/17 10: 16; Start 09/27/17 at 09:00 Atorvastatin Calcium (Lipitor) 40 mg HS PO Last administered on 09/27/17 21: 53; Start 09/26/17 at 21:00 Baclofen (Lioresal) 10 mg BID PO Last administered on 09/28/17 10:18; Start 09/26/17 at 21:00 Diphenhydramine HCl (Benadryl) 25 mg PRN Q6HRS PRN PO ITCHING; Start 09/26/17 at 15:15 Ferrous Sulfate (Feosol) 325 mg DAILYWBKFT PO Last administered on 09/28/17 10:18; Start 09/27/17 at 08:00 Furosemide (Lasix) 40 mg BID92 PO Last administered on 09/28/17 13:48; Start 09/26/17 at 16:00 Sotalol HCl (Betapace) 40 mg BID PO Last administered on 09/28/17 10:17; Start 09/26/17 at 21:00 Non-Formulary Medication 2 gm BID IV ; Start 09/26/17 at 21:00; Stop 09/26/17 at 21:00; Status DC Gabapentin (Neurontin) 600 mg TID PO Last administered on 09/28/17 13:47; Start 09/26/17 at 16:00 Lisinopril (Prinivil) 20 mg BID PO Last administered on 09/28/17 10:19; Start 09/26/17 at 21:00 Multivitamins (Thera M Plus) 1 tab DAILY PO Last administered on 09/28/17 10: 19; Start 09/26/17 at 16:00 Naproxen (Naprosyn) 375 mg BID PO Last administered on 09/28/17 10:18; Start 09/26/17 at 21:00 Fish Oil (Fish Oil) 1,000 mg DAILY PO Last administered on 09/28/17 10:17; Start 09/26/17 at 16:00 Potassium Chloride (Klor-Con) 20 meq BIDWMEALS PO Last administered on 10:18; Start 09/27/17 at 08:00 Famotidine (Pepcid) 20 mg BID PO Last administered on 09/28/17 10:17; Start 09/26/17 at 21:00 Acetaminophen/ Hydrocodone Bitart (Lortab 7.5/325) 1 tab PRN Q6HRS PRN PO PAIN Last administered on 09/27/17 14:25; Start 09/26/17 at 15:30 Acetaminophen/ Hydrocodone Bitart (Lortab 7.5/325) 2 tab PRN Q6HRS PRN PO PAIN Last administered on 09/28/17 10:16; Start 09/26/17 at 15:30 Fentanyl Citrate (Fentanyl 2ml Vial) 50 mcg PRN Q2HR PRN IV PAIN; Start at 15:30 Fentanyl Citrate (Fentanyl 2ml Vial) 25 mcg PRN Q2HR PRN IV PAIN; Start at 15:30 Acetaminophen (Tylenol) 650 mg PRN Q6HRS PRN PO MILD PAIN / TEMP; Start at 15:30 Al Hydroxide/Mg Hydroxide (Mylanta Plus Xs) 30 ml PRN Q3HRS PRN PO HEARTBURN / GAS; Start 09/26/17 at 15:30 Calcium Carbonate/ Glycine (Tums) 500 mg PRN Q3HRS PRN PO INDIGESTION; Start 09/26/17 at 15:30 Diphenhydramine HCl (Benadryl) 25 mg PRN Q6HRS PRN PO ITCHING; Start 09/26/17 at 15:30 Diphenhydramine HCl (Benadryl) 25 mg PRN Q6HRS PRN IV ITCHING; Start 09/26/17 at 15:30 Sodium Chloride (Normal Saline Flush) 3 ml QSHIFT PRN IV AFTER MEDS AND BLOOD DRAWS; Start 09/26/17 at 15:30 Potassium Chloride/Sodium Chloride 1,000 ml @ 75 mls/hr [id number] IV ; Start at 15:18; Stop 09/27/17 at 19:32; Status DC Docusate Sodium (Colace) 100 mg BID PO Last administered on 09/28/17 10:19; Start 09/26/17 at 21:00 Magnesium Hydroxide (Milk Of Magnesia) 2,400 mg PRN Q12HR PRN PO CONSTIPATION; Start 09/26/17 at 15:30 Albuterol Sulfate (Ventolin Neb Soln) 2.5 mg PRN Q4HRS PRN NEB SHORTNESS OF BREATH; Start 09/26/17 at 16:00 Cefepime HCl (Maxipime) 2 gm Q12HR IVP Last administered on 09/28/17 10:20; Start 09/26/17 at 21:00 Magnesium Hydroxide (Milk Of Magnesia) 2,400 mg PRN DAILY PRN PO CONSTIPATION; Start 09/27/17 at 12:00 Lactobacillus Rhamnosus (Culturelle) 1 cap BID PO Last administered on t 10:16; Start 09/27/17 at 21:00 Active Scripts Active Reported Proair Hfa (Albuterol Sulfate) 8.5 Gm Hfa.aer.ad 8.5 Gm IH PRN Q4-6HRS PRN Hydrocodone-Apap 5-325 (Hydrocodone Bit/Acetaminophen) 1 Each Tablet 1 Tab PO PRN Q6HRS PRN Benadryl (Diphenhydramine Hcl) 25 Mg Capsule 25 Mg PO Gabapentin 600 Mg Tablet 600 Mg PO TID Zantac (Ranitidine Hcl) 150 Mg Tablet 150 Mg PO BID Cefepime-Dextrose 2 Gm/50 Ml (Cefepime Hcl/D5w) 2 Gm/50 Ml Piggyback 2 Gm IV BID Baclofen 10 Mg Tablet 10 Mg PO BID Multiple Vitamin (Multivitamin With Minerals) 1 Each Tablet 1 Each PO DAILY [place]-3 ([place]-3 Fatty Acids) 1,000 Mg Capsule 1,000 Mg PO DAILY Feosol (Ferrous Sulfate) 325 Mg Tablet 325 Mg PO DAILY Atorvastatin Calcium 40 Mg Tablet 40 Mg PO HS Aspirin 81 Mg Tab.chew 1 Tab PO DAILY Naproxen 375 Mg Tablet 1 Tab PO BID Lisinopril-Hctz 20-12.5 Mg Tab (Lisinopril/Hydrochlorothiazide) 1 Each Tablet 1 Tab PO BID Amiodarone Hcl 100 Mg Tablet 200 Mg PO DAILY Next dose 08/30/16 AM Sotalol (Sotalol Hcl) 80 Mg Tablet 0.5 Tab PO BID Next dose 08/30/16 in the AM Allopurinol 300 Mg Tablet 100 Mg PO DAILY Not given today Potassium Chloride 20 Meq Tablet.er 20 Meq PO BID Next dose 08/30/16 Furosemide 40 Mg Tablet 1 Tab PO BID Next dose 08/29/16 at 9:00pm Vitals/I & O Vital Sign - Last 24 Hours 09/27/17 09/27/17 09/27/17 09/27/17 15:18 17:50 19:00 19:50 Temp 99.1 98.8 99.1 98.8 Pulse 54 54 Resp 20 18 B/P (MAP) 159/70 (99) 138/57 (84) Pulse Ox 93 94 O2 Delivery Room Air Room Air Room Air Room Air O2 Flow Rate 2.0 12/16/17 12/16/17 12/16/17 12/16/17 21:55 21:57 22:55 23:00 Temp 98.9 98.9 Pulse 54 57 Resp 18 18 18 B/P (MAP) 138/57 134/61 (85) Pulse Ox 93 O2 Delivery Room Air Room Air Room Air 09/27/17 09/28/17 09/28/17 09/28/17 23:30 03:00 07:00 10:17 Temp 97.5 98.1 97.5 98.1 Pulse 57 55 55 55 Resp 18 18 B/P (MAP) 134/61 157/75 (102) 159/78 (105) 159/78 Pulse Ox 92 90 O2 Delivery Room Air Room Air 09/28/17 09/28/17 09/28/17 10:19 10:19 11:00 Temp 98.0 98.0 Pulse 55 55 61 Resp 18 B/P (MAP) 159/78 159/78 164/64 (97) Pulse Ox 94 O2 Delivery Room Air Intake and Output 09/27/17 09/27/17 09/28/17 15:00 23:00 07:00 Intake Total 360 ml 720 ml Output Total 2025 ml 900 ml 750 ml Balance -1665 ml -180 ml -750 ml JEM HAWTHORNE MD Sep 28, 2017 14:47
[2017-09-28 15:00] VITALS: BP 167/71
[2017-09-28] MEDS: ATORVASTATIN CALCIUM 40 MG TABLET. PO SCH (20:40)
[2017-09-28 23:00] VITALS: BP 155/66
[2017-09-29 03:00] VITALS: BP 148/67
[2017-09-29 07:00] VITALS: BP 171/88
[2017-09-29] MEDS: GABAPENTIN 300 MG CAPSULE. PO SCH ×3 (09:09→22:05)
[2017-09-29] MEDS: FAMOTIDINE 20 MG TABLET. PO SCH ×2 (09:09→22:06)
[2017-09-29] MEDS: OMEGA-3 FATTY ACIDS/FISH OIL 1,000 MG CAPSULE. PO SCH (09:09)
[2017-09-29] MEDS: FERROUS SULFATE 325 MG TABLET. PO SCH (09:09)
[2017-09-29] MEDS: LACTOBACILLUS RHAMNOSUS GG 1 CAPSULE. PO SCH ×2 (09:09→22:06)
[2017-09-29] MEDS: NAPROXEN 250 MG TABLET PO SCH ×2 (09:09→22:04)
[2017-09-29] MEDS: BACLOFEN 10 MG TABLET. PO SCH ×2 (09:10→22:02)
[2017-09-29] MEDS: FUROSEMIDE 40 MG TABLET. PO SCH ×2 (09:10→13:49)
[2017-09-29] MEDS: ALLOPURINOL 100 MG TABLET. PO SCH (09:10)
[2017-09-29] MEDS: AMIODARONE HCL 200 MG TABLET. PO SCH (09:10)
[2017-09-29] MEDS: MULTIVITAMIN with MINERAL TABLET. PO SCH (09:10)
[2017-09-29] MEDS: ASPIRIN CHEWABLE 81 MG TABLET. PO SCH (09:10)
[2017-09-29] MEDS: POTASSIUM CHLORIDE 20 MEQ TABLET.ER. PO SCH ×2 (09:10→17:37)
[2017-09-29] MEDS: LISINOPRIL 20 MG TABLET PO SCH ×2 (09:11→22:02)
[2017-09-29] MEDS: HYDROcodone/APAP 7.5/325MG 1 TAB TABLET PO PRN ×3 (09:12→17:38)
[2017-09-29] MEDS: SOTALOL 80 MG TABLET. PO SCH ×2 (09:12→21:00)
[2017-09-29] MEDS: CEFEPIME HCL IV Push 2 GM VIAL. IVP SCH ×2 (09:16→22:00)
[2017-09-29] MEDS: DOCUSATE SODIUM 100 MG CAPSULE. PO SCH ×2 (09:25→21:00)
--- NOTE | 2017-09-29 10:14 | PDOC ---
PROGRESS NOTES Subjective Subjective He admits low back stiffness and some soft stools this AM. Objective Objective Vital Signs Date Time Temp Pulse Resp B/P (MAP) Pulse Ox O2 Delivery O2 Flow Rate FiO2 09/29/17 09:12 Room Air 09/29/17 09:12 64 171/88 09/29/17 07:00 98.1 19 99 98.1 09/28/17 20:00 2.0 Intake and Output 09/29/17 07:00 Intake Total 100 ml Output Total 2600 ml Balance -2500 ml Intake Oral 100 ml Output Urine Total 2600 ml # Voids 2 # Bowel Movements 2 Physical Exam Physical Exam He is sitting up in bedside recliner and continues with painfully limited lumbar spine ROM and tenderness to palpation over lumbar area and relative weakness or right knee extensors. Plan Plan of Care To [facility] when medically stable. Comment Review of Relevant I have reviewed the following items hubert (where applicable) has been applied. Labs Microbiology 09/27/17 Urine Culture - Preliminary, Resulted 09/27/17 Urine Culture Result 1 (PRINCE) - Preliminary, Resulted Medications Current Medications Bacitracin 86645 unit/Sodium Chloride 1,000 ml @ 1,000 mls/hr 1X PERIOP ONCE IRR Last administered on 09/26/17 12:45; Start 09/26/17 at 06:00; Stop at 06:59; Status DC Fentanyl Citrate (Fentanyl 2ml Vial) 25 mcg PRN Q5MIN PRN IV MILD PAIN; Start 09/26/17 at 07:00; Stop 09/27/17 at 06:59; Status DC Fentanyl Citrate (Fentanyl 2ml Vial) 50 mcg PRN Q5MIN PRN IV MODERATE PAIN; Start 09/26/17 at 07:00; Stop 09/26/17 at 18:00; Status DC Morphine Sulfate 1 mg PRN Q10MIN PRN IV SEVERE PAIN; Start 09/26/17 at 07:00; Stop 09/26/17 at 07:01; Status DC Ringer's Solution 1,000 ml @ 30 mls/hr Q24H IV Last administered on 07:00; Start 09/26/17 at 07:00; Stop 09/26/17 at 18:59; Status DC Lidocaine HCl (Xylocaine-Mpf 1% Vial) 2 ml PRN 1X PRN ID PRIOR TO IV START; Start 09/26/17 at 07:00; Stop 09/26/17 at 18:00; Status DC Hydromorphone HCl (Dilaudid) 0.5 mg PRN Q10MIN PRN IV SEV PAIN, Second choice; Start 09/26/17 at 07:00; Stop 09/26/17 at 18:00; Status DC Prochlorperazine Edisylate (Compazine) 5 mg PACU PRN PRN IV NAUSEA, MRX1; Start 09/26/17 at 07:00; Stop 09/26/17 at 18:00; Status DC Cefazolin Sodium 3 gm/Sodium Chloride 100 ml @ 200 mls/hr 1X PREOP PRN IV PRIOR TO PROCEDURE; Start 09/26/17 at 06:00; Stop 09/26/17 at 15:00; Status DC Gelatin (Gelfoam Size 100) 1 each STK-MED ONCE .ROUTE Last administered on 12:45; Start 09/26/17 at 06:37; Stop 09/26/17 at 06:38; Status DC Bupivacaine HCl/ Epinephrine Bitart (Sensorcain-Mpf Epi 0.5%-1:[id number]) 30 ml STK -MED ONCE .ROUTE Last administered on 09/26/17 12:45; Start 09/26/17 at 06: 37; Stop 09/26/17 at 06:38; Status DC Ketorolac Tromethamine (Toradol For Or Only) 60 mg STK-MED ONCE .ROUTE Last administered on 09/26/17 12:45; Start 09/26/17 at 06:37; Stop 09/26/17 at 06 :38; Status DC Thrombin 20,000 unit STK-MED ONCE TP Last administered on 09/26/17 12:45; Start 09/26/17 at 06:37; Stop 09/26/17 at 06:38; Status DC Phenylephrine HCl (Sajan-Synephrine Inj) 10 mg STK-MED ONCE .ROUTE ; Start at 09:27; Stop 09/26/17 at 09:28; Status DC Succinylcholine Chloride (Anectine) 200 mg STK-MED ONCE .ROUTE ; Start at 09:30; Stop 09/26/17 at 09:31; Status DC Rocuronium [place] (Zemuron) 50 mg STK-MED ONCE .ROUTE ; Start 09/26/17 at 09: 30; Stop 09/26/17 at 09:31; Status DC Remifentanil HCl (Ultiva) 2 mg STK-MED ONCE IV ; Start 09/26/17 at 09:30; Stop 09/26/17 at 09:31; Status DC Midazolam HCl (Versed) 2 mg STK-MED ONCE .ROUTE ; Start 09/26/17 at 09:30; Stop 09/26/17 at 09:31; Status DC Propofol 100 ml @ As Directed STK-MED ONCE IV ; Start 09/26/17 at 10:14; Stop 09/26/17 at 10:15; Status DC Desflurane (Suprane) 90 ml STK-MED ONCE IH ; Start 09/26/17 at 10:16; Stop at 10:17; Status DC Fentanyl Citrate (Fentanyl 2ml Vial) 100 mcg STK-MED ONCE .ROUTE ; Start at 10:17; Stop 09/26/17 at 10:18; Status DC Propofol 20 ml @ As Directed STK-MED ONCE IV ; Start 09/26/17 at 10:17; Stop 09/26/17 at 10:18; Status DC Lidocaine HCl (Lidocaine Pf 2% Vial) 5 ml STK-MED ONCE .ROUTE ; Start 09/26/17 at 10:17; Stop 09/26/17 at 10:18; Status DC Dexamethasone Sodium Phosphate (Decadron) 20 mg STK-MED ONCE .ROUTE ; Start at 10:17; Stop 09/26/17 at 10:18; Status DC Ondansetron HCl (Zofran) 4 mg STK-MED ONCE .ROUTE ; Start 09/26/17 at 10:17; Stop 09/26/17 at 10:18; Status DC Multi-Ingred Cream/Lotion/Oil/ Oint (Artificial Tears Eye Ointment) 7 servando STK- MED ONCE .ROUTE ; Start 09/26/17 at 10:25; Stop 09/26/17 at 10:26; Status DC Propofol 100 ml @ As Directed STK-MED ONCE IV ; Start 09/26/17 at 10:27; Stop 09/26/17 at 10:28; Status DC Glycopyrrolate (Robinul) 1 mg STK-MED ONCE .ROUTE ; Start 09/26/17 at 11:25; Stop 09/26/17 at 11:26; Status DC Neostigmine Methylsulfate 5 mg STK-MED ONCE .ROUTE ; Start 09/26/17 at 11:25; Stop 09/26/17 at 11:26; Status DC Ephedrine Sulfate (ePHEDrine PF IN SALINE SYRINGE) 50 mg STK-MED ONCE IV ; Start 09/26/17 at 11:29; Stop 09/26/17 at 11:30; Status DC Gelatin (Gelfoam Size 100) 1 each STK-MED ONCE .ROUTE ; Start 09/26/17 at 13: 07; Stop 09/26/17 at 13:08; Status DC Thrombin 20,000 unit STK-MED ONCE TP ; Start 09/26/17 at 13:07; Stop 09/26/17 at 13:08; Status DC Atropine Sulfate 0.5 mg STK-MED ONCE .ROUTE ; Start 09/26/17 at 13:08; Stop at 13:09; Status DC Remifentanil HCl (Ultiva) 2 mg STK-MED ONCE IV ; Start 09/26/17 at 13:17; Stop 09/26/17 at 13:18; Status DC Albuterol Sulfate (Ventolin Hfa) 8 puff PRN Q4HRS PRN IH SHORTNESS OF BREATH; Start 09/26/17 at 15:15; Stop 09/26/17 at 16:05; Status DC Allopurinol (Zyloprim) 100 mg DAILY PO Last administered on 09/29/17 09:10; Start 09/26/17 at 16:00 Amiodarone HCl (Cordarone) 200 mg DAILY PO Last administered on 09/29/17 09: 10; Start 09/26/17 at 16:00 Aspirin (Children'S Aspirin) 81 mg DAILY PO Last administered on 09/29/17 09: 10; Start 09/27/17 at 09:00 Atorvastatin Calcium (Lipitor) 40 mg HS PO Last administered on 09/28/17 20: 40; Start 09/26/17 at 21:00 Baclofen (Lioresal) 10 mg BID PO Last administered on 09/29/17 09:10; Start 09/26/17 at 21:00 Diphenhydramine HCl (Benadryl) 25 mg PRN Q6HRS PRN PO ITCHING; Start 09/26/17 at 15:15 Ferrous Sulfate (Feosol) 325 mg DAILYWBKFT PO Last administered on 09/29/17 09:09; Start 09/27/17 at 08:00 Furosemide (Lasix) 40 mg [id number] PO Last administered on 09/29/17 09:10; Start 09/26/17 at 16:00 Sotalol HCl (Betapace) 40 mg BID PO Last administered on 09/29/17 09:12; Start 09/26/17 at 21:00 Non-Formulary Medication 2 gm BID IV ; Start 09/26/17 at 21:00; Stop 09/26/17 at 21:00; Status DC Gabapentin (Neurontin) 600 mg TID PO Last administered on 09/29/17 09:09; Start 09/26/17 at 16:00 Lisinopril (Prinivil) 20 mg BID PO Last administered on 09/29/17 09:11; Start 09/26/17 at 21:00 Multivitamins (Thera M Plus) 1 tab DAILY PO Last administered on 09/29/17 09: 10; Start 09/26/17 at 16:00 Naproxen (Naprosyn) 375 mg BID PO Last administered on 09/29/17 09:09; Start 09/26/17 at 21:00 Fish Oil (Fish Oil) 1,000 mg DAILY PO Last administered on 09/29/17 09:09; Start 09/26/17 at 16:00 Potassium Chloride (Klor-Con) 20 meq BIDWMEALS PO Last administered on 09:10; Start 09/27/17 at 08:00 Famotidine (Pepcid) 20 mg BID PO Last administered on 09/29/17 09:09; Start 09/26/17 at 21:00 Acetaminophen/ Hydrocodone Bitart (Lortab 7.5/325) 1 tab PRN Q6HRS PRN PO PAIN Last administered on 09/27/17 14:25; Start 09/26/17 at 15:30 Acetaminophen/ Hydrocodone Bitart (Lortab 7.5/325) 2 tab PRN Q6HRS PRN PO PAIN Last administered on 09/29/17 09:12; Start 09/26/17 at 15:30 Fentanyl Citrate (Fentanyl 2ml Vial) 50 mcg PRN Q2HR PRN IV PAIN; Start at 15:30 Fentanyl Citrate (Fentanyl 2ml Vial) 25 mcg PRN Q2HR PRN IV PAIN; Start at 15:30 Acetaminophen (Tylenol) 650 mg PRN Q6HRS PRN PO MILD PAIN / TEMP Last administered on 09/29/17 00:34; Start 09/26/17 at 15:30 Al Hydroxide/Mg Hydroxide (Mylanta Plus Xs) 30 ml PRN Q3HRS PRN PO HEARTBURN / GAS; Start 09/26/17 at 15:30 Calcium Carbonate/ Glycine (Tums) 500 mg PRN Q3HRS PRN PO INDIGESTION; Start 09/26/17 at 15:30 Diphenhydramine HCl (Benadryl) 25 mg PRN Q6HRS PRN PO ITCHING; Start 09/26/17 at 15:30 Diphenhydramine HCl (Benadryl) 25 mg PRN Q6HRS PRN IV ITCHING; Start 09/26/17 at 15:30 Sodium Chloride (Normal Saline Flush) 3 ml QSHIFT PRN IV AFTER MEDS AND BLOOD DRAWS; Start 09/26/17 at 15:30 Potassium Chloride/Sodium Chloride 1,000 ml @ 75 mls/hr [id number] IV ; Start at 15:18; Stop 09/27/17 at 19:32; Status DC Docusate Sodium (Colace) 100 mg BID PO Last administered on 09/28/17 10:19; Start 09/26/17 at 21:00 Magnesium Hydroxide (Milk Of Magnesia) 2,400 mg PRN Q12HR PRN PO CONSTIPATION; Start 09/26/17 at 15:30 Albuterol Sulfate (Ventolin Neb Soln) 2.5 mg PRN Q4HRS PRN NEB SHORTNESS OF BREATH; Start 09/26/17 at 16:00 Cefepime HCl (Maxipime) 2 gm Q12HR IVP Last administered on 09/29/17 09:16; Start 09/26/17 at 21:00 Magnesium Hydroxide (Milk Of Magnesia) 2,400 mg PRN DAILY PRN PO CONSTIPATION; Start 09/27/17 at 12:00 Lactobacillus Rhamnosus (Culturelle) 1 cap BID PO Last administered on t 09:09; Start 09/27/17 at 21:00 Active Scripts Active Reported Proair Hfa (Albuterol Sulfate) 8.5 Gm Hfa.aer.ad 8.5 Gm IH PRN Q4-6HRS PRN Hydrocodone-Apap 5-325 (Hydrocodone Bit/Acetaminophen) 1 Each Tablet 1 Tab PO PRN Q6HRS PRN Benadryl (Diphenhydramine Hcl) 25 Mg Capsule 25 Mg PO Gabapentin 600 Mg Tablet 600 Mg PO TID Zantac (Ranitidine Hcl) 150 Mg Tablet 150 Mg PO BID Cefepime-Dextrose 2 Gm/50 Ml (Cefepime Hcl/D5w) 2 Gm/50 Ml Piggyback 2 Gm IV BID Baclofen 10 Mg Tablet 10 Mg PO BID Multiple Vitamin (Multivitamin With Minerals) 1 Each Tablet 1 Each PO DAILY Crucible-3 (Crucible-3 Fatty Acids) 1,000 Mg Capsule 1,000 Mg PO DAILY Feosol (Ferrous Sulfate) 325 Mg Tablet 325 Mg PO DAILY Atorvastatin Calcium 40 Mg Tablet 40 Mg PO HS Aspirin 81 Mg Tab.chew 1 Tab PO DAILY Naproxen 375 Mg Tablet 1 Tab PO BID Lisinopril-Hctz 20-12.5 Mg Tab (Lisinopril/Hydrochlorothiazide) 1 Each Tablet 1 Tab PO BID Amiodarone Hcl 100 Mg Tablet 200 Mg PO DAILY Next dose 08/30/16 AM Sotalol (Sotalol Hcl) 80 Mg Tablet 0.5 Tab PO BID Next dose 08/30/16 in the AM Allopurinol 300 Mg Tablet 100 Mg PO DAILY Not given today Potassium Chloride 20 Meq Tablet.er 20 Meq PO BID Next dose 08/30/16 Furosemide 40 Mg Tablet 1 Tab PO BID Next dose 08/29/16 at 9:00pm Vitals/I & O Vital Sign - Last 24 Hours 09/28/17 09/28/17 09/28/17 09/28/17 10:17 10:19 10:19 11:00 Temp 98.0 98.0 Pulse 55 55 55 61 Resp 18 B/P (MAP) 159/78 159/78 159/78 164/64 (97) Pulse Ox 94 O2 Delivery Room Air 09/28/17 09/28/17 09/28/17 09/28/17 15:00 20:00 20:39 20:40 Temp 97.4 97.4 Pulse 73 69 69 Resp 18 B/P (MAP) 167/71 (103) 175/79 175/79 Pulse Ox 93 O2 Delivery Room Air Room Air O2 Flow Rate 2.0 09/28/17 09/29/17 09/29/17 09/29/17 23:00 03:00 07:00 09:10 Temp 101.3 99.1 98.1 101.3 99.1 98.1 Pulse 64 60 64 64 Resp 18 16 19 B/P (MAP) 155/66 (95) 148/67 (94) 171/88 (115) 171/88 Pulse Ox 99 99 O2 Delivery Room Air Room Air Room Air 09/29/17 09/29/17 09/29/17 09:11 09:12 09:12 Pulse 64 64 B/P (MAP) 171/88 171/88 O2 Delivery Room Air Intake and Output 09/28/17 09/28/17 09/29/17 15:00 23:00 07:00 Intake Total 100 ml Output Total 1600 ml 1000 ml Balance -1600 ml -900 ml CARLTON SANTOS MD Sep 29, 2017 10:14
[2017-09-29 10:50] VITALS: BP 165/66
[2017-09-29 11:01] LABS: BASO % 0 % (0-3); EOS % 4 % (0-3); HEMATOCRIT 35.8 % (39.0-53.0); HEMOGLOBIN 11.6 g/dL (13.0-17.5); LYMPH # 1.4 x10^3/uL (1.0-4.8); LYMPH % 14 % (24-48); MEAN CORPUSCULAR HEMOGLOBIN 28 pg (25-35); MEAN CORPUSCULAR HGB CONC 33 g/dL (31-37); MEAN CORPUSCULAR VOLUME 87 fL (79-100); MONO % 12 % (0-9); NEUT % 71 % (31-73); PLATELET COUNT 187 x10^3/uL (140-400); RED CELL DISTRIBUTION WIDTH 16.7 % (11.5-14.5); WHITE BLOOD COUNT 10.4 x10^3/uL (4.0-11.0)
[2017-09-29 11:25] LABS: CALCIUM 8.3 mg/dL (8.5-10.1); CREATININE 0.8 mg/dL (0.7-1.3); GFR 98.6; POTASSIUM 3.4 mmol/L (3.5-5.1)
--- NOTE | 2017-09-29 14:04 | PDOC ---
PROGRESS NOTES Subjective Subjective POD #3 Up in chair right leg pain improved ambulated short distance in [place] with walker Objective Objective Vital Signs Date Time Temp Pulse Resp B/P (MAP) Pulse Ox O2 Delivery O2 Flow Rate FiO2 09/29/17 13:50 Room Air 09/29/17 10:50 97.9 56 20 165/66 (99) 95 97.9 09/28/17 20:00 2.0 Intake and Output 09/29/17 07:00 Intake Total 100 ml Output Total 2600 ml Balance -2500 ml Intake Oral 100 ml Output Urine Total 2600 ml # Voids 2 # Bowel Movements 2 Physical Exam General: Alert, Oriented X3, Cooperative MUSCULOSKELETAL: Other (GERBER) Neuro: Normal speech Skin: Other (lumbar Dressing dry and intact, flat) Plan Plan of Care continue PT Rehab per Dr. Jimenes recommendations wound care clinic following for LE wound Comment Review of Relevant I have reviewed the following items hubert (where applicable) has been applied. Labs Laboratory Tests Test 09/29/17 10:32 White Blood Count 10.4 x10^3/uL (4.0-11.0) Red Blood Count 4.10 x10^6/uL (4.30-5.70) Hemoglobin 11.6 g/dL (13.0-17.5) Hematocrit 35.8 % (39.0-53.0) Mean Corpuscular Volume 87 fL (79-100) Mean Corpuscular Hemoglobin 28 pg (25-35) Mean Corpuscular Hemoglobin Concent 33 g/dL (31-37) Red Cell Distribution Width 16.7 % (11.5-14.5) Platelet Count 187 x10^3/uL (140-400) Neutrophils (%) (Auto) 71 % (31-73) Lymphocytes (%) (Auto) 14 % (24-48) Monocytes (%) (Auto) 12 % (0-9) Eosinophils (%) (Auto) 4 % (0-3) Basophils (%) (Auto) 0 % (0-3) Neutrophils # (Auto) 7.4 x10^3uL (1.8-7.7) Lymphocytes # (Auto) 1.4 x10^3/uL (1.0-4.8) Monocytes # (Auto) 1.2 x10^3/uL (0.0-1.1) Eosinophils # (Auto) 0.4 x10^3/uL (0.0-0.7) Basophils # (Auto) 0.0 x10^3/uL (0.0-0.2) Sodium Level 141 mmol/L (136-145) Potassium Level 3.4 mmol/L (3.5-5.1) Chloride Level 103 mmol/L (98-107) Carbon Dioxide Level 29 mmol/L (21-32) Anion Gap 9 (6-14) Blood Urea Nitrogen 21 mg/dL (8-26) Creatinine 0.8 mg/dL (0.7-1.3) Estimated GFR (Cockcroft-Gault) 98.6 Glucose Level 176 mg/dL (70-99) Calcium Level 8.3 mg/dL (8.5-10.1) Laboratory Tests Test 09/29/17 10:32 White Blood Count 10.4 x10^3/uL (4.0-11.0) Red Blood Count 4.10 x10^6/uL (4.30-5.70) Hemoglobin 11.6 g/dL (13.0-17.5) Hematocrit 35.8 % (39.0-53.0) Mean Corpuscular Volume 87 fL (79-100) Mean Corpuscular Hemoglobin 28 pg (25-35) Mean Corpuscular Hemoglobin Concent 33 g/dL (31-37) Red Cell Distribution Width 16.7 % (11.5-14.5) Platelet Count 187 x10^3/uL (140-400) Neutrophils (%) (Auto) 71 % (31-73) Lymphocytes (%) (Auto) 14 % (24-48) Monocytes (%) (Auto) 12 % (0-9) Eosinophils (%) (Auto) 4 % (0-3) Basophils (%) (Auto) 0 % (0-3) Neutrophils # (Auto) 7.4 x10^3uL (1.8-7.7) Lymphocytes # (Auto) 1.4 x10^3/uL (1.0-4.8) Monocytes # (Auto) 1.2 x10^3/uL (0.0-1.1) Eosinophils # (Auto) 0.4 x10^3/uL (0.0-0.7) Basophils # (Auto) 0.0 x10^3/uL (0.0-0.2) Sodium Level 141 mmol/L (136-145) Potassium Level 3.4 mmol/L (3.5-5.1) Chloride Level 103 mmol/L (98-107) Carbon Dioxide Level 29 mmol/L (21-32) Anion Gap 9 (6-14) Blood Urea Nitrogen 21 mg/dL (8-26) Creatinine 0.8 mg/dL (0.7-1.3) Estimated GFR (Cockcroft-Gault) 98.6 Glucose Level 176 mg/dL (70-99) Calcium Level 8.3 mg/dL (8.5-10.1) Microbiology 09/27/17 Urine Culture - Preliminary, Resulted 09/27/17 Urine Culture Result 1 (PRINCE) - Preliminary, Resulted Medications Current Medications Bacitracin 71094 unit/Sodium Chloride 1,000 ml @ 1,000 mls/hr 1X PERIOP ONCE IRR Last administered on 09/26/17 12:45; Start 09/26/17 at 06:00; Stop at 06:59; Status DC Fentanyl Citrate (Fentanyl 2ml Vial) 25 mcg PRN Q5MIN PRN IV MILD PAIN; Start 09/26/17 at 07:00; Stop 09/27/17 at 06:59; Status DC Fentanyl Citrate (Fentanyl 2ml Vial) 50 mcg PRN Q5MIN PRN IV MODERATE PAIN; Start 09/26/17 at 07:00; Stop 09/26/17 at 18:00; Status DC Morphine Sulfate 1 mg PRN Q10MIN PRN IV SEVERE PAIN; Start 09/26/17 at 07:00; Stop 09/26/17 at 07:01; Status DC Ringer's Solution 1,000 ml @ 30 mls/hr Q24H IV Last administered on t 07:00; Start 09/26/17 at 07:00; Stop 09/26/17 at 18:59; Status DC Lidocaine HCl (Xylocaine-Mpf 1% Vial) 2 ml PRN 1X PRN ID PRIOR TO IV START; Start 09/26/17 at 07:00; Stop 09/26/17 at 18:00; Status DC Hydromorphone HCl (Dilaudid) 0.5 mg PRN Q10MIN PRN IV SEV PAIN, Second choice; Start 09/26/17 at 07:00; Stop 09/26/17 at 18:00; Status DC Prochlorperazine Edisylate (Compazine) 5 mg PACU PRN PRN IV NAUSEA, MRX1; Start 09/26/17 at 07:00; Stop 09/26/17 at 18:00; Status DC Cefazolin Sodium 3 gm/Sodium Chloride 100 ml @ 200 mls/hr 1X PREOP PRN IV PRIOR TO PROCEDURE; Start 09/26/17 at 06:00; Stop 09/26/17 at 15:00; Status DC Gelatin (Gelfoam Size 100) 1 each STK-MED ONCE .ROUTE Last administered on 12:45; Start 09/26/17 at 06:37; Stop 09/26/17 at 06:38; Status DC Bupivacaine HCl/ Epinephrine Bitart (Sensorcain-Mpf Epi 0.5%-1:[id number]) 30 ml STK -MED ONCE .ROUTE Last administered on 09/26/17 12:45; Start 09/26/17 at 06: 37; Stop 09/26/17 at 06:38; Status DC Ketorolac Tromethamine (Toradol For Or Only) 60 mg STK-MED ONCE .ROUTE Last administered on 09/26/17 12:45; Start 09/26/17 at 06:37; Stop 09/26/17 at 06 :38; Status DC Thrombin 20,000 unit STK-MED ONCE TP Last administered on 09/26/17 12:45; Start 09/26/17 at 06:37; Stop 09/26/17 at 06:38; Status DC Phenylephrine HCl (Sajan-Synephrine Inj) 10 mg STK-MED ONCE .ROUTE ; Start at 09:27; Stop 09/26/17 at 09:28; Status DC Succinylcholine Chloride (Anectine) 200 mg STK-MED ONCE .ROUTE ; Start at 09:30; Stop 09/26/17 at 09:31; Status DC Rocuronium [place] (Zemuron) 50 mg STK-MED ONCE .ROUTE ; Start 09/26/17 at 09: 30; Stop 09/26/17 at 09:31; Status DC Remifentanil HCl (Ultiva) 2 mg STK-MED ONCE IV ; Start 09/26/17 at 09:30; Stop 09/26/17 at 09:31; Status DC Midazolam HCl (Versed) 2 mg STK-MED ONCE .ROUTE ; Start 09/26/17 at 09:30; Stop 09/26/17 at 09:31; Status DC Propofol 100 ml @ As Directed STK-MED ONCE IV ; Start 09/26/17 at 10:14; Stop 09/26/17 at 10:15; Status DC Desflurane (Suprane) 90 ml STK-MED ONCE IH ; Start 09/26/17 at 10:16; Stop at 10:17; Status DC Fentanyl Citrate (Fentanyl 2ml Vial) 100 mcg STK-MED ONCE .ROUTE ; Start at 10:17; Stop 09/26/17 at 10:18; Status DC Propofol 20 ml @ As Directed STK-MED ONCE IV ; Start 09/26/17 at 10:17; Stop 09/26/17 at 10:18; Status DC Lidocaine HCl (Lidocaine Pf 2% Vial) 5 ml STK-MED ONCE .ROUTE ; Start 09/26/17 at 10:17; Stop 09/26/17 at 10:18; Status DC Dexamethasone Sodium Phosphate (Decadron) 20 mg STK-MED ONCE .ROUTE ; Start at 10:17; Stop 09/26/17 at 10:18; Status DC Ondansetron HCl (Zofran) 4 mg STK-MED ONCE .ROUTE ; Start 09/26/17 at 10:17; Stop 09/26/17 at 10:18; Status DC Multi-Ingred Cream/Lotion/Oil/ Oint (Artificial Tears Eye Ointment) 7 servando STK- MED ONCE .ROUTE ; Start 09/26/17 at 10:25; Stop 09/26/17 at 10:26; Status DC Propofol 100 ml @ As Directed STK-MED ONCE IV ; Start 09/26/17 at 10:27; Stop 09/26/17 at 10:28; Status DC Glycopyrrolate (Robinul) 1 mg STK-MED ONCE .ROUTE ; Start 09/26/17 at 11:25; Stop 09/26/17 at 11:26; Status DC Neostigmine Methylsulfate 5 mg STK-MED ONCE .ROUTE ; Start 09/26/17 at 11:25; Stop 09/26/17 at 11:26; Status DC Ephedrine Sulfate (ePHEDrine PF IN SALINE SYRINGE) 50 mg STK-MED ONCE IV ; Start 09/26/17 at 11:29; Stop 09/26/17 at 11:30; Status DC Gelatin (Gelfoam Size 100) 1 each STK-MED ONCE .ROUTE ; Start 09/26/17 at 13: 07; Stop 09/26/17 at 13:08; Status DC Thrombin 20,000 unit STK-MED ONCE TP ; Start 09/26/17 at 13:07; Stop 09/26/17 at 13:08; Status DC Atropine Sulfate 0.5 mg STK-MED ONCE .ROUTE ; Start 09/26/17 at 13:08; Stop at 13:09; Status DC Remifentanil HCl (Ultiva) 2 mg STK-MED ONCE IV ; Start 09/26/17 at 13:17; Stop 09/26/17 at 13:18; Status DC Albuterol Sulfate (Ventolin Hfa) 8 puff PRN Q4HRS PRN IH SHORTNESS OF BREATH; Start 09/26/17 at 15:15; Stop 09/26/17 at 16:05; Status DC Allopurinol (Zyloprim) 100 mg DAILY PO Last administered on 09/29/17 09:10; Start 09/26/17 at 16:00 Amiodarone HCl (Cordarone) 200 mg DAILY PO Last administered on 09/29/17 09: 10; Start 09/26/17 at 16:00 Aspirin (Children'S Aspirin) 81 mg DAILY PO Last administered on 09/29/17 09: 10; Start 09/27/17 at 09:00 Atorvastatin Calcium (Lipitor) 40 mg HS PO Last administered on 09/28/17 20: 40; Start 09/26/17 at 21:00 Baclofen (Lioresal) 10 mg BID PO Last administered on 09/29/17 09:10; Start 09/26/17 at 21:00 Diphenhydramine HCl (Benadryl) 25 mg PRN Q6HRS PRN PO ITCHING; Start 09/26/17 at 15:15 Ferrous Sulfate (Feosol) 325 mg DAILYWBKFT PO Last administered on 09/29/17 09:09; Start 09/27/17 at 08:00 Furosemide (Lasix) 40 mg BID92 PO Last administered on 09/29/17 13:49; Start 09/26/17 at 16:00 Sotalol HCl (Betapace) 40 mg BID PO Last administered on 09/29/17 09:12; Start 09/26/17 at 21:00 Non-Formulary Medication 2 gm BID IV ; Start 09/26/17 at 21:00; Stop 09/26/17 at 21:00; Status DC Gabapentin (Neurontin) 600 mg TID PO Last administered on 09/29/17 13:50; Start 09/26/17 at 16:00 Lisinopril (Prinivil) 20 mg BID PO Last administered on 09/29/17 09:11; Start 09/26/17 at 21:00 Multivitamins (Thera M Plus) 1 tab DAILY PO Last administered on 09/29/17 09: 10; Start 09/26/17 at 16:00 Naproxen (Naprosyn) 375 mg BID PO Last administered on 09/29/17 09:09; Start 09/26/17 at 21:00 Fish Oil (Fish Oil) 1,000 mg DAILY PO Last administered on 09/29/17 09:09; Start 09/26/17 at 16:00 Potassium Chloride (Klor-Con) 20 meq BIDWMEALS PO Last administered on 09:10; Start 09/27/17 at 08:00 Famotidine (Pepcid) 20 mg BID PO Last administered on 09/29/17 09:09; Start 09/26/17 at 21:00 Acetaminophen/ Hydrocodone Bitart (Lortab 7.5/325) 1 tab PRN Q6HRS PRN PO PAIN Last administered on 09/27/17 14:25; Start 09/26/17 at 15:30 Acetaminophen/ Hydrocodone Bitart (Lortab 7.5/325) 2 tab PRN Q6HRS PRN PO PAIN Last administered on 09/29/17 13:50; Start 09/26/17 at 15:30 Fentanyl Citrate (Fentanyl 2ml Vial) 50 mcg PRN Q2HR PRN IV PAIN; Start at 15:30 Fentanyl Citrate (Fentanyl 2ml Vial) 25 mcg PRN Q2HR PRN IV PAIN; Start at 15:30 Acetaminophen (Tylenol) 650 mg PRN Q6HRS PRN PO MILD PAIN / TEMP Last administered on 09/29/17 00:34; Start 09/26/17 at 15:30 Al Hydroxide/Mg Hydroxide (Mylanta Plus Xs) 30 ml PRN Q3HRS PRN PO HEARTBURN / GAS; Start 09/26/17 at 15:30 Calcium Carbonate/ Glycine (Tums) 500 mg PRN Q3HRS PRN PO INDIGESTION; Start 09/26/17 at 15:30 Diphenhydramine HCl (Benadryl) 25 mg PRN Q6HRS PRN PO ITCHING; Start 09/26/17 at 15:30 Diphenhydramine HCl (Benadryl) 25 mg PRN Q6HRS PRN IV ITCHING; Start 09/26/17 at 15:30 Sodium Chloride (Normal Saline Flush) 3 ml QSHIFT PRN IV AFTER MEDS AND BLOOD DRAWS; Start 09/26/17 at 15:30 Potassium Chloride/Sodium Chloride 1,000 ml @ 75 mls/hr [id number] IV ; Start at 15:18; Stop 09/27/17 at 19:32; Status DC Docusate Sodium (Colace) 100 mg BID PO Last administered on 09/28/17 10:19; Start 09/26/17 at 21:00 Magnesium Hydroxide (Milk Of Magnesia) 2,400 mg PRN Q12HR PRN PO CONSTIPATION; Start 09/26/17 at 15:30 Albuterol Sulfate (Ventolin Neb Soln) 2.5 mg PRN Q4HRS PRN NEB SHORTNESS OF BREATH; Start 09/26/17 at 16:00 Cefepime HCl (Maxipime) 2 gm Q12HR IVP Last administered on 09/29/17 09:16; Start 09/26/17 at 21:00 Magnesium Hydroxide (Milk Of Magnesia) 2,400 mg PRN DAILY PRN PO CONSTIPATION; Start 09/27/17 at 12:00 Lactobacillus Rhamnosus (Culturelle) 1 cap BID PO Last administered on 12/18/ 17at 09:09; Start 09/27/17 at 21:00 Active Scripts Active Reported Proair Hfa (Albuterol Sulfate) 8.5 Gm Hfa.aer.ad 8.5 Gm IH PRN Q4-6HRS PRN Hydrocodone-Apap 5-325 (Hydrocodone Bit/Acetaminophen) 1 Each Tablet 1 Tab PO PRN Q6HRS PRN Benadryl (Diphenhydramine Hcl) 25 Mg Capsule 25 Mg PO Gabapentin 600 Mg Tablet 600 Mg PO TID Zantac (Ranitidine Hcl) 150 Mg Tablet 150 Mg PO BID Cefepime-Dextrose 2 Gm/50 Ml (Cefepime Hcl/D5w) 2 Gm/50 Ml Piggyback 2 Gm IV BID Baclofen 10 Mg Tablet 10 Mg PO BID Multiple Vitamin (Multivitamin With Minerals) 1 Each Tablet 1 Each PO DAILY [place]-3 ([place]-3 Fatty Acids) 1,000 Mg Capsule 1,000 Mg PO DAILY Feosol (Ferrous Sulfate) 325 Mg Tablet 325 Mg PO DAILY Atorvastatin Calcium 40 Mg Tablet 40 Mg PO HS Aspirin 81 Mg Tab.chew 1 Tab PO DAILY Naproxen 375 Mg Tablet 1 Tab PO BID Lisinopril-Hctz 20-12.5 Mg Tab (Lisinopril/Hydrochlorothiazide) 1 Each Tablet 1 Tab PO BID Amiodarone Hcl 100 Mg Tablet 200 Mg PO DAILY Next dose 08/30/16 AM Sotalol (Sotalol Hcl) 80 Mg Tablet 0.5 Tab PO BID Next dose 08/30/16 in the AM Allopurinol 300 Mg Tablet 100 Mg PO DAILY Not given today Potassium Chloride 20 Meq Tablet.er 20 Meq PO BID Next dose 08/30/16 Furosemide 40 Mg Tablet 1 Tab PO BID Next dose 08/29/16 at 9:00pm Vitals/I & O Vital Sign - Last 24 Hours 09/28/17 09/28/17 09/28/17 09/28/17 15:00 20:00 20:39 20:40 Temp 97.4 97.4 Pulse 73 69 69 Resp 18 B/P (MAP) 167/71 (103) 175/79 175/79 Pulse Ox 93 O2 Delivery Room Air Room Air O2 Flow Rate 2.0 09/28/17 09/29/17 09/29/17 09/29/17 23:00 03:00 07:00 08:30 Temp 101.3 99.1 98.1 101.3 99.1 98.1 Pulse 64 60 64 Resp 18 16 19 B/P (MAP) 155/66 (95) 148/67 (94) 171/88 (115) Pulse Ox 99 99 O2 Delivery Room Air Room Air Room Air Room Air 09/29/17 09/29/17 09/29/17 09/29/17 09:10 09:11 09:12 09:12 Pulse 64 64 64 B/P (MAP) 171/88 171/88 171/88 O2 Delivery Room Air 09/29/17 09/29/17 09/29/17 10:00 10:50 13:50 Temp 97.9 97.9 Pulse 56 Resp 20 B/P (MAP) 165/66 (99) Pulse Ox 95 O2 Delivery Room Air Room Air Room Air Intake and Output 09/28/17 09/28/17 09/29/17 15:00 23:00 07:00 Intake Total 100 ml Output Total 1600 ml 1000 ml Balance -1600 ml -900 ml RAKESH ARROYO APRN Sep 29, 2017 14:04
[2017-09-29 15:09] VITALS: BP 162/65
[2017-09-29 19:21] VITALS: BP 155/72
[2017-09-29] MEDS: ATORVASTATIN CALCIUM 40 MG TABLET. PO SCH (22:06)
[2017-09-29 23:11] VITALS: BP 180/83
[2017-09-30 03:00] VITALS: BP 158/82
--- NOTE | 2017-09-30 05:09 | OP ---
DATE OF SURGERY: 09/26/2017 PREOPERATIVE DIAGNOSES: Lateral central canal stenosis, lateral recess stenosis at L3-L4, L4-L5, right with right lumbar radiculopathy with weakness. POSTOPERATIVE DIAGNOSES: Lateral central canal stenosis, lateral recess stenosis at L3-L4, L4-L5, right with right lumbar radiculopathy with weakness. OPERATION PERFORMED: Hemilaminotomy and microdecompression, right, L3-L4, L4-L5. The operation was done with EMG monitoring, fluoroscopy and microscopic dissection. SURGEON: Slyvester Hawthorne M.D. FAMILY SUPPORT COORDINATOR: ELAYNE Reina, assisted with the surgery. She assisted with the exposure, the microdecompression as well as the closure. OPERATIVE INDICATIONS: The patient is a very pleasant 61-year-old man who has developed problems with both cervical and lumbar stenosis. He has previously undergone cervical surgery. His lumbar surgery was delayed primarily because of problems with cellulitis. This has reached a tolerable level and it was felt that the benefits of surgery outweighed small risk related to any residual cellulitis and we elected to go forward with surgery after a considerable discussion and consultation. The patient understood the surgery and the rationale. He wished to go ahead. DESCRIPTION OF THE PROCEDURE: Following general endotracheal anesthesia, the patient was positioned prone on the Paulo table. His lumbar region was prepped and draped in standard fashion. AV impulse boot was applied in the unaffected leg. His arms could not be positioned superiorly because of problems in his shoulders and these were positioned gently at his side and supported. His lumbar region was then prepped and draped in standard fashion. Ancef 3 g was given less than 1 hour prior to the initiation of the surgery. Using fluoroscopic guidance, an incision was made extending from L3 to L5. We dissected down to skin and subcutaneous tissue and worked down through the adipose tissue to the lumbodorsal fascia, which I incised on the right side of the midline. I placed the long micro lumbar retractor and brought in the microscope. Through the microscope, beginning at L3-L4, I burred down a generous hemilaminotomy and then tilted the patient and drilled to the midline and also worked laterally to drill to the medial edge of the pedicle and superior to this. I drilled down and then began to free up and peel-away thickened ligament of flavum, which was densely scarred to the underlying dura and I worked and gently freed this up and peeled this away and then trimmed this away with a 2.5 and 4 mm Kerrison rongeur. There was some bone bleeding and I did use bone wax as needed. I also used a bipolar cautery for any epidural bleeding and hemostasis was excellent throughout this operation. I then moved down. Again through the microscope with microscopic technique at L4-L5 in a similar fashion, I burred down a generous hemilaminotomy. I carried it up to the midline and then worked laterally and again freed up the thickened ligament of flavum peeling this away and trimming this away with the Kerrisons again performing a generous partial foraminotomy. As I worked, the entire region became very well decompressed. Again, small amounts of bone wax were used for any bone bleeding as well as a bipolar cautery for any epidural bleeding. I irrigated copiously at this point, I had an excellent decompression of dura and nerve root. I did palpate the discs at both levels. The disc at L4 -L5 was bulging posteriorly slightly, but extremely firm and partly calcified and I did not feel a discectomy was warranted. At L3-L4,posterior disc bulging was not as significant and again it was quite firm, I felt no discectomy was warranted. I irrigated copiously. I removed the retractor, obtained hemostasis in the muscle and I closed the wound in layers with absorbable suture and skin was closed with skin qi. Again, I felt the surgery went very well and the patient was awakened uneventfully, taken to the recovery room in excellent condition. I was quite pleased with the surgery. SYLVESTER HAWTHORNE MD DR: DAVE/ashley JOB#: [id number] / [id number] VERONICA
[2017-09-30 07:15] VITALS: BP 159/86
[2017-09-30] MEDS: CEFEPIME HCL IV Push 2 GM VIAL. IVP SCH (09:30)
[2017-09-30] MEDS: LACTOBACILLUS RHAMNOSUS GG 1 CAPSULE. PO SCH (09:30)
[2017-09-30] MEDS: GABAPENTIN 300 MG CAPSULE. PO SCH ×2 (09:30→14:34)
[2017-09-30] MEDS: OMEGA-3 FATTY ACIDS/FISH OIL 1,000 MG CAPSULE. PO SCH (09:30)
[2017-09-30] MEDS: FERROUS SULFATE 325 MG TABLET. PO SCH (09:30)
[2017-09-30] MEDS: HYDROcodone/APAP 7.5/325MG 1 TAB TABLET PO PRN ×2 (09:30→15:02)
[2017-09-30] MEDS: POTASSIUM CHLORIDE 20 MEQ TABLET.ER. PO SCH (09:30)
[2017-09-30] MEDS: NAPROXEN 250 MG TABLET PO SCH (09:31)
[2017-09-30] MEDS: FAMOTIDINE 20 MG TABLET. PO SCH (09:32)
[2017-09-30] MEDS: ASPIRIN CHEWABLE 81 MG TABLET. PO SCH (09:32)
[2017-09-30] MEDS: MULTIVITAMIN with MINERAL TABLET. PO SCH (09:32)
[2017-09-30] MEDS: DOCUSATE SODIUM 100 MG CAPSULE. PO SCH ×2 (09:32→09:36)
[2017-09-30] MEDS: ALLOPURINOL 100 MG TABLET. PO SCH (09:32)
[2017-09-30] MEDS: AMIODARONE HCL 200 MG TABLET. PO SCH (09:32)
[2017-09-30] MEDS: SOTALOL 80 MG TABLET. PO SCH (09:32)
[2017-09-30] MEDS: FUROSEMIDE 40 MG TABLET. PO SCH ×2 (09:33→14:34)
[2017-09-30] MEDS: BACLOFEN 10 MG TABLET. PO SCH (09:33)
[2017-09-30] MEDS: LISINOPRIL 20 MG TABLET PO SCH (09:33)
--- NOTE | 2017-09-30 10:07 | PDOC ---
PROGRESS NOTES Subjective Subjective No new complaints. Objective Objective Vital Signs Date Time Temp Pulse Resp B/P (MAP) Pulse Ox O2 Delivery O2 Flow Rate FiO2 09/30/17 09:33 61 159/86 09/30/17 07:15 98.0 18 99 Nasal Cannula 2.0 98.0 Intake and Output 09/30/17 07:00 Intake Total 3345 ml Output Total 2400 ml Balance 945 ml Intake Oral 3345 ml Output Urine Total 2400 ml # Voids 2 # Bowel Movements 4 Physical Exam Physical Exam He is comfortable sitting in bedside recliner and he is walking with roller walker for short distances. Plan Plan of Care TO MAR later today. Comment Review of Relevant I have reviewed the following items hubert (where applicable) has been applied. Labs Laboratory Tests Test 09/29/17 10:32 White Blood Count 10.4 x10^3/uL (4.0-11.0) Red Blood Count 4.10 x10^6/uL (4.30-5.70) Hemoglobin 11.6 g/dL (13.0-17.5) Hematocrit 35.8 % (39.0-53.0) Mean Corpuscular Volume 87 fL (79-100) Mean Corpuscular Hemoglobin 28 pg (25-35) Mean Corpuscular Hemoglobin Concent 33 g/dL (31-37) Red Cell Distribution Width 16.7 % (11.5-14.5) Platelet Count 187 x10^3/uL (140-400) Neutrophils (%) (Auto) 71 % (31-73) Lymphocytes (%) (Auto) 14 % (24-48) Monocytes (%) (Auto) 12 % (0-9) Eosinophils (%) (Auto) 4 % (0-3) Basophils (%) (Auto) 0 % (0-3) Neutrophils # (Auto) 7.4 x10^3uL (1.8-7.7) Lymphocytes # (Auto) 1.4 x10^3/uL (1.0-4.8) Monocytes # (Auto) 1.2 x10^3/uL (0.0-1.1) Eosinophils # (Auto) 0.4 x10^3/uL (0.0-0.7) Basophils # (Auto) 0.0 x10^3/uL (0.0-0.2) Sodium Level 141 mmol/L (136-145) Potassium Level 3.4 mmol/L (3.5-5.1) Chloride Level 103 mmol/L (98-107) Carbon Dioxide Level 29 mmol/L (21-32) Anion Gap 9 (6-14) Blood Urea Nitrogen 21 mg/dL (8-26) Creatinine 0.8 mg/dL (0.7-1.3) Estimated GFR (Cockcroft-Gault) 98.6 Glucose Level 176 mg/dL (70-99) Calcium Level 8.3 mg/dL (8.5-10.1) Laboratory Tests Test 09/29/17 10:32 White Blood Count 10.4 x10^3/uL (4.0-11.0) Red Blood Count 4.10 x10^6/uL (4.30-5.70) Hemoglobin 11.6 g/dL (13.0-17.5) Hematocrit 35.8 % (39.0-53.0) Mean Corpuscular Volume 87 fL (79-100) Mean Corpuscular Hemoglobin 28 pg (25-35) Mean Corpuscular Hemoglobin Concent 33 g/dL (31-37) Red Cell Distribution Width 16.7 % (11.5-14.5) Platelet Count 187 x10^3/uL (140-400) Neutrophils (%) (Auto) 71 % (31-73) Lymphocytes (%) (Auto) 14 % (24-48) Monocytes (%) (Auto) 12 % (0-9) Eosinophils (%) (Auto) 4 % (0-3) Basophils (%) (Auto) 0 % (0-3) Neutrophils # (Auto) 7.4 x10^3uL (1.8-7.7) Lymphocytes # (Auto) 1.4 x10^3/uL (1.0-4.8) Monocytes # (Auto) 1.2 x10^3/uL (0.0-1.1) Eosinophils # (Auto) 0.4 x10^3/uL (0.0-0.7) Basophils # (Auto) 0.0 x10^3/uL (0.0-0.2) Sodium Level 141 mmol/L (136-145) Potassium Level 3.4 mmol/L (3.5-5.1) Chloride Level 103 mmol/L (98-107) Carbon Dioxide Level 29 mmol/L (21-32) Anion Gap 9 (6-14) Blood Urea Nitrogen 21 mg/dL (8-26) Creatinine 0.8 mg/dL (0.7-1.3) Estimated GFR (Cockcroft-Gault) 98.6 Glucose Level 176 mg/dL (70-99) Calcium Level 8.3 mg/dL (8.5-10.1) Microbiology 09/27/17 Urine Culture - Final, Complete 09/27/17 Urine Culture Result 1 (PRINCE) - Final, Complete Medications Current Medications Bacitracin 26910 unit/Sodium Chloride 1,000 ml @ 1,000 mls/hr 1X PERIOP ONCE IRR Last administered on 09/26/17 12:45; Start 09/26/17 at 06:00; Stop at 06:59; Status DC Fentanyl Citrate (Fentanyl 2ml Vial) 25 mcg PRN Q5MIN PRN IV MILD PAIN; Start 09/26/17 at 07:00; Stop 09/27/17 at 06:59; Status DC Fentanyl Citrate (Fentanyl 2ml Vial) 50 mcg PRN Q5MIN PRN IV MODERATE PAIN; Start 09/26/17 at 07:00; Stop 09/26/17 at 18:00; Status DC Morphine Sulfate 1 mg PRN Q10MIN PRN IV SEVERE PAIN; Start 09/26/17 at 07:00; Stop 09/26/17 at 07:01; Status DC Ringer's Solution 1,000 ml @ 30 mls/hr Q24H IV Last administered on 07:00; Start 09/26/17 at 07:00; Stop 09/26/17 at 18:59; Status DC Lidocaine HCl (Xylocaine-Mpf 1% Vial) 2 ml PRN 1X PRN ID PRIOR TO IV START; Start 09/26/17 at 07:00; Stop 09/26/17 at 18:00; Status DC Hydromorphone HCl (Dilaudid) 0.5 mg PRN Q10MIN PRN IV SEV PAIN, Second choice; Start 09/26/17 at 07:00; Stop 09/26/17 at 18:00; Status DC Prochlorperazine Edisylate (Compazine) 5 mg PACU PRN PRN IV NAUSEA, MRX1; Start 09/26/17 at 07:00; Stop 09/26/17 at 18:00; Status DC Cefazolin Sodium 3 gm/Sodium Chloride 100 ml @ 200 mls/hr 1X PREOP PRN IV PRIOR TO PROCEDURE; Start 09/26/17 at 06:00; Stop 09/26/17 at 15:00; Status DC Gelatin (Gelfoam Size 100) 1 each STK-MED ONCE .ROUTE Last administered on 12:45; Start 09/26/17 at 06:37; Stop 09/26/17 at 06:38; Status DC Bupivacaine HCl/ Epinephrine Bitart (Sensorcain-Mpf Epi 0.5%-1:[id number]) 30 ml STK -MED ONCE .ROUTE Last administered on 09/26/17 12:45; Start 09/26/17 at 06: 37; Stop 09/26/17 at 06:38; Status DC Ketorolac Tromethamine (Toradol For Or Only) 60 mg STK-MED ONCE .ROUTE Last administered on 09/26/17 12:45; Start 09/26/17 at 06:37; Stop 09/26/17 at 06 :38; Status DC Thrombin 20,000 unit STK-MED ONCE TP Last administered on 09/26/17 12:45; Start 09/26/17 at 06:37; Stop 09/26/17 at 06:38; Status DC Phenylephrine HCl (Sajan-Synephrine Inj) 10 mg STK-MED ONCE .ROUTE ; Start at 09:27; Stop 09/26/17 at 09:28; Status DC Succinylcholine Chloride (Anectine) 200 mg STK-MED ONCE .ROUTE ; Start at 09:30; Stop 09/26/17 at 09:31; Status DC Rocuronium [place] (Zemuron) 50 mg STK-MED ONCE .ROUTE ; Start 09/26/17 at 09: 30; Stop 09/26/17 at 09:31; Status DC Remifentanil HCl (Ultiva) 2 mg STK-MED ONCE IV ; Start 09/26/17 at 09:30; Stop 09/26/17 at 09:31; Status DC Midazolam HCl (Versed) 2 mg STK-MED ONCE .ROUTE ; Start 09/26/17 at 09:30; Stop 09/26/17 at 09:31; Status DC Propofol 100 ml @ As Directed STK-MED ONCE IV ; Start 09/26/17 at 10:14; Stop 09/26/17 at 10:15; Status DC Desflurane (Suprane) 90 ml STK-MED ONCE IH ; Start 09/26/17 at 10:16; Stop at 10:17; Status DC Fentanyl Citrate (Fentanyl 2ml Vial) 100 mcg STK-MED ONCE .ROUTE ; Start at 10:17; Stop 09/26/17 at 10:18; Status DC Propofol 20 ml @ As Directed STK-MED ONCE IV ; Start 09/26/17 at 10:17; Stop 09/26/17 at 10:18; Status DC Lidocaine HCl (Lidocaine Pf 2% Vial) 5 ml STK-MED ONCE .ROUTE ; Start 09/26/17 at 10:17; Stop 09/26/17 at 10:18; Status DC Dexamethasone Sodium Phosphate (Decadron) 20 mg STK-MED ONCE .ROUTE ; Start at 10:17; Stop 09/26/17 at 10:18; Status DC Ondansetron HCl (Zofran) 4 mg STK-MED ONCE .ROUTE ; Start 09/26/17 at 10:17; Stop 09/26/17 at 10:18; Status DC Multi-Ingred Cream/Lotion/Oil/ Oint (Artificial Tears Eye Ointment) 7 servando STK- MED ONCE .ROUTE ; Start 09/26/17 at 10:25; Stop 09/26/17 at 10:26; Status DC Propofol 100 ml @ As Directed STK-MED ONCE IV ; Start 09/26/17 at 10:27; Stop 09/26/17 at 10:28; Status DC Glycopyrrolate (Robinul) 1 mg STK-MED ONCE .ROUTE ; Start 09/26/17 at 11:25; Stop 09/26/17 at 11:26; Status DC Neostigmine Methylsulfate 5 mg STK-MED ONCE .ROUTE ; Start 09/26/17 at 11:25; Stop 09/26/17 at 11:26; Status DC Ephedrine Sulfate (ePHEDrine PF IN SALINE SYRINGE) 50 mg STK-MED ONCE IV ; Start 09/26/17 at 11:29; Stop 09/26/17 at 11:30; Status DC Gelatin (Gelfoam Size 100) 1 each STK-MED ONCE .ROUTE ; Start 09/26/17 at 13: 07; Stop 09/26/17 at 13:08; Status DC Thrombin 20,000 unit STK-MED ONCE TP ; Start 09/26/17 at 13:07; Stop 09/26/17 at 13:08; Status DC Atropine Sulfate 0.5 mg STK-MED ONCE .ROUTE ; Start 09/26/17 at 13:08; Stop at 13:09; Status DC Remifentanil HCl (Ultiva) 2 mg STK-MED ONCE IV ; Start 09/26/17 at 13:17; Stop 09/26/17 at 13:18; Status DC Albuterol Sulfate (Ventolin Hfa) 8 puff PRN Q4HRS PRN IH SHORTNESS OF BREATH; Start 09/26/17 at 15:15; Stop 09/26/17 at 16:05; Status DC Allopurinol (Zyloprim) 100 mg DAILY PO Last administered on 09/30/17 09:32; Start 09/26/17 at 16:00 Amiodarone HCl (Cordarone) 200 mg DAILY PO Last administered on 09/30/17 09: 32; Start 09/26/17 at 16:00 Aspirin (Children'S Aspirin) 81 mg DAILY PO Last administered on 09/30/17 09: 32; Start 09/27/17 at 09:00 Atorvastatin Calcium (Lipitor) 40 mg HS PO Last administered on 09/29/17 22: 06; Start 09/26/17 at 21:00 Baclofen (Lioresal) 10 mg BID PO Last administered on 09/30/17 09:33; Start 09/26/17 at 21:00 Diphenhydramine HCl (Benadryl) 25 mg PRN Q6HRS PRN PO ITCHING; Start 09/26/17 at 15:15; Stop 09/29/17 at 14:05; Status DC Ferrous Sulfate (Feosol) 325 mg DAILYWBKFT PO Last administered on 09/30/17 09:30; Start 09/27/17 at 08:00 Furosemide (Lasix) 40 mg [id number] PO Last administered on 09/30/17 09:33; Start 09/26/17 at 16:00 Sotalol HCl (Betapace) 40 mg BID PO Last administered on 09/30/17 09:32; Start 09/26/17 at 21:00 Non-Formulary Medication 2 gm BID IV ; Start 09/26/17 at 21:00; Stop 09/26/17 at 21:00; Status DC Gabapentin (Neurontin) 600 mg TID PO Last administered on 09/30/17 09:30; Start 09/26/17 at 16:00 Lisinopril (Prinivil) 20 mg BID PO Last administered on 09/30/17 09:33; Start 09/26/17 at 21:00 Multivitamins (Thera M Plus) 1 tab DAILY PO Last administered on 09/30/17 09: 32; Start 09/26/17 at 16:00 Naproxen (Naprosyn) 375 mg BID PO Last administered on 09/30/17 09:31; Start 09/26/17 at 21:00 Fish Oil (Fish Oil) 1,000 mg DAILY PO Last administered on 09/30/17 09:30; Start 09/26/17 at 16:00 Potassium Chloride (Klor-Con) 20 meq BIDWMEALS PO Last administered on 09:30; Start 09/27/17 at 08:00 Famotidine (Pepcid) 20 mg BID PO Last administered on 09/30/17 09:32; Start 09/26/17 at 21:00 Acetaminophen/ Hydrocodone Bitart (Lortab 7.5/325) 1 tab PRN Q6HRS PRN PO MODERATE PAIN Last administered on 09/27/17 14:25; Start 09/26/17 at 15:30 Acetaminophen/ Hydrocodone Bitart (Lortab 7.5/325) 2 tab PRN Q6HRS PRN PO SEVERE PAIN Last administered on 09/29/17 17:38; Start 09/26/17 at 15:30 Fentanyl Citrate (Fentanyl 2ml Vial) 50 mcg PRN Q2HR PRN IV SEVERE PAIN; Start 09/26/17 at 15:30 Fentanyl Citrate (Fentanyl 2ml Vial) 25 mcg PRN Q2HR PRN IV MODERATE PAIN; Start 09/26/17 at 15:30 Acetaminophen (Tylenol) 650 mg PRN Q6HRS PRN PO MILD PAIN / TEMP Last administered on 09/29/17 00:34; Start 09/26/17 at 15:30 Al Hydroxide/Mg Hydroxide (Mylanta Plus Xs) 30 ml PRN Q3HRS PRN PO HEARTBURN / GAS; Start 09/26/17 at 15:30 Calcium Carbonate/ Glycine (Tums) 500 mg PRN Q3HRS PRN PO INDIGESTION; Start 09/26/17 at 15:30 Diphenhydramine HCl (Benadryl) 25 mg PRN Q6HRS PRN PO ITCHING; Start 09/26/17 at 15:30 Diphenhydramine HCl (Benadryl) 25 mg PRN Q6HRS PRN IV ITCHING; Start 09/26/17 at 15:30 Sodium Chloride (Normal Saline Flush) 3 ml QSHIFT PRN IV AFTER MEDS AND BLOOD DRAWS; Start 09/26/17 at 15:30 Potassium Chloride/Sodium Chloride 1,000 ml @ 75 mls/hr [id number] IV ; Start at 15:18; Stop 09/27/17 at 19:32; Status DC Docusate Sodium (Colace) 100 mg BID PO Last administered on 09/28/17 10:19; Start 09/26/17 at 21:00 Magnesium Hydroxide (Milk Of Magnesia) 2,400 mg PRN Q12HR PRN PO CONSTIPATION; Start 09/26/17 at 15:30; Stop 09/29/17 at 14:04; Status DC Albuterol Sulfate (Ventolin Neb Soln) 2.5 mg PRN Q4HRS PRN NEB SHORTNESS OF BREATH; Start 09/26/17 at 16:00 Cefepime HCl (Maxipime) 2 gm Q12HR IVP Last administered on 09/30/17 09:30; Start 09/26/17 at 21:00 Magnesium Hydroxide (Milk Of Magnesia) 2,400 mg PRN DAILY PRN PO CONSTIPATION; Start 09/27/17 at 12:00 Lactobacillus Rhamnosus (Culturelle) 1 cap BID PO Last administered on 09:30; Start 09/27/17 at 21:00 Active Scripts Active Reported Proair Hfa (Albuterol Sulfate) 8.5 Gm Hfa.aer.ad 8.5 Gm IH PRN Q4-6HRS PRN Hydrocodone-Apap 5-325 (Hydrocodone Bit/Acetaminophen) 1 Each Tablet 1 Tab PO PRN Q6HRS PRN Benadryl (Diphenhydramine Hcl) 25 Mg Capsule 25 Mg PO Gabapentin 600 Mg Tablet 600 Mg PO TID Zantac (Ranitidine Hcl) 150 Mg Tablet 150 Mg PO BID Cefepime-Dextrose 2 Gm/50 Ml (Cefepime Hcl/D5w) 2 Gm/50 Ml Piggyback 2 Gm IV BID Baclofen 10 Mg Tablet 10 Mg PO BID Multiple Vitamin (Multivitamin With Minerals) 1 Each Tablet 1 Each PO DAILY Savannah-3 (Savannah-3 Fatty Acids) 1,000 Mg Capsule 1,000 Mg PO DAILY Feosol (Ferrous Sulfate) 325 Mg Tablet 325 Mg PO DAILY Atorvastatin Calcium 40 Mg Tablet 40 Mg PO HS Aspirin 81 Mg Tab.chew 1 Tab PO DAILY Naproxen 375 Mg Tablet 1 Tab PO BID Lisinopril-Hctz 20-12.5 Mg Tab (Lisinopril/Hydrochlorothiazide) 1 Each Tablet 1 Tab PO BID Amiodarone Hcl 100 Mg Tablet 200 Mg PO DAILY Next dose 08/30/16 AM Sotalol (Sotalol Hcl) 80 Mg Tablet 0.5 Tab PO BID Next dose 08/30/16 in the AM Allopurinol 300 Mg Tablet 100 Mg PO DAILY Not given today Potassium Chloride 20 Meq Tablet.er 20 Meq PO BID Next dose 08/30/16 Furosemide 40 Mg Tablet 1 Tab PO BID Next dose 08/29/16 at 9:00pm Vitals/I & O Vital Sign - Last 24 Hours 09/29/17 09/29/17 09/29/17 09/29/17 10:50 13:50 15:09 17:38 Temp 97.9 99.5 97.9 99.5 Pulse 56 57 Resp 20 20 B/P (MAP) 165/66 (99) 162/65 (97) Pulse Ox 95 95 O2 Delivery Room Air Room Air Room Air Room Air 09/29/17 09/29/17 09/29/17 09/29/17 18:40 19:05 19:21 21:00 Temp 99.1 99.1 Pulse 59 59 Resp 20 B/P (MAP) 155/72 (99) 155/72 Pulse Ox 95 O2 Delivery Room Air Room Air Nasal Cannula O2 Flow Rate 2.0 09/29/17 09/29/17 09/30/17 09/30/17 22:02 23:11 03:00 07:15 Temp 97.6 97.9 98.0 97.6 97.9 98.0 Pulse 59 59 62 61 Resp 20 18 18 B/P (MAP) 155/72 180/83 (115) 158/82 (107) 159/86 (110) Pulse Ox 96 99 99 O2 Delivery Room Air Nasal Cannula Nasal Cannula O2 Flow Rate 2.0 2.0 09/30/17 09/30/17 09/30/17 09:32 09:32 09:33 Pulse 61 61 61 B/P (MAP) 159/86 159/86 159/86 Intake and Output 09/29/17 09/29/17 09/30/17 15:00 23:00 07:00 Intake Total 1500 ml 1320 ml 525 ml Output Total 1600 ml 500 ml 300 ml Balance -100 ml 820 ml 225 ml CARLTON SANTOS MD Sep 30, 2017 10:07
[2017-09-30 11:00] VITALS: BP 173/91
--- NOTE | 2017-09-30 13:47 | PDOC ---
PROGRESS NOTES Subjective Subjective up in chair still has back pain but right leg pain has improved Objective Objective Vital Signs Date Time Temp Pulse Resp B/P (MAP) Pulse Ox O2 Delivery O2 Flow Rate FiO2 09/30/17 11:00 98.2 77 18 173/91 (118) 98 Room Air 98.2 09/30/17 07:15 2.0 Intake and Output 09/30/17 07:00 Intake Total 3345 ml Output Total 2400 ml Balance 945 ml Intake Oral 3345 ml Output Urine Total 2400 ml # Voids 2 # Bowel Movements 4 Physical Exam General: Alert, Oriented X3, Cooperative MUSCULOSKELETAL: Other (GERBER) Skin: Other (Dressing C,D,I, flat) Plan Plan of Care may dc to [facility] today Comment Review of Relevant I have reviewed the following items hubert (where applicable) has been applied. Labs Laboratory Tests Test 09/29/17 10:32 White Blood Count 10.4 x10^3/uL (4.0-11.0) Red Blood Count 4.10 x10^6/uL (4.30-5.70) Hemoglobin 11.6 g/dL (13.0-17.5) Hematocrit 35.8 % (39.0-53.0) Mean Corpuscular Volume 87 fL (79-100) Mean Corpuscular Hemoglobin 28 pg (25-35) Mean Corpuscular Hemoglobin Concent 33 g/dL (31-37) Red Cell Distribution Width 16.7 % (11.5-14.5) Platelet Count 187 x10^3/uL (140-400) Neutrophils (%) (Auto) 71 % (31-73) Lymphocytes (%) (Auto) 14 % (24-48) Monocytes (%) (Auto) 12 % (0-9) Eosinophils (%) (Auto) 4 % (0-3) Basophils (%) (Auto) 0 % (0-3) Neutrophils # (Auto) 7.4 x10^3uL (1.8-7.7) Lymphocytes # (Auto) 1.4 x10^3/uL (1.0-4.8) Monocytes # (Auto) 1.2 x10^3/uL (0.0-1.1) Eosinophils # (Auto) 0.4 x10^3/uL (0.0-0.7) Basophils # (Auto) 0.0 x10^3/uL (0.0-0.2) Sodium Level 141 mmol/L (136-145) Potassium Level 3.4 mmol/L (3.5-5.1) Chloride Level 103 mmol/L (98-107) Carbon Dioxide Level 29 mmol/L (21-32) Anion Gap 9 (6-14) Blood Urea Nitrogen 21 mg/dL (8-26) Creatinine 0.8 mg/dL (0.7-1.3) Estimated GFR (Cockcroft-Gault) 98.6 Glucose Level 176 mg/dL (70-99) Calcium Level 8.3 mg/dL (8.5-10.1) Microbiology 09/27/17 Urine Culture - Final, Complete 09/27/17 Urine Culture Result 1 (PRINCE) - Final, Complete Medications Current Medications Bacitracin 45156 unit/Sodium Chloride 1,000 ml @ 1,000 mls/hr 1X PERIOP ONCE IRR Last administered on 09/26/17 12:45; Start 09/26/17 at 06:00; Stop at 06:59; Status DC Fentanyl Citrate (Fentanyl 2ml Vial) 25 mcg PRN Q5MIN PRN IV MILD PAIN; Start 09/26/17 at 07:00; Stop 09/27/17 at 06:59; Status DC Fentanyl Citrate (Fentanyl 2ml Vial) 50 mcg PRN Q5MIN PRN IV MODERATE PAIN; Start 09/26/17 at 07:00; Stop 09/26/17 at 18:00; Status DC Morphine Sulfate 1 mg PRN Q10MIN PRN IV SEVERE PAIN; Start 09/26/17 at 07:00; Stop 09/26/17 at 07:01; Status DC Ringer's Solution 1,000 ml @ 30 mls/hr Q24H IV Last administered on 07:00; Start 09/26/17 at 07:00; Stop 09/26/17 at 18:59; Status DC Lidocaine HCl (Xylocaine-Mpf 1% Vial) 2 ml PRN 1X PRN ID PRIOR TO IV START; Start 09/26/17 at 07:00; Stop 09/26/17 at 18:00; Status DC Hydromorphone HCl (Dilaudid) 0.5 mg PRN Q10MIN PRN IV SEV PAIN, Second choice; Start 09/26/17 at 07:00; Stop 09/26/17 at 18:00; Status DC Prochlorperazine Edisylate (Compazine) 5 mg PACU PRN PRN IV NAUSEA, MRX1; Start 09/26/17 at 07:00; Stop 09/26/17 at 18:00; Status DC Cefazolin Sodium 3 gm/Sodium Chloride 100 ml @ 200 mls/hr 1X PREOP PRN IV PRIOR TO PROCEDURE; Start 09/26/17 at 06:00; Stop 09/26/17 at 15:00; Status DC Gelatin (Gelfoam Size 100) 1 each STK-MED ONCE .ROUTE Last administered on 12:45; Start 09/26/17 at 06:37; Stop 09/26/17 at 06:38; Status DC Bupivacaine HCl/ Epinephrine Bitart (Sensorcain-Mpf Epi 0.5%-1:317909) 30 ml STK -MED ONCE .ROUTE Last administered on 09/26/17 12:45; Start 09/26/17 at 06: 37; Stop 09/26/17 at 06:38; Status DC Ketorolac Tromethamine (Toradol For Or Only) 60 mg STK-MED ONCE .ROUTE Last administered on 09/26/17 12:45; Start 09/26/17 at 06:37; Stop 09/26/17 at 06 :38; Status DC Thrombin 20,000 unit STK-MED ONCE TP Last administered on 09/26/17 12:45; Start 09/26/17 at 06:37; Stop 09/26/17 at 06:38; Status DC Phenylephrine HCl (Sajan-Synephrine Inj) 10 mg STK-MED ONCE .ROUTE ; Start at 09:27; Stop 09/26/17 at 09:28; Status DC Succinylcholine Chloride (Anectine) 200 mg STK-MED ONCE .ROUTE ; Start at 09:30; Stop 09/26/17 at 09:31; Status DC Rocuronium [place] (Zemuron) 50 mg STK-MED ONCE .ROUTE ; Start 09/26/17 at 09: 30; Stop 09/26/17 at 09:31; Status DC Remifentanil HCl (Ultiva) 2 mg STK-MED ONCE IV ; Start 09/26/17 at 09:30; Stop 09/26/17 at 09:31; Status DC Midazolam HCl (Versed) 2 mg STK-MED ONCE .ROUTE ; Start 09/26/17 at 09:30; Stop 09/26/17 at 09:31; Status DC Propofol 100 ml @ As Directed STK-MED ONCE IV ; Start 09/26/17 at 10:14; Stop 09/26/17 at 10:15; Status DC Desflurane (Suprane) 90 ml STK-MED ONCE IH ; Start 09/26/17 at 10:16; Stop at 10:17; Status DC Fentanyl Citrate (Fentanyl 2ml Vial) 100 mcg STK-MED ONCE .ROUTE ; Start at 10:17; Stop 09/26/17 at 10:18; Status DC Propofol 20 ml @ As Directed STK-MED ONCE IV ; Start 09/26/17 at 10:17; Stop 09/26/17 at 10:18; Status DC Lidocaine HCl (Lidocaine Pf 2% Vial) 5 ml STK-MED ONCE .ROUTE ; Start 09/26/17 at 10:17; Stop 09/26/17 at 10:18; Status DC Dexamethasone Sodium Phosphate (Decadron) 20 mg STK-MED ONCE .ROUTE ; Start at 10:17; Stop 09/26/17 at 10:18; Status DC Ondansetron HCl (Zofran) 4 mg STK-MED ONCE .ROUTE ; Start 09/26/17 at 10:17; Stop 09/26/17 at 10:18; Status DC Multi-Ingred Cream/Lotion/Oil/ Oint (Artificial Tears Eye Ointment) 7 servando STK- MED ONCE .ROUTE ; Start 09/26/17 at 10:25; Stop 09/26/17 at 10:26; Status DC Propofol 100 ml @ As Directed STK-MED ONCE IV ; Start 09/26/17 at 10:27; Stop 09/26/17 at 10:28; Status DC Glycopyrrolate (Robinul) 1 mg STK-MED ONCE .ROUTE ; Start 09/26/17 at 11:25; Stop 09/26/17 at 11:26; Status DC Neostigmine Methylsulfate 5 mg STK-MED ONCE .ROUTE ; Start 09/26/17 at 11:25; Stop 09/26/17 at 11:26; Status DC Ephedrine Sulfate (ePHEDrine PF IN SALINE SYRINGE) 50 mg STK-MED ONCE IV ; Start 09/26/17 at 11:29; Stop 09/26/17 at 11:30; Status DC Gelatin (Gelfoam Size 100) 1 each STK-MED ONCE .ROUTE ; Start 09/26/17 at 13: 07; Stop 09/26/17 at 13:08; Status DC Thrombin 20,000 unit STK-MED ONCE TP ; Start 09/26/17 at 13:07; Stop 09/26/17 at 13:08; Status DC Atropine Sulfate 0.5 mg STK-MED ONCE .ROUTE ; Start 09/26/17 at 13:08; Stop at 13:09; Status DC Remifentanil HCl (Ultiva) 2 mg STK-MED ONCE IV ; Start 09/26/17 at 13:17; Stop 09/26/17 at 13:18; Status DC Albuterol Sulfate (Ventolin Hfa) 8 puff PRN Q4HRS PRN IH SHORTNESS OF BREATH; Start 09/26/17 at 15:15; Stop 09/26/17 at 16:05; Status DC Allopurinol (Zyloprim) 100 mg DAILY PO Last administered on 09/30/17 09:32; Start 09/26/17 at 16:00 Amiodarone HCl (Cordarone) 200 mg DAILY PO Last administered on 09/30/17 09: 32; Start 09/26/17 at 16:00 Aspirin (Children'S Aspirin) 81 mg DAILY PO Last administered on 09/30/17 09: 32; Start 09/27/17 at 09:00 Atorvastatin Calcium (Lipitor) 40 mg HS PO Last administered on 09/29/17 22: 06; Start 09/26/17 at 21:00 Baclofen (Lioresal) 10 mg BID PO Last administered on 09/30/17 09:33; Start 09/26/17 at 21:00 Diphenhydramine HCl (Benadryl) 25 mg PRN Q6HRS PRN PO ITCHING; Start 09/26/17 at 15:15; Stop 09/29/17 at 14:05; Status DC Ferrous Sulfate (Feosol) 325 mg DAILYWBKFT PO Last administered on 09/30/17 09:30; Start 09/27/17 at 08:00 Furosemide (Lasix) 40 mg BID92 PO Last administered on 09/30/17 09:33; Start 09/26/17 at 16:00 Sotalol HCl (Betapace) 40 mg BID PO Last administered on 09/30/17 09:32; Start 09/26/17 at 21:00 Non-Formulary Medication 2 gm BID IV ; Start 09/26/17 at 21:00; Stop 09/26/17 at 21:00; Status DC Gabapentin (Neurontin) 600 mg TID PO Last administered on 09/30/17 09:30; Start 09/26/17 at 16:00 Lisinopril (Prinivil) 20 mg BID PO Last administered on 09/30/17 09:33; Start 09/26/17 at 21:00 Multivitamins (Thera M Plus) 1 tab DAILY PO Last administered on 09/30/17 09: 32; Start 09/26/17 at 16:00 Naproxen (Naprosyn) 375 mg BID PO Last administered on 09/30/17 09:31; Start 09/26/17 at 21:00 Fish Oil (Fish Oil) 1,000 mg DAILY PO Last administered on 09/30/17 09:30; Start 09/26/17 at 16:00 Potassium Chloride (Klor-Con) 20 meq BIDWMEALS PO Last administered on 09:30; Start 09/27/17 at 08:00 Famotidine (Pepcid) 20 mg BID PO Last administered on 09/30/17 09:32; Start 09/26/17 at 21:00 Acetaminophen/ Hydrocodone Bitart (Lortab 7.5/325) 1 tab PRN Q6HRS PRN PO MODERATE PAIN Last administered on 09/27/17 14:25; Start 09/26/17 at 15:30 Acetaminophen/ Hydrocodone Bitart (Lortab 7.5/325) 2 tab PRN Q6HRS PRN PO SEVERE PAIN Last administered on 09/30/17 09:30; Start 09/26/17 at 15:30 Fentanyl Citrate (Fentanyl 2ml Vial) 50 mcg PRN Q2HR PRN IV SEVERE PAIN; Start 09/26/17 at 15:30 Fentanyl Citrate (Fentanyl 2ml Vial) 25 mcg PRN Q2HR PRN IV MODERATE PAIN; Start 09/26/17 at 15:30 Acetaminophen (Tylenol) 650 mg PRN Q6HRS PRN PO MILD PAIN / TEMP Last administered on 09/29/17 00:34; Start 09/26/17 at 15:30 Al Hydroxide/Mg Hydroxide (Mylanta Plus Xs) 30 ml PRN Q3HRS PRN PO HEARTBURN / GAS; Start 09/26/17 at 15:30 Calcium Carbonate/ Glycine (Tums) 500 mg PRN Q3HRS PRN PO INDIGESTION; Start 09/26/17 at 15:30 Diphenhydramine HCl (Benadryl) 25 mg PRN Q6HRS PRN PO ITCHING; Start 09/26/17 at 15:30 Diphenhydramine HCl (Benadryl) 25 mg PRN Q6HRS PRN IV ITCHING; Start 09/26/17 at 15:30 Sodium Chloride (Normal Saline Flush) 3 ml QSHIFT PRN IV AFTER MEDS AND BLOOD DRAWS; Start 09/26/17 at 15:30 Potassium Chloride/Sodium Chloride 1,000 ml @ 75 mls/hr [id number] IV ; Start at 15:18; Stop 09/27/17 at 19:32; Status DC Docusate Sodium (Colace) 100 mg BID PO Last administered on 09/28/17 10:19; Start 09/26/17 at 21:00 Magnesium Hydroxide (Milk Of Magnesia) 2,400 mg PRN Q12HR PRN PO CONSTIPATION; Start 09/26/17 at 15:30; Stop 09/29/17 at 14:04; Status DC Albuterol Sulfate (Ventolin Neb Soln) 2.5 mg PRN Q4HRS PRN NEB SHORTNESS OF BREATH; Start 09/26/17 at 16:00 Cefepime HCl (Maxipime) 2 gm Q12HR IVP Last administered on 09/30/17 09:30; Start 09/26/17 at 21:00 Magnesium Hydroxide (Milk Of Magnesia) 2,400 mg PRN DAILY PRN PO CONSTIPATION; Start 09/27/17 at 12:00 Lactobacillus Rhamnosus (Culturelle) 1 cap BID PO Last administered on t 09:30; Start 09/27/17 at 21:00 Active Scripts Active Reported Proair Hfa (Albuterol Sulfate) 8.5 Gm Hfa.aer.ad 8.5 Gm IH PRN Q4-6HRS PRN Hydrocodone-Apap 5-325 (Hydrocodone Bit/Acetaminophen) 1 Each Tablet 1 Tab PO PRN Q6HRS PRN Benadryl (Diphenhydramine Hcl) 25 Mg Capsule 25 Mg PO Gabapentin 600 Mg Tablet 600 Mg PO TID Zantac (Ranitidine Hcl) 150 Mg Tablet 150 Mg PO BID Cefepime-Dextrose 2 Gm/50 Ml (Cefepime Hcl/D5w) 2 Gm/50 Ml Piggyback 2 Gm IV BID Baclofen 10 Mg Tablet 10 Mg PO BID Multiple Vitamin (Multivitamin With Minerals) 1 Each Tablet 1 Each PO DAILY [place]-3 ([place]-3 Fatty Acids) 1,000 Mg Capsule 1,000 Mg PO DAILY Feosol (Ferrous Sulfate) 325 Mg Tablet 325 Mg PO DAILY Atorvastatin Calcium 40 Mg Tablet 40 Mg PO HS Aspirin 81 Mg Tab.chew 1 Tab PO DAILY Naproxen 375 Mg Tablet 1 Tab PO BID Lisinopril-Hctz 20-12.5 Mg Tab (Lisinopril/Hydrochlorothiazide) 1 Each Tablet 1 Tab PO BID Amiodarone Hcl 100 Mg Tablet 200 Mg PO DAILY Next dose 08/30/16 AM Sotalol (Sotalol Hcl) 80 Mg Tablet 0.5 Tab PO BID Next dose 08/30/16 in the AM Allopurinol 300 Mg Tablet 100 Mg PO DAILY Not given today Potassium Chloride 20 Meq Tablet.er 20 Meq PO BID Next dose 08/30/16 Furosemide 40 Mg Tablet 1 Tab PO BID Next dose 08/29/16 at 9:00pm Vitals/I & O Vital Sign - Last 24 Hours 09/29/17 09/29/17 09/29/17 09/29/17 13:50 15:09 17:38 19:05 Temp 99.5 99.5 Pulse 57 Resp 20 B/P (MAP) 162/65 (97) Pulse Ox 95 O2 Delivery Room Air Room Air Room Air Room Air 1209/29/17 09/29/17 09/29/17 19:21 21:00 22:02 23:11 Temp 99.1 97.6 99.1 97.6 Pulse 59 59 59 59 Resp 20 20 B/P (MAP) 155/72 (99) 155/72 155/72 180/83 (115) Pulse Ox 95 96 O2 Delivery Nasal Cannula Room Air O2 Flow Rate 2.0 09/30/17 09/30/17 09/30/17 09/30/17 03:00 07:15 08:30 09:30 Temp 97.9 98.0 97.9 98.0 Pulse 62 61 Resp 18 18 B/P (MAP) 158/82 (107) 159/86 (110) Pulse Ox 99 99 O2 Delivery Nasal Cannula Nasal Cannula Room Air Room Air O2 Flow Rate 2.0 2.0 09/30/17 09/30/17 09/30/17 09/30/17 09:32 09:32 09:33 11:00 Pulse 61 61 61 B/P (MAP) 159/86 159/86 159/86 O2 Delivery Room Air 09/30/17 11:00 Temp 98.2 98.2 Pulse 77 Resp 18 B/P (MAP) 173/91 (118) Pulse Ox 98 O2 Delivery Room Air Intake and Output 09/29/17 09/29/17 09/30/17 15:00 23:00 07:00 Intake Total 1500 ml 1320 ml 525 ml Output Total 1600 ml 500 ml 300 ml Balance -100 ml 820 ml 225 ml JEM HAWTHORNE MD Sep 30, 2017 13:47
[2017-09-30 15:00] VITALS: BP 175/87
--- NOTE | 2017-10-01 00:02 | PATHOLOGY ---
PATHOLOGY REPORT * * * * * * * * FINAL DIAGNOSIS: Segments of fibrocartilaginous tissue and bone, lumbar decompression: - Degenerative changes of fibrocartilaginous tissue. COMMENT: There is no evidence of an acute inflammatory process or malignancy. (JPM:pit; 09/30/2017) REPORT ELECTRONICALLY SIGNED BY: Timur Keith M.D. DATE/TIME: 09/30/2017 14:57 * * * * * * * * GROSS PATHOLOGY: Received in formalin labeled "Romel Chen, lumbar decompression," are multiple irregular segments of simpson rubbery and gritty tissue measuring 4.5 x 2.9 x 1.6 cm in aggregate dimensions, containing small fragments of possible bone. The tissue is submitted representatively in cassette A1, following decalcification. (TSD; 09/29/2017) INITIAL CPT CODE(S): A; 24685, 08411 Professional services performed [place] [facility] [place] [address] Technical services performed by [facility] at [address] [place] [address], [place] [address]. Madhav Garcia [phone] SPECIMEN(S) RECEIVED: A.Lumbar disc CLINICAL HISTORY: Stenosis, herniated disc PATIENT: ROMEL CHEN /AGE: 110/27/1955 (Age: 61) PATIENT #: [id number] ALT CASE #: SPECIMEN COLLECTION DATE: 09/26/2017 SPECIMEN RECEIVED DATE: 09/29/2017 [facility] - [address] [place] [address] - PHONE: [phone] * * * END OF REPORT * * *
== END 2017-09-30 16:30 | disposition home or self-care (01) | DRG 516 ==
LOC: SURG 08:42 → 4 NORTH 17:10 → OBSVTOIN 09-29 10:55
PROVIDERS: ADMIT Neurological Surgery; ATTEND Neurological Surgery
PROC: 01NB0ZZ Release Lumbar Nerve, Open Approach (ICD-10-PCS; principal; 2017-09-29)
PROC: 4A11X4G Monitoring of Peripheral Nervous Electrical Activity, Intraoperative, External Approach (ICD-10-PCS; 2017-09-29)
DX: M48.061 Spinal stenosis, lumbar region without neurogenic claudication (principal); L03.116 Cellulitis of left lower limb; I48.91 Unspecified atrial fibrillation; Z68.43 Body mass index [BMI] 50.0-59.9, adult; M54.16 Radiculopathy, lumbar region; I10 Essential (primary) hypertension; I25.10 Atherosclerotic heart disease of native coronary artery without angina pectoris; M10.9 Gout, unspecified; M19.011 Primary osteoarthritis, right shoulder; M19.012 Primary osteoarthritis, left shoulder; M48.04 Spinal stenosis, thoracic region; E66.9 Obesity, unspecified
CPT/HCPCS: 36415; 73565; 76000; 80048; 82962; 85025; 87086; 88304; 88311; G0378; G0379; J0330; J0461; J0692; J1100; J1885; J2250; J2405; J2704; J2710; J3010; J3490; J7030; J7120; 97116; 97530; 97535; J2001

== ENCOUNTER → 2017-10-09 | Outpatient (CLI) | payer MEDICARE, OTHER | END | disposition home or self-care (01) | LOC: PMGWOUND 09:53 | DX: I87.312 Chronic venous hypertension (idiopathic) with ulcer of left lower extremity (principal); L97.223 Non-pressure chronic ulcer of left calf with necrosis of muscle; I48.91 Unspecified atrial fibrillation; K21.9 Gastro-esophageal reflux disease without esophagitis; M19.012 Primary osteoarthritis, left shoulder; M19.011 Primary osteoarthritis, right shoulder; E66.9 Obesity, unspecified; Z68.43 Body mass index [BMI] 50.0-59.9, adult; Z72.89 Other problems related to lifestyle | CPT/HCPCS: 97597 ==

== ENCOUNTER → 2017-10-16 | Outpatient (CLI) | payer MEDICARE, OTHER | END | disposition home or self-care (01) | LOC: PMGWOUND 11:04 | DX: I87.312 Chronic venous hypertension (idiopathic) with ulcer of left lower extremity (principal); L97.223 Non-pressure chronic ulcer of left calf with necrosis of muscle; I48.91 Unspecified atrial fibrillation; K21.9 Gastro-esophageal reflux disease without esophagitis; M19.012 Primary osteoarthritis, left shoulder; M19.011 Primary osteoarthritis, right shoulder; E66.9 Obesity, unspecified; Z68.43 Body mass index [BMI] 50.0-59.9, adult; Z72.89 Other problems related to lifestyle | CPT/HCPCS: 29581; 97597 ==

== ENCOUNTER → 2017-10-21 | Outpatient (CLI) | payer MEDICARE, OTHER | END | disposition home or self-care (01) | LOC: PMGWOUND 10:12 | DX: I87.312 Chronic venous hypertension (idiopathic) with ulcer of left lower extremity (principal); L97.223 Non-pressure chronic ulcer of left calf with necrosis of muscle; I48.91 Unspecified atrial fibrillation; K21.9 Gastro-esophageal reflux disease without esophagitis; M19.012 Primary osteoarthritis, left shoulder; M19.011 Primary osteoarthritis, right shoulder; E66.9 Obesity, unspecified; Z68.43 Body mass index [BMI] 50.0-59.9, adult; Z72.89 Other problems related to lifestyle | CPT/HCPCS: 29581 ==

== ENCOUNTER → 2017-10-24 | Outpatient (CLI) | payer MEDICARE, OTHER | END | disposition home or self-care (01) | LOC: PMGWOUND 11:54 | DX: I87.312 Chronic venous hypertension (idiopathic) with ulcer of left lower extremity (principal); L97.223 Non-pressure chronic ulcer of left calf with necrosis of muscle; I48.91 Unspecified atrial fibrillation; K21.9 Gastro-esophageal reflux disease without esophagitis; M19.012 Primary osteoarthritis, left shoulder; M19.011 Primary osteoarthritis, right shoulder; E66.9 Obesity, unspecified; Z68.43 Body mass index [BMI] 50.0-59.9, adult; Z72.89 Other problems related to lifestyle | CPT/HCPCS: 29581 ==

== ENCOUNTER → 2017-10-28 | Outpatient (CLI) | payer MEDICARE, OTHER | END | disposition home or self-care (01) | LOC: PMGWOUND 11:44 | DX: I87.312 Chronic venous hypertension (idiopathic) with ulcer of left lower extremity (principal); L97.223 Non-pressure chronic ulcer of left calf with necrosis of muscle; K21.9 Gastro-esophageal reflux disease without esophagitis; E66.9 Obesity, unspecified; I25.10 Atherosclerotic heart disease of native coronary artery without angina pectoris; M19.012 Primary osteoarthritis, left shoulder; M19.011 Primary osteoarthritis, right shoulder; I48.91 Unspecified atrial fibrillation; Z72.89 Other problems related to lifestyle; Z68.43 Body mass index [BMI] 50.0-59.9, adult | CPT/HCPCS: 99214 ==